=== PATIENT | female | born 2000 | race Hispanic/Latino ===

== ENCOUNTER 2018-02-12 09:27 | Emergency (ER) | payer OTHER ==
[2018-02-12 10:22] LABS: Urine Blood TRACE (NEG); Urine Glucose NEGATIVE (NEG); Urine Protein NEGATIVE (NEG); Urine Specific Gravity 1.025 (1.005-1.030)
--- NOTE | 2018-02-12 10:48 | ER ---
Nurse's Notes [facility] Name: Carlita Atkinson Age: 17 yrs Sex: Female : 2000 Arrival Date: 02/12/2018 Time: 09:31 Bed 18 Private MD: None, None Diagnosis: Urinary tract infection, site not specified Presentation: 02/12 09:43 Presenting complaint: Patient states: has had pain with urination X 2 days, denies n/v iw or fever. Transition of care: patient was not received from another setting of care. Onset of symptoms was February 10, 2018. Risk Assessment: Do you want to hurt yourself or someone else? Patient reports no desire to harm self or others. Initial Sepsis Screen: Does the patient meet any 2 criteria? No. Patient's initial sepsis screen is negative. Does the patient have a suspected source of infection? No. Patient's initial sepsis screen is negative. Care prior to arrival: None. 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 - Social history:: Smoking status: Patient/guardian denies using tobacco. - Ebola Screening: : Patient negative for fever greater than or equal to 101.5 degrees Fahrenheit, and additional compatible Ebola Virus Disease symptoms Patient denies exposure to infectious person Patient denies travel to an Ebola-affected area in the 21 days before illness onset No symptoms or risks identified at this time. - Family history:: not pertinent. - Hospitalizations: : No recent hospitalization is reported. Screenin:45 Abuse screen: Denies threats or abuse. Denies injuries from another. Nutritional hb screening: No deficits noted. Tuberculosis screening: No symptoms or risk factors identified. Fall Risk None identified. Assessment: 09:40 General: Appears in no apparent distress. Behavior is calm, cooperative. Pain: Pain hb currently is 3 out of 10 on a pain scale. Neuro: Level of Consciousness is awake, alert, obeys commands, Oriented to person, place, time, situation. Cardiovascular: Capillary refill < 3 seconds Patient's skin is warm and dry. Respiratory: Airway is patent Trachea midline Respiratory effort is even, unlabored, Respiratory pattern is regular, symmetrical. : Reports pain in suprapubic area with urination. 10:30 Reassessment: Patient appears in no apparent distress at this time. No changes from hb previously documented assessment. Patient and/or family updated on plan of care and expected duration. Pain level reassessed. Patient is alert, oriented x 3, equal unlabored respirations, skin warm/dry/pink. Vital Signs: 10:46 BP 113 / 61; Pulse 59; Resp 16; Temp 98.2(O); Pulse Ox 98% on R/A; hb ED Course: 09:31 Patient arrived in ED. mr 09:31 None, None is Private Physician. mr 09:43 Chata Barrientos, RN is Primary Nurse. hb 09:45 Triage completed. iw 09:45 Patient has correct armband on for positive identification. Bed in low position. Call hb light in reach. Side rails up X 1. 09:45 Arm band placed on right wrist. hb 09:50 [facility] kav 09:50 Blayne Cottrell MD is Attending Physician. kav 11:08 No provider procedures requiring assistance completed. Patient did not have IV access hb during this emergency room visit. Administered Medications: No medications were administered Outcome: 10:48 Discharge ordered by . kav 11:08 Discharged to home ambulatory. hb 11:08 Condition: stable 11:08 Discharge instructions given to patient, Instructed on discharge instructions, follow up and referral plans. medication usage, Demonstrated understanding of instructions, follow-up care, medications, Prescriptions given X 1. 11:09 Patient left the ED. hb Signatures: Sabrina Chang FNP FNP kav Rivera, Maria mr Williams, Irene, RN RN Chata Barrientos RN RN hb
--- NOTE | 2018-02-12 10:48 | EDPHYS ---
Physician Documentation [facility] Name: Carlita Atkinson Age: 17 yrs Sex: Female : 2000 Arrival Date: 02/12/2018 Time: 09:31 Bed 18 Private MD: None, None ED Physician Blayne Cottrell HPI: 02/12 10:44 This 17 yrs old Female presents to ER via Ambulatory with complaints of kav Urinary Problem. 10:44 Onset: The symptoms/episode began/occurred acutely, 1 day(s) ago. Associated signs and kav symptoms: Pertinent positives: dysuria, Pertinent negatives: abdominal pain, fever. Modifying factors: The patient symptoms are alleviated by "...Cranberry Juice". The patient has experienced a previous episode, approximately 1 years ago. 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 - Social history:: Smoking status: Patient/guardian denies using tobacco. - Ebola Screening: : Patient negative for fever greater than or equal to 101.5 degrees Fahrenheit, and additional compatible Ebola Virus Disease symptoms Patient denies exposure to infectious person Patient denies travel to an Ebola-affected area in the 21 days before illness onset No symptoms or risks identified at this time. - Family history:: not pertinent. - Hospitalizations: : No recent hospitalization is reported. ROS: 10:44 Constitutional: Negative for fever, chills, and weight loss, Eyes: Negative for injury, kav pain, redness, and discharge, ENT: Negative for injury, pain, and discharge, Neck: Negative for injury, pain, and swelling, Cardiovascular: Negative for chest pain, palpitations, and edema, Respiratory: Negative for shortness of breath, cough, wheezing, and pleuritic chest pain, Abdomen/GI: Negative for abdominal pain, nausea, vomiting, diarrhea, and constipation, Back: Negative for injury and pain, MS/Extremity: Negative for injury and deformity, Skin: Negative for injury, rash, and discoloration, Neuro: Negative for headache, weakness, numbness, tingling, and seizure, Psych: Negative for depression, anxiety, suicide ideation, homicidal ideation, and hallucinations, Allergy/Immunology: Negative for hives, rash, and allergies, Endocrine: Negative for neck swelling, polydipsia, polyuria, polyphagia, and marked weight changes, Hematologic/Lymphatic: Negative for swollen nodes, abnormal bleeding, and unusual bruising. 10:44 : Positive for urinary symptoms, urinary frequency, burning with urination, Negative for pelvic pain, bladder incontinence. Exam: 10:44 Constitutional: This is a well developed, well nourished patient who is awake, alert, kav and in no acute distress. Head/Face: Normocephalic, atraumatic. Eyes: Pupils equal round and reactive to light, extra-ocular motions intact. Lids and lashes normal. Conjunctiva and sclera are non-icteric and not injected. Cornea within normal limits. Periorbital areas with no swelling, redness, or edema. ENT: Nares patent. No nasal discharge, no septal abnormalities noted. Tympanic membranes are normal and external auditory canals are clear. Oropharynx with no redness, swelling, or masses, exudates, or evidence of obstruction, uvula midline. Mucous membranes moist. Neck: Trachea midline, no thyromegaly or masses palpated, and no cervical lymphadenopathy. Supple, full range of motion without nuchal rigidity, or vertebral point tenderness. No Meningismus. Chest/axilla: Normal chest wall appearance and motion. Nontender with no deformity. No lesions are appreciated. Cardiovascular: Regular rate and rhythm with a normal S1 and S2. No gallops, murmurs, or rubs. Normal PMI, no JVD. No pulse deficits. Respiratory: Lungs have equal breath sounds bilaterally, clear to auscultation and percussion. No rales, rhonchi or wheezes noted. No increased work of breathing, no retractions or nasal flaring. Abdomen/GI: Soft, non-tender, with normal bowel sounds. No distension or tympany. No guarding or rebound. No evidence of tenderness throughout. Back: No spinal tenderness. No costovertebral tenderness. Full range of motion. Skin: Warm, dry with normal turgor. Normal color with no rashes, no lesions, and no evidence of cellulitis. MS/ Extremity: Pulses equal, no cyanosis. Neurovascular intact. Full, normal range of motion. Neuro: Awake and alert, GCS 15, oriented to person, place, time, and situation. Cranial nerves II-XII grossly intact. Motor strength 5/5 in all extremities. Sensory grossly intact. Cerebellar exam normal. Normal gait. Psych: Awake, alert, with orientation to person, place and time. Behavior, mood, and affect are within normal limits. 10:44 : CVA tenderness, is absent, Bladder: is normal, Sexual behavior: the patient is sexually active, and reports a single partner. Vital Signs: 10:46 BP 113 / 61; Pulse 59; Resp 16; Temp 98.2(O); Pulse Ox 98% on R/A; hb MDM: 09:50 Medical screening is not applicable. ka 10:44 Data reviewed: vital signs, nurses notes, lab test result(s), urinalysis. kav 10:47 Data reviewed: lab test result(s), urinalysis, bacteruria, hematuria. [facility] 02/12 09:59 Order name: Urine Dipstick--Ancillary (enter results); Complete Time: 10:47 ag 02/12 10:47 Interpretation: Normal except: UBLD TRACE; UESTR TRACE. [facility] 02/12 09:59 Order name: Urine --Ancillary (enter results); Complete Time: 10:47 ag 02/12 10:47 Interpretation: Within normal limits. [facility] 02/12 09:51 Order name: Urine Dipstick-Ancillary (obtain specimen); Complete Time: 09:54 kav 02/12 09:51 Order name: Urine Test (obtain specimen); Complete Time: 09:55 kav Administered Medications: No medications were administered Disposition: 11:46 Co-signature as Attending Physician, Blayne Cottrell MD I agree with the assessment and kdr plan of care. Disposition: 02/12/18 10:48 Discharged to Home. Impression: Urinary tract infection, site not specified. - Condition is Stable. - Discharge Instructions: Urinary Tract Infection, [id number], Antibiotic Use, [id number]-[id number]. - Prescriptions for Bactrim DS 800- 160 mg Oral Tablet - take 1 tablet by ORAL route every 12 hours for 10 days; 20 tablet. - Medication Reconciliation Form, Thank You Letter, Antibiotic Education, Prescription Opioid Use, Work release form form. - Follow up: Private Physician; When: 5 - 6 days; Reason: If symptoms return, Recheck today's complaints, Continuance of care, Re-evaluation by your physician. - Problem is new. - Symptoms are unchanged. - Notes: ensure adequate hydration and good hand hygeine post-coital urination recomended Signatures: Dispatcher [employer] EDMS Blayne Cottrell MD MD kdr Vern, Katherine, SOCIAL WORKER AIDE SOCIAL WORKER AIDE Arti Hernandez RN RN Chata Barrientos RN RN hb Corrections: (The following items were deleted from the chart) 11:09 10:48 02/12/2018 10:48 Discharged to Home. Impression: Urinary tract infection, site hb not specified. Condition is Stable. Forms are Medication Reconciliation Form, Thank You Letter, Antibiotic Education, Prescription Opioid Use. Follow up: Private Physician; When: 5 - 6 days; Reason: If symptoms return, Recheck today's complaints, Continuance of care, Re-evaluation by your physician. Problem is new. Symptoms are unchanged. kahua
== END 2018-02-12 11:09 | disposition home or self-care (01) ==
LOC: ER 09:27
DX: N39.0 Urinary tract infection, site not specified (principal)
CPT/HCPCS: 81003; 81025; 99282

== ENCOUNTER 2018-02-14 21:43 | Emergency (ER) | payer OTHER ==
--- NOTE | 2018-02-14 23:38 | EDPHYS ---
Physician Documentation [facility] Name: Carlita Atkinson Age: 17 yrs Sex: Female : 2000 Arrival Date: 02/14/2018 Time: 21:44 Bed 4 Private MD: ED Physician Chau Al HPI: 02/14 22:40 This 17 yrs old Female presents to ER via Ambulatory with complaints of Rash. rh1 22:40 The patient's rash thought to be caused by an unknown cause. The rash is located on the rh1 left rodriguez. The rash can be described as erythematous, patchy. Onset: The symptoms/episode began/occurred today. Associated signs and symptoms: Pertinent positives: itching, Pertinent negatives: difficulty breathing, fever, nausea, Pain swelling of lips, swelling of throat, swelling of tongue, vomiting, wheezing. Severity of symptoms: At their worst the symptoms were mild in the emergency department the symptoms are unchanged. The patient has not experienced similar symptoms in the past. The patient has not recently seen a physician. She reports abraised area at left lower leg present for the past 3 days, and is unsure of what caused it. She has been putting abx ointment on area for the past several days. Today she noticed a rash surrounding abrasion, with itching and tenderness. She denies any fever/chills, no other areas of rash noted.. 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 - Social history:: Smoking status: Patient/guardian denies using tobacco. - Ebola Screening: : Patient denies travel to an Ebola-affected area in the 21 days before illness onset. ROS: 22:40 Constitutional: Negative for fever rh1 22:40 Skin: Positive for abrasion(s), cellulitis, erythema, Negative for abscesses. 22:40 Neuro: Negative for numbness, tingling. 22:40 All other systems are negative. Exam: 22:40 Constitutional: This is a well developed, well nourished patient who is awake, alert, rh1 and in no acute distress. Head/Face: Normocephalic, atraumatic. Cardiovascular: Regular rate and rhythm with a normal S1 and S2. No gallops, murmurs, or rubs. No JVD. No pulse deficits. Respiratory: Lungs have equal breath sounds bilaterally, clear to auscultation. No rales, rhonchi or wheezes noted. No increased work of breathing. Abdomen/GI: Soft, non-tender, with normal bowel sounds. No distension. No guarding or rebound. No evidence of tenderness throughout. Back: No spinal tenderness. No costovertebral tenderness. Full range of motion. MS/ Extremity: Pulses equal, no cyanosis. Neurovascular intact. Full, normal range of motion. 22:40 Skin: cellulitis, that is minimal, that is mild, folliculitis surrounding abaised area, induration, that is mild is noted, Other at abraised area, injury, abrasion(s), small abrasion noted, 1.5 cm(s). 22:40 Neuro: Orientation: is normal, to person, place \T\ time. Mentation: is normal, lucid, able to follow commands, Motor: is normal, moves all fours, strength is 5/5 in all extremities, Sensation: is normal, no obvious gross deficits, numbness, is not appreciated, tingling, is not appreciated, Gait: is steady, at a normal pace, without difficulty. Vital Signs: 22:04 BP 127 / 94; Pulse 91; Resp 18; Temp 98.1; Pulse Ox 98% on R/A; Weight 81.65 kg; Height aj1 5 ft. 4 in. (162.56 cm) (R); Pain 0/10; 23:55 BP 122 / 84; Pulse 89; Resp 16 S; Pulse Ox 98% on R/A; bb 22:04 Body Mass Index 30.90 (81.65 kg, 162.56 cm) aj1 MDM: 22:40 Patient medically screened. henrique 23:36 ED course: she is currently taking bactrim for a UTI - we discussed that is the rh1 appropriate abx for skin infection, so to continue that, as well as using antibiotic ointment at home; she will establish care with a PCP for follow up. 02/15 02:44 Data reviewed: vital signs, nurses notes, and as a result, I will discharge patient. rh1 Data interpreted: Pulse oximetry: on room air is 98 %. Interpretation: normal. Counseling: I had a detailed discussion with the patient and/or guardian regarding: the historical points, exam findings, and any diagnostic results supporting the discharge/admit diagnosis, the need for outpatient follow up, a family practitioner, to return to the emergency department if symptoms worsen or persist or if there are any questions or concerns that arise at home. Administered Medications: No medications were administered Disposition: 02/14/18 23:38 Discharged to Home. Impression: Cellulitis of left lower limb. - Condition is Stable. - Discharge Instructions: Cellulitis. - Work release form, Medication Reconciliation Form, Thank You Letter, Antibiotic Education, Prescription Opioid Use form. - Follow up: Private Physician; When: 1 - 2 days; Reason: Recheck today's complaints, Continuance of care, Re-evaluation by your physician. Follow up: Emergency Department; When: As needed; Reason: Fever > 102 F, If symptoms return, Trouble breathing, Worsening of condition. - Problem is new. - Symptoms are unchanged. Addendum: 02/16/2018 08:45 Co-signature as Attending Physician, Chau Al MD I agree with the assessment and c grier plan of care. Signatures: Iraida Mayen RN RN aj1 Chau Al MD MD cha Ballard, Brenda, RN RN bb Cecile Islas, SHAKIR PROFESSIONAL BENEFITS SALES CONSULTANT rh1 Corrections: (The following items were deleted from the chart) 02/14 23:56 23:38 02/14/2018 23:38 Discharged to Home. Impression: Cellulitis of left lower limb. bb Condition is Stable. Forms are Medication Reconciliation Form, Thank You Letter, Antibiotic Education, Prescription Opioid Use. Follow up: Private Physician; When: 1 - 2 days; Reason: Recheck today's complaints, Continuance of care, Re-evaluation by your physician. Follow up: Emergency Department; When: As needed; Reason: Fever > 102 F, If symptoms return, Trouble breathing, Worsening of condition. Problem is new. Symptoms are unchanged. rh1
--- NOTE | 2018-02-14 23:38 | ER ---
Nurse's Notes [facility] Name: Carlita Atkinson Age: 17 yrs Sex: Female : 2000 Arrival Date: 02/14/2018 Time: 21:44 Bed 4 Private MD: Diagnosis: Cellulitis of left lower limb Presentation: 02/14 22:01 Presenting complaint: Patient states: "I have this red spot on my leg I don't know what aj1 it is, but it keeps spreading." Redness noted to left rodriguez. Denies fever. Transition of care: patient was not received from another setting of care. Onset of symptoms was February 10, 2018. Risk Assessment: Do you want to hurt yourself or someone else? Patient reports no desire to harm self or others. Initial Sepsis Screen: Does the patient meet any 2 criteria? No. Patient's initial sepsis screen is negative. Does the patient have a suspected source of infection? No. Patient's initial sepsis screen is negative. Care prior to arrival: None. 22:01 Method Of Arrival: Ambulatory aj1 22:01 Acuity: YOU 4 aj1 Triage Assessment: 22:04 General: Appears in no apparent distress. comfortable, Behavior is calm, cooperative, aj1 appropriate for age. Pain: Denies pain. 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 - Social history:: Smoking status: Patient/guardian denies using tobacco. - Ebola Screening: : Patient denies travel to an Ebola-affected area in the 21 days before illness onset. Screenin:32 Abuse screen: Denies threats or abuse. Nutritional screening: No deficits noted. bb Tuberculosis screening: No symptoms or risk factors identified. Fall Risk None identified. Assessment: 22:32 General: Appears in no apparent distress. Behavior is calm, cooperative. Pain: bb Complains of pain in left leg. Neuro: Level of Consciousness is awake, alert, obeys commands, Oriented to person, place, time, situation. Cardiovascular: No deficits noted. Respiratory: Respiratory effort is even, unlabored. GI: No signs and/or symptoms were reported involving the gastrointestinal system. Derm: Wound noted left rodriguez Wound is abrasion with surrounding erythema. Musculoskeletal: Circulation, motion, and sensation intact. 23:55 Reassessment: Patient and/or family updated on plan of care and expected duration. Pain bb level reassessed. Patient is alert, oriented x 3, equal unlabored respirations, skin warm/dry/pink. pt verbalized understanding of and agrees to plan of care discharge instructions given pt ambulated with steady gait to exit. Vital Signs: 22:04 BP 127 / 94; Pulse 91; Resp 18; Temp 98.1; Pulse Ox 98% on R/A; Weight 81.65 kg; Height aj1 5 ft. 4 in. (162.56 cm) (R); Pain 0/10; 23:55 BP 122 / 84; Pulse 89; Resp 16 S; Pulse Ox 98% on R/A; bb 22:04 Body Mass Index 30.90 (81.65 kg, 162.56 cm) aj ED Course: 21:44 Patient arrived in ED. es 22:03 Triage completed. aj1 22:04 Arm band placed on Patient placed in waiting room, Patient notified of wait time. aj1 22:19 Cecile Islas NP is PHCP. rh1 22:19 Chau Al MD is Attending Physician. rh1 22:32 Patient has correct armband on for positive identification. Call light in reach. Adult bb w/ patient. 23:56 No provider procedures requiring assistance completed. Patient did not have IV access bb during this emergency room visit. Administered Medications: No medications were administered Outcome: 23:38 Discharge ordered by . rh1 23:56 Discharged to home ambulatory. bb 23:56 Condition: stable 23:56 Discharge instructions given to patient, Instructed on discharge instructions, follow up and referral plans. Demonstrated understanding of instructions, follow-up care. 23:56 Patient left the ED. bb Signatures: Iraida Mayen RN RN aj1 Leola Vega Brenda, RN RN bb Cecile Islas, SHAKIR LASERIST [facility]
== END 2018-02-14 23:56 | disposition home or self-care (01) ==
LOC: ER 21:43
DX: L03.116 Cellulitis of left lower limb (principal)
CPT/HCPCS: 99281

== ENCOUNTER 2018-03-01 20:40 | Emergency (ER) | payer OTHER ==
[2018-03-01] MEDS ORDERED: NA CHLORIDE 0.9% 1,000 ML ONE (21:13)
[2018-03-01 21:38] LABS: Urine Blood NEGATIVE (NEG); Urine Glucose NEGATIVE (NEG); Urine Protein NEGATIVE (NEG); Urine Specific Gravity 1.025 (1.005-1.030); Urine pH 7.5 (5.0-7.0)
[2018-03-01 21:50] LABS: Urine Amorphous Sediment 4+ /HPF (NONE SEEN); Urine Bacteria <20 /HPF (<20); Urine Culture Reflex Order NOT NEEDED; Urine RBC NONE SEEN /HPF (NONE SEEN)
[2018-03-01] MEDS ORDERED: KETOROLAC 30 MG/ML INJ ONE (22:11)
[2018-03-01 22:17] LABS: Absolute Monocytes 0.5 K/uL (0.1-1.3); Absolute Neutrophil 8.3 K/uL (1.8-8.0); Basophils % 0.5 % (0-1.3); Eosinophils % 0.4 % (0-4.4); Hematocrit 37.2 % (36.0-45.0); Lymphocytes % 10.1 % (15.3-44.8); MCV 87.9 fL (80-100); MPV 8.1 fL (7.6-11.3); Monocytes % 4.6 % (3.3-12.3); RBC Red Blood Cell Count 4.24 M/uL (3.86-4.86)
[2018-03-01 22:35] LABS: ALT/SGPT 20 U/L (12-78); AST/SGOT 13 U/L (15-37); Albumin 3.8 g/dL (3.4-5.0); Alkaline Phosphatase 78 U/L (45-117); BUN Blood Urea Nitrogen 16 mg/dL (7-18); Bicarbonate 25 mmol/L (21-32); Bilirubin Direct < 0.1 mg/dL (0-0.2); Bilirubin Total 0.3 mg/dL (0.2-1.0); Glucose Level 114 mg/dL (74-106); Lipase 95 U/L (73-393); Potassium 3.6 mmol/L (3.5-5.1); Protein, Total 7.5 g/dL (6.4-8.2); Sodium Level 142 mmol/L (136-145)
--- NOTE | 2018-03-02 00:54 | EDPHYS ---
Physician Documentation [facility] Name: Carlita Atkinson Age: 17 yrs Sex: Female : 2000 Arrival Date: 03/01/2018 Time: 20:41 Bed 18 Private MD: ED Physician Blayne Cottrell HPI: 03/01 21:27 This 17 yrs old Female presents to ER via Ambulatory with complaints of pm1 Abdominal Pain. 21:27 The patient presents with abdominal pain in the lower abdomen. Onset: The pm1 symptoms/episode began/occurred 1 hour prior to arrival. The symptoms do not radiate. Associated signs and symptoms: Pertinent negatives: nausea, vomiting, and diarrhea, chest pain, dysuria, fever, shortness of breath. The symptoms are described as sharp. Modifying factors: The symptoms are alleviated by nothing, the symptoms are aggravated by nothing. Severity of pain: in the emergency department the pain has improved currently 5/10, at peak 8-9/10. The patient has not experienced similar symptoms in the past, history of ruptured ovarian cyst but symptoms were more severe. The patient has not recently seen a physician. 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 - Social history:: Smoking status: Patient/guardian denies using tobacco. - Ebola Screening: : Patient negative for fever greater than or equal to 101.5 degrees Fahrenheit, and additional compatible Ebola Virus Disease symptoms Patient denies exposure to infectious person. ROS: 22:30 Constitutional: Negative for fever, chills, and weight loss, Eyes: Negative for injury, pm1 pain, redness, and discharge, ENT: Negative for injury, pain, and discharge, Neck: Negative for injury, pain, and swelling, Cardiovascular: Negative for chest pain, palpitations, and edema, Respiratory: Negative for shortness of breath, cough, wheezing, and pleuritic chest pain. 22:30 Back: Negative for injury and pain, : Negative for injury, bleeding, discharge, and swelling, MS/Extremity: Negative for injury and deformity, Skin: Negative for injury, rash, and discoloration, Neuro: Negative for headache, weakness, numbness, tingling, and seizure. 22:30 Abdomen/GI: Positive for abdominal pain, of the right lower quadrant and left lower quadrant, Negative for nausea, vomiting, and diarrhea. Exam: 22:30 Constitutional: This is a well developed, well nourished patient who is awake, alert, pm1 and in no acute distress. Head/Face: Normocephalic, atraumatic. Neck: Trachea midline, no thyromegaly or masses palpated, and no cervical lymphadenopathy. Supple, full range of motion without nuchal rigidity, or vertebral point tenderness. No Meningismus. Chest/axilla: Normal chest wall appearance and motion. Nontender with no deformity. No lesions are appreciated. Cardiovascular: Regular rate and rhythm with a normal S1 and S2. No gallops, murmurs, or rubs. Normal PMI, no JVD. No pulse deficits. Respiratory: Lungs have equal breath sounds bilaterally, clear to auscultation and percussion. No rales, rhonchi or wheezes noted. No increased work of breathing, no retractions or nasal flaring. 22:30 Back: No spinal tenderness. No costovertebral tenderness. Full range of motion. Skin: Warm, dry with normal turgor. Normal color with no rashes, no lesions, and no evidence of cellulitis. MS/ Extremity: Pulses equal, no cyanosis. Neurovascular intact. Full, normal range of motion. 22:30 Abdomen/GI: Inspection: abdomen appears normal, Bowel sounds: normal, Palpation: soft, mild abdominal tenderness, in the left lower quadrant, mass, is not appreciated, rebound tenderness, is not appreciated. 22:30 Neuro: Orientation: is normal, Motor: is normal, moves all fours. Vital Signs: 20:58 BP 126 / 79; Pulse 86; Resp 16; Temp 98.0(O); Pulse Ox 99% on R/A; Weight 81.65 kg (M); bs1 Height 5 ft. 4 in. (162.56 cm); Pain 8/10; 21:58 BP 131 / 87; Pulse 81; Resp 16; Pulse Ox 99% on R/A; Pain 7/10; bs1 22:58 BP 128 / 88; Pulse 80; Resp 16; Pulse Ox 100% on R/A; bs1 23:58 BP 124 / 76; Pulse 79; Resp 17; Pulse Ox 99% on R/A; bs1 03/02 00:58 BP 126 / 78; Pulse 80; Resp 16; Temp 98.3(O); Pulse Ox 100% on R/A; Pain 5/10; bs1 03/01 20:58 Body Mass Index 30.90 (81.65 kg, 162.56 cm) bs1 Procedures: 03/01 21:45 Peripheral line: by aseptic technique a peripheral line was placed in the right pm1 antecubital vein, 22 gauge IV saline lock. Labs drawn and NS flush without resistance or pain. Placed with ultrasound guidance. MDM: 21:06 Patient medically screened. pm1 22:00 Differential diagnosis: appendicitis, Ectopic , Endometriosis, Ovarian cp Torsion, Peritonitis, Pelvic Inflammatory Disease, Pyelonephritis, Tubal Ovarian Abcess, urinary tract infection. 22:31 Data reviewed: vital signs. Data interpreted: Pulse oximetry: on room air is 99 %. pm1 Interpretation: normal. 03/02 00:17 ED course: Reevaluation: patient sitting in exam room legs crossed in no acute cp distress. Lower abdomen with mild tenderness to palpation on exam, no rebound tenderness noted.. 00:49 ED course: The patient does not appear to be uncomfortable at this time though she kdr rates her pain at a 7. Have attempted to call Dr. Mao at 1245 and left a message. Will have her follow-up in the next 48 hours or return if her s/s worsen. 03/01 21:03 Order name: Urine --Ancillary (enter results); Complete Time: 22:04 ms 03/02 00:02 Interpretation: Reviewed. 03/01 21:03 Order name: Urine Dipstick--Ancillary (enter results); Complete Time: 22:04 ms 03/02 00:01 Interpretation: Normal except: UPH 7.5. 03/01 21:07 Order name: Basic Metabolic Panel; Complete Time: 00:00 pm1 03/02 00:01 Interpretation: Normal except: GLUC 114. 03/01 21:07 Order name: CBC with Diff; Complete Time: 00:00 pm1 03/02 00:01 Interpretation: Normal except: MCV 87.9; MCH 30.0; BERT% 84.4; LYM% 10.1; NEUT A 8.3. 03/01 21:07 Order name: Hepatic Function; Complete Time: 00:00 pm1 03/02 00:01 Interpretation: Normal except: AST 13; GLOB 3.7; A/G 1.0. 03/01 21:07 Order name: Lipase; Complete Time: 00:00 pm1 03/01 21:07 Order name: Urine Microscopic Only; Complete Time: 22:04 pm1 03/02 00:01 Interpretation: Normal except: AMORPH 4+. cp 03/01 21:07 Order name: IV Saline Lock; Complete Time: 22:39 pm1 03/01 21:07 Order name: Labs collected and sent; Complete Time: 22:39 pm1 03/01 21:07 Order name: CT Abd/Pelvis - W/Contrast: IV contrast only; Complete Time: 15:19 pm1 Administered Medications: 03/01 22:10 Drug: NS 0.9% 1000 ml Route: IV; Rate: 1000 ml; Site: right antecubital; 1 03/02 01:06 Follow up: IV Status: Completed infusion bs1 03/01 22:10 Drug: TORadol 30 mg Route: IVP; Site: right antecubital; 1 03/02 01:06 Follow up: Response: No adverse reaction bs1 00:54 Drug: [place] 5 mg-325 mg 1 tabs Route: PO; bs1 01:06 Follow up: Response: No adverse reaction bs1 Disposition: 00:49 Co-signature as Attending Physician, Blayne Cottrell MD I agree with the assessment and kdr plan of care. Disposition: 03/02/18 00:54 Discharged to Home. Impression: Rupture ovarian cyst, abdominal/pelvic pain. - Condition is Stable. - Discharge Instructions: Abdominal Pain, Women, Abdominal Pain, Adult, [id number], Ovarian Cyst, [id number]. - Prescriptions for Tylenol- Codeine #3 300-30 mg Oral Tablet - take 2 tablets by ORAL route every 6 hours As needed Take one - two tablets every four to six hours as needed for pain.; 15 tablet. Zofran 4 mg Oral Tablet - take 1 tablet by ORAL route every 4-6 hours As needed; 10 tablet. - Medication Reconciliation Form, Thank You Letter, Prescription Opioid Use form. - Follow up: Private Physician; When: 48 Hours; Reason: If symptoms return, Further diagnostic work-up, Recheck today's complaints, Continuance of care, Re-evaluation by your physician. Follow up: Dahlia Morocho MD; When: 48 Hours; Reason: If symptoms return, Further diagnostic work-up, Recheck today's complaints, Continuance of care, Re-evaluation by your physician. - Problem is new. - Symptoms have improved. Signatures: Dispatcher [employer] [facility] Blayne Cottrell MD MD kdr Chau Carrillo PA PA cp Russell Edouard, CANVAS CUTTER MACHINE CANVAS CUTTER MACHINE pm1 Saundra Castillo RN RN bs1 Corrections: (The following items were deleted from the chart) 03/01 22:15 21:08 Creatinine for Radiology+C.LAB.BRZ ordered. [facility] 03/02 01:08 00:54 03/02/2018 00:54 Discharged to Home. Impression: Rupture ovarian cyst, bs1 abdominal/pelvic pain. Condition is Stable. Forms are Medication Reconciliation Form, Thank You Letter, Antibiotic Education, Prescription Opioid Use. Follow up: Private Physician; When: 48 Hours; Reason: If symptoms return, Further diagnostic work-up, Recheck today's complaints, Continuance of care, Re-evaluation by your physician. Follow up: Dahlia Morocho; When: 48 Hours; Reason: If symptoms return, Further diagnostic work-up, Recheck today's complaints, Continuance of care, Re-evaluation by your physician. Problem is new. Symptoms have improved. kdr
--- NOTE | 2018-03-02 00:54 | ER ---
Nurse's Notes [facility] Name: Carlita Atkinson Age: 17 yrs Sex: Female : 2000 Arrival Date: 03/01/2018 Time: 20:41 Bed 18 Private MD: Diagnosis: Rupture ovarian cyst, abdominal/pelvic pain Presentation: 03/01 20:56 Presenting complaint: Patient states: "I started having really bad pains in my lower bs1 stomach about an hour ago."Patient denies and diarrhea/nausea/vomiting. Transition of care: patient was not received from another setting of care. Onset of symptoms was March 01, 2018 at 19:30. Risk Assessment: Do you want to hurt yourself or someone else? Patient reports no desire to harm self or others. Initial Sepsis Screen: Does the patient meet any 2 criteria? No. Patient's initial sepsis screen is negative. Does the patient have a suspected source of infection? No. Patient's initial sepsis screen is negative. Care prior to arrival: None. 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 - Social history:: Smoking status: Patient/guardian denies using tobacco. - Ebola Screening: : Patient negative for fever greater than or equal to 101.5 degrees Fahrenheit, and additional compatible Ebola Virus Disease symptoms Patient denies exposure to infectious person. Screenin/16 01:04 Abuse screen: Denies threats or abuse. Denies injuries from another. Nutritional bs1 screening: No deficits noted. Tuberculosis screening: No symptoms or risk factors identified. Fall Risk None identified. Assessment: 03/01 21:00 General: Appears in no apparent distress. uncomfortable, Behavior is calm, cooperative, bs1 appropriate for age. Pain: Complains of pain in bilateral lower abdominal pain. Neuro: Level of Consciousness is awake, alert, obeys commands, Oriented to person, place, time, situation, Appropriate for age Mine Technician are equal bilaterally. Cardiovascular: Denies chest pain, shortness of breath, Heart tones S1 S2 present Capillary refill < 3 seconds Patient's skin is warm and dry. Respiratory: Airway is patent Trachea midline Respiratory effort is even, unlabored, Respiratory pattern is regular, symmetrical, Breath sounds are clear bilaterally. GI: Abdomen is round non-distended, Bowel sounds present X 4 quads. Abdomen is tender to palpation in right lower quadrant and left lower quadrant. EENT: No signs and/or symptoms were reported regarding the EENT system. Derm: Skin is intact. Musculoskeletal: Circulation, motion, and sensation intact. Capillary refill < 3 seconds, Range of motion: intact in all extremities. 21:00 : Reports burning with urination. bs1 22:00 Reassessment: Patient appears in no apparent distress at this time. No changes from bs1 previously documented assessment. Patient and/or family updated on plan of care and expected duration. Pain level reassessed. Patient is alert, oriented x 3, equal unlabored respirations, skin warm/dry/pink. Pending CT. 23:30 Reassessment: Patient appears in no apparent distress at this time. Patient and/or bs1 family updated on plan of care and expected duration. Pain level reassessed. Patient is alert, oriented x 3, equal unlabored respirations, skin warm/dry/pink. Pending CT results. 03/02 00:45 Reassessment: Patient appears in no apparent distress at this time. Patient and/or bs1 family updated on plan of care and expected duration. Pain level reassessed. Patient is alert, oriented x 3, equal unlabored respirations, skin warm/dry/pink. Patient states symptoms have improved. Vital Signs: 03/01 20:58 BP 126 / 79; Pulse 86; Resp 16; Temp 98.0(O); Pulse Ox 99% on R/A; Weight 81.65 kg (M); bs1 Height 5 ft. 4 in. (162.56 cm); Pain 8/10; 21:58 BP 131 / 87; Pulse 81; Resp 16; Pulse Ox 99% on R/A; Pain 7/10; bs1 22:58 BP 128 / 88; Pulse 80; Resp 16; Pulse Ox 100% on R/A; bs1 23:58 BP 124 / 76; Pulse 79; Resp 17; Pulse Ox 99% on R/A; bs1 03/02 00:58 BP 126 / 78; Pulse 80; Resp 16; Temp 98.3(O); Pulse Ox 100% on R/A; Pain 5/10; bs1 03/01 20:58 Body Mass Index 30.90 (81.65 kg, 162.56 cm) bs1 ED Course: 03/01 20:41 Patient arrived in ED. am2 20:44 Russell Edouard NP is PHCP. pm1 20:44 Blayne Cotrtell MD is Attending Physician. pm1 20:46 Saundra Castillo, RHINA is Primary Nurse. bs1 20:57 Triage completed. bs1 21:30 Missed attempt(s): 22 gauge in right wrist. By RHINA Arguello. bs1 21:31 Missed attempt(s): 22 gauge in left antecubital area. By RHINA Arguello. bs1 21:34 Missed attempt(s): 22 gauge in left antecubital area. mw2 21:45 Missed attempt(s): 22 gauge in left antecubital area. By NELLIE Waters. bs1 22:00 Inserted saline lock: 22 gauge in right antecubital area, using aseptic technique. bs1 Blood collected. Inserted by SHAKIR Wells via ultrasound. 22:04 PHCP role handed off by Russell Edouard NP cp 22:04 Chau Carrillo PA is PHCP. cp 22:14 Radiology exam delayed due to lab results not completed at this time. (BUN/Creatinine) cw1 Chris asked for labs before ct scan. 22:54 CT Abd/Pelvis - W/Contrast: IV contrast only In Process Unspecified. EDMS 23:00 Patient has correct armband on for positive identification. Bed in low position. Call bs1 light in reach. Side rails up X 1. 23:00 Warm blanket given. bs1 23:00 Arm band placed on left wrist. bs1 03/02 00:52 Dahlia Morocho MD is Referral Physician. kdr 01:04 No provider procedures requiring assistance completed. IV discontinued, bleeding bs1 controlled, No redness/swelling at site. Pressure dressing applied. Administered Medications: 03/01 22:10 Drug: NS 0.9% 1000 ml Route: IV; Rate: 1000 ml; Site: right antecubital; bs1 03/02 01:06 Follow up: IV Status: Completed infusion bs1 03/01 22:10 Drug: TORadol 30 mg Route: IVP; Site: right antecubital; bs1 03/02 01:06 Follow up: Response: No adverse reaction bs1 00:54 Drug: [place] 5 mg-325 mg 1 tabs Route: PO; bs1 01:06 Follow up: Response: No adverse reaction bs1 Outcome: 00:54 Discharge ordered by . kdr 01:05 Discharged to home ambulatory, with family. bs1 01:05 Condition: stable 01:05 Discharge instructions given to patient, Instructed on discharge instructions, follow up and referral plans. medication usage, Demonstrated understanding of instructions, follow-up care, medications, Prescriptions given X 2. 01:08 Patient left the ED. bs1 Signatures: Dispatcher [employer] EDMS Blayne Cottrell MD MD kdr Cathleen Dillon cw1 Chau Carrillo PA PA Russell Glover, MASTER BREWER MASTER BREWER pm1 Marixa Rodriguez am2 Saundra Castillo RN RN bs1 Richard Purdy mw2 Corrections: (The following items were deleted from the chart) 00:11 03/01 21:00 : No signs and/or symptoms were reported regarding the genitourinary bs1 system. bs1
[2018-03-02] MEDS ORDERED: HYDROCODONE/APAP 5/325 MG TAB ONE (00:55)
--- NOTE | 2018-03-02 09:08 | RAD REPORT ---
EXAM DESCRIPTION: CT - Abdomen Pelvis W Contrast - 03/01/2018 10:55 pm CLINICAL HISTORY: Abdominal pain/ lower abdominal pain COMPARISON: 2014 TECHNIQUE: Computed axial tomography of the abdomen pelvis was obtained. 100 cc Isovue-300 was admin istered intravenously. Oral contrast was not requested which limits evaluation of bowel.A preliminary report was generated by [employer] and reviewed prior to this dictation All CT scans are performed using dose optimization technique as appropriate and may include automated exposure control or mA/KV adjustment according to patient size. FINDINGS: The liver, spleen, pancreas, adrenal and kidneys appear unremarkable. There is no evidence of diverticulitis. The appendix is normal. A small to moderate amount of ascites is present with increased density compatible with blood. A 2 ce ntimeter irregularly-shaped left ovarian cyst is present. IMPRESSION: 2 centimeter irregularly-shaped left ovarian cyst probably has recently ruptured. A smal l to moderate amount of hemoperitoneum is present
== END 2018-03-02 01:08 | disposition home or self-care (01) ==
LOC: ER 20:40
PROC: 05HD33Z Insertion of Infusion Device into Right Cephalic Vein, Percutaneous Approach (ICD-10-PCS; principal; 2018-03-02)
DX: N83.299 Other ovarian cyst, unspecified side (principal)
CPT/HCPCS: 36415; 74177; 80048; 80076; 81003; 81015; 81025; 83690; 85025; 96361; 96374; 99284; J7030; Q9967

== ENCOUNTER 2018-05-28 06:00 | Emergency (ER) | payer OTHER, SELFPAY ==
--- NOTE | 2018-05-28 06:35 | ER ---
Nurse's Notes [facility] Name: Carlita Atkinson Age: 17 yrs Sex: Female : 2000 Arrival Date: 05/28/2018 Time: 06:07 Bed 20 Private MD: Diagnosis: Low back pain;Strain of muscle, fascia and tendon of lower back Presentation: 05/28 06:13 Presenting complaint: Patient states: "I hurt my back yesterday at work lifting a heavy jd3 box. I have scoliosis so I didn't know if I had hurt myself worse or not.". Transition of care: patient was not received from another setting of care. Onset of symptoms was May 28, 2018. Risk Assessment: Do you want to hurt yourself or someone else? Patient reports no desire to harm self or others. Initial Sepsis Screen: Does the patient meet any 2 criteria? No. Patient's initial sepsis screen is negative. Does the patient have a suspected source of infection? No. Patient's initial sepsis screen is negative. Care prior to arrival: None. 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 - Social history:: Smoking status: Patient/guardian denies using tobacco. - Ebola Screening: : Patient negative for fever greater than or equal to 101.5 degrees Fahrenheit, and additional compatible Ebola Virus Disease symptoms. Screenin:22 Abuse screen: Denies threats or abuse. Nutritional screening: No deficits noted. jd3 Tuberculosis screening: No symptoms or risk factors identified. Fall Risk Ambulatory Aid- None/Bed Rest/Nurse Assist (0 pts). Gait- Normal/Bed Rest/Wheelchair (0 pts) Mental Status- Oriented to own ability (0 pts). Total Leigh Fall Scale indicates No Risk (0-24 pts). Assessment: 06:20 General: Appears in no apparent distress. uncomfortable, Behavior is calm, cooperative, jd3 appropriate for age. Pain: Complains of pain in back Quality of pain is described as pinching. Neuro: Level of Consciousness is awake, alert, obeys commands, Oriented to person, place, time, situation, Appropriate for age. Cardiovascular: Denies chest pain, Capillary refill < 3 seconds Patient's skin is warm and dry. Respiratory: Airway is patent Respiratory effort is even, unlabored, Respiratory pattern is regular, symmetrical, Denies shortness of breath. GI: No signs and/or symptoms were reported involving the gastrointestinal system. : No signs and/or symptoms were reported regarding the genitourinary system. EENT: No signs and/or symptoms were reported regarding the EENT system. Derm: Skin is intact, Skin is dry, Skin is normal, Skin temperature is warm. Musculoskeletal: Circulation, motion, and sensation intact. Range of motion: intact in all extremities. 06:43 Reassessment: Patient appears in no apparent distress at this time. Patient and/or jd3 family updated on plan of care and expected duration. Pain level reassessed. Patient is alert, oriented x 3, equal unlabored respirations, skin warm/dry/pink. pt reported understanding of discharge instructions, even and steady gait upon discharge. Vital Signs: 06:19 BP 122 / 76; Pulse 72; Resp 16 S; Temp 97.7(O); Pulse Ox 98% on R/A; Weight 81.65 kg jd3 (R); Height 5 ft. 4 in. (162.56 cm) (R); Pain 8/10; 06:19 Body Mass Index 30.90 (81.65 kg, 162.56 cm) [facility] ED Course: 06:07 Patient arrived in ED. es 06:10 Russell Edouard NP is PHCP. pm1 06:10 Chau Al MD is Attending Physician. pm1 06:13 Ellis Tidwell RN is Primary Nurse. jd3 06:18 Triage completed. jd3 06:20 Arm band placed on. jd3 06:22 Patient has correct armband on for positive identification. Bed in low position. Call j light in reach. Side rails up X 1. 06:43 No provider procedures requiring assistance completed. Patient did not have IV access jd3 during this emergency room visit. Administered Medications: No medications were administered Outcome: 06:34 Discharge ordered by . pm1 06:43 Discharged to home ambulatory. jd3 06:43 Condition: stable 06:43 Discharge instructions given to patient, Instructed on discharge instructions, follow up and referral plans. medication usage, Demonstrated understanding of instructions, follow-up care, medications, Prescriptions given X 2. 06:44 Patient left the ED. jd3 Signatures: Leola Vega Patrick, NP DIRECTOR WRITING pm1 Ellis Tidwell RN RN jd3
--- NOTE | 2018-05-28 06:35 | EDPHYS ---
Physician Documentation [facility] Name: Carlita Atkinson Age: 17 yrs Sex: Female : 2000 Arrival Date: 05/28/2018 Time: 06:07 Bed 20 Private MD: ED Physician Chau Al HPI: 05/28 06:16 This 17 yrs old Female presents to ER via Unassigned with complaints of Back pm1 Pain. 06:16 The patient presents with pain that is acute. The symptoms are located in the low back. pm1 Onset: The symptoms/episode began/occurred yesterday. The pain does not radiate. Associated signs and symptoms: Pertinent negatives: dysuria, fever, incontinence, numbness, tingling, urinary retention, weakness. The problem was sustained when lifting boxes, heavy object. Modifying factors: The patient symptoms are alleviated by rest, the patient symptoms are aggravated by movement. Severity of symptoms: in the emergency department the symptoms are unchanged. The patient has experienced similar episodes in the past, multiple times. The patient has not recently seen a physician. Patient was at work yesterday and attempted to lift up a box that she thought was filled with bags but was filled with something heavy. Patient with low back pain after attempting to rock picker the box. Patient with pain like this in the past. Hx of scoliosis. 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 - Social history:: Smoking status: Patient/guardian denies using tobacco. - Ebola Screening: : Patient negative for fever greater than or equal to 101.5 degrees Fahrenheit, and additional compatible Ebola Virus Disease symptoms. ROS: 06:20 Constitutional: Negative for fever, chills, and weight loss, Eyes: Negative for injury, pm1 pain, redness, and discharge, ENT: Negative for injury, pain, and discharge, Neck: Negative for injury, pain, and swelling, Cardiovascular: Negative for chest pain, palpitations, and edema, Respiratory: Negative for shortness of breath, cough, wheezing, and pleuritic chest pain, Abdomen/GI: Negative for abdominal pain, nausea, vomiting, diarrhea, and constipation. 06:20 : Negative for injury, bleeding, discharge, and swelling, MS/Extremity: Negative for injury and deformity, Skin: Negative for injury, rash, and discoloration, Neuro: Negative for headache, weakness, numbness, tingling, and seizure. 06:20 Back: Positive for pain at rest, pain with movement, of the lumbar area. Exam: 06:20 Constitutional: This is a well developed, well nourished patient who is awake, alert, pm1 and in no acute distress. Head/Face: Normocephalic, atraumatic. Neck: Trachea midline, no thyromegaly or masses palpated, and no cervical lymphadenopathy. Supple, full range of motion without nuchal rigidity, or vertebral point tenderness. No Meningismus. Chest/axilla: Normal chest wall appearance and motion. Nontender with no deformity. No lesions are appreciated. Cardiovascular: Regular rate and rhythm with a normal S1 and S2. No gallops, murmurs, or rubs. No pulse deficits. Respiratory: Lungs have equal breath sounds bilaterally, clear to auscultation and percussion. No rales, rhonchi or wheezes noted. No increased work of breathing, no retractions or nasal flaring. Abdomen/GI: Soft, non-tender, with normal bowel sounds. No distension or tympany. No guarding or rebound. No evidence of tenderness throughout. 06:20 Skin: Warm, dry with normal turgor. Normal color with no rashes, no lesions, and no evidence of cellulitis. MS/ Extremity: Pulses equal, no cyanosis. Neurovascular intact. Full, normal range of motion. 06:20 Back: pain, that is mild, of the lumbar area, scoliosis that is moderate. 06:20 Neuro: Orientation: is normal, Mentation: is normal, Motor: moves all fours, strength is normal, strength is 5/5 in all extremities, Sensation: is normal, no obvious gross deficits, Deep tendon reflexes are 2+ (normal) in the right Achilles and left Achilles. Vital Signs: 06:19 BP 122 / 76; Pulse 72; Resp 16 S; Temp 97.7(O); Pulse Ox 98% on R/A; Weight 81.65 kg jd3 (R); Height 5 ft. 4 in. (162.56 cm) (R); Pain 03/27; 06:19 Body Mass Index 30.90 (81.65 kg, 162.56 cm) jd3 MDM: 06:13 Patient medically screened. pm1 06:20 Data reviewed: vital signs. Data interpreted: Pulse oximetry: on room air is 98 %. pm1 Interpretation: normal. 06:29 Counseling: I had a detailed discussion with the patient and/or guardian regarding: the pm1 historical points, exam findings, and any diagnostic results supporting the discharge/admit diagnosis, the need for outpatient follow up, a family practitioner, , to return to the emergency department if symptoms worsen or persist or if there are any questions or concerns that arise at home. 06:29 ED course: Patient without any trauma. Prior Hx of back pain with history of scoliosis. pm1 No radiculopathy and neurologic examination within normal limits to lower extremities. No imaging needed at this time, since x-ray would be of limited value without trauma. Patient advised to follow up with PCP for imaging such MRI if no improvement. 05/28 06:30 Order name: Urine Dipstick--Ancillary (enter results) eb 05/28 06:30 Order name: Urine --Ancillary (enter results) eb 05/28 06:16 Order name: Urine Dipstick-Ancillary (obtain specimen); Complete Time: 06:40 pm1 05/28 06:16 Order name: Urine Test (obtain specimen); Complete Time: 06:40 pm1 Administered Medications: No medications were administered Disposition: 05/28/18 06:34 Discharged to Home. Impression: Low back pain, Strain of muscle, fascia and tendon of lower back. - Condition is Stable. - Discharge Instructions: Back Pain, Adult, Muscle Strain, Back Injury Prevention, [id number]. - Prescriptions for Naprosyn 500 mg Oral Tablet - take 1 tablet by ORAL route 2 times per day take with food; 30 tablet. Cyclobenzaprine 10 mg Oral Tablet - take 1 tablet by ORAL route every 8 hours As needed; 30 tablet. - Work release form, Medication Reconciliation Form, Thank You Letter form. - Follow up: Emergency Department; When: As needed; Reason: Worsening of condition. Follow up: Private Physician; When: 2 - 3 days; Reason: Recheck today's complaints, Continuance of care, Re-evaluation by your physician. - Problem is new. - Symptoms have improved. Addendum: 05/29/2018 09:38 Co-signature as Attending Physician, Chau Al MD I agree with the assessment and c grier plan of care. Signatures: Dispatcher [employer] EDCT Chau Al MD MD cha Marinas, Patrick, FIBERGLASS INSULATION INSTALLER FIBERGLASS INSULATION INSTALLER pm1 Ellis Tidwell RN RN jd3 Corrections: (The following items were deleted from the chart) 05/28 06:44 06:34 05/28/2018 06:34 Discharged to Home. Impression: Low back pain; Strain of muscle, jd3 fascia and tendon of lower back. Condition is Stable. Forms are Medication Reconciliation Form, Thank You Letter, Antibiotic Education, Prescription Opioid Use. Follow up: Emergency Department; When: As needed; Reason: Worsening of condition. Follow up: Private Physician; When: 2 - 3 days; Reason: Recheck today's complaints, Continuance of care, Re-evaluation by your physician. Problem is new. Symptoms have improved. pm1
[2018-05-28 07:31] LABS: Urine Blood NEGATIVE (NEG); Urine Glucose NEGATIVE (NEG); Urine Protein NEGATIVE (NEG); Urine Specific Gravity 1.025 (1.005-1.030)
== END 2018-05-28 06:44 | disposition home or self-care (01) ==
LOC: ER 06:00
DX: S39.012A Strain of muscle, fascia and tendon of lower back, initial encounter (principal); M41.9 Scoliosis, unspecified; K21.9 Gastro-esophageal reflux disease without esophagitis; X50.0XXA Overexertion from strenuous movement or load, initial encounter; Y93.89 Activity, other specified; Y92.89 Other specified places as the place of occurrence of the external cause; Y99.8 Other external cause status
CPT/HCPCS: 81003; 81025; 99282

== ENCOUNTER 2018-06-05 14:18 | Emergency (ER) | payer OTHER ==
--- NOTE | 2018-06-05 15:04 | EDPHYS ---
Physician Documentation [facility] Name: Carlita Atkinson Age: 17 yrs Sex: Female : 2000 Arrival Date: 06/05/2018 Time: 14:19 Bed 12 Private MD: ED Physician Blayne Cottrell HPI: 06/05 15:00 This 17 yrs old Female presents to ER via Ambulatory with complaints of pm1 Urinary Problem. 15:00 The patient presents with urinary symptoms, dysuria. Onset: The symptoms/episode pm1 began/occurred 2 day(s) ago. Modifying factors: The symptoms are alleviated by prescription medications, macrobid, the symptoms are aggravated by urinating. Associated signs and symptoms: Pertinent negatives: fever, abdominal pain, flank pain. Severity of symptoms: in the emergency department the symptoms have improved, hematuria has improved, but has continued burning. The patient is sexually active. The patient has experienced similar episodes in the past, a few times. The patient has been recently seen by a physician: Dr. Morocho. Dr. Morocho called in a prescription for Macrobid and had the patient provide a urine specimen in the lab yesterday. Historical: - Allergies: 14:37 NKA; iw - Home Meds: 14:37 Macrobid 100 mg Oral cap 1 cap every 12 hours [Active]; iw - PMHx: 14:37 GERD; scoliosis; iw - PSHx: 14:37 None; iw - Immunization history:: Adult Immunizations not up to date. - Social history:: Smoking status: Patient/guardian denies using tobacco. - Ebola Screening: : Patient negative for fever greater than or equal to 101.5 degrees Fahrenheit, and additional compatible Ebola Virus Disease symptoms Patient denies exposure to infectious person Patient denies travel to an Ebola-affected area in the 21 days before illness onset No symptoms or risks identified at this time. ROS: 15:00 Positive for burning with urination, Negative for hematuria. pm1 15:00 Constitutional: Negative for fever, chills, and weight loss, Eyes: Negative for injury, pain, redness, and discharge, ENT: Negative for injury, pain, and discharge, Neck: Negative for injury, pain, and swelling, Cardiovascular: Negative for chest pain, palpitations, and edema, Respiratory: Negative for shortness of breath, cough, wheezing, and pleuritic chest pain, Abdomen/GI: Negative for abdominal pain, nausea, vomiting, diarrhea, and constipation, Back: Negative for injury and pain, MS/Extremity: Negative for injury and deformity, Skin: Negative for injury, rash, and discoloration. 15:00 Neuro: Negative for headache, weakness, numbness, tingling, and seizure. Exam: 15:00 Constitutional: This is a well developed, well nourished patient who is awake, alert, pm1 and in no acute distress. Head/Face: Normocephalic, atraumatic. Eyes: Pupils equal round and reactive to light, extra-ocular motions intact. Lids and lashes normal. Conjunctiva and sclera are non-icteric and not injected. Cornea within normal limits. Periorbital areas with no swelling, redness, or edema. ENT: Nares patent. No nasal discharge, no septal abnormalities noted. Tympanic membranes are normal and external auditory canals are clear. Oropharynx with no redness, swelling, or masses, exudates, or evidence of obstruction, uvula midline. Mucous membranes moist. Neck: Trachea midline, no thyromegaly or masses palpated, and no cervical lymphadenopathy. Supple, full range of motion without nuchal rigidity, or vertebral point tenderness. No Meningismus. Chest/axilla: Normal chest wall appearance and motion. Nontender with no deformity. No lesions are appreciated. Cardiovascular: Regular rate and rhythm with a normal S1 and S2. No gallops, murmurs, or rubs. Normal PMI, no JVD. No pulse deficits. Respiratory: Lungs have equal breath sounds bilaterally, clear to auscultation and percussion. No rales, rhonchi or wheezes noted. No increased work of breathing, no retractions or nasal flaring. Abdomen/GI: Soft, non-tender, with normal bowel sounds. No distension or tympany. No guarding or rebound. No evidence of tenderness throughout. Back: No spinal tenderness. No costovertebral tenderness. Full range of motion. Skin: Warm, dry with normal turgor. Normal color with no rashes, no lesions, and no evidence of cellulitis. MS/ Extremity: Pulses equal, no cyanosis. Neurovascular intact. Full, normal range of motion. 15:00 Neuro: Orientation: is normal, Motor: moves all fours. Vital Signs: 14:37 BP 123 / 79; Pulse 91; Resp 16; Temp 97.4; Pulse Ox 99% on R/A; Weight 81.65 kg; Height iw 5 ft. 4 in. (162.56 cm); Pain 8/10; 14:37 Body Mass Index 30.90 (81.65 kg, 162.56 cm) iw MDM: 14:56 Patient medically screened. pm1 14:56 Data reviewed: vital signs. Data interpreted: Pulse oximetry: on room air is 99 %. pm1 Interpretation: normal. 15:02 Counseling: I had a detailed discussion with the patient and/or guardian regarding: the pm1 historical points, exam findings, and any diagnostic results supporting the discharge/admit diagnosis, lab results, the need for outpatient follow up, to return to the emergency department if symptoms worsen or persist or if there are any questions or concerns that arise at home. 06/05 15:14 Order name: Urine Dipstick--Ancillary (enter results) 06/05 15:14 Order name: Urine --Ancillary (enter results) 06/05 14:56 Order name: Urine Dipstick-Ancillary (obtain specimen); Complete Time: 15:08 pm1 06/05 14:56 Order name: Urine Test (obtain specimen); Complete Time: 15:08 pm1 Administered Medications: 15:15 Drug: Rocephin (cefTRIAXone) 1 grams Route: IM; Site: right gluteus; ss 15:33 Follow up: Response: No adverse reaction; Pain is decreased ss Disposition: 16:24 Co-signature as Attending Physician, Blayne Cottrell MD I agree with the assessment and kdr plan of care. Disposition: 06/05/18 15:03 Discharged to Home. Impression: Urinary tract infection, site not specified. - Condition is Stable. - Discharge Instructions: Urinary Tract Infection, Adult. - Prescriptions for Pyridium 200 mg Oral Tablet - take 1 tablet by ORAL route every 8 hours for 3 days; 9 tablet. - Work release form, Medication Reconciliation Form, Thank You Letter, Antibiotic Education form. - Follow up: Emergency Department; When: As needed; Reason: Worsening of condition. Follow up: Private Physician; When: 2 - 3 days; Reason: Recheck today's complaints, Continuance of care, Re-evaluation by your physician. - Problem is new. - Symptoms have improved. - Notes: Continue taking the antibiotic medication that Dr. Morocho prescribed Signatures: Dispatcher [employer] EDMS Blayne Cottrell MD MD [facility] Arti Garcia RN RN Rae Quintero RN RN ss Russell Edouard, SHAKIR SOLDER MAKING LABORER pm1 Corrections: (The following items were deleted from the chart) 15:34 15:03 06/05/2018 15:03 Discharged to Home. Impression: Urinary tract infection, site ss not specified. Condition is Stable. Forms are Medication Reconciliation Form, Thank You Letter, Antibiotic Education, Prescription Opioid Use. Follow up: Emergency Department; When: As needed; Reason: Worsening of condition. Follow up: Private Physician; When: 2 - 3 days; Reason: Recheck today's complaints, Continuance of care, Re-evaluation by your physician. Problem is new. Symptoms have improved. pm1
--- NOTE | 2018-06-05 15:04 | ER ---
Nurse's Notes [facility] Name: Carlita Atkinson Age: 17 yrs Sex: Female : 2000 Arrival Date: 06/05/2018 Time: 14:19 Bed 12 Private MD: Diagnosis: Urinary tract infection, site not specified Presentation: 06/05 14:34 Presenting complaint: Patient states: c/o pain with urination since yesterday, blood in iw urine, called Dr. Ma, sent in a urine sample, was called in abx , started last abx night, now is wanting something to help with pain. Transition of care: patient was not received from another setting of care. Onset of symptoms was June 04, 2018. Risk Assessment: Do you want to hurt yourself or someone else? Patient reports no desire to harm self or others. Initial Sepsis Screen: Does the patient meet any 2 criteria? No. Patient's initial sepsis screen is negative. Does the patient have a suspected source of infection? No. Patient's initial sepsis screen is negative. Care prior to arrival: None. 14:34 Method Of Arrival: Ambulatory 14:34 Acuity: YOU 4 iw Historical: - Allergies: 14:37 NKA; iw - Home Meds: 14:37 Macrobid 100 mg Oral cap 1 cap every 12 hours [Active]; iw - PMHx: 14:37 GERD; scoliosis; iw - PSHx: 14:37 None; iw - Immunization history:: Adult Immunizations not up to date. - Social history:: Smoking status: Patient/guardian denies using tobacco. - Ebola Screening: : Patient negative for fever greater than or equal to 101.5 degrees Fahrenheit, and additional compatible Ebola Virus Disease symptoms Patient denies exposure to infectious person Patient denies travel to an Ebola-affected area in the 21 days before illness onset No symptoms or risks identified at this time. Screenin:43 Abuse screen: Denies threats or abuse. Denies injuries from another. Nutritional ss screening: No deficits noted. Tuberculosis screening: Never had TB. Fall Risk None identified. Assessment: 14:43 Reassessment: Pt ambulated to restroom with steady gait to obtain urine specimen. ss Neuro: Level of Consciousness is awake, alert, obeys commands, Oriented to person, place, time, situation, Speech is normal. Respiratory: Airway is patent Respiratory effort is even, unlabored, Respiratory pattern is regular, symmetrical. Derm: Skin is intact, is healthy with good turgor, Skin is dry, Skin is pink, warm \T\ dry. normal. 15:00 General: Appears in no apparent distress. comfortable, Behavior is calm, cooperative, ss Denies fever, feeling ill, fatigue, chills. Pain: Complains of pain in suprapubic area Pain currently is 8 out of 10 on a pain scale. : Reports burning with urination, since yesterday. EENT: Oral mucosa is moist. Musculoskeletal: Circulation, motion, and sensation intact. Range of motion: intact in all extremities. Vital Signs: 14:37 BP 123 / 79; Pulse 91; Resp 16; Temp 97.4; Pulse Ox 99% on R/A; Weight 81.65 kg; Height iw 5 ft. 4 in. (162.56 cm); Pain 8/10; 14:37 Body Mass Index 30.90 (81.65 kg, 162.56 cm) ED Course: 14:19 Patient arrived in ED. tw3 14:36 Triage completed. iw 14:37 Arm band placed on. iw 14:43 Rae Quintero, RHINA is Primary Nurse. ss 14:43 Patient has correct armband on for positive identification. Bed in low position. Call ss light in reach. 14:43 Patient maintains SpO2 saturation greater than 95% on room air. ss 14:55 Russell Edouard NP is PHCP. pm1 14:55 Blayne Cottrell MD is Attending Physician. pm1 15:33 No provider procedures requiring assistance completed. Patient did not have IV access ss during this emergency room visit. Administered Medications: 15:15 Drug: Rocephin (cefTRIAXone) 1 grams Route: IM; Site: right gluteus; ss 15:33 Follow up: Response: No adverse reaction; Pain is decreased ss Outcome: 15:03 Discharge ordered by . pm1 15:33 Discharged to home ambulatory. ss 15:33 Condition: good 15:33 Discharge instructions given to patient, Instructed on discharge instructions, follow up and referral plans. medication usage, Demonstrated understanding of instructions, follow-up care, medications, Prescriptions given X 1. 15:34 Patient left the ED. ss Signatures: Arti Garcia RN RN iw Rae Quintero, RN RN ss Russell Edouard, UTILITY SALES AND SERVICE MANAGER UTILITY SALES AND SERVICE MANAGER pm1 [place], Genna tw3
[2018-06-05] MEDS ORDERED: CEFTRIAXONE 1000 MG/VIAL ONE (15:16)
[2018-06-05] MEDS ORDERED: LIDOCAINE 1% MPF 5 ML VIAL ONE (15:16)
[2018-06-05 16:00] LABS: Urine Blood TRACE (NEG); Urine Glucose NEGATIVE (NEG); Urine Protein NEGATIVE (NEG); Urine Specific Gravity 1.025 (1.005-1.030); Urine pH 5.5 (5.0-7.0)
== END 2018-06-05 15:34 | disposition home or self-care (01) ==
LOC: ER 14:18
DX: N39.0 Urinary tract infection, site not specified (principal)
CPT/HCPCS: 81003; 81025; 96372; 99284

== ENCOUNTER 2018-06-11 11:03 | Emergency (ER) | payer OTHER ==
[2018-06-11 12:03] LABS: Absolute Monocytes 0.5 K/uL (0.1-1.3); Absolute Neutrophil 4.8 K/uL (1.8-8.0); Basophils % 0.8 % (0-1.3); Eosinophils % 2.6 % (0-4.4); Hematocrit 39.4 % (36.0-45.0); Lymphocytes % 15.7 % (15.3-44.8); MPV 8.3 fL (7.6-11.3); Monocytes % 7.3 % (3.3-12.3); RBC Red Blood Cell Count 4.48 M/uL (3.86-4.86)
[2018-06-11 13:35] LABS: BUN Blood Urea Nitrogen 12 mg/dL (7-18); Bicarbonate 25 mmol/L (21-32); Glucose Level 94 mg/dL (74-106); Potassium 3.9 mmol/L (3.5-5.1); Sodium Level 141 mmol/L (136-145)
--- NOTE | 2018-06-11 13:51 | ER ---
Nurse's Notes [facility] Name: Carlita Atkinson Age: 17 yrs Sex: Female : 2000 Arrival Date: 06/11/2018 Time: 11:03 Bed 18 Private MD: Diagnosis: Gastro-esophageal reflux disease Presentation: 06/11 11:23 Presenting complaint: Patient states: "I've been throwing up for the past 3 days on and aj1 off and I've been having really bad heartburn like acid reflux" Reports that she has been taking Tums and that "helps for the most part" Reports abdominal pain when she throws up. Denies fever. Transition of care: patient was not received from another setting of care. Onset of symptoms was June 08, 2018. Risk Assessment: Do you want to hurt yourself or someone else? Patient reports no desire to harm self or others. Initial Sepsis Screen: Does the patient meet any 2 criteria? No. Patient's initial sepsis screen is negative. Does the patient have a suspected source of infection? No. Patient's initial sepsis screen is negative. Care prior to arrival: None. 11:23 Method Of Arrival: Ambulatory aj 11:23 Acuity: YOU 3 aj1 Triage Assessment: 11:25 General: Appears in no apparent distress. comfortable, Behavior is calm, cooperative, aj1 appropriate for age. Pain: Pain currently is 5 out of 10 on a pain scale. Neuro: Level of Consciousness is awake, alert, obeys commands. Cardiovascular: Patient's skin is warm and dry. Respiratory: Airway is patent Respiratory effort is even, unlabored, Respiratory pattern is regular, symmetrical. GI: Reports indigestion, vomiting. 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 - Social history:: Smoking status: Patient/guardian denies using tobacco. - Ebola Screening: : Patient denies travel to an Ebola-affected area in the 21 days before illness onset. Screenin:56 Abuse screen: Denies threats or abuse. Nutritional screening: No deficits noted. tw2 Tuberculosis screening: No symptoms or risk factors identified. Fall Risk None identified. Assessment: 11:50 General: Appears in no apparent distress. Behavior is calm, cooperative, appropriate tw2 for age. Pain: Denies pain. Neuro: Level of Consciousness is awake, alert, obeys commands, Oriented to person, place, time, situation. Cardiovascular: Denies chest pain, shortness of breath, Heart tones S1 S2 Capillary refill < 3 seconds Patient's skin is warm and dry. Respiratory: Airway is patent Respiratory effort is even, unlabored, Respiratory pattern is regular, symmetrical, Breath sounds are clear bilaterally. GI: Reports nausea, vomiting. GI: Abdomen is flat, Bowel sounds present X 4 quads. : No signs and/or symptoms were reported regarding the genitourinary system. EENT: No signs and/or symptoms were reported regarding the EENT system. Derm: No signs and/or symptoms reported regarding the dermatologic system. Musculoskeletal: Range of motion: intact in all extremities. 12:27 Reassessment: Patient appears in no apparent distress at this time. No changes from tw2 previously documented assessment. Patient and/or family updated on plan of care and expected duration. Pain level reassessed. Patient is alert, oriented x 3, equal unlabored respirations, skin warm/dry/pink. 13:26 Reassessment: Patient appears in no apparent distress at this time. No changes from tw2 previously documented assessment. Patient and/or family updated on plan of care and expected duration. Pain level reassessed. Patient is alert, oriented x 3, equal unlabored respirations, skin warm/dry/pink. 13:56 Reassessment: Patient appears in no apparent distress at this time. No changes from tw2 previously documented assessment. Patient and/or family updated on plan of care and expected duration. Pain level reassessed. Patient is alert, oriented x 3, equal unlabored respirations, skin warm/dry/pink. Vital Signs: 11:25 BP 130 / 79; Pulse 70; Resp 18; Temp 98.9; Pulse Ox 99% on R/A; Weight 81.65 kg (R); aj1 Height 5 ft. 4 in. (162.56 cm) (R); Pain 5/10; 12:27 BP 118 / 78; Pulse 66; Resp 17; Pulse Ox 99% on R/A; tw2 13:26 BP 112 / 75; Pulse 77; Resp 17; Pulse Ox 99% on R/A; tw2 11:25 Body Mass Index 30.90 (81.65 kg, 162.56 cm) aj1 ED Course: 11:03 Patient arrived in ED. as 11:10 Tara Serrano FNP-C is [facility]. kb 11:10 Tarik Roth MD is Attending Physician. kb 11:25 Triage completed. aj1 11:25 Arm band placed on Patient placed in waiting room, Patient notified of wait time. aj1 11:46 Sis Mcphesron, RN is Primary Nurse. tw2 11:50 Pulse ox on. NIBP on. tw2 12:03 Inserted saline lock: 20 gauge in left antecubital area, using aseptic technique. Blood tw2 collected. 13:57 No provider procedures requiring assistance completed. IV discontinued, intact, tw2 bleeding controlled, No redness/swelling at site. Pressure dressing applied. 14:42 Bed in low position. Call light in reach. tw2 Administered Medications: No medications were administered Outcome: 13:51 Discharge ordered by MD. kb 13:57 Patient left the ED. tw2 13:57 Discharged to home ambulatory. tw2 13:57 Condition: stable 13:57 Discharge instructions given to patient, Instructed on discharge instructions, follow up and referral plans. Demonstrated understanding of instructions, follow-up care. Signatures: Tara Serrano FNP-C [employer]-Ckb Iraida Mayen, RN RN aj1 Radha Vale as Sis Mcpherson, RN RN tw2 Corrections: (The following items were deleted from the chart) 12:28 12:27 BP 118 / 78; Pulse 66bpm; Resp 17bpm; Pulse Ox 99% RA; tw2 tw2
--- NOTE | 2018-06-11 13:51 | EDPHYS ---
Physician Documentation [facility] Name: Carlita Atkinson Age: 17 yrs Sex: Female : 2000 Arrival Date: 06/11/2018 Time: 11:03 Bed 18 Private MD: ED Physician Tarik Roth HPI: 06/11 13:47 This 17 yrs old Female presents to ER via Ambulatory with complaints of kb Vomiting. 13:47 The patient presents to the emergency department with nausea, vomiting, abdominal pain, kb of the epigastric area. Onset: The symptoms/episode began/occurred 3 day(s) ago. Possible causes: unknown. The symptoms are aggravated by nothing. The symptoms are alleviated by antacids. Associated signs and symptoms: Pertinent positives: abdominal pain, vomiting. Severity of symptoms: At their worst the symptoms were mild moderate in the emergency department the symptoms are unchanged. The patient has not experienced similar symptoms in the past. The patient has not recently seen a physician. Pt reports intermittent vomiting for 3 days. Reports she gets epigastric pain depending on what she eats. Pain gets better with tums or vomiting. 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 - Social history:: Smoking status: Patient/guardian denies using tobacco. - Ebola Screening: : Patient denies travel to an Ebola-affected area in the 21 days before illness onset. ROS: 13:46 Constitutional: Negative for fever, chills, and weight loss, ENT: Negative for injury, kb pain, and discharge, Neck: Negative for injury, pain, and swelling, Cardiovascular: Negative for chest pain, palpitations, and edema, Respiratory: Negative for shortness of breath, cough, wheezing, and pleuritic chest pain, Back: Negative for injury and pain, : Negative for injury, bleeding, discharge, and swelling, MS/Extremity: Negative for injury and deformity, Skin: Negative for injury, rash, and discoloration, Neuro: Negative for headache, weakness, numbness, tingling, and seizure. 13:46 Abdomen/GI: Positive for abdominal pain, nausea and vomiting, Negative for diarrhea, constipation, abdominal cramps, abdominal distension, anorexia. Exam: 13:46 Constitutional: This is a well developed, well nourished patient who is awake, alert, kb and in no acute distress. Head/Face: Normocephalic, atraumatic. Chest/axilla: Normal chest wall appearance and motion. Nontender with no deformity. No lesions are appreciated. Cardiovascular: Regular rate and rhythm with a normal S1 and S2. No gallops, murmurs, or rubs. Normal PMI, no JVD. No pulse deficits. Respiratory: Lungs have equal breath sounds bilaterally, clear to auscultation and percussion. No rales, rhonchi or wheezes noted. No increased work of breathing, no retractions or nasal flaring. Back: No spinal tenderness. No costovertebral tenderness. Full range of motion. Skin: Warm, dry with normal turgor. Normal color with no rashes, no lesions, and no evidence of cellulitis. MS/ Extremity: Pulses equal, no cyanosis. Neurovascular intact. Full, normal range of motion. Neuro: Awake and alert, GCS 15, oriented to person, place, time, and situation. Cranial nerves II-XII grossly intact. Motor strength 5/5 in all extremities. Sensory grossly intact. Cerebellar exam normal. Normal gait. 13:46 Abdomen/GI: Inspection: abdomen appears normal, Bowel sounds: normal, in all quadrants, kb Palpation: soft, in all quadrants, mild abdominal tenderness, in the epigastric area. Vital Signs: 11:25 BP 130 / 79; Pulse 70; Resp 18; Temp 98.9; Pulse Ox 99% on R/A; Weight 81.65 kg (R); aj1 Height 5 ft. 4 in. (162.56 cm) (R); Pain 5/10; 12:27 BP 118 / 78; Pulse 66; Resp 17; Pulse Ox 99% on R/A; tw2 13:26 BP 112 / 75; Pulse 77; Resp 17; Pulse Ox 99% on R/A; tw2 11:25 Body Mass Index 30.90 (81.65 kg, 162.56 cm) aj1 MDM: 11:27 Patient medically screened. kb 13:45 Data reviewed: vital signs, nurses notes. Data interpreted: Pulse oximetry: on room air kb is 99 %. Interpretation: normal. Counseling: I had a detailed discussion with the patient and/or guardian regarding: the historical points, exam findings, and any diagnostic results supporting the discharge/admit diagnosis, lab results, the need for outpatient follow up, a family practitioner, to return to the emergency department if symptoms worsen or persist or if there are any questions or concerns that arise at home. 06/11 11:27 Order name: CBC with Diff; Complete Time: 12:12 kb 06/11 11:27 Order name: Basic Metabolic Panel; Complete Time: 13:37 kb 06/11 11:27 Order name: Urine Dipstick-Ancillary (obtain specimen); Complete Time: 12:35 kb 06/11 12:33 Order name: Urine Dipstick--Ancillary (enter results) [facility] 06/11 12:35 Order name: Urine --Ancillary (enter results) [facility] 06/11 12:03 Order name: IV Start; Complete Time: 12:03 tw2 Administered Medications: No medications were administered Disposition: 14:18 Co-signature as Attending Physician, Tarik Roth MD. rn Disposition: 06/11/18 13:51 Discharged to Home. Impression: Gastro-esophageal reflux disease. - Condition is Stable. - Discharge Instructions: Gastroesophageal Reflux Disease, Adult, [id number], Food Choices for Gastroesophageal Reflux Disease, Adult, [id number]. - Medication Reconciliation Form, Thank You Letter, Antibiotic Education, Prescription Opioid Use, Work release form form. - Follow up: Emergency Department; When: As needed; Reason: Worsening of condition. Follow up: Private Physician; When: 2 - 3 days; Reason: Recheck today's complaints, Continuance of care, Re-evaluation by your physician. Signatures: Dispatcher [employer] EDFL Tara Serrano, SECURITY OFFICERS AND GUARDS-C SAMIRA-Iraida Fleming RN RN aj1 Tarik Roth MD MD rn Wise, Tara, RN RN tw2 Corrections: (The following items were deleted from the chart) 12:55 12:27 EKG - Nurse/Tech ordered. tw2 tw2 13:47 13:46 Constitutional: This is a well developed, well nourished patient who is awake, kb alert, and in no acute distress. Head/Face: Normocephalic, atraumatic. Chest/axilla: Normal chest wall appearance and motion. Nontender with no deformity. No lesions are appreciated. Cardiovascular: Regular rate and rhythm with a normal S1 and S2. No gallops, murmurs, or rubs. Normal PMI, no JVD. No pulse deficits. Respiratory: Lungs have equal breath sounds bilaterally, clear to auscultation and percussion. No rales, rhonchi or wheezes noted. No increased work of breathing, no retractions or nasal flaring. Abdomen/GI: Soft, non-tender, with normal bowel sounds. No distension or tympany. No guarding or rebound. No evidence of tenderness throughout. Back: No spinal tenderness. No costovertebral tenderness. Full range of motion. Skin: Warm, dry with normal turgor. Normal color with no rashes, no lesions, and no evidence of cellulitis. MS/ Extremity: Pulses equal, no cyanosis. Neurovascular intact. Full, normal range of motion. Neuro: Awake and alert, GCS 15, oriented to person, place, time, and situation. Cranial nerves II-XII grossly intact. Motor strength 5/5 in all extremities. Sensory grossly intact. Cerebellar exam normal. Normal gait. kb 13:57 13:51 06/11/2018 13:51 Discharged to Home. Impression: Gastro-esophageal reflux tw2 disease. Condition is Stable. Forms are Medication Reconciliation Form, Thank You Letter, Antibiotic Education, Prescription Opioid Use. Follow up: Emergency Department; When: As needed; Reason: Worsening of condition. Follow up: Private Physician; When: 2 - 3 days; Reason: Recheck today's complaints, Continuance of care, Re-evaluation by your physician. kb
[2018-06-11 14:08] LABS: Urine Blood 2+ (NEG); Urine Glucose NEGATIVE (NEG); Urine Protein TRACE (NEG); Urine pH 8.5 (5.0-7.0)
== END 2018-06-11 13:57 | disposition home or self-care (01) ==
LOC: ER 11:03
DX: K21.9 Gastro-esophageal reflux disease without esophagitis (principal)
CPT/HCPCS: 36415; 80048; 81003; 81025; 85025; 99283

== ENCOUNTER 2018-06-28 08:48 | Emergency (ER) | payer OTHER ==
--- NOTE | 2018-06-28 09:10 | EDPHYS ---
Physician Documentation [facility] Name: Carlita Atkinson Age: 17 yrs Sex: Female : 2000 Arrival Date: 06/28/2018 Time: 08:54 Bed 16 Private MD: None, None ED Physician Kyle Salomon HPI: 06/28 09:07 This 17 yrs old Female presents to ER via Ambulatory with complaints of jr8 Urinary Problem. 09:08 The patient presents with urinary symptoms, dysuria, hematuria, hesitancy. Onset: The jr8 symptoms/episode began/occurred acutely, today. Modifying factors: The symptoms are alleviated by nothing, the symptoms are aggravated by urinating. Associated signs and symptoms: The patient has no apparent associated signs or symptoms. Severity of symptoms: At their worst the symptoms were mild, in the emergency department the symptoms are unchanged. The patient has experienced similar episodes in the past, a few times. The patient has not recently seen a physician. 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 - Social history:: Smoking status: Patient/guardian denies using tobacco. - Ebola Screening: : Patient negative for fever greater than or equal to 101.5 degrees Fahrenheit, and additional compatible Ebola Virus Disease symptoms Patient denies exposure to infectious person Patient denies travel to an Ebola-affected area in the 21 days before illness onset No symptoms or risks identified at this time. ROS: 09:08 Constitutional: Negative for fever, chills, and weight loss, Eyes: Negative for injury, jr8 pain, redness, and discharge, ENT: Negative for injury, pain, and discharge, Neck: Negative for injury, pain, and swelling, Cardiovascular: Negative for chest pain, palpitations, and edema, Respiratory: Negative for shortness of breath, cough, wheezing, and pleuritic chest pain, Abdomen/GI: Negative for abdominal pain, nausea, vomiting, diarrhea, and constipation, Back: Negative for injury and pain, MS/Extremity: Negative for injury and deformity, Skin: Negative for injury, rash, and discoloration, Neuro: Negative for headache, weakness, numbness, tingling, and seizure. 09:08 : Positive for urinary symptoms, hematuria, burning with urination, difficulty urinating. Exam: : Eyes: Pupils equal round and reactive to light, extra-ocular motions intact. Lids and jr8 lashes normal. Conjunctiva and sclera are non-icteric and not injected. Cornea within normal limits. Periorbital areas with no swelling, redness, or edema. ENT: Nares patent. No nasal discharge, no septal abnormalities noted. Tympanic membranes are normal and external auditory canals are clear. Oropharynx with no redness, swelling, or masses, exudates, or evidence of obstruction, uvula midline. Mucous membranes moist. Neck: Trachea midline, no thyromegaly or masses palpated, and no cervical lymphadenopathy. Supple, full range of motion without nuchal rigidity, or vertebral point tenderness. No Meningismus. Cardiovascular: Regular rate and rhythm with a normal S1 and S2. No gallops, murmurs, or rubs. Normal PMI, no JVD. No pulse deficits. Respiratory: Lungs have equal breath sounds bilaterally, clear to auscultation and percussion. No rales, rhonchi or wheezes noted. No increased work of breathing, no retractions or nasal flaring. Abdomen/GI: Soft, non-tender, with normal bowel sounds. No distension or tympany. No guarding or rebound. No evidence of tenderness throughout. Back: No spinal tenderness. No costovertebral tenderness. Full range of motion. Skin: Warm, dry with normal turgor. Normal color with no rashes, no lesions, and no evidence of cellulitis. MS/ Extremity: Pulses equal, no cyanosis. Neurovascular intact. Full, normal range of motion. Neuro: Awake and alert, GCS 15, oriented to person, place, time, and situation. Cranial nerves II-XII grossly intact. Motor strength 5/5 in all extremities. Sensory grossly intact. Cerebellar exam normal. Normal gait. Vital Signs: : BP 133 / 86; Pulse 88; Resp 16; Temp 98.2; Pulse Ox 98% on R/A; Weight 81.65 kg; Height iw 5 ft. 4 in. (162.56 cm); Pain 5/10; 09:07 Body Mass Index 30.90 (81.65 kg, 162.56 cm) MDM: 09:07 Patient medically screened. jr8 09:08 Data reviewed: vital signs, nurses notes, lab test result(s). Data interpreted: Pulse jr8 oximetry: on room air is 98 %. Interpretation: normal. Counseling: I had a detailed discussion with the patient and/or guardian regarding: the historical points, exam findings, and any diagnostic results supporting the discharge/admit diagnosis, lab results, the need for outpatient follow up, a urologist, to return to the emergency department if symptoms worsen or persist or if there are any questions or concerns that arise at home. 06/28 09:07 Order name: Urine Microscopic Only 8 06/28 09:10 Order name: Urine Dipstick--Ancillary (enter results) bd 06/28 09:07 Order name: Urine Test (obtain specimen); Complete Time: 09:09 jr8 06/28 09:07 Order name: Urine Dipstick-Ancillary (obtain specimen); Complete Time: 09: jr8 06/28 09:10 Order name: Urine --Ancillary (enter results) bd Administered Medications: No medications were administered Disposition: 14:02 Co-signature as Attending Physician, Kyle Salomon MD. Disposition: 06/28/18 09:09 Discharged to Home. Impression: Urinary tract infection, site not specified. - Condition is Stable. - Discharge Instructions: Bacteremia, Urinary Tract Infection, Adult. - Prescriptions for Pyridium 200 mg Oral Tablet - take 1 tablet by ORAL route every 8 hours for 3 days; 9 tablet. Macrobid 100 mg Oral Capsule - take 1 capsule by ORAL route every 12 hours for 7 days; 14 capsule. - Medication Reconciliation Form, Thank You Letter, Antibiotic Education, Prescription Opioid Use form. - Follow up: Abisai Augustine MD; When: 2 - 3 days; Reason: Recheck today's complaints, Continuance of care, Re-evaluation by your physician. - Problem is new. - Symptoms have improved. Signatures: Dispatcher [employer] Arti Faria RN RN Ashish Bran PA PA jr8 Starr, Gregory, MD MD Corrections: (The following items were deleted from the chart) 09:23 09:09 06/28/2018 09:09 Discharged to Home. Impression: Urinary tract infection, site iw not specified. Condition is Stable. Forms are Medication Reconciliation Form, Thank You Letter, Antibiotic Education, Prescription Opioid Use. Follow up: Abisai Augustine; When: 2 - 3 days; Reason: Recheck today's complaints, Continuance of care, Re-evaluation by your physician. Problem is new. Symptoms have improved. jr8
--- NOTE | 2018-06-28 09:10 | ER ---
Nurse's Notes [facility] Name: Carlita Atkinson Age: 17 yrs Sex: Female : 2000 Arrival Date: 06/28/2018 Time: 08:54 Bed 16 Private MD: None, None Diagnosis: Urinary tract infection, site not specified Presentation: 06/28 09:05 Presenting complaint: Patient states: this morning had pain with urination, blood in iw urine, has had multiple UTIs in past month. Transition of care: patient was not received from another setting of care. Onset of symptoms was June 28, 2018. Risk Assessment: Do you want to hurt yourself or someone else? Patient reports no desire to harm self or others. Initial Sepsis Screen: Does the patient meet any 2 criteria? No. Patient's initial sepsis screen is negative. Does the patient have a suspected source of infection? No. Patient's initial sepsis screen is negative. Care prior to arrival: None. 09:05 Method Of Arrival: Ambulatory iw 09:05 Acuity: YOU 4 iw Triage Assessment: 09:20 General: Appears in no apparent distress. Behavior is calm. 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 - Social history:: Smoking status: Patient/guardian denies using tobacco. - Ebola Screening: : Patient negative for fever greater than or equal to 101.5 degrees Fahrenheit, and additional compatible Ebola Virus Disease symptoms Patient denies exposure to infectious person Patient denies travel to an Ebola-affected area in the 21 days before illness onset No symptoms or risks identified at this time. Screenin:20 Abuse screen: Denies threats or abuse. Denies injuries from another. Nutritional iw screening: No deficits noted. Tuberculosis screening: No symptoms or risk factors identified. Fall Risk None identified. Assessment: 09:15 General: Appears in no apparent distress. Behavior is calm, cooperative. Pain: iw Complains of pain in suprapubic area. Neuro: Level of Consciousness is awake, alert, obeys commands, Oriented to person, place, time, situation, Moves all extremities. Full function. Cardiovascular: Patient's skin is warm and dry. : Reports burning with urination, pain in suprapubic area with urination. Musculoskeletal: Range of motion: intact in all extremities. Vital Signs: 09:07 BP 133 / 86; Pulse 88; Resp 16; Temp 98.2; Pulse Ox 98% on R/A; Weight 81.65 kg; Height iw 5 ft. 4 in. (162.56 cm); Pain 5/10; 09:07 Body Mass Index 30.90 (81.65 kg, 162.56 cm) ED Course: 08:54 Patient arrived in ED. mr 08:54 None, None is Private Physician. mr 08:58 Ashish Bran PA is [facility]. em 09:05 Arti Garcia, RN is Primary Nurse. iw 09:06 Triage completed. iw 09:07 Kyle Salomon MD is Attending Physician. jr8 09:07 Arm band placed on. iw 09:09 Abisai Augustine MD is Referral Physician. jr8 09:09 Urine Microscopic Only Sent. 5 09:09 Urine collected: clean catch specimen, cloudy. 5 09:20 Patient has correct armband on for positive identification. iw 09:20 No provider procedures requiring assistance completed. Patient did not have IV access iw during this emergency room visit. Administered Medications: No medications were administered Outcome: 09:09 Discharge ordered by . jr8 09:22 Discharged to home ambulatory, with friend. iw 09:22 Condition: good 09:22 Discharge instructions given to patient, friend, Instructed on discharge instructions, follow up and referral plans. medication usage, Demonstrated understanding of instructions, follow-up care, medications, Prescriptions given X 2. 09:23 Patient left the ED. iw Signatures: Lizett Mcknight mr Zarate, Andres, VP INFORMATICS VP INFORMATICS em Arti Garcia, RN RN Ashish Bran PA PA [facility] Uma Vale [facility]
[2018-06-28 09:23] LABS: Urine Blood 3+ (NEG); Urine Glucose NEGATIVE (NEG); Urine Protein 3+ (NEG); Urine Specific Gravity 1.025 (1.005-1.030); Urine pH 7.5 (5.0-7.0)
[2018-06-28 10:29] LABS: Urine Bacteria 20-50 /HPF (<20); Urine Culture Reflex Order REFLEXED; Urine RBC >50 /HPF (NONE SEEN)
== END 2018-06-28 09:23 | disposition home or self-care (01) ==
LOC: ER 08:48
DX: N39.0 Urinary tract infection, site not specified (principal)
CPT/HCPCS: 81003; 81015; 81025; 87077; 87086; 87088; 87186; 99283

== ENCOUNTER 2018-07-16 16:45 | Emergency (ER) | payer OTHER ==
--- NOTE | 2018-07-16 18:21 | EDPHYS ---
Physician Documentation [facility] Name: Carlita Atkinson Age: 17 yrs Sex: Female : 2000 Arrival Date: 07/16/2018 Time: 16:48 Bed 10 Private MD: ED Physician Blayne Cottrell HPI: 07/16 18:18 This 17 yrs old Female presents to ER via Ambulatory with complaints of Fever, jr8 Cold Symptoms. 18:18 The patient reports fever, not measured (subjective). Onset: The symptoms/episode jr8 began/occurred acutely, today. Modifying factors: there are no obvious modifying factors. Associated signs and symptoms: Pertinent positives: cough, sore throat. Severity of symptoms: At their worst the symptoms were mild in the emergency department the symptoms are unchanged. The patient has not experienced similar symptoms in the past. The patient has not recently seen a physician. 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 - Social history:: Smoking status: Patient/guardian denies using tobacco. - Ebola Screening: : Patient negative for fever greater than or equal to 101.5 degrees Fahrenheit, and additional compatible Ebola Virus Disease symptoms Patient denies exposure to infectious person Patient denies travel to an Ebola-affected area in the 21 days before illness onset No symptoms or risks identified at this time. ROS: 18:18 Eyes: Negative for injury, pain, redness, and discharge, Neck: Negative for injury, jr8 pain, and swelling, Cardiovascular: Negative for chest pain, palpitations, and edema, Abdomen/GI: Negative for abdominal pain, nausea, vomiting, diarrhea, and constipation, Back: Negative for injury and pain, MS/Extremity: Negative for injury and deformity, Skin: Negative for injury, rash, and discoloration, Neuro: Negative for headache, weakness, numbness, tingling, and seizure. 18:18 Constitutional: Positive for fever. 18:18 ENT: Positive for rhinorrhea, sore throat, Negative for drainage from ear(s), ear pain. 18:18 Respiratory: Positive for cough, with clear sputum, wheezing, Negative for dyspnea on exertion, shortness of breath. Exam: 18:18 Eyes: Pupils equal round and reactive to light, extra-ocular motions intact. Lids and jr8 lashes normal. Conjunctiva and sclera are non-icteric and not injected. Cornea within normal limits. Periorbital areas with no swelling, redness, or edema. ENT: Nares patent. No nasal discharge, no septal abnormalities noted. Tympanic membranes are normal and external auditory canals are clear. Oropharynx with no redness, swelling, or masses, exudates, or evidence of obstruction, uvula midline. Mucous membranes moist. Neck: Trachea midline, no thyromegaly or masses palpated, and no cervical lymphadenopathy. Supple, full range of motion without nuchal rigidity, or vertebral point tenderness. No Meningismus. Cardiovascular: Regular rate and rhythm with a normal S1 and S2. No gallops, murmurs, or rubs. Normal PMI, no JVD. No pulse deficits. Respiratory: Lungs have equal breath sounds bilaterally, clear to auscultation and percussion. No rales, rhonchi or wheezes noted. No increased work of breathing, no retractions or nasal flaring. Abdomen/GI: Soft, non-tender, with normal bowel sounds. No distension or tympany. No guarding or rebound. No evidence of tenderness throughout. Back: No spinal tenderness. No costovertebral tenderness. Full range of motion. Skin: Warm, dry with normal turgor. Normal color with no rashes, no lesions, and no evidence of cellulitis. MS/ Extremity: Pulses equal, no cyanosis. Neurovascular intact. Full, normal range of motion. Neuro: Awake and alert, GCS 15, oriented to person, place, time, and situation. Cranial nerves II-XII grossly intact. Motor strength 5/5 in all extremities. Sensory grossly intact. Cerebellar exam normal. Normal gait. Vital Signs: 17:08 BP 132 / 75; Pulse 100; Resp 20; Temp 99.2; Pulse Ox 98% on R/A; Weight 81.65 kg; aj Height 5 ft. 4 in. (162.56 cm); 17:08 Body Mass Index 30.90 (81.65 kg, 162.56 cm) aj MDM: 17:37 Patient medically screened. jr8 18:18 Data reviewed: vital signs, nurses notes, lab test result(s), Flu: negative and as a jr8 result, I will discharge patient. Data interpreted: Pulse oximetry: on room air is 98 %. Interpretation: normal. Counseling: I had a detailed discussion with the patient and/or guardian regarding: the historical points, exam findings, and any diagnostic results supporting the discharge/admit diagnosis, lab results, the need for outpatient follow up, a family practitioner, to return to the emergency department if symptoms worsen or persist or if there are any questions or concerns that arise at home. 07/16 17:10 Order name: Flu; Complete Time: 17:50 aj 07/16 17:10 Order name: Strep; Complete Time: 17:37 aj 07/16 17:34 Order name: Throat Culture EDMS Administered Medications: No medications were administered Disposition: 07/17 07:43 Co-signature as Attending Physician, Blayne Cottrell MD I agree with the assessment and kdr plan of care. Disposition: 07/16/18 18:20 Discharged to Home. Impression: Acute upper respiratory infection, unspecified. - Condition is Stable. - Discharge Instructions: Upper Respiratory Infection, Adult. - Prescriptions for Prednisone 20 mg Oral Tablet - take 1 tablet by ORAL route once daily for 5 days; 5 tablet. Tessalon Perles 100 mg Oral Capsule - take 1 capsule by ORAL route every 8 hours As needed; 15 capsule. Albuterol Sulfate 90 mcg/actuation - inhale 1-2 puff by INHALATION route every 4-6 hours; 1 Inhaler. - Work release form, Medication Reconciliation Form, Thank You Letter, Antibiotic Education, Prescription Opioid Use form. - Follow up: Private Physician; When: 2 - 3 days; Reason: Recheck today's complaints, Continuance of care, Re-evaluation by your physician. - Problem is new. - Symptoms have improved. Signatures: Dispatcher [employer] EDMS Marixa Sanchez RN RN aj Rittger, Kevin, MD MD kdr Arti Garcia RN RN iw Roszak, Josh, PA PA jr8 Corrections: (The following items were deleted from the chart) 07/16 18:50 18:20 07/16/2018 18:20 Discharged to Home. Impression: Acute upper respiratory iw infection, unspecified. Condition is Stable. Forms are Medication Reconciliation Form, Thank You Letter, Antibiotic Education, Prescription Opioid Use. Follow up: Private Physician; When: 2 - 3 days; Reason: Recheck today's complaints, Continuance of care, Re-evaluation by your physician. Problem is new. Symptoms have improved. jr8
--- NOTE | 2018-07-16 18:21 | ER ---
Nurse's Notes [facility] Name: Carlita Atkinson Age: 17 yrs Sex: Female : 2000 Arrival Date: 07/16/2018 Time: 16:48 Bed 10 Private MD: Diagnosis: Acute upper respiratory infection, unspecified Presentation: 07/16 17:07 Presenting complaint: Patient states: Cough, congestion, fever since last night. aj Transition of care: patient was not received from another setting of care. Onset of symptoms was July 15, 2018. Risk Assessment: Do you want to hurt yourself or someone else? Patient reports no desire to harm self or others. Initial Sepsis Screen: Does the patient meet any 2 criteria? No. Patient's initial sepsis screen is negative. Does the patient have a suspected source of infection? No. Patient's initial sepsis screen is negative. Care prior to arrival: None. 17:07 Method Of Arrival: Ambulatory aj 17:07 Acuity: YOU 4 aj Triage Assessment: 17:08 General: Appears in no apparent distress. comfortable, Behavior is calm, cooperative, aj appropriate for age. Pain: Denies pain. Neuro: Level of Consciousness is awake, alert, obeys commands, Oriented to person, place, time, situation, Appropriate for age. Respiratory: Reports cough that is non-productive, Airway is patent Respiratory effort is even, unlabored, Respiratory pattern is regular, symmetrical, Onset: The symptoms/episode began/occurred yesterday, the patient has mild shortness of breath. Derm: Skin is intact, is healthy with good turgor, Skin is pink, warm \T\ dry. normal. 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 - Social history:: Smoking status: Patient/guardian denies using tobacco. - Ebola Screening: : Patient negative for fever greater than or equal to 101.5 degrees Fahrenheit, and additional compatible Ebola Virus Disease symptoms Patient denies exposure to infectious person Patient denies travel to an Ebola-affected area in the 21 days before illness onset No symptoms or risks identified at this time. Vital Signs: 17:08 BP 132 / 75; Pulse 100; Resp 20; Temp 99.2; Pulse Ox 98% on R/A; Weight 81.65 kg; aj Height 5 ft. 4 in. (162.56 cm); 17:08 Body Mass Index 30.90 (81.65 kg, 162.56 cm) ED Course: 16:48 Patient arrived in ED. rg4 17:08 Triage completed. 17:08 Arm band placed on right wrist. Patient placed in waiting room, Patient notified of wait time. Labs ordered per protocol. 17:34 Ashish Bran PA is PHCP. jr8 17:34 Blayne Cottrell MD is Attending Physician. jr8 18:06 Arti Garcia, RN is Primary Nurse. iw Administered Medications: No medications were administered Outcome: 18:20 Discharge ordered by . jr8 18:50 Patient left the ED. iw Signatures: Marixa Sanchez RN RN aj Williams, Irene, RN RN Ashish Bran PA PA Deandra Dewey rg4
== END 2018-07-16 18:50 | disposition home or self-care (01) ==
LOC: ER 16:45
DX: J06.9 Acute upper respiratory infection, unspecified (principal)
CPT/HCPCS: 87070; 87081; 87804; 99282

== ENCOUNTER 2019-02-28 23:02 | Emergency (ER) | payer OTHER ==
[2019-02-28 23:45] LABS: Urine Blood NEGATIVE (NEG); Urine Glucose NEGATIVE (NEG); Urine Protein NEGATIVE (NEG); Urine pH 6.5 (5.0-7.0)
[2019-03-01 00:48] LABS: Absolute Lymphocytes (CBC) 2.1 K/uL (0.7-4.9); Basophils % 1.1 % (0-1.3); Eosinophils % 5.6 % (0-4.4); Lymphocytes % 28.3 % (15.3-44.8); MPV 8.3 fL (7.6-11.3); Monocytes % 6.7 % (3.3-12.3); RBC Red Blood Cell Count 4.56 M/uL (3.86-4.86)
[2019-03-01] MEDS ORDERED: KETOROLAC 30 MG/ML INJ ONE (00:57)
[2019-03-01] MEDS ORDERED: NA CHLORIDE 0.9% 1,000 ML ONE (00:57)
[2019-03-01 01:04] LABS: ALT/SGPT 18 U/L (12-78); AST/SGOT 10 U/L (15-37); Albumin 3.8 g/dL (3.4-5.0); Alkaline Phosphatase 72 U/L (45-117); BUN Blood Urea Nitrogen 13 mg/dL (7-18); Bicarbonate 26 mmol/L (21-32); Bilirubin Direct < 0.1 mg/dL (0-0.2); Bilirubin Total 0.2 mg/dL (0.2-1.0); Glucose Level 79 mg/dL (74-106); Lipase 167 U/L (73-393); Potassium 3.8 mmol/L (3.5-5.1); Protein, Total 7.7 g/dL (6.4-8.2); Sodium Level 141 mmol/L (136-145)
--- NOTE | 2019-03-01 03:09 | ER ---
Nurse's Notes [facility] Name: Carlita Atkinson Age: 18 yrs Sex: Female : 2000 Arrival Date: 02/28/2019 Time: 23:06 Bed 8 Private MD: Diagnosis: Other ovarian cysts;Pain localized to other parts of lower abdomen Presentation: 02/28 23:14 Presenting complaint: Patient states: I am having really bad lower abd pain, denies la1 N/V/D or urinary symptoms. Pain started today. Transition of care: patient was not received from another setting of care. Onset of symptoms was February 28, 2019. Risk Assessment: Do you want to hurt yourself or someone else? Patient reports no desire to harm self or others. Initial Sepsis Screen: Does the patient meet any 2 criteria? No. Patient's initial sepsis screen is negative. Does the patient have a suspected source of infection? No. Patient's initial sepsis screen is negative. Care prior to arrival: None. 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 - Social history:: Smoking status: Patient/guardian denies using tobacco. - Ebola Screening: : No symptoms or risks identified at this time. Screenin:26 Abuse screen: Denies threats or abuse. Nutritional screening: No deficits noted. jd3 Tuberculosis screening: No symptoms or risk factors identified. Fall Risk Ambulatory Aid- None/Bed Rest/Nurse Assist (0 pts). Gait- Normal/Bed Rest/Wheelchair (0 pts) Mental Status- Oriented to own ability (0 pts). Total Leigh Fall Scale indicates No Risk (0-24 pts). Assessment: 23:22 General: Appears in no apparent distress. uncomfortable, Behavior is calm, cooperative, jd3 appropriate for age. Pain: Complains of pain in suprapubic area Pain radiates to low back area Quality of pain is described as aching, crampy, pressure, tender. Neuro: Level of Consciousness is awake, alert, obeys commands, Oriented to person, place, time, situation. Cardiovascular: Capillary refill < 3 seconds Patient's skin is warm and dry. Respiratory: Airway is patent Respiratory effort is even, unlabored, Respiratory pattern is regular, symmetrical, Denies cough, shortness of breath. GI: Abdomen is round non-distended, Bowel sounds present X 4 quads. Abd is soft and non tender X 4 quads. Reports lower abdominal pain, Patient currently denies constipation, diarrhea, nausea, vomiting. : Denies burning with urination. EENT: No signs and/or symptoms were reported regarding the EENT system. Derm: Skin is intact, Skin is dry, Skin is normal, Skin temperature is warm. Musculoskeletal: Circulation, motion, and sensation intact. Range of motion: intact in all extremities. 03/01 01:43 Reassessment: Patient appears in no apparent distress at this time. Patient and/or jd3 family updated on plan of care and expected duration. Pain level reassessed. Patient is alert, oriented x 3, equal unlabored respirations, skin warm/dry/pink. reports decreased pain sensation. Patient states feeling better. 03:05 Reassessment: Patient appears in no apparent distress at this time. Patient and/or jd3 family updated on plan of care and expected duration. Pain level reassessed. Patient is alert, oriented x 3, equal unlabored respirations, skin warm/dry/pink. awaiting results. Patient states feeling better. 03:17 Reassessment: Patient appears in no apparent distress at this time. Patient and/or jd3 family updated on plan of care and expected duration. Pain level reassessed. Patient is alert, oriented x 3, equal unlabored respirations, skin warm/dry/pink. reported understanding of discharge instruction. Patient states feeling better. Vital Signs: 02/28 23:13 BP 139 / 75; Pulse 70; Resp 16; Temp 97.6; Pulse Ox 98% on R/A; Weight 77.11 kg; Height la1 5 ft. 4 in. (162.56 cm); Pain 02/24; 03/01 01:43 BP 110 / 68; Pulse 73; Resp 16 S; Pulse Ox 100% on R/A; Pain 10; jd3 03:03 BP 101 / 59; Pulse 55; Resp 16 S; Pulse Ox 99% on R/A; Pain 4/10; jd3 02/28 23:13 Body Mass Index 29.18 (77.11 kg, 162.56 cm) la1 ED Course: 02/28 23:06 Patient arrived in ED. mr 23:14 Triage completed. la1 23:14 Arm band placed on left wrist. la1 23:15 Ellis Tidwell, RN is Primary Nurse. jd3 23:27 Patient has correct armband on for positive identification. Placed in gown. Bed in low jd3 position. Call light in reach. Side rails up X 1. Adult w/ patient. 23:59 Chau Carrillo PA is PHCP. cp 23:59 Pedro Reeves MD is Attending Physician. cp 07 00:37 Inserted saline lock: 22 gauge in left antecubital area, using aseptic technique. Blood jd3 collected. 02:33 CT Abd/Pelvis - IV Contrast Only In Process Unspecified. EDSC 03:07 Dahlia Morocho MD is Referral Physician. cp 03:18 No provider procedures requiring assistance completed. IV discontinued, intact, jd3 bleeding controlled, No redness/swelling at site. Pressure dressing applied. Administered Medications: 00:45 Drug: NS 0.9% 1000 ml Route: IV; Rate: 1 bolus; Site: left antecubital; jd3 03:20 Follow up: Response: No adverse reaction; IV Status: Completed infusion; IV Intake: jd3 1000ml 00:45 Drug: TORadol 30 mg Route: IVP; Site: left antecubital; jd3 01:45 Follow up: Response: No adverse reaction jd3 Intake: 03:20 IV: 1000ml; Total: 1000ml. jd3 Outcome: 03:08 Discharge ordered by . cp 03:18 Discharged to home ambulatory, with family. jd3 03:18 Condition: stable 03:18 Discharge instructions given to patient, family, Instructed on discharge instructions, follow up and referral plans. medication usage, Demonstrated understanding of instructions, follow-up care, medications, Prescriptions given X 1. 03:20 Patient left the ED. jd3 Signatures: [facility] Lizett Mcknight Mendoza Umanzor RN RN la1 Chau Carrillo PA PA cp Luis Tidwellhon, RN RN jd3
--- NOTE | 2019-03-01 03:10 | EDPHYS ---
Physician Documentation [facility] Name: Carlita Atkinson Age: 18 yrs Sex: Female : 2000 Arrival Date: 02/28/2019 Time: 23:06 Bed 8 Private MD: ED Physician Pedro Reeves HPI: 03/01 00:20 This 18 yrs old Female presents to ER via Ambulatory with complaints of cp Abdominal Pain. 00:20 The patient presents with abdominal pain in the lower abdomen. Onset: The cp symptoms/episode began/occurred today. The symptoms radiate to Associated signs and symptoms: Pertinent negatives: anorexia, blood in stools, constipation, diarrhea, dysuria, fever, vaginal discharge, vomiting. 00:20 The symptoms are described as achy, crampy, pressure. cp 00:20 Modifying factors: the symptoms are aggravated by movement, pressure, walking. Severity cp of pain: in the emergency department the pain is unchanged despite home interventions. [employer] UPHOLSTERY: 02/28 23:13 LMP 02/09/2019 la1 Historical: - Allergies: 23:13 NKA; la1 - Home Meds: 23:13 None [Active]; la1 - PMHx: 23:13 GERD; scoliosis; Asthma; la1 - PSHx: 23:13 None; la1 - Immunization history:: Adult Immunizations up to date. - Social history:: Smoking status: Patient/guardian denies using tobacco. - Ebola Screening: : No symptoms or risks identified at this time. ROS: 03/01 00:25 Constitutional: Negative for body aches, chills, fever, poor PO intake. cp 00:25 Eyes: Negative for injury, pain, redness, and discharge. cp 00:25 ENT: Negative for drainage from ear(s), ear pain, sore throat, difficulty swallowing, difficulty handling secretions. 00:25 Cardiovascular: Negative for chest pain, palpitations. 00:25 Respiratory: Negative for cough, shortness of breath, wheezing. 00:25 Abdomen/GI: Positive for abdominal pain, Negative for vomiting, diarrhea, constipation, abdominal distension, anorexia, black/tarry stool, rectal bleeding. 00:25 Back: Positive for radiated pain, of the low back area. 00:25 : Negative for urinary symptoms, hematuria, vaginal bleeding, vaginal discharge. 00:25 Skin: Negative for rash. 00:25 Neuro: Negative for altered mental status, headache, weakness. 00:25 All other systems are negative. Exam: 00:30 Constitutional: The patient appears in no acute distress, alert, awake, non-toxic, well cp developed, well nourished, uncomfortable. 00:30 Head/Face: Normocephalic, atraumatic. cp 00:30 Eyes: Periorbital structures: appear normal, Conjunctiva: normal, no exudate, no cp injection, Sclera: no appreciated abnormality, Lids and lashes: appear normal, bilaterally. 00:30 ENT: External ear(s): are unremarkable, Nose: is normal, Mouth: Lips: moist, Oral mucosa: pink and intact, moist, Posterior pharynx: is normal, airway is patent. 00:30 Neck: ROM/movement: is normal, is supple, without pain, no range of motions limitations. 00:30 Chest/axilla: Inspection: normal, Palpation: is normal, no crepitus, no tenderness. 00:30 Cardiovascular: Rate: normal, Rhythm: regular. 00:30 Respiratory: the patient does not display signs of respiratory distress, Respirations: normal, no use of accessory muscles, no retractions, no splinting, no tachypnea, labored breathing, is not present. 00:30 Abdomen/GI: Inspection: abdomen appears normal, Bowel sounds: active, all quadrants, Palpation: soft, in all quadrants, moderate abdominal tenderness, in the suprapubic area, right lower quadrant and left lower quadrant, rebound tenderness, is not appreciated, voluntary guarding, is elicited in the suprapubic area, right lower quadrant and left lower quadrant. 00:30 Back: CVA tenderness, is absent. 00:30 Neuro: Orientation: to person, place \T\ time. Mentation: is normal, Motor: moves all fours. Vital Signs: 02/28 23:13 BP 139 / 75; Pulse 70; Resp 16; Temp 97.6; Pulse Ox 98% on R/A; Weight 77.11 kg; Height la1 5 ft. 4 in. (162.56 cm); Pain 7/10; 03/01 01:43 BP 110 / 68; Pulse 73; Resp 16 S; Pulse Ox 100% on R/A; Pain 4/10; jd3 03:03 BP 101 / 59; Pulse 55; Resp 16 S; Pulse Ox 99% on R/A; Pain 4/10; jd3 /14 23:13 Body Mass Index 29.18 (77.11 kg, 162.56 cm) la1 MDM: 00:05 Patient medically screened. 03:07 Data reviewed: vital signs, nurses notes, lab test result(s), radiologic studies, CT cp scan. 03:07 Differential diagnosis: appendicitis, Ectopic , Endometriosis, gastritis, cp non-specific abd pain, Ovarian Torsion, Pelvic Inflammatory Disease, Pyelonephritis, Tubal Ovarian Abcess, Ureterolithiasis, urinary tract infection. Counseling: I had a detailed discussion with the patient and/or guardian regarding: the historical points, exam findings, and any diagnostic results supporting the discharge/admit diagnosis, lab results, radiology results, to return to the emergency department if symptoms worsen or persist or if there are any questions or concerns that arise at home. Response to treatment: the patient's symptoms have markedly improved after treatment. Special discussion: Based on the patient's Hx, exam, and Dx evaluation, there is no indication for emergent surgery or inpatient Tx. It is understood by the patient/guardian that if the Sx's persist or worsen they need to return immediately for re-evaluation. 02/28 23:25 Order name: Urine Dipstick--Ancillary (enter results); Complete Time: 00:50 mt 02/28 23:25 Order name: Urine --Ancillary (enter results); Complete Time: 00:50 mt 03/01 00:18 Order name: Basic Metabolic Panel; Complete Time: : 03/01 01:17 Interpretation: Abnormal: CL 109. cp 03/01 00:18 Order name: CBC with Diff; Complete Time: : cp 03/01 00:18 Order name: Creatinine for Radiology; Complete Time: : cp 03/01 00:18 Order name: Hepatic Function; Complete Time: : cp 03/01 00:18 Order name: Lipase; Complete Time: : 03/01 00:18 Order name: IV Saline Lock; Complete Time: 00:38 03/01 00:18 Order name: Labs collected and sent; Complete Time: 00:38 03/01 00:50 Order name: CT Abd/Pelvis - IV Contrast Only cp Administered Medications: 00:45 Drug: NS 0.9% 1000 ml Route: IV; Rate: 1 bolus; Site: left antecubital; jd3 03:20 Follow up: Response: No adverse reaction; IV Status: Completed infusion; IV Intake: jd3 1000ml 00:45 Drug: TORadol 30 mg Route: IVP; Site: left antecubital; jd3 01:45 Follow up: Response: No adverse reaction jd3 Disposition: 06:18 Co-signature as Attending Physician, Pedro Reeves MD Available for consultation at ps1 all times. . Disposition: 03/01/19 03:08 Discharged to Home. Impression: Other ovarian cysts, Pain localized to other parts of lower abdomen. - Condition is Stable. - Discharge Instructions: Abdominal Pain, Adult, Ovarian Cyst. - Prescriptions for Ibuprofen 800 mg Oral Tablet - take 1 tablet by ORAL route every 8 hours As needed take with food; 30 tablet. - Medication Reconciliation Form, Thank You Letter, Antibiotic Education, Prescription Opioid Use, Family Work Release form. - Follow up: Dahlia Morocho MD; When: 2 - 3 days; Reason: Worsening of condition. - Problem is new. - Symptoms have improved. Signatures: Dispatcher [employer] EDMS Mendoza Umanzor RN RN la1 Chau Carrillo PA PA cp Davies, Jonathon, RN RN jd3 Singer, Phillip, MD MD ps1 Corrections: (The following items were deleted from the chart) 03:04 00:15 Constitutional: The patient appears in no acute distress, alert, awake, cp non-toxic, well developed, well nourished, uncomfortable, cp 03:04 00:15 Head/Face: Normocephalic, atraumatic. cp cp 03:04 00:15 Eyes: Periorbital structures: appear normal, Conjunctiva: normal, no exudate, no cp injection, Sclera: no appreciated abnormality, Lids and lashes: appear normal, bilaterally, cp 03:04 00:15 ENT: External ear(s): are unremarkable, Nose: is normal, Mouth: Lips: moist, Oral cp mucosa: pink and intact, moist, Posterior pharynx: is normal, airway is patent, no erythema, no exudate, cp 03:04 00:15 Chest/axilla: Inspection: normal, Palpation: is normal, no crepitus, no cp tenderness, cp 03: 00:15 Cardiovascular: Rate: normal, Rhythm: regular, cp cp 03: 00:15 Respiratory: the patient does not display signs of respiratory distress, cp Respirations: normal, no use of accessory muscles, no retractions, no splinting, no tachypnea, labored breathing, is not present, Breath sounds: are clear throughout, no decreased breath sounds, no stridor, no wheezing, cp 03: 00:15 Abdomen/GI: Inspection: abdomen appears normal, Bowel sounds: active, all cp quadrants, Palpation: soft, in all quadrants, moderate abdominal tenderness, in the right lower quadrant and left lower quadrant, rebound tenderness, is not appreciated, voluntary guarding, is elicited in the right lower quadrant and left lower quadrant, cp 03: 00:15 Back: pain, of the low back area, CVA tenderness, is absent, Straight leg raises: cp of both lower extremities does not illicit pain, cp 03:20 03:08 03/01/2019 03:08 Discharged to Home. Impression: Other ovarian cysts; Pain jd3 localized to other parts of lower abdomen. Condition is Stable. Forms are Medication Reconciliation Form, Thank You Letter, Antibiotic Education, Prescription Opioid Use. Follow up: Dahlia Morocho; When: 2 - 3 days; Reason: Worsening of condition. Problem is new. Symptoms have improved. cp
--- NOTE | 2019-03-01 10:32 | RAD REPORT ---
EXAM DESCRIPTION: Abdomen Pelvis W Contrast EXAM DESCRIPTION: CT ABDOMEN AND PELVIS WITH CONTRAST CLINICAL HISTORY: Lower abdomen pain COMPARISON: 03/01/2018 TECHNIQUE: CT of the abdomen and pelvis performed following IV administration of iodinated contrast. DLP: 1313.1 mGycm FINDINGS: Lung Bases: The visualized lung bases are clear. Bones: Mild levoconvex scoliosis of the lumbar spine. Abdomen: Liver: The liver has normal size and density. No intrahepatic mass or biliary dilatation. Gallbladder: No calcified gallstones. Spleen, Pancreas, and Adrenal Glands: The spleen, pancreas, and adrenal glands are unremarkable. Kidneys: The kidneys have normal size and contour without evidence of solid mass or hydronephrosis. Vasculature: The aorta and IVC have normal caliber and position. The portal vein is patent. The pro ximal visceral and renal arteries are patent. Stomach: The stomach and duodenum have normal course. Other: No free intraperitoneal air. No lymphadenopathy. Pelvis: Bladder: Urinary bladder is unremarkable. Bowel: No dilated loops of large or small bowel. Appendix: Normal appendix. Pelvis: Free pelvic fluid with areas of hypodensity which could be related to hemorrhage. Left corpus luteal cyst. Uterus is not enlarged. IMPRESSION: 1. Mild free pelvic fluid containing areas of hemorrhage. Left corpus luteal cyst. This exam was performed according to our departmental dose-optimization program, which includes autom ated exposure control, adjustment of the mA and/or kV according to patient size and/or use of iterati ve reconstruction technique. Electronically signed by: Niranjan Simental 03/01/2019 2:54 AM CDT Due to temporary technical issues with the PACS/Fluency reporting system, reports are being signed by the in house radiologist as a courtesy to ensure prompt reporting. The interpreting radiologist is f ully responsible for the content of the report.
== END 2019-03-01 03:20 | disposition home or self-care (01) ==
LOC: ER 23:02
DX: N83.299 Other ovarian cyst, unspecified side (principal)
CPT/HCPCS: 36415; 74177; 80048; 80076; 81003; 81025; 83690; 85025; 96361; 96374; 99284; J7030; Q9967

== ENCOUNTER 2019-12-25 12:50 | Emergency (ER) | payer OTHER ==
[2019-12-25] MEDS ORDERED: CODEINE 30MG/APAP 300MG TAB ONE (13:27)
--- NOTE | 2019-12-25 14:03 | RAD REPORT ---
EXAM DESCRIPTION: RAD - Foot Left 3 View - 12/25/2019 1:47 pm CLINICAL HISTORY: PAIN COMPARISON: No comparisons FINDINGS: No fracture, dislocation or periosteal reaction. No acute or destructive bony process. No air or foreign body in the soft tissues. IMPRESSION: Negative left foot examination.
--- NOTE | 2019-12-25 14:40 | EDPHYS ---
Physician Documentation [facility] Name: Carlita Atkinson Age: 19 yrs Sex: Female : 2000 Arrival Date: 12/25/2019 Time: 12:52 Bed 19 Private MD: ED Physician Chau Al HPI: 12/24 13:08 This 19 yrs old Female presents to ER via Ambulatory with complaints of Left pm1 Foot Injury. 13:08 The patient presents with pain, that is acute. The complaints affect the dorsum of left pm1 foot. Context: The problem was sustained outdoors, resulted from the patient kicking, a ball, the patient is not able to bear weight. Onset: The symptoms/episode began/occurred 4 day(s) ago. Modifying factors: The symptoms are alleviated by elevation of extremity, the symptoms are aggravated by weight bearing. Associated signs and symptoms: Pertinent negatives: calf tenderness, numbness, swelling, tingling. Severity of symptoms: in the emergency department the symptoms are unchanged. The patient has not experienced similar symptoms in the past. The patient has not recently seen a physician. Playing kick ball and kicked the ball. Instantly felt pain to the dorsum of left foot. No pain present to ankle. Pain with bearing weight. Historical: - Allergies: 13:00 NKA; ss - Home Meds: 13:00 None [Active]; ss - PMHx: 13:00 Asthma; scoliosis; ss - PSHx: 13:00 None; ss - Immunization history:: Adult Immunizations up to date. - Social history:: Smoking status: Patient denies any tobacco usage or history of. ROS: 13:08 MS/extremity: Positive for pain, of the dorsum of left foot. pm1 13:08 Constitutional: Negative for fever, chills, and weight loss, Cardiovascular: Negative for chest pain, palpitations, and edema, Respiratory: Negative for shortness of breath, cough, wheezing, and pleuritic chest pain, Skin: Negative for injury, rash, and discoloration, Neuro: Negative for headache, weakness, numbness, tingling, and seizure. 13:08 All other systems are negative. Exam: 13:08 Constitutional: This is a well developed, well nourished patient who is awake, alert, pm1 and in no acute distress. Head/Face: Normocephalic, atraumatic. Chest/axilla: Normal chest wall appearance and motion. Nontender with no deformity. No lesions are appreciated. 13:08 Skin: Warm, dry with normal turgor. Normal color with no rashes, no lesions, and no evidence of cellulitis. 13:08 Cardiovascular: Exam negative for acute changes, Rate: normal, Rhythm: regular, Pulses: no pulse deficits are appreciated. 13:08 Respiratory: Exam negative for acute changes, respiratory distress, shortness of breath. 13:08 Musculoskeletal/extremity: Extremities: grossly normal except: noted in the dorsum of left foot: tenderness, There is no evidence of deformity, ROM: intact in all extremities, Circulation is intact in all extremities. Vital Signs: 12:57 BP 114 / 83; Pulse 77; Resp 14; Temp 98.8(TE); Pulse Ox 99% on R/A; Weight 81.65 kg; ss Height 5 ft. 4 in. (162.56 cm); Pain 7/10; 12:57 Body Mass Index 30.90 (81.65 kg, 162.56 cm) ss MDM: 13:02 Patient medically screened. pm1 14:39 Data reviewed: vital signs. Data interpreted: Pulse oximetry: on room air is 99 %. pm1 Interpretation: normal. Counseling: I had a detailed discussion with the patient and/or guardian regarding: the historical points, exam findings, and any diagnostic results supporting the discharge/admit diagnosis, radiology results, the need for outpatient follow up, to return to the emergency department if symptoms worsen or persist or if there are any questions or concerns that arise at home. 12/24 13:07 Order name: Foot Left 3 View XRAY; Complete Time: 14:08 pm1 12/24 13:07 Order name: Crutches; Complete Time: 22:24 pm1 12/24 14:38 Order name: Post-op shoe; Complete Time: 22:24 pm1 12/24 14:39 Order name: Emiliano Wrap; Complete Time: 22:24 pm1 Administered Medications: 13:27 Not Given (pt is driving and does not have ride home): Tylenol #3 (300 mg-30 mg) 1 ah tablet PO once; RASS on ADMIN: Combtv4, Very Agttd3, Agttd2, Rstlss1, AlertClm0, Drwsy-1, Lt Sdtn-2, Mod Sdtn-3, Dp Sdtn-4, UnArsble-5 Disposition: 12/25/19 14:40 Discharged to Home. Impression: Pain in left foot, Contusion of left foot. - Condition is Stable. - Discharge Instructions: Foot Contusion, Crutch Use, Foot Pain. - Prescriptions for Tramadol 50 mg Oral Tablet - take 1 tablet by ORAL route every 8 hours as needed; 12 tablet. - Medication Reconciliation Form, Thank You Letter, Antibiotic Education, Prescription Opioid Use, Work release form form. - Follow up: Emergency Department; When: As needed; Reason: Worsening of condition. Follow up: Private Physician; When: 2 - 3 days; Reason: Recheck today's complaints, Continuance of care, Re-evaluation by your physician. - Problem is new. - Symptoms have improved. Addendum: 12/27/2019 20:16 Co-signature as Attending Physician, Chau Al MD I agree with the assessment and c grier plan of care. Signatures: Dispatcher [employer] EDChau Guido MD MD cha Smirch, Shelby, RN RN ss Russell Edouard, SHAKIR INVESTMENT CONSULTANT pm1 Pia Sy RN RN vc Harris, Amy RN Corrections: (The following items were deleted from the chart) 12/24 14:51 14:40 12/25/2019 14:40 Discharged to Home. Impression: Pain in left footContusion of vc left foot. Condition is Stable. Forms are Medication Reconciliation Form, Thank You Letter, Antibiotic Education, Prescription Opioid Use. Follow up: Emergency Department; When: As needed; Reason: Worsening of condition. Follow up: Private Physician; When: 2 - 3 days; Reason: Recheck today's complaints, Continuance of care, Re-evaluation by your physician. Problem is new. Symptoms have improved. pm1
--- NOTE | 2019-12-25 14:40 | ER ---
Nurse's Notes [facility] Name: Carlita Atkinson Age: 19 yrs Sex: Female : 2000 Arrival Date: 12/25/2019 Time: 12:52 Bed 19 Private MD: Diagnosis: Contusion of left foot;Pain in left foot Presentation: 12/24 12:57 Chief complaint: Patient states: "A few days ago I kicked a kick ball without shoes on. ss I had to go back to work, and now every time I have to put shoes on it's just really uncomfortable." C/o pain to L ankle/foot. Coronavirus screen: Proceed with normal triage. Ebola Screen: Patient denies exposure to infectious person. Patient denies travel to an Ebola-affected area in the 21 days before illness onset. Initial Sepsis Screen: Does the patient meet any 2 criteria? No. Patient's initial sepsis screen is negative. Does the patient have a suspected source of infection? No. Patient's initial sepsis screen is negative. Risk Assessment: Do you want to hurt yourself or someone else? Patient reports no desire to harm self or others. Onset of symptoms was December 24, 2019. 12:57 Method Of Arrival: Ambulatory 12:57 Acuity: YOU 4 ss Historical: - Allergies: 13:00 NKA; ss - Home Meds: 13:00 None [Active]; ss - PMHx: 13:00 Asthma; scoliosis; ss - PSHx: 13:00 None; ss - Immunization history:: Adult Immunizations up to date. - Social history:: Smoking status: Patient denies any tobacco usage or history of. Screenin:49 Abuse screen: Denies threats or abuse. Nutritional screening: No deficits noted. vc Tuberculosis screening: No symptoms or risk factors identified. Fall Risk Ambulatory Aid- Crutches/Cane/Walker (15 pts). Total Leigh Fall Scale indicates No Risk (0-24 pts). Assessment: 13:15 General: Appears in no apparent distress. Behavior is calm. Pain: Complains of pain in ah dorsum of left foot Pain does not radiate. Pain currently is 6 out of 10 on a pain scale. Quality of pain is described as aching, Pain began 4 days ago Is intermittent. Neuro: Level of Consciousness is awake, alert, Oriented to person, place, time, situation. Cardiovascular: Heart tones S1 S2 present Capillary refill < 3 seconds. Respiratory: Airway is patent Respiratory effort is even, unlabored, Respiratory pattern is regular, symmetrical. GI: No signs and/or symptoms were reported involving the gastrointestinal system. : No signs and/or symptoms were reported regarding the genitourinary system. EENT: No signs and/or symptoms were reported regarding the EENT system. Derm: No signs and/or symptoms reported regarding the dermatologic system. Musculoskeletal: Circulation, motion, and sensation intact. Capillary refill < 3 seconds, Range of motion: limited in left ankle Reports pain in dorsum of left foot. Vital Signs: 12:57 BP 114 / 83; Pulse 77; Resp 14; Temp 98.8(TE); Pulse Ox 99% on R/A; Weight 81.65 kg; ss Height 5 ft. 4 in. (162.56 cm); Pain 7/10; 12:57 Body Mass Index 30.90 (81.65 kg, 162.56 cm) ED Course: 12:52 Patient arrived in ED. mr 12:59 Triage completed. ss 13:00 Arm band placed on right wrist. ss 13:02 Russell Edouard, SHAKIR is PHCP. pm1 13:02 Chau Al MD is Attending Physician. pm1 13:19 Latasha Ruby, RN is Primary Nurse. ah 13:48 Foot Left 3 View XRAY In Process Unspecified. EDMS 14:00 Patient has correct armband on for positive identification. Placed in gown. Call light ah in reach. 14:50 No provider procedures requiring assistance completed. Patient did not have IV access vc during this emergency room visit. Administered Medications: 13:27 Not Given (pt is driving and does not have ride home): Tylenol #3 (300 mg-30 mg) 1 ah tablet PO once; RASS on ADMIN: Combtv4, Very Agttd3, Agttd2, Rstlss1, AlertClm0, Drwsy-1, Lt Sdtn-2, Mod Sdtn-3, Dp Sdtn-4, UnArsble-5 Outcome: 14:40 Discharge ordered by . pm1 14:50 Discharged to home ambulatory, with crutches. vc 14:50 Condition: good 14:50 Discharge instructions given to patient, Instructed on discharge instructions, follow up and referral plans. no drinking with medication, no driving heavy equipment, medication usage, crutch walking, Demonstrated understanding of instructions, follow-up care, medications, crutch walking, Prescriptions given X 1. 14:51 Patient left the ED. Signatures: Dispatcher [employer] ED McknightLizett Shelby, RN RN ss Russell Edouard, CHAUFFEUR MOTORBUS CHAUFFEUR MOTORBUS pm1 Pai Sy RN RN vc Harris, Amy, RN RN
[2019-12-25 14:57] VITALS: BP 114/83; TEMP 98.8; O2SAT 99
== END 2019-12-25 14:51 | disposition home or self-care (01) ==
LOC: ER 12:50
DX: S90.32XA Contusion of left foot, initial encounter (principal); Y93.6A Activity, physical games generally associated with school recess, summer camp and children
CPT/HCPCS: 99283

== ENCOUNTER 2020-07-04 10:29 | Emergency (ER) | payer OTHER ==
--- OUTSIDE RECORDS SUMMARY | 2020-07-04 10:37 | XMS REPORT | Continuity of Care Document ---
:2000 Author Organization [facility] t Address [address] [place] [address] [address] [place] [address] Care Team Providers Name Role Phone Kelechi Sauer Attending Clinician Problems This patient has no known problems. Allergies, Adverse Reactions, Alerts This patient has no known allergies or adverse reactions. Medications This patient has no known medications. Procedures This patient has no known procedures. Encounters Start End Encounter Admission Attending Care Care Encounter Source Date/Time Date/Time Type Type Clinicians Facility Department ID 2020-07-03 2020-07-03 Office KIRSTEN Garcia [id number] 14:23:30 14:50:28 Visit Donna oLrenz [employer] SALES REPRESENTATIVE [id number] [facility] [id number] MATERNAL [id number] & CHILD [address] [place] [address] Results This patient has no known results.
--- OUTSIDE RECORDS SUMMARY | 2020-07-04 10:37 | XMS REPORT | Summary of Care ---
:2000 Author Organization [facility] Address [address] [place] [address] Care Team Providers Name Role Phone Carito Lopez MD Primary Care Provider Unavailable Reason for Visit Reason Comments Results Encounter Details Date Type Department Care Team Description 06/28/2020 Telephone [facility] Women's Anum Sanabria, [facility] 146 [facility], [address] [facility] [address] [place] [address] [place] [address] [phone] Allergies No Known Allergiesdocumented as of this encounter (statuses as of 06/28/2020) Medications Medication Sig Dispensed Refills Start Date End Date Status Nitrofurantoin&Nit. Take 1 capsule by 20 capsule 0 06/20/2020 Active Macrocryst (MACROBID) mouth 2 (two) 100 mg times daily. capsuleIndications: UTI symptoms Hospital, Clinic, or Other Ordered Dose Route Frequency Start Date End Date Status Facility Administered Medication medroxyPROGESTERone 150 mg IM [id number] 02/24/2020 1 Active (DEPO-PROVERA) injection 150 mgIndications: control counseling documented as of this encounter (statuses as of 06/28/2020) Active Problems Problem Noted Date Other general counseling and advice for contraceptive management 02/24/2020 Well woman exam 02/24/2020 Obesity (BMI 30.0-34.9) 02/24/2020 documented as of this encounter (statuses as of 06/28/2020) Immunizations Name Administration Dates Next Due HPV9 08/21/2015, 04/03/2015 Influenza Virus Vaccine Quad IM 3+ YRS 05/20/2016 Meningococcal Polysaccharide (groups A, C, Y and 04/03/2015 W-135) conjugate vaccine (MCV4P) documented as of this encounter Social History Tobacco Use Types Packs/Day Years Used Date Never Smoker Smokeless Tobacco: Never Used Alcohol Use Drinks/Week oz/Week Comments Yes Socially Sex Assigned at Date Recorded Not on file COVID-19 Exposure Response Date Recorded In the last month, have you been in contact with No / Unsure 06/20/2020 8:15 AM INTRAMURAL DIRECTOR someone who was confirmed or suspected to have Coronavirus / COVID-19? documented as of this encounter Last Filed Vital Signs Not on filedocumented in this encounter Miscellaneous Notes Telephone Encounter - Oscar Pond - 06/28/2020 2:50 PM CSTAppointment has been scheduled for patient. elephone Encounter - Cleo Vale MA - 06/28/2020 12:11 PM CSTS/w patient and identified her name and , patient states she has two more pills of macrobid left and is still having symptoms. Patient would like to schedule an appointment to come in and get re-evaluated. AMURAL DIRECTOR Telephone Encounter - Vira Gillespie - 06/28/2020 10:22 AM CSTPatient is calling, would like to speak to a nurse regarding labs. documented in this encounter Plan of Treatment Date Type Specialty Care Team Description 07/03/2020 Office Visit [facility] Donna Garcia FNP [address] [place], [place] [address] [phone] 07/04/2020 Office Visit [facility] Tex Sanabria ALOP [address] [place], [place] [address] [phone] 09/12/2020 Nurse Visit [facility]ell[facility] Visit, [facility] Nurse Health Maintenance Due Date Last Done Comments HPV VACCINES (3 - 3-dose 08/20/2020 08/21/2015, Postpon ed from 12/20/2015 series) 04/03/2015 (Alternative Reji delines) INFLUENZA VACCINE (#1) 2021 05/20/2016 Postponed from 04/18/2020 (Refused) CHLAMYDIA SCREENING 02/23/2021 02/24/2020, 02/24/2020 DTaP,Tdap,and Td Vaccines (1 02/23/2021 Pos tponed from 2017 - Tdap) (Alternative Reji delines) Depression Screening 02/23/2021 02/24/2020 MENINGOCOCCAL B VACCINES (1 02/23/2021 Post poned from 2008 of 2 - Risk Bexsero 2-dose (Alte rnative Guidelines) series) VARICELLA VACCINES (1 of 2 - 02/23/2021 Pos tponed from 1999 2-dose childhood series) (Altern ative Guidelines) WELL CARE VISIT: 12-21 YEARS 06/20/2021 06/20/2020 (yearly) PAP SMEAR 02/23/2023 02/24/2020, 02/24/2020 MENINGOCOCCAL VACCINE Completed 04/03/2015 PNEUMOCOCCAL 0-64 YEARS Aged Out No longe r eligible based COMBINED SERIES on patient's age to complete this to pic documented as of this encounter Results Not on filedocumented in this encounter Insurance Payer Benefit Plan / Group Subscriber ID Effective Dates Phone Address Type MULT[employer]AN [employer] [id number] 2017-Present PPO documented as of this encounter Advance Directives Name Relationship Healthcare Agent Communication Relationship Norma China Mother Health Care Agent
--- OUTSIDE RECORDS SUMMARY | 2020-07-04 10:37 | XMS REPORT | Summary of Care ---
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 Take 1 capsule by 20 capsule 0 06/20/2020 Active Macrocryst (MACROBID) mouth 2 (two) 100 mg times daily. capsuleIndications: UTI symptoms Hospital, Clinic, or Other Ordered Dose Route Frequency Start Date End Date Status Facility Administered Medication medroxyPROGESTERone 150 mg IM [id number] 02/24/2020 1 Active (DEPO-PROVERA) injection 150 mgIndications: control counseling documented as of this encounter (statuses as of 06/20/2020) Active Problems Problem Noted Date Other general counseling and advice for contraceptive management 02/24/2020 Well woman exam 02/24/2020 Obesity (BMI 30.0-34.9) 02/24/2020 documented as of this encounter (statuses as of 06/20/2020) Immunizations Name Administration Dates Next Due HPV9 [...] with No / Unsure 06/20/2020 8:15 AM BICYCLE DESIGNER someone who was confirmed or suspected to have Coronavirus / COVID-19? documented as of this encounter Last Filed Vital Signs Vital Sign Reading Time Taken Comments Blood Pressure 128/90 06/20/2020 8:17 AM BICYCLE DESIGNER Pulse 80 06/20/2020 8:17 AM BICYCLE DESIGNER Temperature 36.4 C (97.6 F) 06/20/2020 8:17 AM BICYCLE DESIGNER Respiratory Rate 16 06/20/2020 8:17 AM BICYCLE DESIGNER Oxygen Saturation - - Inhaled Oxygen Concentration - - Weight 87.2 kg (192 lb 4 oz) 06/20/2020 8:17 AM BICYCLE DESIGNER Height - - Body Mass Index - - documented in this encounter Progress Notes Emerson Ayala RN - 06/20/2020 8:00 AM CST19 year old female has been identified by and name. Verbal consent has been obtained by patientto have an injection of Depo Provera, as ordered by the provider. Date of last Depo Provera injection: 02/24/2020 UPT negative today Last WWE: 02/24/2020 Encounter Diagnosis: v25.49 The site was cleaned with an alcohol swab and given intramuscularly (IM) in the right gluteus. A band aid dressing was then applied to the injection site. The patient tolerated the procedure well. Advised patient on Calcium intake 500-1200 mg daily. ED warnings given. Patient to return to clinic in 12 weeks for next Depo. Patient verbalized understanding. 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 She reports symptoms started on this past Friday, which include burning on urination, and irritation. She declines all other associated symptoms today and reports that she has used AZO tablets otc, but reports minimal relief. She denies any new sexual partners and reports condom use with intercourse. Histories OB History Para Term AB Living 0 0 0 0 0 0 SAB TAB Ectopic Multiple Live Births 0 0 0 0 0 Past Medical History: Diagnosis Date Anemia Asthma Endometriosis STD (sexually transmitted disease) Family History Problem Relation Age of Onset Diabetes Mother Family Status Relation Name Status Mo Alive No past surgical history on file. Social History Socioeconomic History Marital status: Single Spouse name: Not on file Number of children: Not on file Years of education: Not on file Highest education level: Not on file Occupational History Not on file Social Needs Financial resource strain: Not on file Food insecurity Worry: Not on file Inability: Not on file Transportation needs Medical: Not on file Non-medical: Not on file Tobacco Use Smoking status: Never Smoker Smokeless tobacco: Never Used Substance and Sexual Activity Alcohol use: Yes Comment: Socially Drug use: Never Sexual activity: Yes Partners: Male control/protection: None Comment: Last intercourse: 11/23/2019 Lifestyle Physical activity Days per week: Not on file Minutes per session: Not on file Stress: Not on file Relationships Social connections Talks on phone: Not on file Gets together: Not on file Attends orthodox service: Not on file Active member of club or organization: Not on file Attends meetings of clubs or organizations: Not on file Relationship status: Not on file Intimate partner violence Fear of current or ex partner: Not on file Emotionally abused: Not on file Physically abused: Not on file Forced sexual activity: Not on file Other Topics Concern Not on file Social History Narrative Patient feels safe at home. Social History Substance and Sexual Activity Sexual Activity Yes Partners: Male control/protection: None Comment: Last intercourse: 11/23/2019 Labs Labs are pending. and No visits with results within 3 Month(s) from this visit. Latest known visit with results is: Office Visit on 02/24/2020 Component Date Value POCT PREG 02/24/2020 Negative On board controls accept* 02/24/2020 Yes C. trachomatis Nucleic A* 02/24/2020 Negative N. gonorrhoeae Nucleic A* 02/24/2020 Negative Trichomonas Nucleic Acid 02/24/2020 Negative Case Report 02/24/2020 Value:Gynecologic Cytology Case: [id number] Authorizing Provider: Anum Sanabria, Collected: 02/24/2020 [address] [facility] Ordering Location: [facility]- Received: 02/24/2020 [address] [place] First Screen: Stevie Canales Specimen: Liquid Based Pap Preparation, CERVIX Clinical Information 02/24/2020 Value:routine Specimen Adequacy 02/24/2020 Satisfactory for Evaluation(Endocervical/Transformation Zone Component Absent) Interpretation 02/24/2020 Negative for intraepithelial lesion or malignancy LMP 02/24/2020 LMP (specify date in Comments) Educational Note 02/24/2020 Value:This result contains rich text formatting which cannot be displayed here. Radiology No new radiology. Allergies Carlita has No Known Allergies. Medications Carlita has a current medication list which includes the following prescription(s): nitrofurantoin&nit. macrocryst, and the following Facility- Administered Medications: medroxyprogesterone. Review of Systems Constitutional: Negative. HENT: Negative. Eyes: Negative. Respiratory: Negative. Breasts: Negative. Cardiovascular: Negative. Gastrointestinal: Negative. Genitourinary: Negative. Musculoskeletal: Negative. Skin: Negative. Neurological: Negative. Psychiatric/Behavioral: Negative. Endocrine: Endocrine negative BP 128/90 (BP Location: Right arm, Patient Position: Sitting, BP CUFF SIZE: Adult Medium) | Pulse 80 | Temp 36.4 C (97.6 F) (Oral) | Resp 16 | Wt 192 lb 4 oz (87.2 kg) | LMP 05/27/2020 (Approximate) Pregravid BMI: Could not be calculated Physical Exam Vitals reviewed. Constitutional: She is oriented to person, place, and time. She appears well- developed and well-nourished. Cardiovascular: Regular rate and rhythm. No peripheral edema present. Pulmonary/Chest: Normal inspiratory effort. Abdominal: Abdomen is soft. No mass palpated. No tenderness present. There is no hepatosplenomegaly,splenomegaly or hepatomegaly. There is no rigidity and no guarding. No hernia palpated or inspected. Neuro/Psychiatric: She has a normal mood and affect. She is oriented to person, place, and time. Bladder: Tenderness palpated. Bladder has no fullness and no mass palpated. CVAT- negative Assessment/Plan Return to clinic in 12 weeks. 09/2020 for depo Return to clinic in 8 months for WWE or sooner as needed Other general counseling and advice for contraceptive management (primary encounter diagnosis) control counseling Comment: as ordered Plan: POCT TEST, POCT URINALYSIS W/O SPECIFIC GRAVITY UTI symptoms Comment: as ordered Plan: Nitrofurantoin&Nit. Macrocryst (MACROBID) 100 mg capsule, URINE CULTURE This visit did not involve counseling and coordination that comprised more than 50% of the visit time. JOSEFA Zuleta 06/20/2020 8:39 AM CLE DESIGNER documented in this encounter Plan of Treatment Date Type Specialty Care Team Description 09/12/2020 Nurse Visit [facility] Visit, [facility] Nurse Name Type Priority Associated Diagnoses Date/Ti me URINE CULTURE LAB Routine UTI symptoms 06/20/2020 8: 43 AM BICYCLE DESIGNER Health Maintenance Due Date Last Done Comments [...] on patient's age to complete this to [facility] documented as of this encounter Procedures Procedure Name Priority Date/Time Associated Comments Diagnosis POCT TEST Routine 06/20/2020 8:21 AM control Results for this BICYCLE DESIGNER counseling procedure are i n the results section. POCT URINALYSIS W/O Routine 06/20/2020 8:20 AM control Results for this SPECIFIC GRAVITY BICYCLE DESIGNER counseling procedure a re in the results section. documented in this encounter Results POCT TEST (06/20/2020 8:21 AM BICYCLE DESIGNER) Pathologist Sig nature POCT PREG Negative On board controls acceptable Yes with C Line POCT PREG LOT # POCT PREG TEST DATE Specimen Urine - URINE, CLEAN CATCH POCT URINALYSIS W/O SPECIFIC GRAVITY (06/20/2020 8:20 AM BICYCLE DESIGNER) Pathologist Sig nature POCT PH U 6 5 - 8 mg/dl POCT U LEUK EST 2+ Negative - Negative POCT U NIT Neg Negative - Negative POCT U PROT Trace Negative - Negative POCT U GLU Neg Negative - Negative POCT U KETONE None Negative - Negative POCT U BLD Trace Negative - Negative Specimen Urine - URINE, CLEAN CATCH documented in this encounter Visit Diagnoses Diagnosis Other general counseling and advice for contraceptive management - Primary control counseling General counseling for initiation of oth er contraceptive measures UTI symptoms documented in this encounter Administered Medications Medication Order MAR Action Action Date Dose Rate Site medroxyPROGESTERone Given 06/20/2020 9:05 150 mg Right (DEPO-PROVERA) injection 150 AM BICYCLE DESIGNER Dorsogluteal-IM mg 150 mg, Intramuscular, [id number], 4 doses, First dose on Milagro 02/24/20 at 1115, Last dose on Milagro 11/02/20 at 1115, Routine Given 02/24/2020 11:22 AM CDT 150 mg Left Dorsogluteal-IM documented in this encounter documented as of this encounter Advance Directives Name Relationship Healthcare Agent Communication Relationship Norma Grant Mother Health Care Agent "
--- OUTSIDE RECORDS SUMMARY | 2020-07-04 10:37 | XMS REPORT | Summary of Care ---
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 Depo Encounter Details Date Type Department Care Team Description 06/20/2020 Office Visit [facility]- Anum Sanabria Ot er general counseling and advice for contraceptive management (Primary Dx); [facility]; [address] [facility] [address] [facility] RY UTI [place] [phone] Allergies No Known Allergiesdocumented as of this [...] Facility Administered Medication medroxyPROGESTERone 150 mg IM [id number] 02/24/2020 1 Active (DEPO-PROVERA) injection 150 mgIndications: [...] with No / Unsure 06/20/2020 8:15 AM HAND ASSEMBLER FOR PULLER OVER someone who was confirmed or suspected to have Coronavirus / COVID-19? documented as of this encounter Last Filed Vital Signs Vital Sign Reading Time Taken Comments Blood Pressure 128/90 06/20/2020 8:17 AM HAND ASSEMBLER FOR PULLER OVER Pulse 80 06/20/2020 8:17 AM HAND ASSEMBLER FOR PULLER OVER Temperature 36.4 C (97.6 F) 06/20/2020 8:17 AM HAND ASSEMBLER FOR PULLER OVER Respiratory Rate 16 06/20/2020 8:17 AM HAND ASSEMBLER FOR PULLER OVER Oxygen Saturation - - Inhaled Oxygen Concentration - - Weight 87.2 kg (192 lb 4 oz) 06/20/2020 8:17 AM HAND ASSEMBLER FOR PULLER OVER Height - - Body Mass Index - [...] understanding. 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 JOSEFA Zuleta 06/20/2020 8:39 AM ASSEMBLER FOR PULLER OVER documented in this encounter Plan of Treatment Date Type Specialty Care Team Description 09/12/2020 Nurse Visit [facility]ell[facility] Visit, [facility] Nurse Name Type Priority Associated Diagnoses Date/Ti me URINE CULTURE LAB Routine UTI symptoms 06/20/2020 8: 43 AM HAND ASSEMBLER FOR PULLER OVER Health Maintenance Due Date Last Done Comments [...] on patient's age to complete this to [facility] documented as of this encounter Procedures Procedure Name Priority Date/Time Associated Comments Diagnosis POCT TEST Routine 06/20/2020 8:21 AM control Results for this HAND ASSEMBLER FOR PULLER OVER counseling procedure are i n the results section. POCT URINALYSIS W/O Routine 06/20/2020 8:20 AM control Results for this SPECIFIC GRAVITY HAND ASSEMBLER FOR PULLER OVER counseling procedure a re in the results section. documented in this encounter Results POCT TEST (06/20/2020 8:21 AM HAND ASSEMBLER FOR PULLER OVER) Pathologist Sig nature POCT PREG Negative On board controls acceptable Yes with C Line POCT PREG LOT # POCT PREG TEST DATE Specimen Urine - URINE, CLEAN CATCH POCT URINALYSIS W/O SPECIFIC GRAVITY (06/20/2020 8:20 AM HAND ASSEMBLER FOR PULLER OVER) Pathologist Sig nature POCT PH U 6 [...] 150 mg Right (DEPO-PROVERA) injection 150 AM HAND ASSEMBLER FOR PULLER OVER Dorsogluteal-IM mg 150 mg, Intramuscular, [id number], 4 doses, First dose on Milagro 02/24/20 at 1115, Last dose on Milagro 11/02/20 at 1115, Routine Given 02/24/2020 11:22 AM CDT 150 mg Left Dorsogluteal-IM documented in this encounter documented as of this encounter Advance Directives Name Relationship Healthcare Agent Communication Relationship Norma Grant Mother Health Care Agent "
--- OUTSIDE RECORDS SUMMARY | 2020-07-04 10:38 | XMS REPORT | Summary of Care ---
:2000 Author Organization [facility] Address [address] [place] [address] Care Team Providers Name Role Phone Carito Lopez MD Primary Care Provider Unavailable Reason for Visit Reason Comments UTI Vaginal Discharge Encounter Details Date Type Department Care Team Description 07/[facility], CRADLE SLIDE MAKER [address] [place] [address] [phone] Dysuria (Primary Dx); [place] Anum Sanabria, [facility] [address] [place] [address] [phone] Screen for STD (sexually transmitted dis ease) [facility] [place] [address] Allergies No Known Allergiesdocumented as of this encounter (statuses as of 07/03/2020) Medications Medication Sig Dispensed Refills Start Date End Date Status Nitrofurantoin&Ni Take 1 capsule 20 capsule 0 06/20/202007/03 Discontinued t. Macrocryst by mouth 2 (MACROBID) 100 mg (two) times capsuleIndication daily. s: UTI symptoms Hospital, Clinic, or Other Ordered Dose Route Frequency Start Date End Date Status Facility Administered Medication medroxyPROGESTERone 150 mg IM [id number] 02/24/2020 1 Active (DEPO-PROVERA) injection 150 mgIndications: control counseling documented as of this encounter (statuses as of 07/03/2020) Active Problems Problem Noted Date Other general counseling and advice for contraceptive management 02/24/2020 Well woman exam 02/24/2020 Obesity (BMI 30.0-34.9) 02/24/2020 documented as of this encounter (statuses as of 07/03/2020) Immunizations Name Administration Dates Next Due HPV9 08/21/2015, 04/03/2015 Influenza Virus Vaccine Quad .5 mL IM 6+ MO 04/29/2020 Influenza Virus Vaccine Quad IM 3+ YRS [...] been in contact with No / Unsure 07/03/2020 2:34 PM ORDER MANAGEMENT SPECIALIST someone who was confirmed or suspected to have Coronavirus / COVID-19? documented as of this encounter Last Filed Vital Signs Vital Sign Reading Time Taken Comments Blood Pressure 126/85 07/03/2020 2:34 PM ORDER MANAGEMENT SPECIALIST Pulse 74 07/03/2020 2:34 PM ORDER MANAGEMENT SPECIALIST Temperature 36.9 C (98.4 F) 07/03/2020 2:34 PM ORDER MANAGEMENT SPECIALIST Respiratory Rate 16 07/03/2020 2:34 PM ORDER MANAGEMENT SPECIALIST Oxygen Saturation - - Inhaled Oxygen Concentration - - Weight 86.7 kg (191 lb 3.2 oz) 07/03/2020 2:34 PM ORDER MANAGEMENT SPECIALIST Height 162.6 cm (5' 4") 07/03/2020 2:34 PM ORDER MANAGEMENT SPECIALIST Body Mass Index 32.82 07/03/2020 2:34 PM ORDER MANAGEMENT SPECIALIST documented in this encounter Progress Notes Donna Garcia, SAMIRA - 07/03/2020 2:30 PM CST Chief complaint: Chief Complaint Patient presents with UTI Vaginal Discharge HPI Carlita Grant is a 19 year old here with complaint of dysuria. She was seen for this complaint initially on 06/20/20. At that time she was started on empiric therapy for UTI with macrobid, which she completed. Urine culture subsequently returned negative for bacterial infection. Pt reports prior to taking antibiotics, she was having discomfort at urethra constantly, and now is only having aburning sensation while urinating. She denies urgency, frequency, hematuria, or incontinence. She would like screening for STDs today. Denies fever, N/V, flank pain, or suprapubic pain. She denies genital sores or blisters. She reports a clear vaginal discharge, which is normal for her. Denies malodorous, colored, or thick white discharge. Denies genital itching. Histories OB History Para Term AB Living 0 0 0 0 0 0 SAB TAB Ectopic Multiple Live Births 0 0 0 0 0 Past Medical History: Diagnosis Date Anemia Asthma Endometriosis STD (sexually transmitted disease) Family History Problem Relation Age of Onset Diabetes Mother Family Status Relation Name Status Mo Alive History reviewed. No pertinent surgical history. Social History Socioeconomic History Marital status: Single [...] file Gets together: Not on file Attends gnosticist service: Not on file Active member of [...] control/protection: None Comment: Last intercourse: 11/23/2019 Labs I have reviewed the patient's labs., Labs are pending. and Office Visit on 06/20/2020 Component Date Value POCT PREG 06/20/2020 Negative On board controls accept* 06/20/2020 Yes POCT PH U 06/20/2020 6 POCT U LEUK EST 06/20/2020 2+ POCT U NIT 06/20/2020 Neg POCT U PROT 06/20/2020 Trace POCT U GLU 06/20/2020 Neg POCT U KETONE 06/20/2020 None POCT U BLD 06/20/2020 Trace URINE CULTURE 06/20/2020 10,000 - 100,000 CFU/mL mixed aerobic organisms - suggests endogenous microbial contamination Radiology No new radiology. Allergies Carlita has No Known Allergies. Medications Carlita has a current medication list which includes the following Facility- Administered Medications: medroxyprogesterone. Review of Systems Constitutional: Negative. Respiratory: Negative. Breasts: Negative. Cardiovascular: Negative. Gastrointestinal: Negative. Genitourinary: Positive for dysuria. Skin: Negative. Neurological: Negative. Psychiatric/Behavioral: Negative. BP 126/85 (BP Location: Right arm, Patient Position: Sitting, BP CUFF SIZE: Adult Medium) | Pulse 74 | Temp 36.9 C (98.4 F) (Oral) | Resp 16 | Ht 5' 4" (1.626 m) | Wt 191 lb 3.2 oz (86.7 kg) | LMP 05/27/2020 (Within Days) | BMI 32.82 kg/m Pregravid BMI: Could not be calculated Physical Exam Vitals reviewed. Constitutional: She is oriented to person, place, and time. She appears well- developed and well-nourished. Her body habitus is normal. Cardiovascular: Regular rate and rhythm. No murmur auscultated. Pulmonary/Chest: Breath sounds clear to auscultation. Normal inspiratory effort. Abdominal: No tenderness present. There is no CVA tenderness. Neuro/Psychiatric: She has a normal mood and affect. She is oriented to person, place, and time. Assessment/Plan 1. Dysuria Gc/ct pending Encouraged increased water intake - POCT URINALYSIS W/O SPECIFIC GRAVITY - GC & CHLAMYDIA AMPLIFIED ASSAY 2. Screen for STD (sexually transmitted disease) Reviewed safe sex practices - GC & CHLAMYDIA AMPLIFIED ASSAY Return to clinic in 11 weeks. Discussed treatment options. Reviewed patient instructions and provided printed copy. This visit did not involve counseling and coordination that comprised more than 50% of the visit time. R MANAGEMENT SPECIALIST documented in this encounter Plan of Treatment Date Type Specialty Care Team Description 09/12/2020 [facility] Name Type Priority Associated Diagnoses Order S chedule GC & CHLAMYDIA AMPLIFIED LAB Routine Dysuria Ordered: 07/03/2020 ASSAY Screen for STD (sexually transmitted disease) Health Maintenance Due Date Last Done Comments [...] to pic documented as of this encounter Procedures Procedure Name Priority Date/Time Associated Diagnosis Comme nts POCT URINALYSIS W/O Routine 07/03/2020 Dysuria Results for this SPECIFIC GRAVITY procedure a re in the results section . documented in this encounter Results POCT URINALYSIS W/O SPECIFIC GRAVITY (07/03/2020) Pathologist Sig nature POCT PH U 6 5 - 8 mg/dl POCT U LEUK EST 1+ Negative - Negative POCT U NIT neg Negative - Negative POCT U PROT neg Negative - Negative POCT U GLU neg Negative - Negative POCT U KETONE neg Negative - Negative POCT U BLD neg Negative - Negative Specimen Urine - URINE, CLEAN CATCH documented in this encounter Visit Diagnoses Diagnosis Dysuria - Primary Screen for STD (sexually transmitted dis ease) Screening examination for venereal disea se documented in this encounter documented as of this encounter Advance Directives Name Relationship Healthcare Agent Communication Relationship Norma Grant Mother Health Care Agent
--- OUTSIDE RECORDS SUMMARY | 2020-07-04 10:38 | XMS REPORT | Summary of Care ---
:2000 Author Organization [facility] Address [address] [place] [address] Care Team Providers Name Role Phone Carito Lopez MD Primary Care Provider Unavailable Reason for Visit Reason Comments UTI Vaginal Discharge Encounter Details Date Type Department Care Team Description 07/03/2020 [facility], SCUBA DIVE TRAINING INSTRUCTOR [address] [place] [address] [phone] Dysuria (Primary Dx); [place] Anum Sanabria, [facility] [address] [place] [address] [phone] Screen for STD (sexually transmitted dis ease) [facility] [place] [address] Allergies No Known Allergiesdocumented as [...] Facility Administered Medication medroxyPROGESTERone 150 mg IM [id number] 02/24/2020 1 Active (DEPO-PROVERA) injection 150 mgIndications: [...] with No / Unsure 07/03/2020 2:34 PM CIVIL RIGHTS REPRESENTATIVE someone who was confirmed or suspected to have Coronavirus / COVID-19? documented as of this encounter Last Filed Vital Signs Vital Sign Reading Time Taken Comments Blood Pressure 126/85 07/03/2020 2:34 PM CIVIL RIGHTS REPRESENTATIVE Pulse 74 07/03/2020 2:34 PM CIVIL RIGHTS REPRESENTATIVE Temperature 36.9 C (98.4 F) 07/03/2020 2:34 PM CIVIL RIGHTS REPRESENTATIVE Respiratory Rate 16 07/03/2020 2:34 PM CIVIL RIGHTS REPRESENTATIVE Oxygen Saturation - - Inhaled Oxygen Concentration - - Weight 86.7 kg (191 lb 3.2 oz) 07/03/2020 2:34 PM CIVIL RIGHTS REPRESENTATIVE Height 162.6 cm (5' 4") 07/03/2020 2:34 PM CIVIL RIGHTS REPRESENTATIVE Body Mass Index 32.82 07/03/2020 2:34 PM CIVIL RIGHTS REPRESENTATIVE documented in this encounter Progress Notes Donna [...] file Gets together: Not on file Attends scientologist service: Not on file Active member of [...] more than 50% of the visit time. L RIGHTS REPRESENTATIVE documented in this encounter Plan of Treatment Date Type Specialty Care Team Description 09/12/2020 [facility] Name Type Priority Associated Diagnoses [...]
--- NOTE | 2020-07-04 11:08 | ER ---
Nurse's Notes [facility] Name: Carlita Atkinson Age: 19 yrs Sex: Female : 2000 Arrival Date: 07/04/2020 Time: 10:31 Bed Waiting Private MD: Diagnosis: Other otitis externa, left ear Presentation: 07/04 10:38 Chief complaint: Patient states: L ear pain that began yesterday. Coronavirus screen: ss Client denies travel out of the [place] in the last 14 days. Ebola Screen: Patient denies exposure to infectious person. Patient denies travel to an Ebola-affected area in the 21 days before illness onset. Initial Sepsis Screen: Does the patient meet any 2 criteria? No. Patient's initial sepsis screen is negative. Does the patient have a suspected source of infection? No. Patient's initial sepsis screen is negative. Risk Assessment: Do you want to hurt yourself or someone else? Patient reports no desire to harm self or others. Onset of symptoms was July 01, 2020. 10:38 Method Of Arrival: Ambulatory ss 10:38 Acuity: YOU 5 ss GORE INSERTER: 10:40 LMP N/A - Depo-provera ss Historical: - Allergies: 10:40 NKA; ss - Home Meds: 10:40 None [Active]; ss - PMHx: 10:40 Asthma; GERD; scoliosis; ss - PSHx: 10:40 None; ss - Immunization history:: Adult Immunizations up to date. - Social history:: Smoking status: Patient denies any tobacco usage or history of. Screenin:48 Abuse screen: Denies threats or abuse. Denies injuries from another. Nutritional ss screening: No deficits noted. Tuberculosis screening: Never had TB. Fall Risk None identified. Assessment: 10:48 General: Appears in no apparent distress. comfortable, Behavior is calm, cooperative. ss Pain: Complains of pain in left ear Pain currently is 6 out of 10 on a pain scale. Quality of pain is described as aching, Pain began 2-3 days ago. Is continuous. Neuro: Level of Consciousness is awake, alert, obeys commands, Oriented to person, place, time, situation. Respiratory: Airway is patent Respiratory effort is even, unlabored, Respiratory pattern is regular, symmetrical. GI: Patient currently denies abdominal pain, diarrhea, nausea, vomiting. EENT: Oral mucosa is moist. Throat is clear. Derm: Skin is intact, is healthy with good turgor, Skin is pink, warm \T\ dry. normal. Musculoskeletal: Circulation, motion, and sensation intact. Range of motion: intact in all extremities. 11:06 Reassessment: SHAKIR Pacheco assessing patient at this time. ss Vital Signs: 10:38 BP 121 / 80; Pulse 78; Resp 15; Temp 98.3(TE); Pulse Ox 99% on R/A; Weight 86.64 kg; ss Height 5 ft. 4 in. (162.56 cm); Pain 6/10; 10:38 Body Mass Index 32.78 (86.64 kg, 162.56 cm) ss ED Course: 10:31 Patient arrived in ED. mr 10:40 Triage completed. ss 10:40 Arm band placed on right wrist. ss 10:42 Tara Serrano FNP-C is [facility]. kb 10:42 Blayne Cottrell MD is Attending Physician. kb 10:48 Patient has correct armband on for positive identification. Bed in low position. Call ss light in reach. 11:06 Rae Quintero, RHINA is Primary Nurse. ss 11:06 No provider procedures requiring assistance completed. Patient did not have IV access ss during this emergency room visit. Administered Medications: No medications were administered Outcome: 11:08 Discharge ordered by . kb 11:10 Discharged to home ambulatory. ss 11:10 Condition: good 11:10 Discharge instructions given to patient, Instructed on discharge instructions, follow up and referral plans. medication usage, Demonstrated understanding of instructions, follow-up care, medications, Prescriptions given X 1. 11:10 Patient left the ED. ss Signatures: Tara Serrano FNP-C FNP-August Lizett Mcknight mr Rae Quintero, RN RN ss
--- NOTE | 2020-07-04 11:08 | EDPHYS ---
Physician Documentation [facility] Name: Carlita Atkinson Age: 19 yrs Sex: Female : 2000 Arrival Date: 07/04/2020 Time: 10:31 Bed Waiting Private MD: ED Physician Blayne Cottrell HPI: 07/04 11:12 This 19 yrs old Female presents to ER via Ambulatory with complaints of Ear kb Pain. 11:12 The patient presents with pain, tenderness. The complaints affect the left ear. Onset: kb The symptoms/episode began/occurred 3 day(s) ago. Modifying factors: The symptoms are alleviated by nothing, the symptoms are aggravated by nothing. Associated signs and symptoms: The patient has no apparent associated signs or symptoms. Severity of symptoms: At their worst the symptoms were moderate in the emergency department the symptoms are unchanged. The patient has not experienced similar symptoms in the past. The patient has not recently seen a physician. Pt reports left ear pain for 3 days. States mother used hydrogen peroxide to clean it and they got out a lot of wax, but pain continues and is getting worse. States her mother put drops in it for 2 nights, but it didn't help.. PSYCHIATRIC REGISTERED NURSE: 10:40 LMP N/A - Depo-provera ss Historical: - Allergies: 10:40 NKA; ss - Home Meds: 10:40 None [Active]; ss - PMHx: 10:40 Asthma; GERD; scoliosis; ss - PSHx: 10:40 None; ss - Immunization history:: Adult Immunizations up to date. - Social history:: Smoking status: Patient denies any tobacco usage or history of. ROS: 11:11 Constitutional: Negative for fever, chills, and weight loss, Cardiovascular: Negative kb for chest pain, palpitations, and edema, Respiratory: Negative for shortness of breath, cough, wheezing, and pleuritic chest pain, Abdomen/GI: Negative for abdominal pain, nausea, vomiting, diarrhea, and constipation, MS/Extremity: Negative for injury and deformity, Skin: Negative for injury, rash, and discoloration, Neuro: Negative for headache, weakness, numbness, tingling, and seizure. 11:11 ENT: Positive for ear pain. Exam: 11:11 Constitutional: This is a well developed, well nourished patient who is awake, alert, kb and in no acute distress. Head/Face: Normocephalic, atraumatic. MS/ Extremity: Pulses equal, no cyanosis. Neurovascular intact. Full, normal range of motion. Neuro: Awake and alert, GCS 15, oriented to person, place, time, and situation. Cranial nerves II-XII grossly intact. Motor strength 5/5 in all extremities. Sensory grossly intact. Cerebellar exam normal. Normal gait. 11:11 ENT: External ear(s): are unremarkable, Ear canal(s): swelling, that is moderate, of the left canal, TM's: are normal. 11:11 Respiratory: the patient does not display signs of respiratory distress, Respirations: normal. Vital Signs: 10:38 BP 121 / 80; Pulse 78; Resp 15; Temp 98.3(TE); Pulse Ox 99% on R/A; Weight 86.64 kg; ss Height 5 ft. 4 in. (162.56 cm); Pain 6/10; 10:38 Body Mass Index 32.78 (86.64 kg, 162.56 cm) ss MDM: 11:07 Patient medically screened. kb 11:11 Data reviewed: vital signs, nurses notes. Data interpreted: Pulse oximetry: on room air kb is 99 %. Interpretation: normal. Counseling: I had a detailed discussion with the patient and/or guardian regarding: the historical points, exam findings, and any diagnostic results supporting the discharge/admit diagnosis, the need for outpatient follow up, a family practitioner, to return to the emergency department if symptoms worsen or persist or if there are any questions or concerns that arise at home. Administered Medications: No medications were administered Disposition: 13:22 Co-signature as Attending Physician, Blayne Cottrell MD I agree with the assessment and kdr plan of care. Disposition: 07/04/20 11:08 Discharged to Home. Impression: Other otitis externa, left ear. - Condition is Stable. - Discharge Instructions: Otitis Externa, [id number], Ear Drops, Adult, [id number]. - Prescriptions for Ciprodex 0.3- 0.1 % Otic Drops, Suspension - instill 4 drop by OTIC route every 12 hours for 7 days , for ears ONLY; 1 Container. - Medication Reconciliation Form, Thank You Letter, Antibiotic Education, Prescription Opioid Use form. - Follow up: Emergency Department; When: As needed; Reason: Worsening of condition. Follow up: Private Physician; When: 2 - 3 days; Reason: Recheck today's complaints, Continuance of care, Re-evaluation by your physician. Signatures: Tara Serrano, SETTER MOLDING AND COREMAKING MACHINES-C SETTER MOLDING AND COREMAKING MACHINES-Ckb Blayne Cottrell MD MD [facility] Rae Quintero RN RN ss Corrections: (The following items were deleted from the chart) 11:10 11:08 07/04/2020 11:08 Discharged to Home. Impression: Other otitis externa, left ear. ss Condition is Stable. Forms are Medication Reconciliation Form, Thank You Letter, Antibiotic Education, Prescription Opioid Use. Follow up: Emergency Department; When: As needed; Reason: Worsening of condition. Follow up: Private Physician; When: 2 - 3 days; Reason: Recheck today's complaints, Continuance of care, Re-evaluation by your physician. kb
[2020-07-04 14:57] VITALS: BP 121/80; TEMP 98.3; O2SAT 99
== END 2020-07-04 11:10 | disposition home or self-care (01) ==
LOC: ER 10:29
DX: H60.8X2 Other otitis externa, left ear (principal)
CPT/HCPCS: 99282

== ENCOUNTER 2020-12-21 20:17 | Emergency (ER) | payer OTHER ==
--- OUTSIDE RECORDS SUMMARY | 2020-12-21 20:19 | XMS REPORT | Continuity of Care Document ---
:2000 Author Organization [facility] t Address [address] [place] [place] [address] Care Team Providers Name Role Phone Robert Brown DO Attending Clinician Visit, Nurse Attending Clinician Unavailable Won Sawant Attending Clinician Kelechi Sauer Attending Clinician Problems This patient has no known problems. Allergies, Adverse Reactions, Alerts This patient has no known allergies or adverse reactions. Medications This patient has no known medications. Procedures This patient has no known procedures. Encounters Start End Encounter Admission Attending Care Care Encounter Source Date/Time Date/Time Type Type Clinicians Facility Department ID 2020-11-07 2020-11-07 Patient KIRSTEN Brown [id number] 00:00:00 00:00:00 Outreach [facility] [id number] Robert [facility] [id number] [place] [id number] 2020-07-07 2020-07-07 Nurse Visit, [facility] [id number] 09:55:55 10:22:59 [facility] LOCOMOTIVE OPERATOR HELPER [id number] Nurse [facility] [id number] [facility] [id number] & [address] 2020-07-07 2020-07-07 Telephone KIRSTEN Sanabria [id number] 00:00:00 00:00:00 Anum Upton LOCOMOTIVE OPERATOR HELPER [id number] REGIONAL [id number] MATERNAL [id number] & CHILD [address] [facility] 2020-07-04 2020-07-04 Telephone [facility] [id number] 00:00:00 00:00:00 Donna Lorenz LOCOMOTIVE OPERATOR HELPER [id number] REGIONAL [id number] MATERNAL [id number] & CHILD 107 [facility] 2020-07-03 2020-07-03 Office [facility] [id number] 14:23:30 14:50:28 Visit Donna Lorenz LOCOMOTIVE OPERATOR HELPER [id number] REGIONAL [id number] MATERNAL [id number] & CHILD 107 [facility] Results This patient has no known results.
[2020-12-21] MEDS ORDERED: MORPHINE 2 MG/ML SYR ONE (21:32)
[2020-12-21] MEDS ORDERED: TETRACAINE HCL 0.5% 4ML OPTH ONE (21:47)
[2020-12-21] MEDS ORDERED: FLUORESCEIN SODIUM 1 MG/WRAP ONE (21:47)
[2020-12-21] MEDS ORDERED: ACETAMINOPHEN 500 MG TAB ONE (21:58)
--- NOTE | 2020-12-21 22:06 | ER ---
Nurse's Notes [facility] Name: Carlita Atkinson Age: 20 yrs Sex: Female : 2000 Arrival Date: 12/21/2020 Time: 20:21 Bed 13 Private MD: Diagnosis: Corneal Abrasion, Juan;Conjunctivitis-Left Presentation: 12/21 20:38 Chief complaint: Patient states: Swelling, redness, pain, drainage on L eye since ca1 yesterday. Coronavirus screen: Client denies travel out of the [place] in the last 14 days. At this time, the client does not indicate any symptoms associated with coronavirus-19. Ebola Screen: Patient negative for fever greater than or equal to 101.5 degrees Fahrenheit, and additional compatible Ebola Virus Disease symptoms Patient denies exposure to infectious person. Patient denies travel to an Ebola-affected area in the 21 days before illness onset. No symptoms or risks identified at this time. Initial Sepsis Screen: Does the patient meet any 2 criteria? No. Patient's initial sepsis screen is negative. Does the patient have a suspected source of infection? No. Patient's initial sepsis screen is negative. Risk Assessment: Do you want to hurt yourself or someone else? Patient reports no desire to harm self or others. Onset of symptoms was December 21, 2020. 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 Flu vaccine is not up to date. - Social history:: Smoking status: Patient denies any tobacco usage or history of. Screenin:10 Abuse screen: Denies threats or abuse. Denies injuries from another. Nutritional rr5 screening: No deficits noted. Tuberculosis screening: No symptoms or risk factors identified. Fall Risk None identified. Total Leigh Fall Scale indicates No Risk (0-24 pts). Assessment: 21:10 General: Appears in no apparent distress. comfortable, Behavior is calm, cooperative, rr5 appropriate for age. 21:10 Pain: Complains of pain in left eye Pain currently is 8 out of 10 on a pain scale. rr5 Quality of pain is described as aching, Pain began gradually, Is intermittent. Neuro: Level of Consciousness is awake, alert, obeys commands, Oriented to person, place, time. Cardiovascular: Capillary refill < 3 seconds Patient's skin is warm and dry. Respiratory: Airway is patent Respiratory effort is even, unlabored, Respiratory pattern is regular, symmetrical. EENT: Sclera/Cornea are reddened in outer aspect of conjuctiva of left eye and inner aspect of conjunctiva of left eye Reports pain photophobia eye discharge. Derm: Skin is pink, warm \T\ dry. Musculoskeletal: Capillary refill < 3 seconds. 22:20 Reassessment: Patient appears in no apparent distress at this time. Patient is alert, rr5 oriented x 3, equal unlabored respirations, skin warm/dry/pink. discharge instruction given and explained without complaints made. Vital Signs: 20:38 BP 124 / 84; Pulse 74; Resp 16 S; Temp 98.3(O); Pulse Ox 99% on R/A; Height 5 ft. 4 in. ca1 (162.56 cm) (R); 22:05 BP 115 / 70; Pulse 70; Resp 19; Pulse Ox 99% ; rr5 Visual Acuity: 21:45 Left Eye Visual acuity 20/20, ; Right Eye Visual acuity 20/20, ; Without Lenses; rr5 ED Course: 20:21 Patient arrived in ED. am4 20:39 Triage completed. ca1 20:40 Arm band placed on right wrist. ca1 21:02 Rick Whaley RN is Primary Nurse. rr5 21:06 Vinny Pond MD is Attending Physician. mh7 21:30 Assist provider with eye exam of left eye. using fluorescein stain, Performed by rr5 Vinny Pond MD Patient tolerated well. 21:30 Patient did not have IV access during this emergency room visit. rr5 21:32 Patient has correct armband on for positive identification. Bed in low position. Call rr5 light in reach. Adult w/ patient. 22:04 Cuca Rice MD is Referral Physician. 7 Administered Medications: 21:30 Drug: Tetracaine Solution (0.5 %) 2 drops Route: Topical; Site: left eye; rr5 22:20 Follow up: Response: No adverse reaction rr5 21:52 Drug: Tylenol 1000 mg Route: PO; rr5 22:20 Follow up: Response: No adverse reaction rr5 Outcome: 22:05 Discharge ordered by . florencio 22:20 Discharged to home ambulatory. rr5 22:20 Condition: stable 22:20 Discharge instructions given to patient, Instructed on discharge instructions, follow up and referral plans. medication usage, Demonstrated understanding of instructions, follow-up care, medications, Prescriptions given X 1. 22:21 Patient left the ED. rr5 Signatures: Rick Whaley RN RN rr5 Bindu Gordon RN RN ca1 Vinny Pond MD MD [address]
--- NOTE | 2020-12-21 22:06 | EDPHYS ---
Physician Documentation [facility] Name: Carlita Atkinson Age: 20 yrs Sex: Female : 2000 Arrival Date: 12/21/2020 Time: 20:21 Bed 13 Private MD: ED Physician Vinny Pond HPI: 12/21 21:32 This 20 yrs old Female presents to ER via Ambulatory with complaints of Eye mh7 Problem. 21:32 The patient is experiencing matting or discharge, redness, tearing, The patient mh7 sustained None. to the left eye, caused by an unknown mechanism. Onset: The symptoms/episode began/occurred yesterday. Duration: the symptoms are continuous. Aggravated by light, rubbing, Alleviated by nothing. Associated signs and symptoms: Pertinent negatives: chills, dizziness, ear ache, fever, headache, runny nose. Patient wears glasses. Severity of symptoms: At their worst the symptoms were moderate last night, in the emergency department the symptoms are unchanged. 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 Flu vaccine is not up to date. - Social history:: Smoking status: Patient denies any tobacco usage or history of. ROS: 21:32 Constitutional: Negative for fever, chills, and weight loss, ENT: Negative for injury, mh7 pain, and discharge, Neck: Negative for injury, pain, and swelling, Cardiovascular: Negative for chest pain, palpitations, and edema, Respiratory: Negative for shortness of breath, cough, wheezing, and pleuritic chest pain, Abdomen/GI: Negative for abdominal pain, nausea, vomiting, diarrhea, and constipation, Back: Negative for injury and pain, : Negative for injury, bleeding, discharge, and swelling, MS/Extremity: Negative for injury and deformity, Skin: Negative for injury, rash, and discoloration, Neuro: Negative for headache, weakness, numbness, tingling, and seizure, Psych: Negative for depression, anxiety, suicide ideation, homicidal ideation, and hallucinations, Allergy/Immunology: Negative for hives, rash, and allergies, Endocrine: Negative for neck swelling, polydipsia, polyuria, polyphagia, and marked weight changes, Hematologic/Lymphatic: Negative for swollen nodes, abnormal bleeding, and unusual bruising. Exam: 21:32 Constitutional: This is a well developed, well nourished patient who is awake, alert, mh7 and in no acute distress. Head/Face: Normocephalic, atraumatic. Neck: Trachea midline, no thyromegaly or masses palpated, and no cervical lymphadenopathy. Supple, full range of motion without nuchal rigidity, or vertebral point tenderness. No Meningismus. Chest/axilla: Normal chest wall appearance and motion. Nontender with no deformity. No lesions are appreciated. Cardiovascular: Regular rate and rhythm with a normal S1 and S2. No gallops, murmurs, or rubs. Normal PMI, no JVD. No pulse deficits. Respiratory: Lungs have equal breath sounds bilaterally, clear to auscultation and percussion. No rales, rhonchi or wheezes noted. No increased work of breathing, no retractions or nasal flaring. Abdomen/GI: Soft, non-tender, with normal bowel sounds. No distension or tympany. No guarding or rebound. No evidence of tenderness throughout. Back: No spinal tenderness. No costovertebral tenderness. Full range of motion. Skin: Warm, dry with normal turgor. Normal color with no rashes, no lesions, and no evidence of cellulitis. MS/ Extremity: Pulses equal, no cyanosis. Neurovascular intact. Full, normal range of motion. Neuro: Awake and alert, GCS 15, oriented to person, place, time, and situation. Cranial nerves II-XII grossly intact. Motor strength 5/5 in all extremities. Sensory grossly intact. Cerebellar exam normal. Normal gait. Psych: Awake, alert, with orientation to person, place and time. Behavior, mood, and affect are within normal limits. 21:44 Eyes: Periorbital structures: appear normal, Pupils: equal, round, and reactive to mh7 light and accomodation, Extraocular movements: intact throughout, Conjunctiva: injected, in the left eye, Corneas: abrasion, that is small, on the left, at 12 o'clock, a fluorescein strip employed to appreciate the findings, Sclera: no appreciated abnormality, Lids and lashes: appear normal, bilaterally, funduscopic exam reveals no obvious abnormalities, Visual marcano: are intact, Nystagmus: is not appreciated, Examination of the other eye reveals no obvious gross abnormality, Intraocular pressure: no instrument available. 22:03 Visual Acuity: I have reviewed the nursing documentation. [facility] Vital Signs: 20:38 BP 124 / 84; Pulse 74; Resp 16 S; Temp 98.3(O); Pulse Ox 99% on R/A; Height 5 ft. 4 in. ca1 (162.56 cm) (R); 22:05 BP 115 / 70; Pulse 70; Resp 19; Pulse Ox 99% ; rr5 Visual Acuity: 21:45 Left Eye Visual acuity 20/20, ; Right Eye Visual acuity 20/20, ; Without Lenses; rr5 MDM: 22:03 Differential diagnosis: Corneal abrasion of left eye. Corneal ulcer of left eye. 7 Foreign body in left eye. Acute iritis of left eye. Acute glaucoma in left eye. Chemical conjunctivitis in left eye. Allergic conjunctivitis in left eye. Infectious conjunctivitis in left eye. Data reviewed: vital signs, nurses notes. Data interpreted: Pulse oximetry: on room air is 99 %. Interpretation: normal. Counseling: I had a detailed discussion with the patient and/or guardian regarding: the historical points, exam findings, and any diagnostic results supporting the discharge/admit diagnosis, the need for outpatient follow up, an opthalmologist, to return to the emergency department if symptoms worsen or persist or if there are any questions or concerns that arise at home. Response to treatment: the patient's symptoms have markedly improved after treatment. 22:05 Patient medically screened. [facility] 12/21 21:24 Order name: Fluoresene Opth strip; Complete Time: 21:51 [facility] 12/21 21:51 Order name: Visual Acuity; Complete Time: 21:51 5 12/21 21:51 Order name: Eye Tray; Complete Time: 21:51 rr5 Administered Medications: 21:30 Drug: Tetracaine Solution (0.5 %) 2 drops Route: Topical; Site: left eye; rr5 22:20 Follow up: Response: No adverse reaction rr5 21:52 Drug: Tylenol 1000 mg Route: PO; rr5 22:20 Follow up: Response: No adverse reaction rr5 Disposition: 12/21/20 22:05 Discharged to Home. Impression: Corneal Abrasion, Juan, Conjunctivitis - Left. - Condition is Stable. - Discharge Instructions: Corneal Abrasion, [id number]. - Prescriptions for Ciloxan 0.3 % Ophthalmic Drops - instill 2 drop by OPHTHALMIC route every 6 hours for 7 days; 5 milliliter. - Work release form, Medication Reconciliation Form, Thank You Letter, Antibiotic Education, Prescription Opioid Use form. - Follow up: Cuca Rice MD; When: 1 - 2 days; Reason: Worsening of condition, Recheck today's complaints. - Problem is new. - Symptoms have improved. Signatures: Rick Whaley RN RN rr5 Bindu franco RN RN ca1 Vinny Pond MD MD 7 Corrections: (The following items were deleted from the chart) 22:06 22:05 12/21/2020 22:05 Discharged to Home. Impression: Corneal Abrasion, Juan. [facility] Condition is Stable. Forms are Medication Reconciliation Form, Thank You Letter, Antibiotic Education, Prescription Opioid Use. Follow up: Cuca Rice; When: 1 - 2 days; Reason: Worsening of condition, Recheck today's complaints. Problem is new. Symptoms have improved. [facility] 22:21 22:06 12/21/2020 22:05 Discharged to Home. Impression: Corneal Abrasion, Juan; rr5 Conjunctivitis - Left. Condition is Stable. Forms are Medication Reconciliation Form, Thank You Letter, Antibiotic Education, Prescription Opioid Use. Follow up: Cuca Rice; When: 1 - 2 days; Reason: Worsening of condition, Recheck today's complaints. Problem is new. Symptoms have improved. [facility]
[2020-12-21 22:43] VITALS: BP 124/84; TEMP 98.3; O2SAT 99
== END 2020-12-21 22:21 | disposition home or self-care (01) ==
LOC: ER 20:17
DX: S05.02XA Injury of conjunctiva and corneal abrasion without foreign body, left eye, initial encounter (principal); H10.9 Unspecified conjunctivitis
CPT/HCPCS: 99283; J2270

== ENCOUNTER 2021-12-19 17:15 | Emergency (ER) | payer OTHER, SELFPAY ==
--- OUTSIDE RECORDS SUMMARY | 2021-12-19 17:19 | XMS REPORT | Continuity of Care Document ---
:2000 Author Organization [facility] t Address [address] [place] [address] [address]. [address] [place] [address] Care Team Providers Name Role Phone PCP, DOES NOT HAVE A Primary Care Physician Unavailable FARHAD, S Attending Clinician Unavailable Llamas PAC, S Attending Clinician Doctor Unassigned, Name Attending Clinician Unavailable Robert Brown DO Attending Clinician Deejay WAGNER Attending Clinician Unavailable Kelechi POND Attending Clinician Unavailable Visit, Nurse Attending Clinician Unavailable Bernard HOGAN, R Attending Clinician Daniele RIVERO C Attending Clinician Won SANABRIA Attending Clinician Unavailable Dejah WOODP, N Attending Clinician FARHAD, S Admitting Clinician Unavailable Payers Payer Name Policy Type Policy Number Effective Date Expiration Date S luis eduardo [employer] [id number] 2017 00:00:00 Advance Directives Directive Decision Effective Termination Comments Source Date Date Healthcare Agents on N/A [facility] FileNameRelationshipHealthcare [facility] healthcare[facility] [phone] (Mobile) Problems Condition Condition Condition Status Onset Resolution Last Treating Co mments Source Name Details Category Date Date Treatment Clinician Date Gonorrhea Gonorrhea Disease Active 2019-08 Uni vers 17 ity of 00:00: [address] Well woman Well woman Disease Active 2020-0 U nivers exam exam 7-09 ity of 00:00: [address] Obesity Obesity Disease Active Univers (BMI (BMI 02-23 ity of 30.0-34.9) 30.0-34.9) 00:00: [address] Allergies, Adverse Reactions, Alerts Allergy Allergy Status Severity Reaction(s) Onset Inactive Treating Comm ents Source Name Type Date Date Clinician NO KNOWN Drug Active Univers ALLERGIE Class ity of S [facility] Social History Social Habit Start Date Stop Date Quantity Comments Source Exposure to Yes University of SARS-CoV-2 [place] [facility] (event) Branch History SDOH University o f Alcohol Frequency [place] [facility] History SDOH University o f Alcohol Std [place] [facility] Drinks [facility] History SDAL University o f Alcohol Binge [place] [facility] Alcohol intake 2020-07-07 2020-07-07 Current drinker Unive rsity of 00:00:00 00:00:00 of alcohol [place] [facility] (finding) Branch Alcohol Comment 2020-02-24 2020-02-24 Socially Universit y of 00:00:00 00:00:00 [facility] Tobacco use and 2020-02-24 2020-02-24 Never used Universit y of exposure 00:00:00 00:00:00 [facility] Sex Assigned At [birth year] Universit y of 00:00:00 00:00:00 [facility] Smoking Status Start Date Stop Date Source Never smoker [facility] Unknown if ever smoked Universit y of [facility] Medications Ordered Filled Start Stop Current Ordering Indication Dosage Frequency Signature Comments Components Source Medication Medication Date Date Medication? Clinician (SIG) Name Name NaCl 0.9% 2021- No 1000mL at 999 Uni vers (NS) bolus 10-28-13 mL/hr, ity of infusion 02:45: 03:40 1,000 mL, [place] 1,000 mL 00 :00 IV Medical Infusion, Branch ONCE, 1 dose, On 10/27/21 at 2044, STAT acetaminoph 2021- No 1000mg 1,000 mg, Univers en 10-2813 Oral, ity of (TYLENOL) 02:45: 02:22 ONCE, 1 [place] tablet 00 :00 dose, On Medical 1,000 mg Sat Branch 10/27/21 at 2044, Routine albuterol Yes [id number] 2{puff} Inhale 2 Univers 90 3-12 Puffs ity of mcg/actuati 00:00: every 4 [place] as on inhaler 00 (four) Medical hours as Branch needed for Wheezing or Shortness of Breath. cefTRIAXone 2019-08- No 250mg Univ ers (ROCEPHIN) 09-06 ity of injection 17:30: 17:15 [place] 250 mg 00 :00 Medical Branch cefTRIAXone 2019-08- No 250mg 250 mg, U nivers (ROCEPHIN) 09-06 Intramuscu it y of injection 17:30: 17:15 [place], ONCE, [place] 250 mg 00 :00 1 dose, Medical Fri Branch 07/07/20 at 1130, JOHAN
Re ason for Anti-Infec tive: Documented Infection< br>Documen nuris Infection Site: Pelvic
Duration of Therapy: Other (see Comments) No known 2019-08 No Univers medications 09-06 ity of 10:14: [place] 04 [facility] Branch azithromyci 2019-08 2020- No [id number] 1000mg Take 2 Univers n 1-17 11-18 tablets by ity of (ZITHROMAX) 00:00: 05:59 mouth once [place] 500 mg 00 :00 now for 1 Medical tablet dose. Branch Nitrofurant 2019-08 Yes [id number] 100mg Take 1 Univers oin&Nit. 1-03 capsule by ity o f Macrocryst 00:00: mouth 2 [place] (MACROBID) 00 (two) Medical 100 mg times Branch capsule daily. Nitrofurant 2019-08 Yes [id number] 100mg Take 1 Univers oin&Nit. 1-03 capsule by ity o f [place] 00:00: mouth 2 [place] (MACROBID) 00 (two) Medical 100 mg times Branch capsule daily. Nitrofurant 2019-08 Yes [id number] 100mg Take 1 Univers oin&Nit. 1-03 capsule by ity o f [place] 00:[place]: mouth 2 [place] (MACROBID) 00 (two) Medical 100 mg times Branch capsule daily. Nitrofurant 2019-08 2020- No [id number] 100mg Take 1 Univers oin&Nit. 1-03 11-16 capsule by ity of Macrocryst 00:00: 00:00 mouth 2 [place] (MACROBID) 00 :00 (two) Medical 100 mg times Branch capsule daily. Nitrofurant 2019-08- No [id number] 100mg Take 1 Univers oin&Nit. 08-20 capsule by ity of Macrocryst 00:00: 00:00 mouth 2 [place] (MACROBID) 00 :00 (two) Medical 100 mg times Branch capsule daily. medroxyPROG 2019-2020- No [id number] 150mg Univers ESTERone 02-23 ity of (DEPO-PROVE 16:15: 16:14 [place] RA) 00 :00 Medical injection Branch 150 mg medroxyPROG 2019-2020- No [id number] 150mg Univers ESTERone 02-23 ity of (DEPO-PROVE 16:15: 16:14 [place] RA) 00 :00 Medical injection Branch 150 mg medroxyPROG 2019-2020- No [id number] 150mg Univers ESTERone 02-23 ity of (DEPO-PROVE 16:15: 16:14 [place] RA) 00 :00 Medical injection Branch 150 mg medroxyPROG 2019-2020- No [id number] 150mg Univers ESTERone 02-23-10 ity of (DEPO-PROVE 16:15: 16:14 [place] RA) 00 :00 Medical injection Branch 150 mg medroxyPROG 2019-2020- No [id number] 150mg Univers ESTERone 02-23-10 ity of (DEPO-PROVE 16:15: 16:14 [place] RA) 00 :00 Medical injection Branch 150 mg medroxyPROG 2019-2020- No [id number] 150mg Univers ESTERone 02-23-10 ity of (DEPO-PROVE 16:15: 16:14 [place] RA) 00 :00 Medical injection Branch 150 mg medroxyPROG 2019-2020- No [id number] 150mg 150 mg, Univers ESTERone 02-23 Intramuscu ity of (DEPO-PROVE 16:15: 16:14 lar, [place] RA) 00 :00 [id number], Medical injection 4 doses, Branch 150 mg First dose on Milagro 02/24/20 at 1115, Last dose on Milagro 3/18/21 at 1115, Routine medroxyPROG 2020-0 2020- No [id number] 150mg Univers ESTERone 02-23 ity of (DEPO-PROVE 16:15: 16:14 [place] RA) 00 :00 Medical injection Branch 150 mg medroxyPROG 2020-0 2020- No [id number] 150mg 150 mg, Univers ESTERone 02-23 Intramuscu ity of (DEPO-PROVE 16:15: 16:14 lar, [place] RA) 00 :00 [id number], Medical injection 4 doses, Branch 150 mg First dose on Milagro 02/24/20 at 1115, Last dose on [place] 11/02/20 at 1115, Routine medroxyPROG 2020-0 2020- No [id number] 150mg Univers ESTERone 02-23 ity of (DEPO-PROVE 16:15: 16:14 [place] RA) 00 :00 Medical injection Branch 150 mg medroxyPROG 2020-0 2020- No [id number] 150mg 150 mg, Univers ESTERone 02-23 Intramuscu ity of (DEPO-PROVE 16:15: 16:14 lar, [place] RA) 00 :00 [id number], Medical injection 4 doses, Branch 150 mg First dose on Milag[place] 02/24/20 at 1115, Last dose on [place] 11/02/20 at 1115, Routine medroxyPROG 2020-0 2020- No [id number] 150mg Univers ESTERone 02-23 ity of (DEPO-PROVE 16:15: 16:14 [place] RA) 00 :00 Medical injection Branch 150 mg medroxyPROG 2020-0 2020- No [id number] 150mg 150 mg, Univers ESTERone 02-23 Intramuscu ity of (DEPO-PROVE 16:15: 16:14 lar, [place] RA) 00 :00 [id number], Medical injection 4 doses, Branch 150 mg First dose on Milag[place] 02/24/20 at 1115, Last dose on [place] 11/02/20 at 1115, Routine medroxyPROG 2020-0 2020- No [id number] 150mg Univers ESTERone 02-23 ity of (DEPO-PROVE 16:15: 16:14 [place] RA) 00 :00 Medical injection Branch 150 mg medroxyPROG 2020- No [id number] 150mg Univers ESTERone 02-23 ity of (DEPO-PROVE 16:15: 16:14 [place] RA) 00 :00 Medical injection Branch 150 mg No known No Univers medications ity of [facility] Immunizations Ordered Immunization Filled Immunization Date Status Commen ts Source Name Name Influenza Virus 2020-04-29 Completed Universit y of Vaccine Quad .5 mL IM 00:00:00 [place] Medical 6+ MO Branch Influenza Virus 2020-04-29 Completed Universit y of Vaccine Quad .5 mL IM 00:00:00 [place] Medical 6+ MO Branch Influenza Virus 2020-04-29 Completed Universit y of Vaccine Quad .5 mL IM 00:00:00 [place] Medical 6+ MO Branch Influenza Virus 2020-04-29 Completed Universit y of Vaccine Quad .5 mL IM 00:00:00 [place] [facility] Medical 6+ MO Branch Influenza Virus 2020-04-29 Completed Universit y of Vaccine Quad .5 mL IM 00:00:00 [place] [facility] Medical 6+ MO Branch Influenza Virus 2020-04-29 Completed Universit y of Vaccine Quad .5 mL IM 00:00:00 [place] [facility] Medical 6+ MO Branch Influenza Virus 2020-04-29 Completed Universit y of Vaccine Quad .5 mL IM 00:00:00 [place] [facility] Medical 6+ MO Branch Influenza Virus 2020-04-29 Completed Universit y of Vaccine Quad .5 mL IM 00:00:00 [place] Medical 6+ MO Branch Influenza Virus 2016-05-20 Completed Universit y of Vaccine Quad IM 3+ 00:00:00 [facility] Branch Influenza Virus 2016-05-20 Completed Universit y of Vaccine Quad IM 3+ 00:00:00 [facility] Influenza Virus 2016-05-20 Completed Universit y of Vaccine Quad IM 3+ 00:00:00 [facility] Influenza Virus 2016-05-20 Completed Universit y of Vaccine Quad IM 3+ 00:00:00 [facility] Influenza Virus 2016-05-20 Completed Universit y of Vaccine Quad IM 3+ 00:00:00 [facility] Influenza Virus 2016-05-20 Completed Universit y of Vaccine Quad IM 3+ 00:00:00 [facility] Influenza Virus 2016-05-20 Completed Universit y of Vaccine Quad IM 3+ 00:00:00 [facility] Influenza Virus 2016-05-20 Completed Universit y of Vaccine Quad IM 3+ 00:00:00 [facility] Influenza Virus 2016-05-20 Completed Universit y of Vaccine Quad IM 3+ 00:00:00 [facility] Influenza Virus 2016-05-20 Completed Universit y of Vaccine Quad IM 3+ 00:00:00 [facility] Influenza Virus 2016-05-20 Completed Universit y of Vaccine Quad IM 3+ 00:00:00 [facility] Influenza Virus 2016-05-20 Completed Universit y of Vaccine Quad IM 3+ 00:00:00 [facility] Influenza Virus 2016-05-20 Completed Universit y of Vaccine Quad IM 3+ 00:00:00 [facility] Influenza Virus 2016-05-20 Completed Universit y of Vaccine Quad IM 3+ 00:00:00 [facility] HPV9 2015-08-21 Completed University of 00:00:00 [facility] HPV9 2015-08-21 Completed University of 00:00:00 [facility] HPV9 2015-08-21 Completed University of 00:00:00 [facility] HPV9 2015-08-21 Completed University of 00:00:00 [facility] HPV9 2015-08-21 Completed University of 00:00:00 [facility] HPV9 2015-08-21 Completed University of 00:00:00 [facility] HPV9 2015-08-21 Completed University of 00:00:00 [facility] HPV9 2015-08-21 Completed University of 00:00:00 [facility] HPV9 2015-08-21 Completed University of 00:00:00 [facility] HPV9 2015-08-21 Completed University of 00:00:00 [facility] HPV9 2015-08-21 Completed University of 00:00:00 [facility] HPV9 2015-08-21 Completed University of 00:00:00 [facility] HPV9 2015-08-21 Completed University of 00:00:00 [facility] HPV9 2015-08-21 Completed University of 00:00:00 [facility] Meningococcal 2015-04-03 Completed University of Polysaccharide 00:00:00 [facility] [place] [facility] alyssa (groups A, C, Y and Branc h W-135) conjugate vaccine (MCV4P) HPV9 2015-04-03 Completed University of 00:00:00 [facility] Meningococcal 2015-04-03 Completed University of Polysaccharide 00:00:00 [place] [facility] alyssa (groups A, C, Y and Branc h W-135) conjugate vaccine (MCV4P) HPV9 2015-04-03 Completed University of 00:00:00 [facility] Meningococcal 2015-04-03 Completed University of Polysaccharide 00:00:00 [place] [facility]i alyssa (groups A, C, Y and Branc h W-135) conjugate vaccine (MCV4P) HPV9 2015-04-03 Completed University of 00:00:00 [facility] Meningococcal 2015-04-03 Completed University of Polysaccharide 00:00:00 [place] Medi alyssa (groups A, C, Y and Branc h W-135) conjugate vaccine (MCV4P) HPV9 2015-04-03 Completed University of 00:00:00 [facility] Meningococcal 2015-04-03 Completed University of Polysaccharide 00:00:00 [place] Medi alyssa (groups A, C, Y and Branc h W-135) conjugate vaccine (MCV4P) HPV9 2015-04-03 Completed University of 00:00:00 [facility] Meningococcal 2015-04-03 Completed University of Polysaccharide 00:00:00 [place] Medi alyssa (groups A, C, Y and Branc h W-135) conjugate vaccine (MCV4P) HPV9 2015-04-03 Completed University of 00:00:00 [facility] Meningococcal 2015-04-03 Completed University of Polysaccharide 00:00:00 [place] Medi alyssa (groups A, C, Y and Branc h W-135) conjugate vaccine (MCV4P) HPV9 2015-04-03 Completed University of 00:00:00 [facility] Meningococcal 2015-04-03 Completed University of Polysaccharide 00:00:00 [place] Medi alyssa (groups A, C, Y and Branc h W-135) conjugate vaccine (MCV4P) HPV9 2015-04-03 Completed University of 00:00:00 [facility] Meningococcal 2015-04-03 Completed University of Polysaccharide 00:00:00 [place] Medi alyssa (groups A, C, Y and Branc h W-135) conjugate vaccine (MCV4P) HPV9 2015-04-03 Completed University of 00:00:00 [facility] Meningococcal 2015-04-03 Completed University of Polysaccharide 00:00:00 [place] Medi alyssa (groups A, C, Y and Branc h W-135) conjugate vaccine (MCV4P) HPV9 2015-04-03 Completed University of 00:00:00 [facility] Meningococcal 2015-04-03 Completed University of Polysaccharide 00:00:00 [place] Medi alyssa (groups A, C, Y and Branc h W-135) conjugate vaccine (MCV4P) Meningococcal 2015-04-03 Completed University of Polysaccharide 00:00:00 [place] [facility] alyssa (groups A, C, Y and Branc h W-135) conjugate vaccine (MCV4P) HPV9 2015-04-03 Completed University of 00:00:00 [facility] HPV9 2015-04-03 Completed University of 00:00:00 [facility] Meningococcal 2015-04-03 Completed University of Polysaccharide 00:00:00 [place] Medi alyssa (groups A, C, Y and Branc h W-135) conjugate vaccine (MCV4P) HPV9 2015-04-03 Completed University of 00:00:00 [facility] Meningococcal 2015-04-03 Completed University of Polysaccharide 00:00:00 [place] [facility]i alyssa (groups A, C, Y and Branc h W-135) conjugate vaccine (MCV4P) HPV9 2015-04-03 Completed University of 00:00:00 [facility] Vital Signs Vital Name Observation Time Observation Value Comments Source Systolic blood 2021-10-28 03:00:00 116 mm[Hg] Univer sity of pressure [facility] Diastolic blood 2021-10-28 03:00:00 71 mm[Hg] Unive rsity of pressure [facility] Heart rate 2021-10-28 03:00:00 97 /min [facility] Body temperature 2021-10-28 03:00:00 36.89 Sharyn [facility] Respiratory rate 2021-10-28 03:00:00 20 /min [facility] Oxygen saturation in 2021-10-28 03:00:00 98 /min [facility] Arterial blood by [facility] Pulse oximetry [place] Body height 2021-10-28 01:23:00 162.6 cm [facility] Body weight 2021-10-28 01:23:00 77.111 kg [facility] BMI 2021-10-28 01:23:00 29.18 kg/m2 [facility] Systolic blood 2020-07-07 16:13:00 123 mm[Hg] Univer sity of pressure [place] [facility] Diastolic blood 2020-07-07 16:13:00 85 mm[Hg] Unive rsity of pressure [place] [facility] Heart rate 2020-07-07 16:13:00 101 /min Universi ty of [place] [facility] Body temperature 2020-07-07 16:13:00 36.61 Sharyn Univ ersity of [place] [facility] Respiratory rate 2020-07-07 16:13:00 16 /min Univ ersity of [place] [facility] Body height 2020-07-07 16:13:00 162.6 cm Universi ty of [place] [facility] Body weight 2020-07-07 16:13:00 86.728 kg Universi ty of [place] [facility] BMI 2020-07-07 16:13:00 32.82 kg/m2 Universi ty of [place] [facility] Systolic blood 2020-07-07 16:13:00 123 mm[Hg] Univer sity of pressure [place] [facility] Diastolic blood 2020-07-07 16:13:00 85 mm[Hg] Unive rsity of pressure [facility] Heart rate 2020-07-07 16:13:00 101 /min Universi ty of [place] [facility] Body temperature 2020-07-07 16:13:00 36.61 Sharyn Univ ersity of [place] [facility] Respiratory rate 2020-07-07 16:13:00 16 /min Univ ersity of [place] [facility] Body height 2020-07-07 16:13:00 162.6 cm Universi ty of [place] [facility] Body weight 2020-07-07 16:13:00 86.728 kg Universi ty of [place] [facility] BMI 2020-07-07 16:13:00 32.82 kg/m2 Universi ty of [place] [facility] Systolic blood 2020-07-03 20:34:00 126 mm[Hg] Univer sity of pressure [place] [facility] Diastolic blood 2020-07-03 20:34:00 85 mm[Hg] Unive rsity of pressure [place] [facility] Heart rate 2020-07-03 20:34:00 74 /min Universi ty of [place] [facility] Body temperature 2020-07-03 20:34:00 36.89 Sharyn Univ ersity of [place] [facility] Respiratory rate 2020-07-03 20:34:00 16 /min Univ ersity of [place] [facility] Body height 2020-07-03 20:34:00 162.6 cm Universi ty of [place] [facility] Body weight 2020-07-03 20:34:00 86.728 kg Universi ty of [place] [facility] BMI 2020-07-03 20:34:00 32.82 kg/m2 Universi ty of [place] [facility] Systolic blood 2020-07-03 20:34:00 126 mm[Hg] Univer sity of pressure [place] [facility] Diastolic blood 2020-07-03 20:34:00 85 mm[Hg] Unive rsity of pressure [place] [facility] Heart rate 2020-07-03 20:34:00 74 /min Universi ty of [place] [facility] Body temperature 2020-07-03 20:34:00 36.89 Sharyn Univ ersity of [place] [facility] Respiratory rate 2020-07-03 20:34:00 16 /min Univ ersity of [place] [facility] Body height 2020-07-03 20:34:00 162.6 cm Universi ty of [place] [facility] Body weight 2020-07-03 20:34:00 86.728 kg Universi ty of [place] [facility] BMI 2020-07-03 20:34:00 32.82 kg/m2 Universi ty of [place] [facility] Systolic blood 2020-06-20 14:17:00 128 mm[Hg] Univer sity of pressure [place] [facility] Diastolic blood 2020-06-20 14:17:00 90 mm[Hg] Unive rsity of pressure [place] [facility] Heart rate 2020-06-20 14:17:00 80 /min Universi ty of [place] [facility] Body temperature 2020-06-20 14:17:00 36.44 Shrayn Univ ersity of [place] [facility] Respiratory rate 2020-06-20 14:17:00 16 /min Univ ersity of [place] [facility] Body weight 2020-06-20 14:17:00 87.204 kg Universi ty of [place] [facility] Systolic blood 2020-02-24 15:28:00 118 mm[Hg] Univer sity of pressure [place] [facility] Diastolic blood 2020-02-24 15:28:00 83 mm[Hg] Unive rsity of pressure [place] [facility] Heart rate 2020-02-24 15:28:00 68 /min Universi ty of [place] [facility] Body temperature 2020-02-24 15:28:00 36.06 Sharyn Univ ersity of [place] [facility] Respiratory rate 2020-02-24 15:28:00 16 /min [facility] Body weight 2020-02-24 15:28:00 86.24 kg [facility] Procedures Procedure Date / Time Performed Performing Clinician Sourc e XR CHEST 1 VW 2021-10-28 01:54:52 Juana Llamas Vilonia o f [facility] RAPID INFLUENZA A/B 2021-10-28 01:45:00 Juana Llamas [facility] [place] [facility] COVID-19 (ID NOW RAPID 2021-10-28 01:45:00 Juana Llamas [facility] TESTING) [facility] NOTICE OF PRIVACY 2021-10-28 01:17:11 Doctor Unassigned, No [facility] CONSENT/REFUSAL FOR 2021-10-28 01:16:54 Doctor Unassigned, No [facility] DIAGNOSIS AND [facility] TREATMENT POCT URINALYSIS W/O 2020-07-03 00:00:00 Donna Pond [facility] POCT TEST 2020-06-20 14:21:00 Anum Sanabria [facility] POCT URINALYSIS W/O 2020-06-20 14:20:00 Anum Sanabria Uni [facility] PAP SMEAR-LIQUID 2020-02-24 16:20:00 Anum Sanabria [facility] POCT TEST 2020-02-24 15:36:00 Anum Sanabria Uni [facility] ASSIGNMENT OF BENEFITS 2020-02-24 14:54:21 Doctor Unassigned, No [facility] Encounters Start End Encounter Admission Attending Care Care Encounter Source Date/Time Date/Time Type Type Clinicians Facility Department ID 2021-10-27 2021-10-27 Emergency X KIRSTEN LLAMAS ERT [id number] Univers 19:27:00 21:47:00 JUANA disla [facility] 2021-10-27 2021-10-27 Emergency KIRSTEN Llamas [id number] Univers 19:27:00 21:47:00 Juana GELLER [id number] i ty [facility] [id number] [id number] [facility] 084 Branch 2021-10-27 2021-10-27 Orders Doctor ANABELA [id number] Univers 00:00:00 00:00:00 Only Unassigned, CALVIN [id number] ity of [place] [facility] [id number] [place] [id number] [facility] 009 Branch 2020-11-07 2020-11-07 Patient Kevin [facility] [id number] 00:00:00 00:00:00 [facility] [id number] [facility] [id number] PAVILLION [id number] 2020-11-07 2020-11-07 Patient Kevin [facility] [id number] Univers 00:00:00 00:00:00 [facility] [id number] i ty of [facility] [id number] [id number] Mi dical 388 Branch 2020-11-06 2020-11-06 Outpatient R [facility] [id number] Univers 10:00:00 10:00:00 RICARDO [id number] iramy o [facility] 2020-11-06 2020-11-06 Outpatient R B[facility]ARDAULTMAN [facility] [id number] Univers 10:00:00 10:00:00 RICARDO waldeny o [facility] 2020 2020 Outpatient R [facility] [id number] Univers 08:30:00 08:30:00 [id number] [facility] 2020 2020 Outpatient R DEJAHAULTMAN [facility] [id number] Univers 08:00:00 08:00:00 DONNA [facility] 2020-09-12 2020-09-12 Outpatient R [facility] [id number] Univers 10:00:00 10:00:00 [id number] [facility] 2020-09-12 2020-09-12 Outpatient R [facility] [id number] Univers [facility]:00[facility]00 [facility] 2020-07-07 Nurse Visit, [facility] [id number] 09:55:55 [facility]22[facility] TESTER [id number] Nurse REGIONAL [id number] MATERNAL [phone] & CHILD [address] [place] [address] 2020-07-07 2020-07-07 Nurse Visit, [facility] [id number] Univers 09:55:55 10:22:59 Visit Ricardo Wagner R METAL TESTER [id number] ity [facility] [id number] Christiano as MATERNAL [phone] [facility] & CHILD [address] [place] [address] 2020-07-07 2020-07-07 Outpatient R [facility] [id number] Univers [facility]:00[facility] 2020-07-07 Outpatient R [facility] [id number] Univers 10:00[facility]00 [facility] 2020-07-07 2020-07-07 Telephone [facility] [id number] 00:00:00 00:00:00 Anum Upton METAL TESTER [id number] REGIONAL [id number] MATERNAL [phone] & CHILD [address] [place] [address] 2020-07-07 2020-07-07 Telephone [facility] [id number] Univers 00:00:00 00:00:00 Anum Upton METAL TESTER [id number] ity of [facility] [id number] Christiano [address] MATERNAL [phone] [facility] & CHILD [address] [place] [address] 2020-07-04 2020-07-04 [facility] [id number] Univers 13:00:00 13:00:00 ANUM [id number] ity o f [facility] 2020-07-04 2020-07-04 Outpatient R DANIELE [facility] [id number] Univers 13:00:00 13:00:00 ANUM boyd [facility] 2020-07-04 2020-07-04 Telephone [facility] [id number] 00:00:00 00:00:00 Donna Lorenz METAL TESTER [id number] REGIONAL [id number] MATERNAL [phone] & CHILD [address] [place] [address] 2020-07-04 2020-07-04 Telephone [facility] [id number] Univers 00:00:00 00:00:00 Donna Lorenz METAL TESTER [id number] it y of REGIONAL [id number] Christiano as MATERNAL [phone] Med ical & CHILD [address] [place] [address] 2020-07-03 2020-07-03 Office [facility] [id number] 14:23:30 14:50:28 Visit Donna Lorenz METAL TESTER [id number] REGIONAL [id number] MATERNAL [id number] & CHILD [address] [place] [address] 2020-07-03 2020-07-03 Office Donna Pond [facility] 1.2.840. [id number] [facility] 14:23:30 14:50:28 Visit Anum Sanabria METAL TESTER [id number]. 10 ity of [facility] [id number] Christiano as MATERNAL [phone] [facility] & CHILD [address] [place] [address] 2020-07-03 2020-07-03 Outpatient R DEJAH [facility] [id number] Univers 14:30:00 14:30:00 DONNA [id number] naif [facility] 2020-07-03 2020-07-03 Outpatient R DEJAH [facility] [id number] Univers 14:30:00 14:30:00 DONNA disla [facility] 2020-06-28 2020-06-28 Telephone [facility] 1.2.840.114 [id number] Univers 00:00:00 00:00:00 Anum Geller [id number] ity [facility] [id number] [place] [phone] [place] [address] 2020-06-20 2020-06-20 Office Akinsipe, [facility] [id number] Univers 08:04:56 08:46:32 Visit [facility] 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 [id number] ity [facility] [id number] Christiano as MATERNAL [phone] [facility] & CHILD [address] [place] [address] 2020-06-20 2020-06-20 Outpatient R AKINSIPE, [facility] [id number] Univers 08:00:00 08:00:00 ANUM ity o [facility] 2020-06-20 2020-06-20 Outpatient R AKINSIPE, [facility] [id number] Univers 08:00:00 08:00:00 ANUM disla o [facility] 2020-05-26 2020-05-26 Outpatient R [facility] [id number] Univers 10:30:00 10:30:00 ity [facility] 2020-05-26 2020-05-26 Outpatient R [facility] [id number] Univers 10:30:00 10:30:00 ity [facility] 2020-02-24 2020-02-24 [facility] [id number] Univers 10:16:42 11:11:42 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 & [address] 2020-02-24 2020-02-24 Outpatient AKINSIPE, [facility] [id number] Univers 10:00:00 10:00:00 ANUM [id number] ity o [facility] 2020-02-24 2020-02-24 Outpatient R AKINSIPE, [facility] [id number] Univers 10:00:00 10:00:00 ANUM ity o [facility] 2020-02-24 2020-02-24 Outpatient R [facility] [id number] Univers 09:30:00 09:30:00 [facility] 2020-02-24 2020-02-24 Orders Doctor ANABELA [id number] Univers 00:00:00 00:00:00 Only Unassigned, CALVIN [id number] ity of [place] [facility] [id number] Christiano as [phone] [address] 2020-02-17 2020-02-17 Outpatient R [facility] [id number] Univers 14:30:00 14:30:00 [facility] 2020-02-17 2020-02-17 Outpatient R DEJAHAULTMAN [facility] [id number] Univers 14:30:00 14:30:00 DONNA [facility] 2020-01-28 2020-01-28 Outpatient R [facility] [id number] Univers 14:30:00 14:30:00 [id number] [facility] Results Test Description Test Time Test Comments Results Result Comments Source POCT URINALYSIS W/O SPECIFIC GRAVITY 2020-07-03 20:39:00 Test Item Value Reference Range Interpretation Comme nts POCT PH U (test code = 3254) 6 mg/dl 5-8 POCT U LEUK EST (test code = 3263) 1+ Negative - Negative POCT U NIT (test code = 3262) neg Negative - Negative POCT U PROT (test code = 3259) neg Negative - Negative POCT U GLU (test code = 3256) neg Negative - Negative POCT U KETONE (test code = 3258) neg Negative - Negative POCT U BLD (test code = 3257) neg Negative - Negative [facility]/O SPECIFIC [id number] 20:39:00 Test Item Value Reference Range Interpretation Comments POCT PH U (test code = 3254) 6 mg/dl 5-8 POCT U LEUK EST (test code = 1+ Negative - Negative 3263) POCT U NIT (test code = 3262) neg Negative - Negative POCT U PROT (test code = 3259) neg Negative - Negative POCT U GLU (test code = 3256) neg Negative - Negative POCT U KETONE (test code = 3258) neg Negative - Negative POCT U BLD (test code = 3257) neg Negative - Negative [facility] [id number] 14:21:00 Test Item Value Reference Range Interpretation Comments POCT PREG (test code = 1605) Negative On board controls acceptable with C Yes Line (test code = 3574) POCT PREG LOT # (test code = 3575) POCT PREG TEST DATE (test code = 3576) [facility] [id number] 14:21:00 Test Item Value Reference Range Interpretation Comments POCT PREG (test code = 1605) Negative On board controls acceptable with C Yes Line (test code = 3574) POCT PREG LOT # (test code = 3575) POCT PREG TEST DATE (test code = 357) [facility] URINALYSIS W/O SPECIFIC [id number] 14:20:00 Test Item Value Reference Range Interpretation Comments POCT PH U (test code = 3254) 6 mg/dl 5-8 POCT U LEUK EST (test code = 2+ Negative - Negative 3263) POCT U NIT (test code = 3262) Neg Negative - Negative POCT U PROT (test code = 3259) Trace Negative - Negative POCT U GLU (test code = 3256) Neg Negative - Negative POCT U KETONE (test code = 3258) None Negative - Negative POCT U BLD (test code = 3257) Trace Negative - [facility] [id number] 14:20:00 Test Item Value Reference Range Interpretation Comments POCT PH U (test code = 3254) 6 mg/dl 5-8 POCT U LEUK EST (test code = 2+ Negative - Negative 3263) POCT U NIT (test code = 3262) Neg Negative - Negative POCT U PROT (test code = 3259) Trace Negative - Negative POCT U GLU (test code = 3256) Neg Negative - Negative POCT U KETONE (test code = 3258) None Negative - Negative POCT U BLD (test code = 3257) Trace Negative - Negative [facility] [id number] 15:36:00 Test Item Value Reference Range Interpretation Comments POCT PREG (test code = 1605) Negative On board controls acceptable with C Yes Line (test code = 3574) POCT PREG LOT # (test code = 3575) POCT PREG TEST DATE (test code = 3576) [facility] [id number] 15:36:00 Test Item Value Reference Range Interpretation Comments POCT PREG (test code = 1605) Negative On board controls acceptable with C Yes Line (test code = 3574) POCT PREG LOT # (test code = 3575) POCT PREG TEST DATE (test code = 3576) [facility]
[2021-12-19] MEDS ORDERED: ONDANSETRON 4 MG/2 ML VIAL ONE (17:46)
[2021-12-19] MEDS ORDERED: NA CHLORIDE 0.9% 1,000 ML ONE (17:47)
[2021-12-19 17:59] LABS: Urine Blood Negative (Negative); Urine Glucose Negative (Negative); Urine Protein 1+ (Negative); Urine Specific Gravity >=1.030 (1.005-1.030); Urine pH 6.5 (5.0-7.0)
[2021-12-19 18:15] LABS: Urine Bacteria <20 /HPF (<20); Urine RBC <5 /HPF (NONE SEEN)
[2021-12-19 18:16] LABS: Urine Mucus 2+ /HPF (NONE SEEN)
[2021-12-19 18:19] LABS: Absolute Lymphocytes (CBC) 1.2 K/uL (0.7-4.9); Hematocrit 39.9 % (36.0-45.0); MPV 7.7 fL (7.6-11.3); RBC Red Blood Cell Count 4.55 M/uL (3.86-4.86)
[2021-12-19 18:36] LABS: ALT/SGPT 22 U/L (12-78); AST/SGOT 13 U/L (15-37); Alkaline Phosphatase 73 U/L (45-117); BUN Blood Urea Nitrogen 12 mg/dL (7-18); Bicarbonate 28 mmol/L (21-32); Bilirubin Total 0.4 mg/dL (0.2-1.0); Glucose Level 98 mg/dL (74-106); Lipase 91 U/L (73-393); Potassium 3.6 mmol/L (3.5-5.1); Protein, Total 8.1 g/dL (6.4-8.2); Sodium Level 137 mmol/L (136-145)
[2021-12-19] MEDS ORDERED: KETOROLAC 30 MG/ML INJ ONE (18:42)
[2021-12-19 19:11] LABS: SARS-COV-2 RT PCR NEGATIVE (NEGATIVE)
[2021-12-19] MEDS ORDERED: PROMETHAZINE INJ 25 MG/ML AMP ONE (19:25)
[2021-12-19] MEDS ORDERED: NA CHLORIDE 0.9% 50 ML ONE (19:26)
--- NOTE | 2021-12-19 19:36 | ER ---
Nurse's Notes [facility] Name: Carlita Atkinson Age: 21 yrs Sex: Female : 2000 Arrival Date: 12/19/2021 Time: 17:16 Bed 4 Private MD: Diagnosis: Migraine without aura, not intractable Presentation: 12/19 17:30 Chief complaint: Patient states: REDMAN started yesterday then N/V, photophobia. jl7 Coronavirus screen: At this time, the client does not indicate any symptoms associated with coronavirus-19. Ebola Screen: No symptoms or risks identified at this time. Initial Sepsis Screen: Does the patient meet any 2 criteria? No. Patient's initial sepsis screen is negative. Does the patient have a suspected source of infection? No. Patient's initial sepsis screen is negative. Risk Assessment: Do you want to hurt yourself or someone else? Patient reports no desire to harm self or others. Onset of symptoms was December 18, 2021. 17:30 Method Of Arrival: Ambulatory [facility] 17:30 Acuity: YOU 3 jl7 Triage Assessment: 17:31 General: Appears in no apparent distress. uncomfortable, Behavior is calm, cooperative, jl7 appropriate for age. Pain: Complains of pain in REDMAN Pain currently is 8 out of 10 on a pain scale. GI: Reports nausea, vomiting. 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 - Social history:: Smoking status: Patient denies any tobacco usage or history of. Screenin:21 Abuse screen: Denies threats or abuse. Denies injuries from another. Nutritional ph screening: No deficits noted. Tuberculosis screening: No symptoms or risk factors identified. Fall Risk None identified. Assessment: 18:08 General: Appears in no apparent distress. comfortable, well groomed, Behavior is calm, ph cooperative, appropriate for age, Denies fever. Pain: Complains of pain in left side of forehead and right side of forehead. Neuro: [place] Agitation-Sedation Scale (RASS): 0 - Alert and Calm Level of Consciousness is awake, alert, obeys commands, Oriented to person, place, time, situation, Reports headache photophobia. Cardiovascular: Capillary refill < 3 seconds in bilateral fingers Patient's skin is warm and dry. Respiratory: Airway is patent Respiratory effort is even, unlabored. GI: Abdomen is non-distended, Reports nausea, vomiting. Derm: Skin is intact, is healthy with good turgor, Skin is pink, warm \\T\\ dry. Musculoskeletal: Circulation, motion, and sensation intact. Range of motion: intact in all extremities. 19:25 General: Reports "Stil feeling a little nauseated.". Neuro: No deficits noted. [place] tw5 Agitation-Sedation Scale (RASS): 0 - Alert and Calm. Respiratory: Airway is patent Trachea midline Respiratory effort is even, unlabored, Respiratory pattern is regular. Vital Signs: 17:30 BP 123 / 73; Pulse 75; Resp 17; Temp 97.0; Pulse Ox 100% on R/A; Weight 81.65 kg; jl7 Height 5 ft. 4 in. (162.56 cm); Pain 8/10; 18:30 BP 118 / 68; Pulse 72; Resp 18; Pulse Ox 99% on R/A; ph 19:25 BP 106 / 83; Pulse 71; Resp 14; Pulse Ox 99% on R/A; tw5 17:30 Body Mass Index 30.90 (81.65 kg, 162.56 cm) 7 ED Course: 17:16 Patient arrived in ED. am2 17:20 Carlita Marin FNP [facility]. jh7 17:20 Tarik Roth MD is Attending Physician. jh7 17:23 Maria Esther Strauss RN is Primary Nurse. ph 17:31 Triage completed. jl7 17:31 Arm band placed on right wrist. jl7 18:08 Initial lab(s) drawn, by id, sent to lab. Urine collected: clean catch specimen. ph Inserted saline lock: 20 gauge in left antecubital area, using aseptic technique. Blood collected. 19:05 Primary Nurse role handed off by Maria Esther Strauss, RN 5 19:05 Qi Car is Primary Nurse. tw5 19:21 Patient has correct armband on for positive identification. Bed in low position. Call ph light in reach. Side rails up X 1. monitoring coordinator on. Pulse ox on. Door closed. Noise minimized. Warm blanket given. 19:50 No provider procedures requiring assistance completed. IV discontinued, intact, lg3 bleeding controlled, No redness/swelling at site. Pressure dressing applied. Administered Medications: 18:07 Drug: NS 0.9% 1000 ml Route: IV; Rate: 1 bolus; Site: left antecubital; ph 18:07 Drug: Zofran (Ondansetron) 4 mg Route: IVP; Site: left antecubital; ph 19:05 Follow up: Response: No adverse reaction; Nausea unchanged tw5 18:55 Drug: Ketorolac 30 mg Route: IVP; Site: left antecubital; ph 19:22 Follow up: Response: No adverse reaction ph 19:27 Drug: Phenergan (promethazine) 12.5 mg Route: IVP; Site: left antecubital; tw5 Outcome: 19:36 Discharge ordered by . Patty 19:50 Discharged to home ambulatory, with family. lg3 19:50 Condition: stable 19:50 Discharge instructions given to patient, Instructed on discharge instructions, medication usage, Demonstrated understanding of instructions, medications, Prescriptions given X 1. 19:51 Patient left the ED. lg3 Signatures: Maria Esther Strauss, RN RN Juan Daley, RN RN jl7 Marixa Rodriguez amJanet Cisneros RN RN lg3 Qi Car tw5 Carlita Marin FNP MARKETING DEVELOPMENT SPECIALIST [facility]
--- NOTE | 2021-12-19 19:36 | EDPHYS ---
Physician Documentation [facility] Name: Carlita Atkinson Age: 21 yrs Sex: Female : 2000 Arrival Date: 12/19/2021 Time: 17:16 Bed 4 Private MD: ED Physician Tarik Roth HPI: 12/19 18:24 This 21 yrs old Female presents to ER via Ambulatory with complaints of jh7 Nausea/Vomiting, Headache. 18:24 Onset: The symptoms/episode began/occurred yesterday. Patient reports right-sided jh7 headache since yesterday. She states that the headache worsened today, and is now experiencing sensitivity to light and nausea and vomiting. Reports that she has not been able to hold anything down all day. Denies any medical problems. LMP last month.. 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 - Social history:: Smoking status: Patient denies any tobacco usage or history of. ROS: 18:24 Constitutional: Negative for fever, chills, and weight loss, ENT: Negative for injury, jh7 pain, and discharge, Cardiovascular: Negative for chest pain, palpitations, and edema, Respiratory: Negative for shortness of breath, cough, wheezing, and pleuritic chest pain, Skin: Negative for injury, rash, and discoloration, Neuro: Negative for headache, weakness, numbness, tingling, and seizure. 18:24 Eyes: Positive for photophobia, Negative for blurry vision, pain, vision loss, visual disturbance. 18:24 Abdomen/GI: Positive for nausea and vomiting, Negative for abdominal pain, diarrhea, constipation. Exam: 18:24 Constitutional: This is a well developed, well nourished patient who is awake, alert, jh7 and in no acute distress. Head/Face: Normocephalic, atraumatic. Eyes: Pupils equal round and reactive to light, extra-ocular motions intact. Lids and lashes normal. Conjunctiva and sclera are non-icteric and not injected. Cornea within normal limits. Periorbital areas with no swelling, redness, or edema. ENT: Oropharynx with no redness, swelling, or masses, exudates, or evidence of obstruction, uvula midline. Mucous membranes moist. Neck: Trachea midline, no thyromegaly or masses palpated, and no cervical lymphadenopathy. Supple, full range of motion without nuchal rigidity, or vertebral point tenderness. No Meningismus. Cardiovascular: Regular rate and rhythm with a normal S1 and S2. No gallops, murmurs, or rubs. Normal PMI, no JVD. No pulse deficits. Respiratory: Lungs have equal breath sounds bilaterally, clear to auscultation and percussion. No rales, rhonchi or wheezes noted. No increased work of breathing, no retractions or nasal flaring. Abdomen/GI: Soft, non-tender, with normal bowel sounds. No distension or tympany. No guarding or rebound. No evidence of tenderness throughout. Skin: Warm, dry with normal turgor. Normal color with no rashes, no lesions, and no evidence of cellulitis. Neuro: Awake and alert, GCS 15, oriented to person, place, time, and situation. Cranial nerves II-XII grossly intact. Motor strength 5/5 in all extremities. Sensory grossly intact. Cerebellar exam normal. Normal gait. Vital Signs: 17:30 BP 123 / 73; Pulse 75; Resp 17; Temp 97.0; Pulse Ox 100% on R/A; Weight 81.65 kg; 7 Height 5 ft. 4 in. (162.56 cm); Pain 8/10; 18:30 BP 118 / 68; Pulse 72; Resp 18; Pulse Ox 99% on R/A; ph 19:25 BP 106 / 83; Pulse 71; Resp 14; Pulse Ox 99% on R/A; tw5 17:30 Body Mass Index 30.90 (81.65 kg, 162.56 cm) [facility] MDM: 17:21 Patient medically screened. [facility] 19:50 Differential diagnosis: Migraine Headache. Data reviewed: vital signs, nurses notes, [facility] lab test result(s). Data interpreted: Pulse oximetry: is 99 %. Interpretation: normal. Counseling: I had a detailed discussion with the patient and/or guardian regarding: the historical points, exam findings, and any diagnostic results supporting the discharge/admit diagnosis. Response to treatment: the patient's symptoms have markedly improved after treatment. Special discussion: I discussed with the patient/guardian in detail that at this point there is no indication for admission to the hospital. It is understood, however, that if the symptoms persist or worsen the patient needs to return immediately for re-evaluation. ED course: The patient remained hemodynamically stable throughout the course of her visit. Her labs were unremarkable. No neurological deficits noted on exam. The patient reported an improvement of her symptoms. She was advised to follow-up with her PCP for further care. She was advised to return to the ER if she experiences any visual changes, severe headache, dizziness, difficulty speaking, or any other new concerning symptoms. The patient understood and agreed with the plan of care.. 12/19 17:36 Order name: CBC with Diff; Complete Time: 18:44 [facility] 12/19 17:36 Order name: CMP; Complete Time: 18:44 [facility] 12/19 17:36 Order name: Lipase; Complete Time: 18:44 [facility] 12/19 17:36 Order name: Urine Microscopic Only; Complete Time: 18:22 [facility] 12/19 17:36 Order name: IV Saline Lock; Complete Time: 17:38 [facility] 12/19 17:36 Order name: Labs collected and sent; Complete Time: 18:06 [facility] 12/19 18:00 Order name: Urine Dipstick-Ancillary; Complete Time: 18:22 EDAL 12/19 18:07 Order name: COVID-19/FLU A+B (Document "Date of Onset" if Symptomatic); Complete Time: ph 19:35 12/19 17:36 Order name: Urine Dipstick-Ancillary (obtain specimen); Complete Time: 18:06 [facility] 12/19 17:36 Order name: Urine Test (obtain specimen); Complete Time: 18:06 [facility] Administered Medications: 18:07 Drug: NS 0.9% 1000 ml Route: IV; Rate: 1 bolus; Site: left antecubital; ph 18:07 Drug: Zofran (Ondansetron) 4 mg Route: IVP; Site: left antecubital; ph 19:05 Follow up: Response: No adverse reaction; Nausea unchanged tw5 18:55 Drug: Ketorolac 30 mg Route: IVP; Site: left antecubital; ph 19:22 Follow up: Response: No adverse reaction ph 19:27 Drug: Phenergan (promethazine) 12.5 mg Route: IVP; Site: left antecubital; tw5 Disposition Summary: 12/19/21 19:36 Discharge Ordered Location: Home [facility] Problem: new jh7 Symptoms: have improved jh7 Condition: Stable 7 Diagnosis - Migraine without aura, not intractable 7 Followup: [facility] - With: Private Physician - When: 1 - 2 days - Reason: Recheck today's complaints Discharge Instructions: - Discharge Summary Sheet [facility] - Migraine Headache [facility] Forms: - Medication Reconciliation Form 7 - Thank You Letter [facility] - Work release form mw2 Prescriptions: - Imitrex 25 mg Oral Tablet - take 1 tablet by ORAL route one time - x 1 dose with fluids as early as jh7 possible after the onset of a migraine attack; if headache returns, the dose may be repeated after 2 hours, not to exceed a total daily dose of 8 tablets; 12 tablet; Refills: 0, Product Selection Permitted Addendum: 12/24/2021 19:02 Co-signature as Attending Physician, Tarik Roth MD. r n Signatures: Dispatcher [employer] Tarik Waldrop MD MD rn Hall, Patricia, RN RN ph Leal, Jahala, RN RN jl7 Wood, Tiffany 5 Carlita Marin FNP INFECTION CONTROL NURSE [facility]
[2021-12-19 20:17] VITALS: TEMP 97
[2021-12-19 20:18] VITALS: O2SAT 99
[2021-12-19 20:19] VITALS: BP 106/83
== END 2021-12-19 19:51 | disposition home or self-care (01) ==
LOC: ER 17:15
DX: G43.009 Migraine without aura, not intractable, without status migrainosus (principal); R11.2 Nausea with vomiting, unspecified; Z20.822 Contact with and (suspected) exposure to COVID-19
CPT/HCPCS: 0240U; 36415; 80053; 81003; 81015; 83690; 85025; 96374; 96375; 99284; J2405; J2550; J7030

== ENCOUNTER 2022-02-14 14:49 | Emergency (ER) | payer BC, SELFPAY ==
[2022-02-14] MEDS ORDERED: NA CHLORIDE 0.9% 1,000 ML ONE (15:33)
--- NOTE | 2022-02-14 16:42 | ER ---
Nurse's Notes [facility] Name: Carlita Atkinson Age: 21 yrs Sex: Female : 2000 Arrival Date: 02/14/2022 Time: 14:52 Bed 12 Private MD: Diagnosis: Presentation: 02/14 15:07 Chief complaint: Patient states: she was sent by her PCP for nausea/vomiting and ap3 migraine for 3 days. Coronavirus screen: At this time, the client does not indicate any symptoms associated with coronavirus-19. Ebola Screen: No symptoms or risks identified at this time. Initial Sepsis Screen: Does the patient meet any 2 criteria? No. Patient's initial sepsis screen is negative. Does the patient have a suspected source of infection? No. Patient's initial sepsis screen is negative. Risk Assessment: Do you want to hurt yourself or someone else? Patient reports no desire to harm self or others. Onset of symptoms was February 11, 2022. 15:07 Method Of Arrival: Ambulatory ap3 15:07 Acuity: YOU 3 ap3 Triage Assessment: 15:08 General: Appears in no apparent distress. Behavior is calm, cooperative, appropriate ap3 for age. Pain: Complains of pain in right lower quadrant, head. Neuro: Level of Consciousness is awake, alert, obeys commands, Oriented to person, place, time, situation. Cardiovascular: Patient's skin is warm and dry. Respiratory: Airway is patent Respiratory effort is even, unlabored. GI: Reports nausea, vomiting. 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 - Social history:: Smoking status: Patient denies any tobacco usage or history of. Screenin:09 Abuse screen: Denies threats or abuse. Nutritional screening: No deficits noted. ap3 Tuberculosis screening: No symptoms or risk factors identified. Assessment: 16:38 Reassessment: Pt not in room. Pt eloped at this time. ld1 Vital Signs: 15:07 BP 125 / 90; Pulse 73; Resp 19; Temp 97.0; Pulse Ox 100% ; Weight 92.08 kg; Height 5 ap3 ft. 4 in. (162.56 cm); 15:07 Body Mass Index 34.84 (92.08 kg, 162.56 cm) ap3 ED Course: 14:52 Patient arrived in ED. as 14:52 Tara Serrano FNP-C is [facility]. kb 14:52 Chau Al MD is Attending Physician. kb 15:08 Triage completed. ap3 15:09 Arm band placed on right wrist. ap3 15:16 Karen Gupta, RN is Primary Nurse. ld1 16:39 No provider procedures requiring assistance completed. ld1 Administered Medications: No medications were administered Outcome: 16:39 Eloped ld1 16:39 Condition: stable 16:41 Patient left the ED. ld1 Signatures: Tara Serrano FNP-C FNP-Ckb Martinez, Amelia as Prokisch, Amanda RN RN ap3 Karen Gupta, RHINA RN ld1
[2022-02-14 17:12] VITALS: BP 125/90; TEMP 97; O2SAT 100
--- NOTE | 2022-02-15 18:10 | EDPHYS ---
Physician Documentation [facility] Name: Carlita Atkinson Age: 21 yrs Sex: Female : 2000 Arrival Date: 02/14/2022 Time: 14:52 Bed 12 Private MD: ED Physician Chau Al HPI: 02/14 19:47 This 21 yrs old Female presents to ER via Ambulatory with complaints of kb Vomiting. 19:47 The patient presents to the emergency department with vomiting. Onset: The kb symptoms/episode began/occurred 3 day(s) ago. Possible causes: unknown. The symptoms are aggravated by nothing. The symptoms are alleviated by nothing. Associated signs and symptoms: Pertinent positives: nausea, vomiting. Severity of symptoms: At their worst the symptoms were moderate in the emergency department the symptoms are unchanged. The patient has not experienced similar symptoms in the past. The patient has not recently seen a physician. Pt reports nausea, vomiting and migraine for 3 days. States she has had this issue several times in the past, has been to Dr Drake for this as well. . 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 - Social history:: Smoking status: Patient denies any tobacco usage or history of. ROS: 19:50 Constitutional: Negative for fever, chills, and weight loss. kb 19:50 Abdomen/GI: Positive for nausea and vomiting, Negative for abdominal pain. 19:50 Neuro: Positive for headache. 19:50 All other systems are negative. Exam: 19:50 Constitutional: This is a well developed, well nourished patient who is awake, alert, kb and in no acute distress. Head/Face: Normocephalic, atraumatic. ENT: Moist Mucous membranes Cardiovascular: Regular rate and rhythm with a normal S1 and S2. No gallops, murmurs, or rubs. No pulse deficits. Respiratory: Respirations even and unlabored. No increased work of breathing. Talking in full sentences Abdomen/GI: Soft, non-tender. No distention Skin: Warm, dry with normal turgor. Normal color. MS/ Extremity: Pulses equal, no cyanosis. Neurovascular intact. Full, normal range of motion. Neuro: Awake and alert, GCS 15, oriented to person, place, time, and situation. Moves all extremities. Normal gait. Psych: Awake, alert, with orientation to person, place and time. Behavior, mood, and affect are within normal limits. Vital Signs: 15:07 BP 125 / 90; Pulse 73; Resp 19; Temp 97.0; Pulse Ox 100% ; Weight 92.08 kg; Height 5 ap3 ft. 4 in. (162.56 cm); 15:07 Body Mass Index 34.84 (92.08 kg, 162.56 cm) ap3 MDM: 15:06 Patient medically screened. kb 19:46 Data reviewed: vital signs, nurses notes. Data interpreted: Pulse oximetry: on room air kb is 100 %. Interpretation: normal. 19:51 ED course: Pt left room 12 without telling anyone prior to nurse starting IV and kb getting labs. Administered Medications: No medications were administered Disposition Summary: 02/14/22 16:41 Eloped Disposition: post triage evaluation and consult ld1 Reason: unknown ld1 Signatures: Dispatcher [employer] EDMS Tara Serrano FNP-C FNP-Ckb Prokisch, Amanda RN RN ap3 Karen Gupta RN RN ld1
== END 2022-02-14 16:41 | disposition left against medical advice (07) ==
LOC: ER 14:49
DX: R11.2 Nausea with vomiting, unspecified (principal); R51.9 Headache, unspecified
CPT/HCPCS: 99281; J7030

== ENCOUNTER 2022-04-23 13:43 | Emergency (ER) | payer BC ==
--- OUTSIDE RECORDS SUMMARY | 2022-04-23 13:46 | XMS REPORT | Continuity of Care Document ---
:2000 Author Organization [facility] t Address [address] [place] [address] Care Team Providers Name Role Phone ANUM BENNETT Primary Care Physician Unavailable SAHIL WING Attending Clinician Unavailable Trimester, [facility] Res-1st Attending Clinician Unavailable Melinda Briggs MD Attending Clinician MELINDA BRIGGS Attending Clinician Unavailable ANUM BENNETT Attending Clinician Unavailable Kevin Brown DO Attending Clinician Visit, [facility] Nurse Attending Clinician Unavailable Daniele Anum XIE Attending Clinician [phone] Donna Sauer Attending Clinician Payers Payer Name Policy Type Policy Number Effective Date Expiration Date Odessa hoff [facility] [id number] 2022 00:00:00 [facility] [id number] 2022 CHOICE MEDICAID 00:00:00 Problems Condition Condition Condition Status Onset Resolution Last Treating Co mments Source Name Details Category Date Date Treatment Clinician Date Supervisio Supervisio Disease Active U holly n of n of 7-28 ity of high-[place] [facility] Gonorrhea Gonorrhea Disease Active 2019-08 Uni vers 1-17 ity of 00:00: [address] Obesity in Obesity in Disease Active U nivers - ity of 00:00: [address] Allergies, Adverse Reactions, Alerts Allergy Allergy Status Severity Reaction(s) Onset Inactive Treating Comm ents Source Name Type Date Date Clinician NO KNOWN Drug Active Univers ALLERGIE Class ity of S [facility] Social History Social Habit Start Date Stop Date Quantity Comments Source ASSERTION 2022-02-13 University of 00:00:00 [facility] [place] History SDOH University o f Alcohol Frequency [place] [facility] History SDMD University o f Alcohol Std [facility] Dr[facility] Branch History [facility] o f Alcohol Binge [facility] [place] [facility] Exposure to 2022-04-01 2022-04-11 Not sure University SARS-CoV-2 00:00:00 10:46:00 [facility] (event) [place] Alcohol intake 2022-04-11 2022-04-11 Current drinker Unive rsity of 00:00:00 00:00:00 of alcohol [facility] (finding) [place] Tobacco use and 2022-03-14 2022-03-14 Smokeless tobacco Un iversity of exposure 00:00:00 00:00:00 non-user [facility] Alcohol Comment 2020-02-24 2020-02-24 Socially Universit y of 00:00:00 00:00:00 [facility] Sex Assigned [birth year] Universit y of 00:00:00 00:00:00 [facility] Smoking Status Start Date Stop Date Source Never smoked tobacco [facility] Medications Ordered Filled Start Stop Current Ordering Indication Dosage Frequency Signature Comments Components Source Medication Medication Date Date Medication? Clinician (SIG) Name Name Yes [id number] 1{tbl} Take 1 U nivers vitamin 7-28 tablet by ity of w/FA tablet [place] the Medical morning. Branch albuterol Yes [id number] 2{puff} Inhale 2 Univers 90 3-12 Puffs ity of mcg/actuati 00:00: every 4 [place] as on inhaler 00 (four) Medical hours as Branch needed for Wheezing or Shortness of Breath. Immunizations Ordered Immunization Filled Immunization Date Status Commen ts Source Name Name HPV9 2022-02-14 Completed University 00:00:00 [facility] Influenza Virus 2020-04-29 Completed Universit y of Vaccine Quad .5 mL IM 00:00:00 [facility] Medical 6+ MO Branch Influenza Virus 2016-05-20 Completed Universit y of Vaccine Quad IM 3+ 00:00:00 [facility] Branch HPV9 2015-08-21 Completed University 00:00:00 [facility] Meningococcal 2015-04-03 Completed [facility] Polysaccharide 00:00:00 [facility] alyssa (groups A, C, Y and Branc h W-135) conjugate vaccine (MCV4P) HPV9 2015-04-03 Completed University 00:00:00 [facility] Vital Signs Vital Name Observation Time Observation Value Comments Source Systolic blood 2022-04-11 15:51:00 128 mm[Hg] Univer sity [facility] Diastolic blood 2022-04-11 15:51:00 82 mm[Hg] Unive [facility] Heart rate 2022-04-11 15:45:00 81 /min [facility] Body temperature 2022-04-11 15:45:00 36.33 Sharyn [facility] Respiratory rate 2022-04-11 15:45:00 18 /min [facility] Body height 2022-04-11 15:45:00 162.6 cm [facility] Body weight 2022-04-11 15:45:00 92.035 kg [facility] BMI 2022-04-11 15:45:00 34.83 kg/m2 [facility] Procedures This patient has no known procedures. Encounters Start End Encounter Admission Attending Care Care Encounter Source Date/Time Date/Time Type Type Clinicians Facility Department ID 2022-05-03 2022-05-03 Outpatient R ADUM, [facility] [id number] Univers 10:00:00 10:00:00 SAHIL [id number] [facility] 2022-04-29 2022-04-29 Outpatient P [facility] [id number] Univers 15:00:00 15:00:00 [facility] 2022-04-11 2022-04-11 Routine Trimester, [facility] Res-1st UNIVERSIT [id number] Univers 09:45:00 11:12:27 Melinda Briggs [facility] [id number] ity of Visit CLINICS [id number] Luis holley [id number] [address] 2022-04-11 2022-04-11 Outpatient R HUBERT [facility] [id number] Univers 09:45:00 11:12:27 MELINDA ity [facility] 2022-04-08 2022-04-08 Outpatient R DANIELE, [facility] [id number] Univers 07:45:00 08:15:01 ANUM disla o f [facility] 2022-04-04 2022-04-04 Outpatient R DANIELE, [facility] [id number] Univers 16:00:00 13:56:07 ANUMSHADIA disla o f [facility] 2020-11-07 2020-11-07 [facility] [id number] 00:00:00 00:00:00 Outreach [facility] [id number] [facility] [id number] [place] [id number] 2020-07-07 2020-07-07 [facility] [id number] 09:55:55 10:22:59 Visit [facility] BEN DAY ARTIST [id number] Nurse REGIONAL [id number] MATERNAL [id number] & CHILD 107 [facility] 2020-07-07 2020-07-07 Telephone [facility] [id number] 00:00:00 00:00:00 Anum Upton [employer]IST [id number] REGIONAL [id number] MATERNAL [id number] & CHILD 107 [facility] 2020-07-04 2020-07-04 [facility]phone [facility] [id number] 00:00:00 00:00:00 Donna Lorenz [employer]IST [id number] REGIONAL [id number] MATERNAL [id number] & CHILD 107 [facility] 2020-07-03 2020-07-03 Office [facility] [id number] 14:23:30 14:50:28 Visit Donna Lorenz BEN DAY ARTIST [id number] [facility] [id number] MATERNAL [id number] & CHILD 107 [facility] Results This patient has no known results.
[2022-04-23 17:03] LABS: Absolute Lymphocytes (CBC) 0.5 K/uL (0.7-4.9); Hematocrit 39.1 % (36.0-45.0); Lymphocytes % 5.6 % (15.3-44.8); MCV 86.3 fL (80-100); MPV 7.8 fL (7.6-11.3); RBC Red Blood Cell Count 4.53 M/uL (3.86-4.86)
[2022-04-23 17:04] LABS: Blood Morphology Comment NOT SEEN (NOT SEEN); Platelet Estimate ADEQ; White Blood Cell Scan OK (OK)
[2022-04-23] MEDS ORDERED: FAMOTIDINE 20 MG/2 ML VIAL IV ONE (17:04)
[2022-04-23] MEDS ORDERED: Ringers Lactate 1,000 ML IV ONE (17:04)
[2022-04-23] MEDS ORDERED: ONDANSETRON 4 MG/2 ML VIAL ONE (17:04)
[2022-04-23] MEDS ORDERED: PROMETHAZINE INJ 25 MG/ML AMP ONE (17:34)
[2022-04-23 17:49] LABS: Potassium 3.4 mmol/L (3.5-5.1)
[2022-04-23 18:26] LABS: Urine Blood Negative (Negative); Urine Glucose Negative (Negative); Urine Protein 1+ (Negative); Urine Specific Gravity >=1.030 (1.005-1.030)
[2022-04-23 19:21] LABS: Urine Mucus 2+ /HPF (None Seen); Urine RBC <5 /HPF (None Seen)
--- NOTE | 2022-04-23 20:35 | RAD REPORT ---
EXAM DESCRIPTION: US - Matter Eval Tm 1 - 04/23/2022 8:03 pm CLINICAL HISTORY: abdominal pain COMPARISON: No comparisons FINDINGS: Single IUP identified with positive heart tones. The crown-rump length measures 4.6 cm which is consistent with 11 week 2 day. The right ovary was identified and measures 2.3 x 1.3 x 2. 6 cm with volume of 4.2 cc. The left ovary was not visualized. Vascular flow is present within the ri ght ovary. IMPRESSION: Single viable IUP with positive heart tones measuring 11 week 2 day with TINO of . The left ovary was not visualized. The right ovary demonstrated vascular flow.
--- NOTE | 2022-04-23 20:53 | ER ---
[facility] Name: Carlita Atkinson Age: 21 yrs Sex: Female : 2000 Arrival Date: 04/23/2022 Time: 13:44 Bed 14 Private MD: Diagnosis: Mild hyperemesis gravidarum; related conditions, unspecified, first trimester Presentation: 04/23 14:35 Chief complaint: Patient states: I am 11 weeks and I am so sick. I can not eat bm7 or drink because I can not keep anything down. I think I am dehydrated. Coronavirus screen: At this time, the client does not indicate any symptoms associated with coronavirus-19. Ebola Screen: No symptoms or risks identified at this time. Initial Sepsis Screen: Does the patient meet any 2 criteria? No. Patient's initial sepsis screen is negative. Does the patient have a suspected source of infection? No. Patient's initial sepsis screen is negative. Risk Assessment: Do you want to hurt yourself or someone else? Patient reports no desire to harm self or others. Onset of symptoms was April 23, 2022. 14:35 Method Of Arrival: Ambulatory bm7 14:35 Acuity: YOU 3 bm7 Triage Assessment: 14:36 General: Appears in no apparent distress. uncomfortable, Behavior is calm, cooperative, bm7 appropriate for age. Pain: Complains of pain in right lower quadrant and left lower quadrant Pain does not radiate. EENT: No deficits noted. No signs and/or symptoms were reported regarding the EENT system. Neuro: No deficits noted. Cardiovascular: No deficits noted. Respiratory: No deficits noted. GI: Abdomen is round non-distended, Pt is actively vomiting Abdomen is tender to palpation in suprapubic area and left lower quadrant Reports anorexia, nausea, vomiting. : No deficits noted. No signs and/or symptoms were reported regarding the genitourinary system. Derm: No deficits noted. No signs and/or symptoms reported regarding the dermatologic system. Musculoskeletal: No deficits noted. No signs and/or symptoms reported regarding the musculoskeletal system. 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 - Social history:: Smoking status: Patient denies any tobacco usage or history of. Screenin:39 Abuse screen: Denies threats or abuse. Nutritional screening: No deficits noted. ll1 Tuberculosis screening: No symptoms or risk factors identified. Fall Risk IV access (20 points). Total Leigh Fall Scale indicates No Risk (0-24 pts). Assessment: 16:51 Reassessment: No changes from previously documented assessment. Patient and/or family ll1 updated on plan of care and expected duration. Pain level reassessed. Patient is alert, oriented x 3, equal unlabored respirations, skin warm/dry/pink. 17:45 Reassessment: No changes from previously documented assessment. Patient and/or family ll1 updated on plan of care and expected duration. Pain level reassessed. 18:38 Reassessment: No changes from previously documented assessment. Patient and/or family ll1 updated on plan of care and expected duration. Pain level reassessed. Patient is alert, oriented x 3, equal unlabored respirations, skin warm/dry/pink. 19:45 Reassessment: Patient appears in no apparent distress at this time. Patient and/or jb4 family updated on plan of care and expected duration. Pain level reassessed. Patient is alert, oriented x 3, equal unlabored respirations, skin warm/dry/pink. 20:44 Reassessment: Patient appears in no apparent distress at this time. Patient and/or jb4 family updated on plan of care and expected duration. Pain level reassessed. Patient is alert, oriented x 3, equal unlabored respirations, skin warm/dry/pink. Vital Signs: 14:33 BP 126 / 76; Pulse 94; Resp 16; Temp 97.1(TE); Pulse Ox 100% on R/A; Weight 90.72 kg bm7 (R); Height 5 ft. 4 in. (162.56 cm); Pain 6/10; 14:33 Body Mass Index 34.33 (90.72 kg, 162.56 cm) bm7 ED Course: 13:44 Patient arrived in ED. mr 14:33 Arm band placed on left wrist. bm7 14:36 Triage completed. bm7 14:58 Chau Carrillo PA is PHCP. cp 14:58 Tarik Roth MD is Attending Physician. cp 16:48 Missed attempt(s): 22 gauge in left forearm. Bleeding controlled, band aid applied, ll1 catheter tip intact. 16:50 Inserted saline lock: 24 gauge in right forearm, using aseptic technique. Blood ll1 collected. 18:39 Patient has correct armband on for positive identification. Bed in low position. Call ll1 light in reach. Side rails up X 1. Cardiac monitoring not applicable on this patient. 18:42 Cleo Ferguson, RN is Primary Nurse. kb3 21:00 No provider procedures requiring assistance completed. IV discontinued, intact, jb4 bleeding controlled, No redness/swelling at site. Pressure dressing applied. Administered Medications: 17:02 Drug: Lactated Ringers Solution 1000 ml Route: IV; Rate: 250 ml/hr; Site: right forearm;ll1 17:03 Drug: Zofran (Ondansetron) 4 mg Route: IVP; Site: right forearm; ll1 18:27 Follow up: Response: No adverse reaction ll1 17:03 Drug: Pepcid (famotidine) 20 mg Route: IVP; Site: right forearm; ll1 18:27 Follow up: Response: No adverse reaction ll1 17:35 Drug: Phenergan (promethazine) 12.5 mg Route: IVP; Site: right forearm; ll1 18:27 Follow up: Response: No adverse reaction; Nausea is decreased ll1 21:08 Drug: Potassium Effervescent Tablet 25 mEq Route: PO; jb4 Medication: 18:39 VIS not applicable for this client. ll1 Outcome: 20:51 Discharge ordered by . cp 21:00 Discharged to home ambulatory, with family. jb4 21:00 Condition: stable 21:00 Discharge instructions given to patient, Instructed on discharge instructions, follow up and referral plans. medication usage, Demonstrated understanding of instructions, follow-up care, medications, Prescriptions given X 2. 21:08 Patient left the ED. jb4 Signatures: Lizett Mcknight mr Chau Carrillo PA PA cp Bryson, James, RN RN jb4 Wiliam Terrell, RN RN ll1 Saundra Sams, RN RN bm7 Cleo Ferguson, RN RN kb3
--- NOTE | 2022-04-23 20:53 | EDPHYS ---
Physician Documentation [facility] Name: Carlita Atkinson Age: 21 yrs Sex: Female : 2000 Arrival Date: 04/23/2022 Time: 13:44 Bed 14 Private MD: ED Physician Tarik Roth HPI: 04/23 16:30 This 21 yrs old Female presents to ER via Ambulatory with complaints of 11wks cp , Vomiting. 16:30 The patient presents to the emergency department with abdominal pain, nausea and cp vomiting, that started this morning, and is intermittent, described as bilious. 16:30 The estimated gestational age is 11 weeks. course: care: at a cp clinic, Leakage of Fluid: none appreciated. Associated signs and symptoms: Pertinent negatives: chest pain, diarrhea, fever, vaginal bleeding, vaginal discharge. 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 - Social history:: Smoking status: Patient denies any tobacco usage or history of. ROS: 16:35 Constitutional: Positive for poor PO intake, Negative for body aches, chills, fever. cp 16:35 Eyes: Negative for injury, pain, redness, and discharge. cp 16:35 ENT: Negative for drainage from ear(s), ear pain, sore throat, difficulty swallowing, difficulty handling secretions. 16:35 Cardiovascular: Negative for chest pain, palpitations. 16:35 Respiratory: Negative for cough, shortness of breath, wheezing. 16:35 Abdomen/GI: Positive for abdominal pain, nausea and vomiting, Negative for diarrhea, constipation, hematemesis. 16:35 : Negative for urinary symptoms, pelvic pain, flank pain, vaginal bleeding, vaginal discharge. 16:35 Neuro: Negative for altered mental status, headache, weakness. 16:35 All other systems are negative. Exam: 16:40 Constitutional: The patient appears in no acute distress, alert, awake, non-toxic, well cp developed, well nourished, overweight 16:40 Head/Face: Normocephalic, atraumatic. cp 16:40 Eyes: Periorbital structures: appear normal, Conjunctiva: normal, no exudate, no injection, Sclera: no appreciated abnormality, Lids and lashes: appear normal, bilaterally. 16:40 ENT: External ear(s): are unremarkable, Nose: is normal, Mouth: Lips: moist, Oral mucosa: pink and intact, moist, Posterior pharynx: Airway: no evidence of obstruction, patent. 16:40 Chest/axilla: Inspection: normal. 16:40 Cardiovascular: Rate: normal, Rhythm: regular. 16:40 Respiratory: the patient does not display signs of respiratory distress, Respirations: normal, no use of accessory muscles, no retractions, labored breathing, is not present, Breath sounds: are clear throughout, no decreased breath sounds, no stridor, no wheezing. 16:40 Abdomen/GI: Inspection: abdomen appears normal, Bowel sounds: active, all quadrants, Palpation: soft, in all quadrants, mild abdominal tenderness, in the abdomen diffusely, rebound tenderness, is not appreciated, involuntary guarding, is not appreciated. 16:40 Back: pain, is absent, ROM is normal. 16:40 Neuro: Orientation: to person, place \T\ time. Mentation: is normal, Motor: moves all fours, strength is normal, Sensation: is normal, Gait: is steady, at a normal pace, without difficulty. Vital Signs: 14:33 BP 126 / 76; Pulse 94; Resp 16; Temp 97.1(TE); Pulse Ox 100% on R/A; Weight 90.72 kg bm7 (R); Height 5 ft. 4 in. (162.56 cm); Pain 6/10; 14:33 Body Mass Index 34.33 (90.72 kg, 162.56 cm) bm7 MDM: 16:24 Patient medically screened. cp 20:50 Data reviewed: vital signs, nurses notes, lab test result(s), radiologic studies, cp ultrasound. 20:50 Differential diagnosis: STD, ectopic , dehydration, electrolyte abnormality. cp Counseling: I had a detailed discussion with the patient and/or guardian regarding: the historical points, exam findings, and any diagnostic results supporting the discharge/admit diagnosis, lab results, radiology results, the need for outpatient follow up, an OB/Gyne specialist, to return to the emergency department if symptoms worsen or persist or if there are any questions or concerns that arise at home. Response to treatment: the patient's symptoms have markedly improved after treatment, VSS. Nausea markedly improved. No vomiting observed while monitoring patient. Patient tolerating po fluids. Will discharge to home for continued monitoring. 04/23 17:04 Order name: CBC with Automated Diff; Complete Time: 17:58 EDMS 04/23 17:58 Interpretation: Normal except: BERT% 90.6; LYM% 5.6; MN% 3.1; NEUT A 8.6; LYMA 0.5. 04/23 17:04 Order name: CBC Smear Scan; Complete Time: 17:58 EDOR 04/23 17:49 Order name: Basic Metabolic Panel; Complete Time: 17:58 EDOR 04/23 17:58 Interpretation: Normal except: NA 135; K 3.4; GLUC 110; CRE 0.51. 04/23 17:49 Order name: Magnesium; Complete Time: 17:58 EDOR 04/23 17:49 Order name: HCG, Quantitative; Complete Time: 17:58 EDOR 04/23 18:27 Order name: Urine Dipstick-Ancillary; Complete Time: 19:09 EDOR 04/23 18:32 Order name: ABO/RH typing; Complete Time: 19:09 EDOR 04/23 19:22 Order name: Urine Microscopic Only; Complete Time: 20:48 EDOR 04/23 20:48 Interpretation: Reviewed. 04/23 16:22 Order name: IV Saline Lock; Complete Time: 16:22 04/23 16:22 Order name: Labs collected and sent; Complete Time: 16:22 04/23 16:22 Order name: NPO; Complete Time: 16:22 04/23 16:22 Order name: Urine Dipstick-Ancillary (obtain specimen); Complete Time: 18:25 04/23 16:22 Order name: Urine Test (obtain specimen); Complete Time: 18:25 04/23 18:00 Order name: US Transvaginal Ob cp 04/23 18:13 Order name: PO challenge; Complete Time: 18:38 cp 04/23 20:37 Order name: US; Complete Time: 20:48 EDMS Administered Medications: 17:02 Drug: Lactated Ringers Solution 1000 ml Route: IV; Rate: 250 ml/hr; Site: right forearm;ll1 17:03 Drug: Zofran (Ondansetron) 4 mg Route: IVP; Site: right forearm; ll1 18:27 Follow up: Response: No adverse reaction ll1 17:03 Drug: Pepcid (famotidine) 20 mg Route: IVP; Site: right forearm; ll1 18:27 Follow up: Response: No adverse reaction ll1 17:35 Drug: Phenergan (promethazine) 12.5 mg Route: IVP; Site: right forearm; ll1 18:27 Follow up: Response: No adverse reaction; Nausea is decreased ll1 21:08 Drug: Potassium Effervescent Tablet 25 mEq Route: PO; jb4 Disposition Summary: 04/23/22 20:51 Discharge Ordered Location: Home cp Problem: new cp Symptoms: have improved cp Condition: Stable cp Diagnosis - Mild hyperemesis gravidarum cp - related conditions, unspecified, first trimester cp Followup: cp - With: Private Physician - When: 2 - 3 days - Reason: Recheck today's complaints Discharge Instructions: - Discharge Summary Sheet cp - Hyperemesis Gravidarum cp - Care cp - First Trimester of cp Forms: - Medication Reconciliation Form cp - Thank You Letter cp - Antibiotic Education cp - Prescription Opioid Use cp Prescriptions: - Diclegis 10-10 mg Oral tablet,delayed release (DR/EC) - take 1 tablet by ORAL route 3-4 times daily; 30 tablet; Refills: 0, Product cp Selection Permitted - promethazine 25 mg Oral Tablet - take 1 tablet by ORAL route every 6 hours As needed; 20 tablet; Refills: 0, cp Product Selection Permitted Addendum: 04/24/2022 22:33 Co-signature as Attending Physician, Tarik Roth MD. r n Signatures: Dispatcher [employer] EDMS Tarik Roth MD MD rn Page, Corey, PA PA cp Bryson, James, RN RN jb4 Wiliam Terrell RN RN ll1 Saundra Sams, RN RN bm7
[2022-04-23] MEDS ORDERED: POTASSIUM 25 MEQ EFFERV TAB ONE (21:01)
[2022-04-23 22:18] LABS: Urine Specific Gravity/Preg >1.030 (1.005-1.030)
[2022-04-23 23:35] VITALS: BP 126/76; TEMP 97.1; O2SAT 100
== END 2022-04-23 21:08 | disposition home or self-care (01) ==
LOC: ER 13:43
DX: O21.0 Mild hyperemesis gravidarum (principal); Z3A.10 10 weeks gestation of pregnancy
CPT/HCPCS: 85025; 80048; 36415; 86900; 83735; 81025; 86901; 84702; 76801; J2550; J7120; J2405; 81003; 81015; 96374; 96375; 99284

== ENCOUNTER 2022-09-21 21:25 | Emergency (ER) | payer OTHER ==
--- OUTSIDE RECORDS SUMMARY | 2022-09-21 21:31 | XMS REPORT | Continuity of Care Document ---
:2000 Author Organization [facility] t Address [address] [place] [address] Care Team Providers Name Role Phone Aline Sawant Primary Care Physician [phone] YARI BUCHANAN Attending Clinician Unavailable Yari Buchanan MD Attending Clinician Tamara Jaimes NP Attending Clinician Pob, [facility] Main Attending Clinician Unavailable David Mauro MD Attending Clinician DAVID MAURO Attending Clinician Unavailable TAMARA JAIMES Attending Clinician Unavailable Doctor Unassigned, Reynolds Attending Clinician Unavailable Ultrasound, Ang-Mfandrea Attending Clinician Unavailable Chau King DO Attending Clinician Ultrasound, Adc Mfm Attending Clinician Unavailable Jerri Mayer MD, Michael Attending Clinician [phone] MICHAEL VASQUEZ Attending Clinician Unavailable 2, Adc Lab Attending Clinician Unavailable ALINE SANABRIA Attending Clinician Unavailable MELINDA BRIGGS Attending Clinician Unavailable Trimester, [facility] Res-1st Attending Clinician Unavailable Melinda Briggs MD Attending Clinician Aline Sawant Attending Clinician [phone] Lab, Javed Attending Clinician Unavailable UNKNOWN, ATTENDING Attending Clinician Unavailable JACKELINE PUGH Attending Clinician Unavailable Eblauren WOODP, Jackeline Attending Clinician JUANA LLAAMS Attending Clinician Unavailable Juana Balbuena Attending Clinician Kevin DOYLEKevin Attending Clinician RICARDO WAGNER Attending Clinician Unavailable ROCIO POND Attending Clinician Unavailable Visit, Javed Nurse Attending Clinician Unavailable Ricardo Corea Attending Clinician Rocio Sauer Attending Clinician JUANA LLAMAS Admitting Clinician Unavailable Payers Payer Name Policy Type Policy Number Effective Date Expiration Date [facility] [id number] 2022 [facility] 00:00:00 BCBS [facility] [id number] 2022 00:00:00 MEDICAID [facility] [id number] 2022 2022 00:00:00 00:00:00 MULTIPLAN GENERIC [id number] 2017 00:00:00 Problems Condition Condition Condition Status Onset Resolution Last Treating Co mments Source Name Details Category Date Date Treatment Clinician Date Abnormal Abnormal Disease Active Unive rs maternal maternal 1-04 ity of glucose glucose 00:00: [place] tolerance, tolerance, 00 Me dical antepartum antepartum Br anch Need for Need for Disease Active 2021-08 Unive rs diphtheria diphtheria 2-23 it y of -tetanus-p [place] ertuss[place] ertussis 00 Medica l (Tdap) (Tdap) Branch vaccine vaccine Obesity Obesity Disease Active Univers (BMI (BMI 9-23 ity of 30-39.9) 30-39.9) 00:00: [place] 00 Medical Branch Supervisio Supervisio Disease Active U nivers n of high n of high 7-28 ity of risk risk 00:00: [place] 00 Medi alyssa in second in second Bran ch trimester trimester Gonorrhea Gonorrhea Disease Active 2020-1 Uni vers 1-17 ity of 00:00: [address] Obesity in Obesity in Disease Active 2019- U nivers 7- ity of 00:00: [address] Allergies, Adverse Reactions, Alerts Allergy Allergy Status Severity Reaction(s) Onset Inactive Treating Comm ents Source Name Type Date Date Clinician NO KNOWN Drug Active Univers ALLERGIE Class ity of S [facility] Social History Social Habit Start Date Stop Date Quantity Comments Source ASSERTION 2022-02-13 University 00:00:00 [place] [facility] [place] History SDOH University o f Alcohol Frequency [place] M edical Branch History SDOH University o f Alcohol Std [place] [facility] Drinks Branch History [facility] o f Alcohol Binge [place] [facility] al Branch Exposure to 2022-09-08 2022 Not sure [facility] SARS-CoV-2 00:00:00 10:50:00 [facility] (event) [place] Alcohol intake 2022-09-04 2022-09-04 Ex-drinker [facility] 00:00:00 00:00:00 (finding) [facility] Tobacco use and 2022-03-14 2022-03-14 Smokeless tobacco Un iversity of exposure 00:00:00 00:00:00 non-user [facility] Alcohol Comment 2020-02-24 2020-02-24 Socially Universit y of 00:00:00 00:00:00 [facility] Sex Assigned At [birth year] Universit y of 00:00:00 00:00:00 [facility] Smoking Status Start Date Stop Date Source Never smoked tobacco [facility] Medications Ordered Filled Start Stop Current Ordering Indication Dosage Frequency Signature Comments Components Source Medication Medication Date Date Medication? Clinician (SIG) Name Name proMETHazin Yes TAKE 1 Univ ers e 25 mg 9-09 TABLET BY ity of tablet 00:00: MOUTH [place] 00 EVERY 6 Medical HOURS Branch NEEDED FOR NAUSEA AND VOMITING proMETHazin Yes TAKE 1 Univ ers e 25 mg 9-09 TABLET BY ity of tablet 00:00: MOUTH [place] 00 EVERY 6 Medical HOURS Branch NEEDED FOR NAUSEA AND VOMITING proMETHazin Yes TAKE 1 Univ ers e 25 mg 9-09 TABLET BY ity of tablet 00:00: MOUTH [place] 00 EVERY 6 Medical HOURS Branch NEEDED FOR NAUSEA AND VOMITING proMETHazin 2022-0 Yes TAKE 1 Univ ers e 25 mg 9-09 TABLET BY ity of tablet 00:00: MOUTH [place] 00 EVERY 6 Medical HOURS Branch NEEDED FOR NAUSEA AND VOMITING proMETHazin 0 Yes TAKE 1 Univ ers e 25 mg 9-09 TABLET BY ity of tablet 00:00: MOUTH [place] 00 EVERY 6 Medical HOURS Branch NEEDED FOR NAUSEA AND VOMITING proMETHazin 0 Yes TAKE 1 Univ ers e 25 mg 9-09 TABLET BY ity of tablet 00:00: MOUTH [place] 00 EVERY 6 Medical HOURS Branch NEEDED FOR NAUSEA AND VOMITING proMETHazin 0 Yes TAKE 1 Univ ers e 25 mg 9-09 TABLET BY ity of tablet 00:00: MOUTH [place] 00 EVERY 6 Medical HOURS Branch NEEDED FOR NAUSEA AND VOMITING proMETHazin Yes TAKE 1 Univ ers e 25 mg 9-09 TABLET BY ity of tablet 00:00: MOUTH [place] 00 EVERY 6 Medical HOURS Branch NEEDED FOR NAUSEA AND VOMITING proMETHazin 0 Yes TAKE 1 Univ ers e 25 mg 9-09 TABLET BY ity of tablet 00:00: MOUTH [place] 00 EVERY 6 Medical HOURS Branch NEEDED FOR NAUSEA AND VOMITING proMETHazin 0 Yes TAKE 1 Univ ers e 25 mg 9-09 TABLET BY ity of tablet 00:00: MOUTH [place] 00 EVERY 6 Medical HOURS Branch NEEDED FOR NAUSEA AND VOMITING proMETHazin 0 Yes TAKE 1 Univ ers e 25 mg 9-09 TABLET BY ity of tablet 00:00: MOUTH [place] 00 EVERY 6 Medical HOURS Branch NEEDED FOR NAUSEA AND VOMITING proMETHazin Yes TAKE 1 Univ ers e 25 mg 9-09 TABLET BY ity of tablet 00:00: MOUTH [place] 00 EVERY 6 Medical HOURS Branch NEEDED FOR NAUSEA AND VOMITING 2021-0 Yes [id number] 1{tbl} Take 1 U nivers vitamin 7-28 tablet by ity of w/FA tablet 00:00: mouth [place] 00 the Medical morning. Branch 2021-0 Yes [id number] 1{tbl} Take 1 U nivers vitamin 7-28 tablet by ity of w/FA tablet 00:00: [place] 00 the Medical morning. Branch 2021-0 Yes [id number] 1{tbl} Take 1 U nivers vitamin 7-28 tablet by ity of w/FA tablet 00:00: [place] 00 the Medical morning. [facility] Yes [id number] 1{tbl} Take 1 U nivers vitamin 7-28 tablet by ity of w/FA tablet 00:00: [place] 00 the Medical morning. [facility] Yes [id number] 1{tbl} Take 1 U nivers vitamin 7-28 tablet by ity of w/FA tablet 00:00: [place] 00 the Medical morning. [facility] Yes [id number] 1{tbl} Take 1 U nivers vitamin 7-28 tablet by ity of w/FA tablet 00:00: [place] 00 the Medical morning. [facility] Yes [id number] 1{tbl} Take 1 U nivers vitamin 7-28 tablet by ity of w/FA tablet 00:00: [place] 00 the Medical morning. [facility] Yes [id number] 1{tbl} Take 1 U nivers vitamin 7-28 tablet by ity of w/FA tablet 00:00: [place] 00 the Medical morning. [facility] Yes [id number] 1{tbl} Take 1 U nivers vitamin 7-28 tablet by ity of w/FA tablet 00:00: [place] 00 the Medical morning. [facility] Yes [id number] 1{tbl} Take 1 U nivers vitamin 7-28 tablet by ity of w/FA tablet 00:00: [place] 00 the Medical morning. [facility] Yes [id number] 1{tbl} Take 1 U nivers vitamin 7-28 tablet by ity of w/FA tablet 00:00: [place] 00 the Medical morning. [facility] Yes [id number] 1{tbl} Take 1 U nivers vitamin 7-28 tablet by ity of w/FA tablet 00:00: [place] 00 the Medical morning. [facility] Yes [id number] 1{tbl} Take 1 U nivers vitamin 7-28 tablet by ity of w/FA tablet 00:00: [place] 00 the Medical morning. [facility] Yes [id number] 1{tbl} Take 1 U nivers vitamin 7-28 tablet by ity of w/FA tablet 00:00: [place] 00 the Medical morning. Branch Yes [id number] 1{tbl} Take 1 U nivers vitamin 7-28 tablet by ity of w/FA tablet 00:00: [place] 00 the Medical morning. Branch [facility] Yes [id number] 1{tbl} Take 1 U nivers vitamin 7-28 tablet by ity of w/FA tablet 00:00: [place] 00 the Medical morning. Branch [facility] Yes [id number] 1{tbl} Take 1 U nivers vitamin 7-28 tablet by ity of w/FA tablet 00:00: [place] 00 the Medical morning. [facility] Yes [id number] 1{tbl} Take 1 U nivers vitamin 7-28 tablet by ity of w/FA tablet 00:00: [place] 00 the Medical morning. [facility] Yes [id number] 1{tbl} Take 1 U nivers vitamin 7-28 tablet by ity of w/FA tablet 00:00: mouth [place] 00 the Medical morning. [facility] Yes [id number] 1{tbl} Take 1 U nivers vitamin 7-28 tablet by ity of w/FA tablet 00:00: [place] 00 the Medical morning. [facility] Yes [id number] 1{tbl} Take 1 U nivers vitamin 7-28 tablet by ity of w/FA tablet 00:00: [place] 00 the Medical morning. [place] albuterol Yes [id number] 2{puff} Inhale 2 Univers 90 3-12 Puffs ity of mcg/actuati 00:00: every 4 [place] as on inhaler 00 (four) Medical hours as Branch needed for Wheezing or Shortness of Breath. albuterol Yes [id number] 2{puff} Inhale 2 Univers 90 3-12 Puffs ity of mcg/actuati 00:00: every 4 [place] as on inhaler 00 (four) Medical hours as Branch needed for Wheezing or Shortness of Breath. albuterol Yes [id number] 2{puff} Inhale 2 Univers 90 3-12 Puffs ity of mcg/actuati 00:00: every 4 [place] as on inhaler 00 (four) Medical hours as Branch needed for Wheezing or Shortness of Breath. albuterol Yes [id number] 2{puff} Inhale 2 Univers 90 3-12 Puffs ity of mcg/actuati 00:00: every 4 [place] as on inhaler 00 (four) Medical hours as Branch needed for Wheezing or Shortness of Breath. albuterol Yes [id number] 2{puff} Inhale 2 Univers 90 3-12 Puffs ity of mcg/actuati 00:00: every 4 [place] as on inhaler 00 (four) Medical hours as Branch needed for Wheezing or Shortness of Breath. albuterol Yes [id number] 2{puff} Inhale 2 Univers 90 3-12 Puffs ity of mcg/actuati 00:00: every 4 [place] as on inhaler 00 (four) Medical hours as Branch needed for Wheezing or Shortness of Breath. albuterol Yes [id number] 2{puff} Inhale 2 Univers 90 3-12 Puffs ity of mcg/actuati 00:00: every 4 [place] as on inhaler 00 (four) Medical hours as Branch needed for Wheezing or Shortness of Breath. albuterol Yes [id number] 2{puff} Inhale 2 Univers 90 3-12 Puffs ity of mcg/actuati 00:00: every 4 [place] as on inhaler 00 (four) Medical hours as Branch needed for Wheezing or Shortness of Breath. albuterol Yes [id number] 2{puff} Inhale 2 Univers 90 3-12 Puffs ity of mcg/actuati 00:00: every 4 [place] as on inhaler 00 (four) Medical hours as Branch needed for Wheezing or Shortness of Breath. albuterol Yes [id number] 2{puff} Inhale 2 Univers 90 3-12 Puffs ity of mcg/actuati 00:00: every 4 [place] as on inhaler 00 (four) Medical hours as Branch needed for Wheezing or Shortness of Breath. albuterol Yes [id number] 2{puff} Inhale 2 Univers 90 3-12 Puffs ity of mcg/actuati 00:00: every 4 [place] as on inhaler 00 (four) Medical hours as Branch needed for Wheezing or Shortness of Breath. albuterol Yes [id number] 2{puff} Inhale 2 Univers 90 3-12 Puffs ity of mcg/actuati 00:00: every 4 [place] as on inhaler 00 (four) Medical hours as Branch needed for Wheezing or Shortness of Breath. albuterol Yes [id number] 2{puff} Inhale 2 Univers 90 3-12 Puffs ity of mcg/actuati 00:00: every 4 [place] as on inhaler 00 (four) Medical hours as Branch needed for Wheezing or Shortness of Breath. albuterol Yes [id number] 2{puff} Inhale 2 Univers 90 3-12 Puffs ity of mcg/actuati 00:00: every 4 [place] as on inhaler 00 (four) Medical hours as Branch needed for Wheezing or Shortness of Breath. albuterol Yes [id number] 2{puff} Inhale 2 Univers 90 3-12 Puffs ity of mcg/actuati 00:00: every 4 [place] as on inhaler 00 (four) Medical hours as Branch needed for Wheezing or Shortness of Breath. albuterol Yes [id number] 2{puff} Inhale 2 Univers 90 3-12 Puffs ity of mcg/actuati 00:00: every 4 [place] as on inhaler 00 (four) Medical hours as Branch needed for Wheezing or Shortness of Breath. albuterol Yes [id number] 2{puff} Inhale 2 Univers 90 3-12 Puffs ity of mcg/actuati 00:00: every 4 [place] as on inhaler 00 (four) Medical hours as Branch needed for Wheezing or Shortness of Breath. albuterol Yes [id number] 2{puff} Inhale 2 Univers 90 3-12 Puffs ity of mcg/actuati 00:00: every 4 [place] as on inhaler 00 (four) Medical hours as Branch needed for Wheezing or Shortness of Breath. albuterol Yes [id number] 2{puff} Inhale 2 Univers 90 3-12 Puffs ity of mcg/actuati 00:00: every 4 [place] as on inhaler 00 (four) Medical hours as Branch needed for Wheezing or Shortness of Breath. albuterol Yes [id number] 2{puff} Inhale 2 Univers 90 3-12 Puffs ity of mcg/actuati 00:00: every 4 [place] as on inhaler 00 (four) Medical hours as Branch needed for Wheezing or Shortness of Breath. albuterol Yes [id number] 2{puff} Inhale 2 Univers 90 3-12 Puffs ity of mcg/actuati 00:00: every 4 [place] as on inhaler 00 (four) Medical hours as Branch needed for Wheezing or Shortness of Breath. Immunizations Ordered Immunization Filled Immunization Date Status Commen ts Source Name Name TDAP 2022-08-08 Completed University of 00:00:00 [facility] TDAP 2022-08-08 Completed University of 00:00:00 [facility] TDAP 2022-08-08 Completed University of 00:00:00 [facility] TDAP 2022-08-08 Completed University of 00:00:00 [facility] TDAP 2022-08-08 Completed University of 00:00:00 [facility] TDAP 2022-08-08 Completed University of 00:00:00 [facility] TDAP 2022-08-08 Completed University of 00:00:00 [facility] TDAP 2022-08-08 Completed University of 00:00:00 [facility] TDAP 2022-08-08 Completed University of 00:00:00 [facility] TDAP 2022-08-08 Completed University of 00:00:00 [facility] Influenza Virus 2022-06-11 Completed Universit y of Vaccine Quad IM, 00:00:00 [facility] dical Preserv and ABX Free Bran ch 6 MO-64 YRS Influenza Virus 2022-06-11 Completed Universit y of Vaccine Quad IM, 00:00:00 [place] Me dical Preserv and ABX Free Bran ch 6 MO-64 YRS Influenza Virus 2022-06-11 Completed Universit y of Vaccine Quad IM, 00:00:00 [facility] dical Preserv and ABX Free Bran ch 6 MO-64 YRS Influenza Virus 2022-06-11 Completed Universit y of Vaccine Quad IM, 00:00:00 [place] Me dical Preserv and ABX Free Bran ch 6 MO-64 YRS Influenza Virus 2022-06-11 Completed Universit y of Vaccine Quad IM, 00:00:00 [place] Me dical Preserv and ABX Free Bran ch 6 MO-64 YRS Influenza Virus 2022-06-11 Completed Universit y of Vaccine Quad IM, 00:00:00 [place] Me dical Preserv and ABX Free Bran ch 6 MO-64 YRS Influenza Virus 2022-06-11 Completed Universit y of Vaccine Quad IM, 00:00:00 [place] Me dical Preserv and ABX Free Bran ch 6 MO-64 YRS Influenza Virus 2022-06-11 Completed Universit y of Vaccine Quad IM, 00:00:00 [place] Me dical Preserv and ABX Free Bran ch 6 MO-64 YRS Influenza Virus 2022-06-11 Completed Universit y of Vaccine Quad IM, 00:00:00 [place] Me dical Preserv and ABX Free Bran ch 6 MO-64 YRS Influenza Virus 2022-06-11 Completed Universit y of Vaccine Quad IM, 00:00:00 [place] Me dical Preserv and ABX Free Bran ch 6 MO-64 YRS Influenza Virus 2022-06-11 Completed Universit y of Vaccine Quad IM, 00:00:00 [place] Me dical Preserv and ABX Free Bran ch 6 MO-64 YRS Influenza Virus 2022-06-11 Completed Universit y of Vaccine Quad IM, 00:00:00 [place] Me dical Preserv and ABX Free Bran ch 6 MO-64 YRS Influenza Virus 2022-06-11 Completed Universit y of Vaccine Quad IM, 00:00:00 [place] Me dical Preserv and ABX Free Bran ch 6 MO-64 YRS Influenza Virus 2022-06-11 Completed Universit y of Vaccine Quad IM, 00:00:00 [place] Me dical Preserv and ABX Free Bran ch 6 MO-64 YRS Influenza Virus 2022-06-11 Completed Universit y of Vaccine Quad IM, 00:00:00 [place] Me dical Preserv and ABX Free Bran ch 6 MO-64 YRS Influenza Virus 2022-06-11 Completed Universit y of Vaccine Quad IM, 00:00:00 [place] Me dical Preserv and ABX Free Bran ch 6 MO-64 YRS Influenza Virus 2022-06-11 Completed Universit y of Vaccine Quad IM, 00:00:00 [facility] dical Preserv and ABX Free Bran ch 6 MO-64 YRS [facility] 2022-02-14 Completed University of 00:00:[address] [facility] 2022-02-14 Completed University of 00:00:[address] [facility] 2022-02-14 Completed University of 00:00:[address] [facility] 2022-02-14 Completed University of 00:00:[address] [facility] 2022-02-14 Completed University of 00:00:[address] [facility] 2022-02-14 Completed University of 00:00:[address] [facility] 2022-02-14 Completed University of 00:00:[address] [facility] 2022-02-14 Completed University of 00:00:[address] [facility] 2022-02-14 Completed University of 00:00:[address] [facility] 2022-02-14 Completed University of 00:00:[address] [facility] 2022-02-14 Completed University of 00:00:[address] [facility] 2022-02-14 Completed University of 00:00:[address] [facility] 2022-02-14 Completed University of 00:00:[address] [facility] 2022-02-14 Completed University of 00:00:[address] [facility] 2022-02-14 Completed University of 00:00:[address] [facility] 2022-02-14 Completed University of 00:00:[address] [facility] 2022-02-14 Completed University of 00:00:[address] [facility] 2022-02-14 Completed University of 00:00:[address] [facility] 2022-02-14 Completed University of 00:00:[address] [facility] 2022-02-14 Completed University of 00:00:[address] [facility] 2022-02-14 Completed University of 00:00:00 [facility] Influenza Virus 2020-04-29 Completed Universit y of [...] y of Vaccine Quad IM 3+ 00:00:00 [facility] Influenza Virus 2016-05-20 Completed Universit y of Vaccine Quad IM 3+ 00:00:00 [facility] Influenza Virus 2016-05-20 Completed Universit y of Vaccine Quad IM 3+ 00:00:00 [facility] Influenza Virus 2016-05-20 Completed Universit y of Vaccine Quad IM 3+ 00:00:00 [facility] Influenza Virus 2016-05-20 Completed Universit y of Vaccine Quad IM 3+ 00:00:00 [facility] Influenza Virus 2016-05-20 Completed Universit y of Vaccine Quad IM 3+ 00:00:00 [facility] Influenza Virus 2016-05-20 Completed Universit y of Vaccine Quad IM 3+ 00:00:00 [facility] Influenza Virus 2016-05-20 Completed Universit y of Vaccine Quad IM 3+ 00:00:00 [facility] Influenza Virus 2016-05-20 Completed Universit y of Vaccine Quad IM 3+ 00:00:00 [facility] Influenza Virus 2016-05-20 Completed Universit y of Vaccine Quad IM 3+ 00:00:00 [facility] Influenza Virus 2016-05-20 Completed Universit y of Vaccine Quad IM 3+ 00:00:00 [facility] Influenza Virus 2016-05-20 Completed Universit y of Vaccine Quad IM 3+ 00:00:00 [facility] Influenza Virus 2016-05-20 Completed Universit y of Vaccine Quad IM 3+ 00:00:00 [facility] Influenza Virus 2016-05-20 Completed Universit y of Vaccine Quad IM 3+ 00:00:00 [facility] Influenza Virus 2016-05-20 Completed Universit y of Vaccine Quad IM 3+ 00:00:00 [facility] Influenza Virus 2016-05-20 Completed Universit y of Vaccine Quad IM 3+ 00:00:00 [facility] Influenza Virus 2016-05-20 Completed Universit y of Vaccine Quad IM 3+ 00:00:00 [facility] Influenza Virus 2016-05-20 Completed Universit y of Vaccine Quad IM 3+ 00:00:00 [facility] Influenza Virus 2016-05-20 Completed Universit y of Vaccine Quad IM 3+ 00:00:00 [facility] Influenza Virus 2016-05-20 Completed Universit y of Vaccine Quad IM 3+ 00:00:00 [facility] Influenza Virus 2016-05-20 Completed Universit y of Vaccine Quad IM 3+ 00:00:00 [facility] HPV9 2015-08-21 Completed University of 00:00:00 [facility] HPV9 2015-08-21 Completed University of 00:00:00 [facility] HPV9 2015-08-21 Completed University of 00:00:00 [facility] HPV9 2015-08-21 Completed University of 00:00:00 [facility] HPV9 2015-08-21 Completed University of 00:00:00 [facility] HPV9 2015-08-21 Completed University of 00:00:00 [facility] HPV9 2015-08-21 Completed University of 00:00:00 [facility] HPV9 2015-08-21 Completed University of 00:00:00 [facility] HPV9 2015-08-21 Completed University of 00:00:00 [facility] HPV9 2015-08-21 Completed University of 00:00:00 [facility] HPV9 2015-08-21 Completed University of 00:00:00 [facility] HPV9 2015-08-21 Completed University of 00:00:00 [facility] HPV9 2015-08-21 Completed University of 00:00:00 [facility] HPV9 2015-08-21 Completed University of 00:00:00 [facility] HPV9 2015-08-21 Completed University of 00:00:00 [facility] HPV9 2015-08-21 Completed University of 00:00:00 [facility] HPV9 2015-08-21 Completed University of 00:00:00 [facility] HPV9 2015-08-21 Completed University of 00:00:00 [facility] HPV9 2015-08-21 Completed University of 00:00:00 [facility] HPV9 2015-08-21 Completed University of 00:00:00 [facility] HPV9 2015-08-21 Completed University of 00:00:00 [facility] Meningococcal 2015-04-03 Completed University of Polysaccharide 00:00:00 [place] [facility]lyssa (groups A, C, Y and Branc h W-135) conjugate vaccine (MCV4P) HPV9 2015-04-03 Completed University of 00:00:00 [facility] Meningococcal 2015-04-03 Completed University of Polysaccharide 00:00:00 [place] [facility] alyssa (groups A, C, Y and Branc h W-135) conjugate vaccine (MCV4P) HPV9 2015-04-03 Completed University of 00:00:00 [facility] Meningococcal 2015-04-03 Completed University of Polysaccharide 00:00:00 [place] Medi alyssa (groups A, C, Y and Branc h W-135) conjugate vaccine (MCV4P) HPV9 2015-04-03 Completed University of 00:00:00 [facility] Meningococcal 2015-04-03 Completed University of Polysaccharide 00:00:00 [place] [facility] (groups A, C, Y and Branc h W-135) conjugate vaccine (MCV4P) HPV9 2015-04-03 Completed University of 00:00:00 [facility] Meningococcal 2015-04-03 Completed [facility] of Polysaccharide 00:00:00 [place] [facility] (groups A, C, Y and Branc h W-135) conjugate vaccine (MCV4P) HPV9 2015-04-03 Completed University of 00:00:00 [facility] Meningococcal 2015-04-03 Completed University of Polysaccharide 00:00:00 [place] [facility] (groups A, C, Y and Branc h W-135) conjugate vaccine (MCV4P) HPV9 2015-04-03 Completed University of 00:00:00 [facility] Meningococcal 2015-04-03 Completed University of Polysaccharide 00:00:00 [place] [facility] (groups A, C, Y and Branc h W-135) conjugate vaccine (MCV4P) HPV9 2015-04-03 Completed University of 00:00:00 [facility] Meningococcal 2015-04-03 Completed [facility] of Polysaccharide 00:00:00 [place] [facility] (groups A, C, Y and Branc h W-135) conjugate vaccine (MCV4P) HPV9 2015-04-03 Completed University of 00:00:00 [facility] Meningococcal 2015-04-03 Completed [facility] of Polysaccharide 00:00:00 [place] [facility] (groups A, C, Y and Branc h W-135) conjugate vaccine (MCV4P) HPV9 2015-04-03 Completed University of 00:00:00 [facility] Meningococcal 2015-04-03 Completed [facility] of Polysaccharide 00:00:00 [place] [facility] (groups A, C, Y and Branc h W-135) conjugate vaccine (MCV4P) HPV9 2015-04-03 Completed University of 00:00:00 [facility] Meningococcal 2015-04-03 Completed [facility] of Polysaccharide 00:00:00 [place] [facility] (groups A, C, Y and Branc h W-135) conjugate vaccine (MCV4P) HPV9 2015-04-03 Completed University of 00:00:00 [facility] Meningococcal 2015-04-03 Completed [facility] of Polysaccharide 00:00:00 [place] [facility] (groups A, C, Y and Branc h W-135) conjugate vaccine (MCV4P) HPV9 2015-04-03 Completed [facility] of 00:00:00 [facility] Meningococcal 2015-04-03 Completed [facility] of Polysaccharide 00:00:00 [place] [facility] (groups A, C, Y and Branc h W-135) conjugate vaccine (MCV4P) HPV9 2015-04-03 Completed [facility] of 00:00:00 [facility] Meningococcal 2015-04-03 Completed [facility] Polysaccharide 00:00:00 [place] [facility] (groups A, C, Y and Branc h W-135) conjugate vaccine (MCV4P) HPV9 2015-04-03 Completed [facility] of 00:00:00 [facility] Meningococcal 2015-04-03 Completed [facility] Polysaccharide 00:00:00 [place] [facility] (groups A, C, Y and Branc h W-135) conjugate vaccine (MCV4P) HPV9 2015-04-03 Completed [facility] of 00:00:00 [facility] Meningococcal 2015-04-03 Completed [facility] Polysaccharide 00:00:00 [place] [facility] (groups A, C, Y and Branc h W-135) conjugate vaccine (MCV4P) HPV9 2015-04-03 Completed [facility] of 00:00:00 [facility] Meningococcal 2015-04-03 Completed [facility] of Polysaccharide 00:00:00 [place] [facility] (groups A, C, Y and Branc h W-135) conjugate vaccine (MCV4P) HPV9 2015-04-03 Completed [facility] of 00:00:00 [facility] Meningococcal 2015-04-03 Completed [facility] Polysaccharide 00:00:00 [place] [facility] (groups A, C, Y and Branc h W-135) conjugate vaccine (MCV4P) HPV9 2015-04-03 Completed [facility] of 00:00:00 [facility] Meningococcal 2015-04-03 Completed [facility] Polysaccharide 00:00:00 [place] [facility] (groups A, C, Y and Branc h W-135) conjugate vaccine (MCV4P) HPV9 2015-04-03 Completed [facility] of 00:00:00 [facility] Meningococcal 2015-04-03 Completed [facility] Polysaccharide 00:00:00 [place] [facility] (groups A, C, Y and Branc h W-135) conjugate vaccine (MCV4P) HPV9 2015-04-03 Completed [facility] of 00:00:00 [facility] Meningococcal 2015-04-03 Completed [facility] Polysaccharide 00:00:00 [place] [facility] (groups A, C, Y and Branc h W-135) conjugate vaccine (MCV4P) HPV9 2015-04-03 Completed University of 00:00:00 [facility] Vital Signs Vital Name Observation Time Observation Value Comments Source Systolic blood 2022 16:59:00 110 mm[Hg] Univer sity of [facility] Diastolic blood 2022 16:59:00 77 [facility]Hg] [facility] 16:59:00 83 /min [facility] Body temperature 2022 16:59:00 36.72 Sharyn [facility] Respiratory rate 2022 16:59:00 18 /min [facility] Body height 2022 16:59:00 162.6 cm [facility] Body weight 2022 16:59:00 100.562 kg [facility] BMI 2022 16:59:00 38.05 kg/m2 [facility] Systolic blood 2022-09-04 22:11:00 109 mm[Hg] [facility]iver [facility] Diastolic blood 2022-09-04 22:11:00 69 mm[Hg] [facility] Heart rate 2022-09-04 22:11:00 91 /min [facility] Body temperature 2022-09-04 22:11:00 36.56 Sharyn [facility] Respiratory rate 2022-09-04 22:11:00 18 /min Univ [facility] Body height 2022-09-04 22:11:00 162.6 cm [facility] Body weight 2022-09-04 22:11:00 97.977 kg [facility] BMI 2022-09-04 22:11:00 37.08 kg/m2 [facility] Systolic blood 2022-08-21 17:02:00 110 mm[Hg] Univer sity of [facility] Diastolic blood 2022-08-21 17:02:00 72 mm[Hg] Unive rsity of [facility] Heart rate 2022-08-21 17:02:00 84 /min [facility] Body temperature 2022-08-21 17:02:00 36.5 Sharyn [facility] Respiratory rate 2022-08-21 17:02:00 18 /min Univ [facility] Body height 2022-08-21 17:02:00 162.6 cm [facility] Body weight 2022-08-21 17:02:00 96.616 kg [facility] BMI 2022-08-21 17:02:00 36.56 kg/m2 [facility] Systolic blood 2022-08-08 15:11:00 105 mm[Hg] Univer [facility]ity of [facility] Diastolic blood 2022-08-08 15:11:00 70 mm[Hg] Unive rsity of [facility] Heart rate 2022-08-08 15:11:00 82 /min [facility] Body temperature 2022-08-08 15:11:00 36.5 Sharyn [facility] Respiratory rate 2022-08-08 15:11:00 18 /min Univ [facility] Body height 2022-08-08 15:11:00 162.6 cm [facility] Body weight 2022-08-08 15:11:00 97.523 kg [facility] BMI 2022-08-08 15:11:00 36.90 kg/m2 [facility] Systolic blood 2022-07-09 16:02:00 106 mm[Hg] Univer [facility]ity of [facility] Diastolic blood 2022-07-09 16:02:00 73 mm[Hg] Unive rsity of [facility] Heart rate 2022-07-09 16:02:00 77 /min [facility] Body temperature 2022-07-09 16:02:00 36.67 Sharyn [facility] Respiratory rate 2022-07-09 16:02:00 18 /min Univ [facility] Body height 2022-07-09 16:02:00 162.6 cm [facility] Body weight 2022-07-09 16:02:00 93.895 kg [facility] BMI 2022-07-09 16:02:00 35.53 kg/m2 [facility] Systolic blood 2022-06-11 16:19:00 108 mm[Hg] Univer [facility]ity of [facility] Diastolic blood 2022-06-11 16:19:00 72 mm[Hg] Unive rsity of [facility] Heart rate 2022-06-11 16:19:00 73 /min [facility] Body temperature 2022-06-11 16:19:00 36.56 Sharyn [facility] [place] [facility] Respiratory rate 2022-06-11 16:19:00 17 /min Univ [facility] Body height 2022-06-11 16:19:00 162.6 cm [facility] Body weight 2022-06-11 16:19:00 91.491 kg [facility] BMI 2022-06-11 16:19:00 34.62 kg/m2 [facility] Systolic blood 2022-05-10 15:34:00 114 mm[Hg] Univer [facility]ity of [facility] Diastolic blood 2022-05-10 15:34:00 75 mm[Hg] Unive rsity of [facility] Heart rate 2022-05-10 15:34:00 80 /min [facility] Body temperature 2022-05-10 15:34:00 36.78 Sharyn [facility] [place] [facility] Respiratory rate 2022-05-10 15:34:00 18 /min [facility] Body height 2022-05-10 15:34:00 162.6 cm [facility] Body weight 2022-05-10 15:34:00 89.54 kg [facility] BMI 2022-05-10 15:34:00 33.88 kg/m2 Universi ty [facility] Systolic blood 2022-04-11 15:51:00 128 mm[Hg] Univer [facility]ity of [facility] Diastolic blood 2022-04-11 15:51:00 82 mm[Hg] Unive rsity of [facility] Heart rate 2022-04-11 15:45:00 81 /min Universi ty of [facility] Body temperature 2022-04-11 15:45:00 36.33 Sharyn [facility] Respiratory rate 2022-04-11 15:45:00 18 /min [facility] Body height 2022-04-11 15:45:00 162.6 cm [facility] [place] [facility] Body weight 2022-04-11 15:45:00 92.035 kg Universi ty [facility] [place] BMI 2022-04-11 15:45:00 34.83 kg/m2 [facility] Procedures Procedure Date / Time Performed Performing Clinician Sour e POCT URINALYSIS W/O 2022 00:00:00 AdumYari Universi ty [facility] SPECIFIC GRAVITY [facility] POCT URINALYSIS W/O 2022-09-04 00:00:00 AdumYari Universi ty [facility] SPECIFIC GRAVITY [facility] [place] POCT URINALYSIS W/O 2022-08-21 00:00:00 [facility]umYari [facility] 1 HR GLUCOSE TOLERANCE 2022-08-16 16:51:00 Tamara Jaimes [facility] GLUCOSE FASTING 2022-08-16 15:51:00 Tamara Jaimes [facility] ASSIGNMENT OF BENEFITS 2022-08-13 15:34:13 Doctor Unassigned, No [facility] TDAP VACCINE, >11 YRS, 2022-08-08 15:08:44 Tamara Jaimes [facility] POCT URINALYSIS W/O 2022-08-08 00:00:00 Tamara Jaimes [facility] POCT URINALYSIS W/O 2022-07-09 00:00:00 Fiona [facility] FLU VACC (), 2022-06-11 16:53:43 Adum, Yari Ramirez [facility] 6 MO-64 YRS, .5ML, IM, Medical [place] QUAD (FLUCELVAX) POCT URINALYSIS W/O 2022-06-11 00:00:00 Adum, Yari Ramirez [facility] POCT URINALYSIS W/O 2022-05-10 15:50:00 Adum, Yari Ramirez [facility] SCANNED LAB RESULTS 2022-05-10 05:01:00 Doctor Unassigned, No [facility] Encounters Start End Encounter Admission Attending Care Care Encounter Source Date/Time Date/Time Type Type Clinicians Facility Department ID 2022-10-02 2022-10-02 [id number] Univers 15:30:00 15:30:00 [facility] 2022 Outpatient R ADUM, [facility] [id number] Univers 11:00:00 11:15:00 YARI [facility] 2022 2022 Routine Adum, [facility] 1.2.753.384 [id number] Univers 11:00:00 11:15:00 Yari HAMEED 350.1.13.10 ity of Visit WOMEN'S 4.2.7.[address] [facility] [id number] [place] [address] Branch 2022-09-04 2022-09-04 Outpatient R ADUM, [facility] [id number] Univers 16:00:00 16:32:51 YARI [facility] 2022-09-04 2022-09-04 Routine Adum, [facility] 1.2.373.088 [id number] Univers 16:00:00 16:32:51 Yari HAMEED 350.1.13.10 ity of [place] [id number] [address] 2022-08-21 2022-08-21 Routine Tamara Jaimes [facility] [place] 1.2. 840.114 [id number] Univers 11:15:00 11:15:00 AdumYari 350.1.13.10 ity of [place] 4[place]2.[place] [id number] [address] 2022-08-21 2022-08-21 Outpatient R ADUM, [facility] [id number] Univers 11:15:00 11:13:58 YARI disla [facility] 2022-08-20 2022-08-20 [facility] 1.2.755.288 [id number] Univers 00:00:00 00:00:00 Yari Ramirez DUYEN 350.1.13.10 it[place] [id number] Tn dical NAL [address] [facility] 2022-08-16 2022-08-16 Shearer Screen Measurer And Trimmer Natacha, Adc Lab Main [facility] 1.2.8 40.114 [id number] Univers 09:45:00 10:00:00 Visit Phyllis David GELLER 350.1.13.10 ity of [place].7.2.[place] [id number] Tn dical NAL [address] [facility] 2022-08-16 2022-08-16 Out[facility] [id number] Univers 09:45:00 09:45:00 DAVID disla [facility] 2022-08-13 2022-08-13 Shearer Screen [employer] Trimmer Natacha, Adc Lab Main [facility] 1.2.8 40.114 [id number] Univers 09:45:00 10:00:00 Visit Tamara JaimesMICHELLE 350.1.13. 10 it[place] of [place].2.[place] [id number] Tn dical [address] 2022-08-13 2022-08-13 Outpatient R IMANINELLIE TAMARA [facility] B [id number] Univers 09:45:00 09:45:00 FIONA COLEQUINN iramgrant [facility] 2022-08-13 2022-08-13 Orders Doctor ANABELA 1.2.840.114 [id number] Univers 00:00:00 00:00:00 Only Unassigned, CALVIN 350.1.13.10 ity of [place] [facility] 4.2.7.2.686 Christiano as [id number] [address] 2022-08-13 2022-08-13 Telephone KIRSTEN Jaimes [place] 1.2.840.11 [id number] Univers 00:00:00 00:00:00 Tamara HAMEED 350.1.13.10 it y of [place] 4[place].2.[place] [id number] [address] 2022-08-08 2022-08-08 Outpatient R FIONACOLEQUINN [facility] B [id number] Univers 09:00:00 09:19:12 FIONATAMARA [facility] 2022-08-08 2022-08-08 Routine [facility] 1.2.840.114 [id number] Univers 09:00:00 09:19:12 Tamara HAMEED 350.1.13.10 i ty of [place] 4[place] [id number] [address] 2022-08-06 2022-08-06 Outpatient R FIONA TAMARA [facility] B [id number] Univers 10:00:00 10:00:00 TAMARA JAIMES [facility] 2022-08-01 2022-08-01 Shearer Screen Measurer And Trimmer Ultrasound, [facility] 1.2 .840.114 [id number] Univers 14:30:00 15:23:14 Visit Chau King [employer] 350.1.13.10 ity of [facility] 4.2.7.2.686 Christiano as MATERNAL [id number] Med ical & CHILD [address] [place] [address] 2022-08-01 2022-08-01 Outpatient P ARLEEN [facility] [id number] Univers 14:30:00 14:30:00 [facility] 2022-07-09 2022-07-09 Outpatient R IMANINELLIE TAMARA [facility] B [id number] Univers 10:00:00 10:15:41 FIONA TAMARA [facility] 2022-07-09 2022-07-[address] [facility] [place] 1.2.840.114 [id number] Univers 10:00:00 10:15:41 Tamara HAMEED 350.1.13.10 i ty of [place] 4[place].2.[place] [id number] [address] 2022-06-29 2022-06-29 Case Dewayne, [facility] 1.2.840.114 [id number] Univers 00:00:00 00:00:00 Management Yari GELLER 350.1.13.10 it[place] of [place] 4.[place].2.[place] [id number] Tn dic[address] 2022-06-25 2022-06-25 Shearer Screen [employer] Trimmer Ultrasound, Adc [facility] 1.2 .840.114 [id number] Univers 15:00:00 16:00:00 Visit Michael Vasquez 350.1 .13.10 it[place] of [place] 4.2.7.2.686 [place] [id number] Tn dical NAL [address] [place] [address] 2022-06-25 2022-06-25 Outpatient P JERRI [facility] [id number] Univers 15:00:00 15:00:00 COURT it y of MICHAEL Saxena [facility] 2022-06-11 2022-06-11 Shearer Screen Measurer And Trimmer 2, Adc Lab [facility] 1.2.840.114 [id number] Univers 13:00:00 13:31:03 Visit Yari Buchanan 350.1.13.10 ity of [facility] 4.2.7.2.686 [place] [id number] Tn dical [facility] [address] 2022-06-11 2022-06-11 Outpatient R ADUM, [facility] [id number] Univers 11:00:00 11:51:51 YARI ity [facility] 2022-06-11 2022-06-11 Routine Adum, [facility] 1.2.609.211 [id number] Univers 11:00:00 11:51:51 Yari HAMEED 350.1.13.10 ity of [place] 4.[place].2.[place] [id number] [address] 2022-05-24 2022-05-24 Telephone Adum, [facility] 1.2.629.452 [id number] Univers 00:00:00 00:00:00 Yari GELLER 350.1.13.10 [place].2.[place] [id number] Tn dical NAL [address] [facility] 2022-05-10 2022-05-10 Outpatient R ADUM, [facility] [id number] Univers 10:00:00 11:19:12 YARI ity of [facility] 2022-05-10 2022-05-10 Initial Adum, [facility] 1.2.840.114 [id number] Univers 10:00:00 11:19:12 Yari GELLER 350.1.13.10 ity of [place] [id number] [facility] [address] [facility] 2022-05-10 2022-05-10 Orders Doctor ANABELA 1.2.840.114 [id number] Univers 00:00:00 00:00:00 Only Unassigned, [place] 350.1.13.10 ity of [place] [facility] 4.2.7.2.686 [place]o as [id number] [address] 2022-05-03 2022-05-03 Outpatient R ADUM, [facility] [id number] Univers 10:00:00 10:00:00 YARI ity [facility] 2022-04-30 2022-04-30 Outpatient P [facility] [id number] Univers 10:30:00 10:30:00 [facility] 2022-04-29 2022-04-29 Outpatient P [facility] [id number] Univers 15:00:00 15:00:00 [facility] 2022-04-29 2022-04-29 Outpatient P [facility] [id number] Univers 14:00:00 14:00:00 [facility] 2022-04-18 2022-04-18 Outpatient R AKINROBERTO, [facility] [id number] Univers 11:00:00 11:00:00 ALINE armstrong [facility] 2022-04-16 2022-04-16 Outpatient R DEWAYNE, [facility] [id number] Univers 10:00:00 10:00:00 [facility] 2022-04-11 2022-04-11 Outpatient R AKINROBERTO, [facility] [id number] Univers 16:00:00 16:00:00 ALINE boyd [facility] 2022-04-11 2022-04-11 Outpatient Deejay BRIGGS [facility] [id number] Univers 09:45:00 11:12:27 MELINDA [facility] 2022-04-11 2022-04-11 Routine Trimester, [facility] Res-1st UNIVERSIT 1.2.840.114 [id number] Univers 09:45:00 11:12:27 Melinda Briggs [facility] 350.1.13.10 ity of Visit CLINICS 4.2.7.2.[place] [id number] [address] 2022-04-11 2022-04-11 Outpatient Deejay BRIGGS [facility] [id number] Univers 09:45:00 11:12:27 MELINDA [facility] 2022-04-09 2022-04-09 Telephone [facility] 1.2.840.114 [id number] Univers 00:00:00 00:00:00 Aline C [employer] MOVER 350.1.13.10 ity of [place] 4.2.7.2.686 [place]o as MATERNAL [id number] [facility] & [address] 2022-04-08 2022-04-08 Outpatient R AKINSIPE, [facility] [id number] Univers 07:45:00 08:15:01 ALINE ity o [facility] 2022-04-08 2022-04-08 Outpatient R AKINSIPE, [facility] [id number] Univers 07:45:00 08:15:01 ALINE ity o [facility] 2022-04-08 2022-04-08 Shearer Screen Measurer And Trimmer Lab, [facility] 1.2.840. 114 [id number] Univers 07:45:00 08:00:00 Visit Gwendolyn Sanabrianirali Upton [employer] 350.1.13. 10 ity of [place] 4.2.7.2.686 [place] as MATERNAL [id number] [facility] & [address] 2022-04-08 2022-04-08 Outpatient R AKINSIPE, [facility] [id number] Univers 07:45:00 07:45:00 ALINE waldeny o [facility] 2022-04-04 2022-04-04 Routine [facility] 1.2.747.239 [id number] Univers 16:00:00 16:00:00 Aline C [employer] 350.1.13.10 ity of Visit REGIONAL 4.2.7.2.686 Christiano as MATERNAL [id number] [facility] & [address] 2022-04-04 2022-04-04 Outpatient R AKINSIPE, [facility] [id number] Univers 16:00:00 13:56:07 ALINE ity o [facility] 2022-04-04 2022-04-04 Outpatient R AKINSIPE, [facility] [id number] Univers 16:00:00 13:56:07 ALINE ity o [facility] 2022-04-04 2022-04-04 Telephone [facility] 1.2.840.114 [id number] Univers 00:00:00 00:00:00 Aline C [employer] 350.1.13.10 ity of [facility] 4.2.7.2.686 Christiano as MATERNAL [id number] [facility] & CHILD [address] [place] [address] 2022-03-27 2022-03-27 Telephone [facility] 1.2.840.114 [id number] Univers 00:00:00 00:00:00 Aline C [employer] 350.1.13.10 ity of [facility] 4.2.7.2.686 Christiano as MATERNAL [id number] [facility] & CHILD [address] [place] [address] 2022-03-14 2022-03-14 Initial [facility] 1.2.845.422 [id number] Univers 08:30:00 09:36:51 Aline C [employer] 350.1.13.10 ity of Visit [facility] 4.2.7.2.686 Christiano as MATERNAL [id number] [facility] & [address] 2022-03-14 2022-03-14 Outpatient R DANIELE [facility] [id number] Univers 08:00:00 09:36:43 ALINE disla o f [facility] 2022-03-14 2022-03-14 Orders Doctor ANABELA 1.2.840.114 [id number] Univers 00:00:00 00:00:00 Only Unassigned, [place] 350.1.13.10 ity of [place] [address]2.686 Christiano as [id number] [address] 2022-03-09 2022-03-09 Outpatient R UMM, [facility] [id number] Univers 13:40:00 13:40:00 ATTENDING ity [facility] 2022-03-08 2022-03-08 Outpatient R GINGER [facility] [id number] Univers 17:00:00 17:22:05 JACKELINE [facility] 2022-03-08 2022-03-08 Urgent Ginger [facility] 1.2.840.114 [id number] Univers 17:00:00 17:22:05 Care [facility] 350.1.13.10 it y [facility] 4.2.7.2.686 Christiano as PATSY?BLEA [id number] Tn teresa GALLAGHER [address] [place] [address] MEDICAL OFFICE BUILDING 2022-03-08 2022-03-08 Outpatient R GINGER [facility] [id number] Univers 17:00:00 17:22:05 JACKELINE ity [facility] 2022-02-21 2022-02-21 Outpatient R [facility] [id number] Univers 08:00:00 08:00:00 ity [facility] 2022-02-14 2022-02-14 [facility] [id number] Univers 13:15:00 14:27:02 ALINE disla o [facility] 2022-02-14 2022-02-14 [facility] 1.2.584.923 [id number] Univers 13:15:00 14:27:02 Visit Aline Upton [employer] 350.1.13.10 ity [facility] 4.2.7.2.686 Christiano as MATERNAL [id number] [facility] ical & CHILD [address] [place] [address] 2022-02-14 2022-02-14 Outpatient [facility] [id number] Univers 13:15:00 14:27:02 ALINE armstrong [facility] 2022-02-14 2022-02-14 Orders Doctor PEÑALOZA 1.2.840.114 [id number] Univers 00:00:00 00:00:00 Only Unassigned, [place] 350.1.13.10 ity of [place] [facility] 4.2.7.2.686 Christiano as [phone] [address] 2022-01-29 2022-01-29 Outpatient R DANIELE [facility] [id number] Univers 13:45:00 13:45:00 ALINE disla o [facility] 2022-01-29 2022-01-29 Outpatient R [facility] [id number] Univers 13:15:00 13:15:00 ity [facility] 2021-10-27 2021-10-27 Emergency X TJ [facility] ERT [id number] Univers 19:27:00 21:47:00 JUANA ity of [facility] 2021-10-27 2021-10-27 Emergency Tj [facility] [id number] Univers 19:27:00 21:47:00 Juana S DUYEN [id number] i ty [id number] [id number] [facility] [address] 2021-10-27 2021-10-27 Orders Doctor ANABELA 1.2.840.114 [id number] Univers 00:00:00 00:00:00 Only Unassigned, CALVIN [id number] ity of [place] [facility] [id number] [place] as [phone] [facility] [address] 2020-11-07 2020-11-07 Patient Kevin [facility] [id number] Univers 00:00:00 00:00:00 Outreach Kevin PRIMARY [id number] i ty of [facility] [id number] [id number] Tn dical [address] 2020-11-07 2020-11-07 Patient Kevin [facility] [id number] 00:00:00 00:00:00 Outreach Kevin PRIMARY [id number] Robert CARE [id number] PAVILLION [id number] 388 2020-11-06 2020-11-06 Outpatient R BERNARD [facility] [id number] Univers 10:00:00 10:00:00 RICARDO disla o f [facility] 2020 2020 Outpatient R DEJAH [facility] [id number] Univers 08:00:00 08:00:00 ROCIO disla [facility] 2020-09-12 2020-09-12 Outpatient R [facility] [id number] Univers 10:00:00 10:00:00 ity [facility] 2020-07-07 2020-07-07 Nurse Visit, Ang-Rmchp Nurse [facility] 1.2 .840.114 [id number] Univers 09:55:55 10:22:59 Visit Ricardo Wagner R [employer] [id number] ity of REGIONAL [id number] [place] as MATERNAL [phone] Med ical & CHILD [address] [place] [address] 2020-07-07 2020-07-07 Nurse Visit, [facility] 1.2.840.114 [id number] 09:55:55 10:22:59 [facility] [id number] Nurse REGIONAL [id number] MATERNAL [phone] & CHILD [address] [place] [address] 2020-07-07 2020-07-07 Outpatient R [facility] [id number] Univers 10:00:00 10:00:00 ity [facility] 2020-07-07 2020-07-07 Telephone Daniele [facility] 1.2.840.114 [id number] Univers 00:00:00 00:00:00 Aline Upton [employer] [id number] ity of [facility] [id number] [place] as MATERNAL [phone] [facility] [address] [place] [address] 2020-07-07 2020-07-07 [facility] 1.2.840.114 [id number] 00:00:00 00:00:00 Aline Upton [employer] [id number] REGIONAL [id number] MATERNAL [phone] & CHILD [address] [place] [address] 2020-07-04 2020-07-04 Outpatient R DANIELE [facility] [id number] Univers 13:00:00 13:00:00 ALINE waldeny o f [facility] 2020-07-04 2020-07-04 Telephone Dejah [facility] 1.2.840.114 [id number] Univers 00:00:00 00:00:00 Rocio Lorenz [employer] [id number] it y of REGIONAL [id number] [place] as MATERNAL [phone] Med ical & CHILD [address] [place] [address] 2020-07-04 2020-07-04 [facility] 1.2.840.114 [id number] 00:00:00 00:00:00 Rocio Kelechi [employer] [id number] REGIONAL [id number] MATERNAL [phone] & CHILD [address] [place] [address] 2020-07-03 2020-07-03 Office Rocio Pond Kelechi [facility] 1.2.840. 114 [id number] Univers 14:23:30 14:50:28 Visit Aline Sanabria [employer] [id number]. 10 ity of [facility] [id number] Christiano as MATERNAL [phone] [facility] ical & CHILD [address] [place] [address] 2020-07-03 2020-07-03 Office [facility] [id number] 14:23:30 14:50:28 Visit Rocio Kelechi [employer] [id number] REGIONAL [id number] MATERNAL [phone] & CHILD [address] [place] [address] 2020-07-03 2020-07-03 [facility] [id number] Univers 14:30:00 14:30:00 ROCIO disla [facility] 2020-06-28 2020-06-28 Telephone [facility] 1.2.840.114 [id number] Univers 00:00:00 00:00:[address] G[id number] [facility] [id number] Profess[place] [phone] [address] 2020-06-20 2020-06-20 [facility] [id number] Univers 08:04:56 08:46:32 Visit Aline Upton [employer] [id number] ity of [facility] [id number] Christian[place] as MATERNAL [phone] [facility] & CHILD [address] [place] [address] 2020-06-20 2020-06-20 [facility] [id number] Univers 08:00:00 08:00:00 ALINE disla o f [facility] 2020-05-26 2020-05-26 Outpatient R [facility] [id number] Univers 10:30:00 10:30:00 ity [facility] 2020-02-24 2020-02-24 Office [facility] [id number] Univers 10:16:42 11:11:42 Visit Aline Upton [employer] [id number] ity of [facility] [id number] [place] as MATERNAL [phone] Med ical & CHILD [address] [place] [address] 2020-02-24 2020-02-24 Outpatient R DANIELE [facility] [id number] Univers 10:00:00 10:00:00 ALINE disla o f [facility] 2020-02-24 2020-02-24 Outpatient R [facility] [id number] Univers 09:30:00 09:30:[facility] 2020-02-24 2020-02-24 Orders Doctor ANABELA 1.2.840.114 [id number] Univers 00:00:00 00:00:00 Only Unassigned, CALVIN [id number] ity of [place] [facility] [id number] [place] as [phone] [address] 2020-02-17 2020-02-17 [facility] [id number] Univers 14:30:00 14:30:00 ROCIO [facility] Results Test Description Test Time Test Comments Results Result Comments Source POCT URINALYSIS W/O SPECIFIC GRAVITY 2022 16:56:00 Test Item Value Reference Range Interpretation Comme nts POCT PH U (test code = 3254) n/a 5-8 POCT U LEUK EST (test code = 3263) n/a Negative - Negative POCT U NIT (test code = 3262) n/a Negative - Negative POCT U PROT (test code = 3259) negative Negative - Negative POCT U GLU (test code = 3256) negative Negative - Negative POCT U KETONE (test code = 3258) n/a Negative - Negative POCT U BLD (test code = 3257) n/a Negative - Negative [facility] SPECIFIC [id number] 22:09:00 Test Item Value Reference Range Interpretation Comments POCT PH U (test code = 3254) N/A 5-8 POCT U LEUK EST (test code = N/A Negative - Negative 3263) POCT U NIT (test code = 3262) N/A Negative - Negative POCT U PROT (test code = 3259) Negative Negative - Negative POCT U GLU (test code = 3256) Negative Negative - Negative POCT U KETONE (test code = 3258) N/A Negative - Negative POCT U BLD (test code = 3257) N/A Negative - Negative [facility] URINALYSIS W/O SPECIFIC [id number] 22:09:00 Test Item Value Reference Range Interpretation Comments POCT PH U (test code = 3254) N/A 5-8 POCT U LEUK EST (test code = N/A Negative - Negative 3263) POCT U NIT (test code = 3262) N/A Negative - Negative POCT U PROT (test code = 3259) Negative Negative - Negative POCT U GLU (test code = 3256) Negative Negative - Negative POCT U KETONE (test code = 3258) N/A Negative - Negative POCT U BLD (test code = 3257) N/A Negative - Negative [facility] URINALYSIS W/O SPECIFIC [id number] 17:05:00 Test Item Value Reference Range Interpretation Comments POCT PH U (test code = 3254) N/A 5-8 POCT U LEUK EST (test code = N/A Negative - Negative 3263) POCT U NIT (test code = 3262) N/A Negative - Negative POCT U PROT (test code = 3259) Negative Negative - Negative POCT U GLU (test code = 3256) Negative Negative - Negative POCT U KETONE (test code = 3258) N/A Negative - Negative POCT U BLD (test code = 3257) N/A Negative - Negative [facility] AmericaGLUCO[facility] [id number] 16:58:30 Test Item Value Reference Range Interpretation Comments GLU FASTNG (test code = 6614680620) 83 mg/dL 70-110 Lab Interpretation (test code = Normal 29101-9) [facility] URINALYSIS W/O SPECIFIC [id number] 15:06:00 Test Item Value Reference Range Interpretation Comments POCT PH U (test code = 3254) N/A 5-8 POCT U LEUK EST (test code = N/A Negative - Negative 3263) POCT U NIT (test code = 3262) N/A Negative - Negative POCT U PROT (test code = 3259) Negative Negative - Negative POCT U GLU (test code = 3256) Negative Negative - Negative POCT U KETONE (test code = 3258) N/A Negative - Negative POCT U BLD (test code = 3257) N/A Negative - Negative [facility] URINALYSIS W/O SPECIFIC [id number] 16:05:00 Test Item Value Reference Range Interpretation Comments POCT PH U (test code = 3254) N/A 5-8 POCT U LEUK EST (test code = N/A Negative - Negative 3263) POCT U NIT (test code = 3262) N/A Negative - Negative POCT U PROT (test code = 3259) Negative Negative - Negative POCT U GLU (test code = 3256) Negative Negative - Negative POCT U KETONE (test code = 3258) N/A Negative - Negative POCT U BLD (test code = 3257) N/A Negative - Negative [facility] URINALYSIS W/O SPECIFIC [id number] 16:26:00 Test Item Value Reference Range Interpretation Comments POCT PH U (test code = 3254) n/a 5-8 POCT U LEUK EST (test code = n/a Negative - Negative 3263) POCT U NIT (test code = 3262) n/a Negative - Negative POCT U PROT (test code = 3259) negative Negative - Negative POCT U GLU (test code = 3256) negative Negative - Negative POCT U KETONE (test code = 3258) n/a Negative - Negative POCT U BLD (test code = 3257) n/a Negative - Negative [facility] [id number] 16:26:00 Test Item Value Reference Range Interpretation Comments POCT PH U (test code = 3254) n/a 5-8 POCT U LEUK EST (test code = n/a Negative - Negative 3263) POCT U NIT (test code = 3262) n/a Negative - Negative POCT U PROT (test code = 3259) negative Negative - Negative POCT U GLU (test code = 3256) negative Negative - Negative POCT U KETONE (test code = 3258) n/a Negative - Negative POCT U BLD (test code = 3257) n/a Negative - Negative [facility] W/O SPECIFIC [id number] 15:50:00 Test Item Value Reference Range Interpretation Comments POCT PH U (test code = 3254) n/a 5-8 POCT U LEUK EST (test code = n/a Negative - Negative 3263) POCT U NIT (test code = 3262) n/a Negative - Negative POCT U PROT (test code = 3259) negative Negative - Negative POCT U GLU (test code = 3256) negative Negative - Negative POCT U KETONE (test code = 3258) n/a Negative - Negative POCT U BLD (test code = 3257) n/a Negative - Negative [facility]
[2022-09-21] MEDS ORDERED: ONDANSETRON 4 MG (ODT) TAB ONE (22:22)
[2022-09-21 22:43] LABS: Urine Blood Negative (Negative); Urine Glucose Negative (Negative); Urine Protein Negative (Negative)
[2022-09-21 22:58] LABS: Urine Bacteria <20 /HPF (<20); Urine Mucus Slight /HPF (None Seen); Urine RBC <5 /HPF (None Seen)
--- NOTE | 2022-09-21 23:35 | EDPHYS ---
Physician Documentation [facility] Name: Carlita Atkinson Age: 22 yrs Sex: Female : 2000 Arrival Date: 09/21/2022 Time: 21:27 Bed 12 Private MD: CORI Physician Felicia Chiang HPI: 09/21 22:27 This 22 yrs old Female presents to ER via Ambulatory with complaints of EST 33 sd2 WKS GESTATION, Nausea/Vomiting. 22:27 22-year-old female G1, P0 at 33 weeks gestation presents with chief complaint of "I sd2 feel dehydrated." She reports feeling nauseous and queasy throughout the day today and then tried to drink water while at work and threw up once. She reports going home and trying to eat crawfish which she also threw up after. She is not currently on any nausea medications and has not experienced any significant nausea and vomiting this since her first trimester. She reports feeling normal movement with no associated abdominal pain, vaginal bleeding, leakage of fluid or vaginal discharge. She denies any chest pain or shortness of breath and has not had any fevers or diarrhea. She denies any urinary symptoms.. LAB RN: 22:02 LMP 01/30/2022, Verified, EDC 11/06/2022, Gestational age from LMP: 33 weeks 4 tw5 days Historical: - Allergies: 22:02 NKA; tw5 - Home Meds: 22:02 Vitamin Oral tab [Active]; tw5 - PMHx: 22:02 Asthma; GERD; scoliosis; tw5 - PSHx: 22:02 None; tw5 - Immunization history:: Flu vaccine is not up to date. - Social history:: Smoking status: Patient denies any tobacco usage or history of. ROS: 22:27 Constitutional: Negative for fever, chills, and weight loss, Eyes: Negative for injury, sd2 pain, redness, and discharge, Cardiovascular: Negative for chest pain, palpitations, and edema, Respiratory: Negative for shortness of breath, cough, wheezing. 22:27 : Negative for dysuria, urinary frequency, hesitancy, urgency and hematuria. MS/Extremity: Negative for injury and deformity, Skin: Negative for injury, rash, and discoloration. 22:27 Abdomen/GI: Positive for nausea and vomiting, Negative for abdominal pain. Exam: 22:27 Constitutional: This is a well developed, well nourished patient who is awake, alert, sd2 and in no acute distress. Head/Face: Normocephalic, atraumatic. Eyes: EOMI, normal conjunctiva bilaterally Chest/axilla: Normal chest wall appearance and motion. Nontender with no deformity. Cardiovascular: Regular rate and rhythm with a normal S1 and S2. No gallops, murmurs, or rubs. 2+ distal pulses. Respiratory: Lungs have equal breath sounds bilaterally, clear to auscultation and percussion. No rales, rhonchi or wheezes noted. No increased work of breathing, no retractions or nasal flaring. Abdomen/GI: Soft, non-tender, with normal bowel sounds. No guarding or rebound. No evidence of tenderness throughout. Gravid abdomen, no uterine tenderness. Skin: Warm, dry with normal turgor. Normal color with no rashes, no lesions, and no evidence of cellulitis. MS/ Extremity: Pulses equal, no cyanosis. Neurovascular intact. Full, normal range of motion. Ambulatory without difficulty. Psych: Awake, alert, with orientation to person, place and time. Behavior, mood, and affect are within normal limits. Vital Signs: 22:00 Pulse 94; Resp 16; Temp 98.6; Pulse Ox 99% ; Weight 100.24 kg; Height 5 ft. 4 in. tw5 (162.56 cm); Pain 0/10; 22:07 BP 134 / 78; tw5 22:00 Body Mass Index 37.93 (100.24 kg, 162.56 cm) tw5 MDM: 22:07 Patient medically screened. sd2 22:27 Differential diagnosis: Gastritis, cholecystitis, pancreatitis, SBO, diverticulitis, sd2 kidney stone, appendicitis, UTI, dehydration, electrolyte abnormality among others. Data reviewed: vital signs, nurses notes. 23:32 Data reviewed: lab test result(s), urinalysis, No signs of infection. Consideration of sd2 Admission/Observation Escalation of care including admission/observation considered. No indication or need for L\\T\\D with no abdominal pain, bleeding or other complications at this time. I considered the following discharge prescriptions or medication management in the emergency department Medications were administered in the Emergency Department. See MAR. Test considered but Not performed: Labs: Not currently indicated and offered but pt declined. Counseling: I had a detailed discussion with the patient and/or guardian regarding: the historical points, exam findings, and any diagnostic results supporting the discharge/admit diagnosis, lab results, the need for outpatient follow up, to return to the emergency department if symptoms worsen or persist or if there are any questions or concerns that arise at home. Medication response: Zofran relieved the patient's nausea. Response to treatment: the patient's symptoms have markedly improved after treatment, patient is well hydrated. ED course: Patient tolerating p.o. with benign abdominal exam. She is requesting discharge home at this time and states that she feels improved. She will follow-up outpatient with her LAB RN and verbalizes understanding of discharge plan and strict return precautions.. 09/21 22:29 Order name: Urine Microscopic Only; Complete Time: 23:03 sd2 09/21 22:42 Order name: Urine --Ancillary (enter results); Complete Time: 23:03 ds4 09/21 22:17 Order name: PO challenge; Complete Time: 22:17 tw5 09/21 22:17 Order name: FHT's; Complete Time: 22:17 tw5 09/21 22:43 Order name: Urine Dipstick-Ancillary; Complete Time: 22:52 EDMS 09/21 22:29 Order name: Urine Dipstick-Ancillary (obtain specimen); Complete Time: 22:42 sd2 Administered Medications: 22:21 Drug: Ondansetron 4 mg Route: PO; tw5 23:36 Follow up: Response: No adverse reaction; Nausea is decreased tw5 Disposition Summary: 09/21/22 23:35 Discharge Ordered Location: Home sd2 Problem: new sd2 Symptoms: have improved sd2 Condition: Stable sd2 Diagnosis - Nausea and vomiting in third trimester of sd2 Followup: sd2 - With: Private Physician - When: 2 - 3 days - Reason: Recheck today's complaints, Continuance of care, Re-evaluation by your physician Discharge Instructions: - Discharge Summary Sheet sd2 - Nausea and Vomiting, Adult sd2 - Third Trimester of sd2 Forms: - Medication Reconciliation Form sd2 - Thank You Letter sd2 - Antibiotic Education sd2 - Prescription Opioid Use sd2 Prescriptions: - ondansetron 4 mg Oral - take 4 milligrams by SUBLINGUAL route every 6 hours As needed; 15 tablet; sd2 Refills: 0, Product Selection Permitted Signatures: Dispatcher [employer] Qi Martin tw5 Felicia Chiang MD MD sd2
--- NOTE | 2022-09-21 23:35 | ER ---
Nurse's Notes [facility] Name: Carlita Atkinson Age: 22 yrs Sex: Female : 2000 Arrival Date: 09/21/2022 Time: 21:27 Bed 12 Private MD: Diagnosis: Nausea and vomiting in third trimester of Presentation: 09/21 22:00 Chief complaint: Patient states: "I just feel really drained. I went to work today and tw5 had to leave because I couldn't even keep water down. My doctor said if I was feeling any kind of way to come to the ER. When I got home I tried to eat my dinner and I couldn't keep that down either.". Coronavirus screen: Vaccine status: Patient reports receiving the 2nd dose of the covid vaccine. Moderna. Ebola Screen: Patient negative for fever greater than or equal to 101.5 degrees Fahrenheit, and additional compatible Ebola Virus Disease symptoms Patient denies exposure to infectious person. Patient denies travel to an Ebola-affected area in the 21 days before illness onset. Initial Sepsis Screen: Does the patient meet any 2 criteria? HR > 90 bpm. Does the patient have a suspected source of infection? No. Patient's initial sepsis screen is negative. Risk Assessment: Do you want to hurt yourself or someone else? Patient reports no desire to harm self or others. Onset of symptoms was September 21, 2022 at 14:00. 22:00 Method Of Arrival: Ambulatory tw5 22:00 Acuity: YOU 3 tw5 Triage Assessment: 22:02 General: Appears in no apparent distress. Behavior is calm, cooperative, appropriate tw5 for age. Pain: Pain currently is 0 out of 10 on a pain scale. GI: Reports nausea, vomiting. 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 - Social history:: Smoking status: Patient denies any tobacco usage or history of. Screenin:15 [facility] ED Fall Risk Assessment (Adult) History of falling in the last 3 months, tw5 including since admission No falls in past 3 months (0 pts). Abuse screen: Denies threats or abuse. Denies injuries from another. Nutritional screening: No deficits noted. Tuberculosis screening: No symptoms or risk factors identified. Assessment: 23:33 General: Appears in no apparent distress. Behavior is calm, cooperative, appropriate tw5 for age. General: Reports "I am feeling better and would like to go home.". Neuro: Level of Consciousness is awake, alert, obeys commands. GI: Abdomen is round. Vital Signs: 22:00 Pulse 94; Resp 16; Temp 98.6; Pulse Ox 99% ; Weight 100.24 kg; Height 5 ft. 4 in. tw5 (162.56 cm); Pain 0/10; 22:07 BP 134 / 78; tw5 22:00 Body Mass Index 37.93 (100.24 kg, 162.56 cm) tw5 Vitals: 22:15 Heart Tones 160 BPM FHT. tw5 ED Course: 21:27 Patient arrived in ED. jj6 21:50 Felicia Chiang MD is Attending Physician. sd2 22:02 Triage completed. tw5 22:02 Arm band placed on. tw5 22:15 Patient has correct armband on for positive identification. tw5 23:33 No provider procedures requiring assistance completed. Patient did not have IV access tw5 during this emergency room visit. Administered Medications: 22:21 Drug: Ondansetron 4 mg Route: PO; tw5 23:36 Follow up: Response: No adverse reaction; Nausea is decreased tw5 Medication: 22:15 VIS not applicable for this client. tw5 Outcome: 23:33 Discharged to home ambulatory. tw5 23:33 Condition: improved 23:33 Discharge instructions given to patient, Instructed on discharge instructions, follow up and referral plans. medication usage, Demonstrated understanding of instructions, follow-up care, medications, Prescriptions given X 1. 23:35 Discharge ordered by . sd2 23:40 Patient left the ED. tw5 Signatures: Qi Car tw5 Carlita Clark jj6 Felicia Chiang MD MD sd2
[2022-09-22 00:15] VITALS: TEMP 98.6; O2SAT 99
[2022-09-22 00:16] VITALS: BP 134/78
== END 2022-09-21 23:40 | disposition home or self-care (01) ==
LOC: ER 21:25
DX: O21.9 Vomiting of pregnancy, unspecified (principal); Z3A.33 33 weeks gestation of pregnancy
CPT/HCPCS: 81025; 99283; Q0162; 81003; 81015

== ENCOUNTER 2023-02-22 17:13 | Emergency (ER) | payer OTHER ==
--- OUTSIDE RECORDS SUMMARY | 2023-02-22 17:20 | XMS REPORT | Continuity of Care Document ---
:[address] [facility] t Address [address] [place] [address] [place] [id number] Care Team Providers Name Role Phone PCP, PATIENT DOES NOT HAVE A Primary Care Physician Unavaila YARI Steele Attending Clinician Unavailable VIRA JERONIMO Attending Clinician Unavailable VIRA JERONIMO Attending Clinician Unavailable Doctor Unassigned, [place] Attending Clinician Unavailable Yari Buchanan MD Attending Clinician Anabela Howell MD Attending Clinician 2, [facility] Attending Clinician Unavailable Aline Sawant Attending Clinician [phone] ALINE SANABRIA Attending Clinician Unavailable TAMARA JAIMES Attending Clinician Unavailable TAMARA JAIMES Attending Clinician Unavailable LEIGH ANN PALOMO Attending Clinician Unavailable Leigh Ann Palomo MD Attending Clinician Pob, [facility] Main Attending Clinician Unavailable David Mauro MD Attending Clinician DAVID MAURO Attending Clinician Unavailable Ultrasound, Ang[facility] Attending Clinician Unavailable Chau King DO Attending Clinician Ultrasound, Adc Mfm Attending Clinician Unavailable Jerri Mayer MD, Michael Attending Clinician [phone] JERRI MAYER, RODRIGUEZ Attending Clinician Unavailable MELINDA BRIGGS Attending Clinician Unavailable Trimester, [facility] Attending Clinician Unavailable Melinda Briggs MD Attending Clinician [facility] Attending Clinician Unavailable UNKNOWN, ATTENDING Attending Clinician Unavailable JACKELINE PUGH Attending Clinician Unavailable Ebrahim SUPERMARKET MANAGER, Jackeline Attending Clinician JUANA LLAMAS Attending Clinician Unavailable Juana Balbuena Attending Clinician Kevin Brown DO Attending Clinician RICARDO WAGNER Attending Clinician Unavailable ROCIO POND Attending Clinician Unavailable Visit, [facility] Nurse Attending Clinician Unavailable Ricardo Corea Attending Clinician Rocio Sauer Attending Clinician LEIGH ANN PALOMO Admitting Clinician Unavailable YARI BUCHANAN Admitting Clinician Unavailable Yari Buchanan MD Admitting Clinician Leigh Ann Palomo MD Admitting Clinician JUANA LLAMAS Admitting Clinician Unavailable Payers Payer Name Policy Type Policy Number Effective Date Expiration Date [facility] [id number] 2022 [facility] 00:00:00 [facility] [id number] 2022 00:00:00 [place]ICAID OF [place] [id number] 2022 2022 00:00:00 00:00:00 MULTIPLAN GENERIC [id number] 2017 00:00:00 Problems Condition Condition Condition Status Onset Resolution Last Treating Co mments Source Name Details Category Date Date Treatment Clinician Date Liveborn Liveborn Disease Active Unive rs infant, of , of 3-15 it y of maloney maloney 00:00: Luis s , , 00 Me dical born in born in [facility] by vaginal by vaginal delivery delivery Full-term Full-term Disease Active Uni vers premature premature 3-14 ity of rupture of [place] of 00:[place] membranes membranes 00 [facility] Branch 38 weeks 38 weeks Disease Active Unive rs gestation gestation 3-14 ity of of of 00:00: [place] 00 [facility] Branch Positive Positive Disease Active Unive rs GBS test GBS test 3-14 ity of 00:00: [place] 00 [facility] Premature Premature Disease Active Uni vers labor with labor with 3-14 it y of rupture of rupture of 00:[place] membranes membranes 00 [facility] Abnormal Abnormal Disease Active Unive rs maternal maternal 1-04 ity of glucose glucose 00:00: [place] tolerance, tolerance, 00 Me dical antepartum antepartum Br anch Need for Need for Disease Active 2021-08 Unive rs diphtheria diphtheria 2-23 it y of -tetanus-p -tetanus-p 00:00[place] ertussis ertussis 00 Medica l (Tdap) (Tdap) Branch vaccine vaccine BMI BMI Disease Active Univers 36.0-36.9, 36.0-36.9, 9-23 it y of adult adult 00:00: [place] [facility] Supervisio Supervisio Disease Active U nivers n of high n of high 7-28 ity of risk risk 00:00: [place] 00 [facility] in second in second Bran ch trimester trimester Gonorrhea Gonorrhea Disease Active 2019-08 Uni vers 1-17 ity of 00:00: [address] Obesity in Obesity in Disease Active 2019- U nivers 7-09 ity of 00:00: [address] Allergies, Adverse Reactions, Alerts Allergy Allergy Status Severity Reaction(s) Onset Inactive Treating Comm ents Source Name Type Date Date Clinician NO KNOWN Drug Active Univers ALLERGIE Class ity of S [facility] Social History Social Habit Start Date Stop Date Quantity Comments Source ASSERTION 2022-02-13 University of 00:00:00 [facility] History SDOH University o f Alcohol Frequency [facility] edical Branch History SDOH University o f Alcohol Std [place] Medical Drinks Branch History SDWY University o f Alcohol Binge [place] Medic al Branch Alcohol intake 2022-12-27 2022-12-27 Ex-drinker University of 00:00:00 00:00:00 (finding) [facility] Exposure to 2022-10-20 2022-10-30 Not sure [facility]-CoV-2 00:00:00 11:23:00 [facility] [place] Tobacco use and 2022-03-14 2022-03-14 Smokeless tobacco Un iversity of exposure 00:00:00 00:00:00 non-user [facility] Alcohol Comment 2020-02-24 2020-02-24 Socially Universit y of 00:00:00 00:00:00 [facility] Sex Assigned At [birth year] Universit y of 00:00:00 00:00:00 [facility] Smoking Status Start Date Stop Date Source Never smoked tobacco [facility] [place] Medications Ordered Filled Start Stop Current Ordering Indication Dosage Frequency Signature Comments Components Source Medication Medication Date Date Medication? Clinician (SIG) Name Name ondansetron Yes [id number] 4mg Take 1 Univers 4 mg 4-11 tablet by ity of disintegrat 00:00: mouth [place] ing tablet 00 every 8 Medica l (eight) Branch hours as needed for Nausea and Vomiting (N/V). ondansetron Yes [id number] 4mg Take 1 Univers 4 mg 4-11 tablet by ity of disintegrat 00:00: mouth [place] ing tablet 00 every 8 Medica l (eight) Branch hours as needed for Nausea and Vomiting (N/V). ondansetron Yes [id number] 4mg Take 1 Univers 4 mg 4-11 tablet by ity of disintegrat 00:00: mouth [place] ing tablet 00 every 8 Medica l (eight) Branch hours as needed for Nausea and Vomiting (N/V). ondansetron Yes [id number] 4mg Take 1 Univers 4 mg 4-11 tablet by ity of disintegrat 00:00: mouth [place] ing tablet 00 every 8 Medica l (eight) Branch hours as needed for Nausea and Vomiting (N/V). ondansetron 2022-0 Yes [id number] 4mg Take 1 Univers 4 mg 4-11 tablet by ity of disintegrat 00:00: mouth [place] ing tablet 00 every 8 Medica l (eight) Branch hours as needed for Nausea and Vomiting (N/V). ondansetron 2022-0 Yes [id number] 4mg Take 1 Univers 4 mg 4-11 tablet by ity of disintegrat 00:00: mouth [place] ing tablet 00 every 8 Medica l (eight) Branch hours as needed for Nausea and Vomiting (N/V). medroxyPROG Yes 150mg 150 mg, Un aj ESTERone 3-16 Intramuscu ity o f (DEPO-PROVE 15:30: moon, Tony LI) 00 [id number], Medical injection First dose Bran ch 150 mg on [place] 10/31/22 at 1030, Until Discontinu ed, Routine Yes [id number] 1{tbl} Take 1 Univers vitamin 3-16 102 tablet by ity of w/FA tablet 00:00: mouth [place] 00 the Medical morning. Branch docusate Yes [id number] 200mg Take 2 Univers 100 mg 3-16 102 capsules ity of capsule 00:00: by mouth [place] 00 once daily Medical as needed Branch for Constipati on. ferrous Yes [id number] 325mg Take 1 Univers sulfate 325 3-16 102 tablet by ity of mg (65 mg 00:00: [place] iron[place] 00 the Medical tablet morning Branch and 1 tablet in the evening. Yes [id number] 1{tbl} Take 1 Univers vitamin 3-16 102 tablet by ity of w/FA tablet 00:00: mouth [place] 00 the Medical morning. Branch docusate Yes [id number] 200mg Take 2 Univers 100 mg 3-16 102 capsules ity of capsule 00:00: by mouth [place] 00 once daily Medical as needed Branch for Constipati on. ferrous Yes [id number] 325mg Take 1 Univers sulfate 325 3-16 102 tablet by ity of mg (65 mg 00:00: [place] iron[place] 00 the Medical tablet morning Branch and 1 tablet in the evening. Yes [id number] 1{tbl} Take 1 Univers vitamin 3-16 102 tablet by ity of w/FA tablet 00:00: mouth [place] 00 the Medical morning. Branch docusate Yes [id number] 200mg Take 2 Univers 100 mg 3-16 102 capsules ity of capsule 00:00: by mouth [place] 00 once daily Medical as needed Branch for Constipati on. ferrous Yes [id number] 325mg Take 1 Univers sulfate 325 3-16 102 tablet by ity of mg (65 mg 00:00: [place] iron[place] 00 the Medical tablet morning Branch and 1 tablet in the evening. 0 Yes [id number] 1{tbl} Take 1 Univers vitamin 3-16 102 tablet by ity of w/FA tablet 00:00: mouth in [place] 00 the Medical morning. Branch docusate Yes [id number] 200mg Take 2 Univers 100 mg 3-16 102 capsules ity of capsule 00:00: by mouth [place] 00 once daily Medical as needed Branch for Constipati on. ferrous Yes [id number] 325mg Take 1 Univers sulfate 325 3-16 102 tablet by ity of mg (65 mg 00:00: [place] iron[place] 00 the Medical tablet morning Branch and 1 tablet in the evening. Yes [id number] 1{tbl} Take 1 Univers vitamin 3-16 102 tablet by ity of w/FA tablet 00:00: mouth in [place] 00 the Medical morning. Branch docusate Yes [id number] 200mg Take 2 Univers 100 mg 3-16 102 capsules ity of capsule 00:00: by mouth [place] 00 once daily Medical as needed Branch for Constipati on. ferrous Yes [id number] 325mg Take 1 Univers sulfate 325 3-16 102 tablet by ity of mg (65 mg 00:00: [place] iron[place] 00 the Medical tablet morning Branch and 1 tablet in the evening. 0 Yes [id number] 1{tbl} Take 1 Univers vitamin 3-16 102 tablet by ity of w/FA tablet 00:00: mouth [place] 00 the Medical morning. Branch docusate Yes [id number] 200mg Take 2 Univers 100 mg 3-16 102 capsules ity of capsule 00:00: by mouth [place] 00 once daily Medical as needed Branch for Constipati on. ferrous Yes [id number] 325mg Take 1 Univers sulfate 325 3-16 102 tablet by ity of mg (65 mg 00:00: [place] iron[place] 00 the Medical tablet morning Branch and 1 tablet in the evening. Yes [id number] 1{tbl} Take 1 Univers vitamin 3-16 102 tablet by ity of w/FA tablet 00:00: mouth [place] 00 the Medical morning. Branch docusate Yes [id number] 200mg Take 2 Univers 100 mg 3-16 102 capsules ity of capsule 00:00: by mouth [place] 00 once daily Medical as needed Branch for Constipati on. ferrous Yes [id number] 325mg Take 1 Univers sulfate 325 3-16 102 tablet by ity of mg (65 mg 00:00: [place] iron[place] 00 the Medical tablet morning Branch and 1 tablet in the evening. HYDROcodone Yes 1{tbl} 1 tablet, Univers -acetaminop 3-15 Oral, ity of hen (NORCO 13:05: Q6HPRN, [place] 5) 5-325 mg 06 Starting Medi alyssa tablet 1 on Fri Branch tablet 10/30/22 at 0805, Until Discontinu ed, Routine, Pain (scale 7-10) ibuprofen Yes 600mg 600 mg, Univ ers (IBU) 3-15 Oral, ity of tablet 600 13:05: Q6HPRN, [place] mg 06 Starting Medical on Fri Branch 10/30/22 at 0805, Until Discontinu ed, Routine, Pain (scale 4-6) acetaminoph Yes 650mg 650 mg, Un aj en 3-15 Oral, ity of (TYLENOL) 13:05: Q6HPRN, [place] tablet 650 06 Starting Medic al mg on Fri Branch 10/30/22 at 0805, Until Discontinu ed, Routine, Pain (scale 1-3) diphenhydrA Yes 25mg 25 mg, Univ ers MINE 3-15 Oral, ity of (BENADRYL) 13:05: Q6HPRN, [place] tablet 25 06 Starting Medica l mg on Fri Branch 10/30/22 at 0805, Until Discontinu ed, Routine, Sleep, Itching ondansetron 0 Yes 4mg 4 mg, Slow Univers (ZOFRAN 3-15 IV Push, ity of (PF)) 13:05: Q8HPRN, [place] injection 4 06 Starting Medi alyssa mg on Fri Branch 10/30/22 at 0805, Until Discontinu ed, Routine, Nausea and Vomiting (N/V) simethicone Yes 160mg 160 mg, Un aj (GAS RELIEF 3-15 Oral, ity of (SIMETHICON 13:05: PC+HSPRN, [place] E)) 06 Starting Medical chewable on Fri Branch tablet 160 10/30/22 at mg 0805, Until Discontinu ed, Routine, Gas docusate Yes 200mg 200 mg, Unive rs (COLACE) 3-15 Oral, ity of capsule 200 13:05: QDAILYPRN, [place] mg 06 Starting Medical on Fri Branch 10/30/22 at 0805, Until Discontinu ed, Routine, Constipati on magnesium Yes 30mL 30 mL, Univer s hydroxide 3-15 Oral, ity of (MILK OF 13:05: QDAILYPRN, [place] as MAGNESIA) 06 Starting Medica l 400 mg/5 mL on Fri Branch suspension 10/30/22 at 30 mL 0805, Until Discontinu ed, Routine, Constipati on benzocaine- Yes Topical, Un aj menthol 3-15 PRN, ity of (DERMOPLAST 13:05: Starting [place] ) 20-0.5 % 06 on Fri Medical topical 10/30/22 at Branch spray 0805, Until Discontinu ed, Routine, Perineum discomfort fentaNYL-ro 2022- No Epidural, Univers pivacaine 2 10-30 ONCE INTRA i ty of mcg/mL-0.1 07:58: 14:27 PROCEDURE, [place] % (PF) in 00 :11 Starting Medica l NS 200 mL on Fri Branch epidural 10/30/22 at infusion 0258, RTU Until Fri10/30/22 at 09, Routine, Intra-op lidocaine-e 2022- No Intraderma Univers pinephrine 10-3015 l, ONCE ity o f (XYLOCAINE 07:50: 14:27 INTRA [place] W/EPINEPHRI 00 :11 PROCEDURE, Me dical NE) 1.5 Starting Branch %-1:200,000 on Wed injection 10/30/22 at 0250, Until 10/30/22 at 09, Routine, Intra-op oxytocin 2022- No 2mU/min at 2-40 Un aj (PITOCIN) 10-30 mL/hr, IV ity of 30 units in 01:11: 13:06 Infusion, [place] NS 500 mL 09 :44 TITRATE, Medica l IV infusion Starting Bran ch on Fri10/29/22 at 2011, Until Fri10/30/22 at 0806, Routine misoprostol 2022- No 50ug 50 mcg, Un aj (CYTOTEC) 10-30 Oral, ity of quarter-tab 00:30: 00:27 ONCE, 1 [place] let 50 mcg 00 :00 dose, On Medic al Fri Branch 10/29/22 at 1930, Routine butorphanol No 2mg 2 mg, IV U nivers (STADOL) 10-30 Push, ity of injection 2 00:17: 13:06 Q3HPRN, 3 [place] mg 38 :44 doses, Medical Starting Branch on Fri10/29/22 at 1916, Until Fri10/30/22 at 0806, Routine, Pain ondansetron No 4mg 4 mg, Slow Univers (ZOFRAN 10-30 IV Push, ity of (PF)) 00:17: 13:06 Q6HPRN, [place] injection 4 30 :44 Starting Medi alyssa mg on Fri Branch 10/29/22 at 1916, Until Fri10/30/22 at 0806, Routine, Nausea and Vomiting (N/V) lidocaine No 50mL 50 mL, Unive rs 1% 10-30 Infiltrati ity of (XYLOCAINE) 00:11: 13:06 on, PRN - [place] 10 mg/mL (1 09 :44 SEE Medical %) INSTRUCTIO Branch injection NS, 50 mL Starting on Fri10/29/22 at 1910, Until Fri10/30/22 at 0806, Routine, Local anesthesia , For laceration repair only as a local anesthetic as indicated. lactated 2022- No 500mL at 999 Unive rs ringers IV 10-30 mL/hr, 500 it y of infusion 00:11: 13:06 mL, IV [place] 500 mL 09 :44 Infusion, Medical PRN - SEE Branch INSTRUCTIO NS, Starting on Fri10/29/22 at 1910, Until Fri10/30/22 at 0806, Routine D5W-LR IV 2022-0 2022- No 1000mL at 1-125 U nivers infusion 3 03-15 mL/hr, IV ity o f 1,000 mL 00:11: 13:06 Infusion, [place] 09 :44 TITRATE, Medical Starting Branch on Fri10/29/22 at 1910, Until Fri10/30/22 at 0806, Routine proMETHazin 2021-0 Yes TAKE 1 Univ ers e 25 mg 9-09 TABLET BY ity of tablet 00:00: MOUTH [place] 00 EVERY 6 Medical HOURS Branch NEEDED FOR NAUSEA AND VOMITING proMETHazin 0 Yes TAKE 1 Univ ers e 25 mg 9-09 TABLET BY ity of tablet 00:00: MOUTH [place] 00 EVERY 6 Medical HOURS Branch NEEDED FOR NAUSEA AND VOMITING proMETHazin 2021-0 Yes TAKE 1 Univ ers e 25 mg 9-09 TABLET BY ity of tablet 00:00: MOUTH [place] 00 EVERY 6 Medical HOURS Branch NEEDED FOR NAUSEA AND VOMITING proMETHazin 2021-0 Yes TAKE 1 Univ ers e 25 mg 9-09 TABLET BY ity of tablet 00:00: MOUTH [place] 00 EVERY 6 Medical HOURS Branch NEEDED FOR NAUSEA AND VOMITING proMETHazin 0 Yes TAKE 1 Univ ers e 25 mg 9-09 TABLET BY ity of tablet 00:00: MOUTH [place] 00 EVERY 6 Medical HOURS Branch NEEDED FOR NAUSEA AND VOMITING proMETHazin 2021-0 Yes TAKE 1 Univ ers e 25 mg 9-09 TABLET BY ity of tablet 00:00: MOUTH [place] 00 EVERY 6 Medical HOURS Branch NEEDED FOR NAUSEA AND VOMITING proMETHazin 2021-0 Yes TAKE 1 Univ ers e 25 mg 9-09 TABLET BY ity of tablet 00:00: MOUTH [place] 00 EVERY 6 Medical HOURS Branch NEEDED FOR NAUSEA AND VOMITING proMETHazin 2021-0 Yes TAKE 1 Univ ers e 25 mg 9-09 TABLET BY ity of tablet 00:00: MOUTH [place] 00 EVERY 6 Medical HOURS Branch NEEDED FOR NAUSEA AND VOMITING proMETHazin 2021-0 Yes TAKE 1 Univ ers e 25 mg 9-09 TABLET BY ity of tablet 00:00: MOUTH [place] 00 EVERY 6 Medical HOURS Branch NEEDED FOR NAUSEA AND VOMITING proMETHazin 2021-0 Yes TAKE 1 Univ ers e 25 [...] Branch NEEDED FOR NAUSEA AND VOMITING proMETHazin 2021-0 Yes TAKE 1 Univ ers e 25 mg 9-09 TABLET BY ity of tablet 00:00: MOUTH [place] 00 EVERY 6 Medical HOURS Branch NEEDED FOR NAUSEA AND VOMITING proMETHazin 0 Yes TAKE 1 Univ ers e 25 mg 9-09 TABLET BY ity of tablet 00:00: MOUTH [place] 00 EVERY 6 Medical HOURS Branch NEEDED FOR NAUSEA AND VOMITING proMETHazin 2021-0 Yes TAKE 1 Univ ers e 25 mg 9-09 TABLET BY ity of tablet 00:00: MOUTH [place] 00 EVERY 6 Medical HOURS Branch NEEDED FOR NAUSEA AND VOMITING proMETHazin 2021-0 Yes TAKE 1 Univ ers e 25 [...] Branch NEEDED FOR NAUSEA AND VOMITING proMETHazin 2022- No TAKE 1 Uni vers e 25 mg 9-09 03-16 TABLET BY ity of tablet 00:00: 00:00 MOUTH [place] 00 :00 EVERY 6 Medical HOURS Branch NEEDED FOR NAUSEA AND VOMITING Yes [id number] 1{tbl} Take 1 U nivers vitamin 7-28 tablet by ity of w/FA tablet 00:00: mouth in [place] 00 the Medical morning. Branch Yes [id number] 1{tbl} Take 1 U nivers vitamin 7-28 tablet by ity of w/FA tablet 00:00: mouth in [place] 00 the Medical morning. Branch Yes [id number] 1{tbl} Take 1 U nivers vitamin 7-28 tablet by ity of w/FA tablet 00:00: mouth in [place] 00 the Medical morning. Branch Yes [id number] 1{tbl} Take 1 U nivers vitamin 7-28 tablet by ity of w/FA tablet 00:00: mouth in [place] 00 the Medical morning. Branch Yes [id number] 1{tbl} Take 1 U nivers vitamin 7-28 tablet by ity of w/FA tablet 00:00: mouth in [place] 00 the Medical morning. Branch Yes [id number] 1{tbl} Take 1 U nivers vitamin 7-28 tablet by ity of w/FA tablet 00:00: mouth in [place] 00 the Medical morning. Branch Yes [id number] 1{tbl} Take 1 U nivers vitamin 7-28 tablet by ity of w/FA tablet 00:00: mouth in [place] 00 the Medical morning. [facility] Yes [id number] 1{tbl} Take 1 U nivers vitamin 7-28 tablet by ity of w/FA tablet 00:00: mouth in [place] 00 the Medical morning. [facility] Yes [id number] 1{tbl} Take 1 U nivers vitamin 7-28 tablet by ity of w/FA tablet 00:00: mouth in [place] 00 the Medical morning. [facility] Yes [id number] 1{tbl} Take 1 U nivers vitamin 7-28 tablet by ity of w/FA tablet 00:00: mouth in [place] 00 the Medical morning. [facility] Yes [id number] 1{tbl} Take 1 U nivers vitamin 7-28 tablet by ity of w/FA tablet 00:00: mouth in [place] 00 the Medical morning. [facility] Yes [id number] 1{tbl} Take 1 U nivers vitamin 7-28 tablet by ity of w/FA tablet 00:00: mouth in [place] 00 the Medical morning. [facility] Yes [id number] 1{tbl} Take 1 U nivers vitamin 7-28 tablet by ity of w/FA tablet 00:00: mouth in [place] 00 the Medical morning. [facility] Yes [id number] 1{tbl} Take 1 U nivers vitamin 7-28 tablet by ity of w/FA tablet 00:00: mouth in [place] 00 the Medical morning. [facility] Yes [id number] 1{tbl} Take 1 U nivers vitamin 7-28 tablet by ity of w/FA tablet 00:00: mouth in [place] 00 the Medical morning. [facility] Yes [id number] 1{tbl} Take 1 U nivers vitamin 7-28 tablet by ity of w/FA tablet 00:00: mouth in [place] 00 the Medical morning. [facility] Yes [id number] 1{tbl} Take 1 U nivers vitamin 7-28 tablet by ity of w/FA tablet 00:00: mouth in [place] 00 the Medical morning. [facility] 2022-0 Yes [id number] 1{tbl} Take 1 U nivers vitamin 7-28 tablet by ity of w/FA tablet 00:00: mouth in [place] 00 the Medical morning. [facility] Yes [id number] 1{tbl} Take 1 U nivers vitamin 7-28 tablet by ity of w/FA tablet 00:00: mouth in [place] 00 the Medical morning. [facility] Yes [id number] 1{tbl} Take 1 U nivers vitamin 7-28 tablet by ity of w/FA tablet 00:00: mouth in [place] 00 the Medical morning. [facility] Yes [id number] 1{tbl} Take 1 U nivers vitamin 7-28 tablet by ity of w/FA tablet 00:00: mouth in [place] 00 the Medical morning. [facility] Yes [id number] 1{tbl} Take 1 U nivers vitamin 7-28 tablet by ity of w/FA tablet 00:00: mouth in [place] 00 the Medical morning. [facility] Yes [id number] 1{tbl} Take 1 U nivers vitamin 7-28 tablet by ity of w/FA tablet 00:00: mouth in [place] 00 the Medical morning. [facility] Yes [id number] 1{tbl} Take 1 U nivers vitamin 7-28 tablet by ity of w/FA tablet 00:00: mouth in [place] 00 the Medical morning. [facility] Yes [id number] 1{tbl} Take 1 U nivers vitamin 7-28 tablet by ity of w/FA tablet 00:00: mouth in [place] 00 the Medical morning. [facility] Yes [id number] 1{tbl} Take 1 U nivers vitamin 7-28 tablet by ity of w/FA tablet 00:00: mouth in [place] 00 the Medical morning. [facility] Yes [id number] 1{tbl} Take 1 U nivers vitamin 7-28 tablet by ity of w/FA tablet 00:00: mouth in [place] 00 the Medical morning. [facility] Yes [id number] 1{tbl} Take 1 U nivers vitamin 7-28 tablet by ity of w/FA tablet 00:00: mouth in [place] 00 the Medical morning. [facility] Yes [id number] 1{tbl} Take 1 U nivers vitamin 7-28 tablet by ity of w/FA tablet 00:00: mouth in [place] 00 the Medical morning. [facility] Yes [id number] 1{tbl} Take 1 U nivers vitamin 7-28 tablet by ity of w/FA tablet 00:00: mouth in [place] 00 the Medical morning. [facility] Yes [id number] 1{tbl} Take 1 U nivers vitamin 7-28 tablet by ity of w/FA tablet 00:00: mouth in [place] 00 the Medical morning. [facility] Yes [id number] 1{tbl} Take 1 U nivers vitamin 7-28 tablet by ity of w/FA tablet 00:00: mouth in [place] 00 the Medical morning. [facility] Yes [id number] 1{tbl} Take 1 U nivers vitamin 7-28 tablet by ity of w/FA tablet 00:00: mouth in [place] 00 the Medical morning. [facility] Yes [id number] 1{tbl} Take 1 U nivers vitamin 7-28 tablet by ity of w/FA tablet 00:00: mouth in [place] 00 the Medical morning. [facility] Yes [id number] 1{tbl} Take 1 U nivers vitamin 7-28 tablet by ity of w/FA tablet 00:00: mouth in [place] 00 the Medical morning. [facility] Yes [id number] 1{tbl} Take 1 U nivers vitamin 7-28 tablet by ity of w/FA tablet 00:00: mouth in [place] 00 the Medical morning. [facility] Yes [id number] 1{tbl} Take 1 U nivers vitamin 7-28 tablet by ity of w/FA tablet 00:00: mouth in [place] 00 the Medical morning. [facility] Yes [id number] 1{tbl} Take 1 U nivers vitamin 7-28 tablet by ity of w/FA tablet 00:00: mouth in [place] 00 the Medical morning. [facility] Yes [id number] 1{tbl} Take 1 U nivers vitamin 7-28 tablet by ity of w/FA tablet 00:00: mouth [place] 00 the Medical morning. Branch Yes [id number] 1{tbl} Take 1 U nivers vitamin 7-28 tablet by ity of w/FA tablet 00:00: mouth [place] 00 the Medical morning. Branch albuterol Yes [id number] 2{puff} Inhale 2 Univers 90 3-12 Puffs ity of mcg/actuati 00:00: every 4 [place] on inhaler 00 (four) Medical hours as Branch needed for Wheezing or Shortness of Breath. albuterol Yes [id number] 2{puff} Inhale 2 Univers 90 3-12 Puffs ity of mcg/actuati 00:00: every 4 [place] on inhaler 00 (four) Medical hours as Branch needed for Wheezing or Shortness of Breath. albuterol Yes [id number] 2{puff} Inhale 2 Univers 90 3-12 Puffs ity of mcg/actuati 00:00: every 4 [place] on inhaler 00 (four) Medical hours as Branch needed for Wheezing or Shortness of Breath. albuterol Yes [id number] 2{puff} Inhale 2 Univers 90 3-12 Puffs ity of mcg/actuati 00:00: every 4 [place] on inhaler 00 (four) Medical hours as Branch needed for Wheezing or Shortness of Breath. albuterol Yes [id number] 2{puff} Inhale 2 Univers 90 3-12 Puffs ity of mcg/actuati 00:00: every 4 [place] on inhaler 00 (four) Medical hours as Branch needed for Wheezing or Shortness of Breath. albuterol Yes [id number] 2{puff} Inhale 2 Univers 90 3-12 Puffs ity of mcg/actuati 00:00: every 4 [place] on inhaler 00 (four) Medical hours as Branch needed for Wheezing or Shortness of Breath. albuterol Yes [id number] 2{puff} Inhale 2 [facility] 90 3-12 Puffs ity of mcg/actuati 00:00: every 4 [place] as on inhaler 00 (four) Medical hours as Branch needed for Wheezing or Shortness of Breath. albuterol Yes [id number] 2{puff} Inhale 2 [facility] 90 3-12 Puffs ity of mcg/actuati 00:00: every 4 [place] as on inhaler 00 (four) Medical hours as Branch needed for Wheezing or Shortness of Breath. albuterol Yes [id number] 2{puff} Inhale 2 [facility] 90 3-12 Puffs ity of mcg/actuati 00:00: every 4 [place] [facility] on inhaler 00 (four) Medical hours as Branch needed for Wheezing or Shortness of Breath. albuterol Yes [id number] 2{puff} Inhale 2 [facility] 90 3-12 Puffs ity of mcg/actuati 00:00: every 4 [place] [facility] on inhaler 00 (four) Medical hours as Branch needed for Wheezing or Shortness of Breath. albuterol Yes [id number] 2{puff} Inhale 2 [facility] 90 3-12 Puffs ity of mcg/actuati 00:00: every 4 [place] [facility] on inhaler 00 (four) Medical hours as Branch needed for Wheezing or Shortness of Breath. albuterol Yes [id number] 2{puff} Inhale 2 [facility] 90 3-12 Puffs ity of mcg/actuati 00:00: every 4 [place] [facility] on inhaler 00 (four) Medical hours as Branch needed for Wheezing or Shortness of Breath. albuterol Yes [id number] 2{puff} Inhale 2 [facility] 90 3-12 Puffs ity of mcg/actuati 00:00: every 4 [place] [facility] on inhaler 00 (four) Medical hours as Branch needed for Wheezing or Shortness of Breath. albuterol Yes [id number] 2{puff} Inhale 2 [facility] 90 3-12 Puffs ity of mcg/actuati 00:00: every 4 [place] [facility] on inhaler 00 (four) Medical hours as Branch needed for Wheezing or Shortness of Breath. albuterol Yes [id number] 2{puff} Inhale 2 [facility] 90 3-12 Puffs ity of mcg/actuati 00:00: every 4 [place] [facility] on inhaler 00 (four) Medical hours as Branch needed for Wheezing or Shortness of Breath. albuterol Yes [id number] 2{puff} Inhale 2 [facility] 90 3-12 Puffs ity of mcg/actuati 00:00: every 4 [place] [facility] on inhaler 00 (four) Medical hours as Branch needed for Wheezing or Shortness of Breath. albuterol Yes [id number] 2{puff} Inhale 2 [facility] 90 3-12 Puffs ity of mcg/actuati 00:00: every 4 [place] [facility] on inhaler 00 (four) Medical hours as Branch needed for Wheezing or Shortness of Breath. albuterol Yes [id number] 2{puff} Inhale 2 [facility] 90 3-12 Puffs ity of mcg/actuati 00:00: every 4 [place] [facility] on inhaler 00 (four) Medical hours as Branch needed for Wheezing or Shortness of Breath. albuterol Yes [id number] 2{puff} Inhale 2 [facility] 90 3-12 Puffs ity of mcg/actuati 00:00: every 4 [place] [facility] on inhaler 00 (four) Medical hours as Branch needed for Wheezing or Shortness of Breath. albuterol Yes [id number] 2{puff} Inhale 2 [facility] 90 3-12 Puffs ity of mcg/actuati 00:00: every 4 [place] [facility] on inhaler 00 (four) Medical hours as Branch needed for Wheezing or Shortness of Breath. albuterol Yes [id number] 2{puff} Inhale 2 [facility] 90 3-12 Puffs ity of mcg/actuati 00:00: every 4 [place] [facility] on inhaler 00 (four) Medical hours as Branch needed for Wheezing or Shortness of Breath. albuterol Yes [id number] 2{puff} Inhale 2 [facility] 90 3-12 Puffs ity of mcg/actuati 00:00: every 4 [place] [facility] on inhaler 00 (four) Medical hours as Branch needed for Wheezing or Shortness of Breath. albuterol Yes [id number] 2{puff} Inhale 2 [facility] 90 3-12 Puffs ity of mcg/actuati 00:00: every 4 [place] [facility] on inhaler 00 (four) Medical hours as Branch needed for Wheezing or Shortness of Breath. albuterol Yes [id number] 2{puff} Inhale 2 [facility] 90 3-12 Puffs ity of mcg/actuati 00:00: every 4 [place] [facility] on inhaler 00 (four) Medical hours as Branch needed for Wheezing or Shortness of Breath. albuterol Yes [id number] 2{puff} Inhale 2 [facility] 90 3-12 Puffs ity of mcg/actuati 00:00: every 4 [place] [facility] on inhaler 00 (four) Medical hours as Branch needed for Wheezing or Shortness of Breath. albuterol Yes [id number] 2{puff} Inhale 2 [facility] 90 3-12 Puffs ity of mcg/actuati 00:00: every 4 [place] [facility] on inhaler 00 (four) Medical hours as Branch needed for Wheezing or Shortness of Breath. albuterol Yes [id number] 2{puff} Inhale 2 [facility] 90 3-12 Puffs ity of mcg/actuati 00:00: every 4 [place] [facility] on inhaler 00 (four) Medical hours as Branch needed for Wheezing or Shortness of Breath. albuterol Yes [id number] 2{puff} Inhale 2 [facility] 90 3-12 Puffs ity of mcg/actuati 00:00: every 4 [place] as on inhaler 00 (four) Medical hours as Branch needed for Wheezing or Shortness of Breath. albuterol Yes [id number] 2{puff} Inhale 2 [facility] 90 3-12 Puffs ity of mcg/actuati 00:00: every 4 [place] [facility] on inhaler 00 (four) Medical hours as Branch needed for Wheezing or Shortness of Breath. albuterol Yes [id number] 2{puff} Inhale 2 [facility] 90 3-12 Puffs ity of mcg/actuati 00:00: every 4 [place] as on inhaler 00 (four) Medical hours as Branch needed for Wheezing or Shortness of Breath. albuterol Yes [id number] 2{puff} Inhale 2 [facility] 90 3-12 Puffs ity of mcg/actuati 00:00: every 4 [place] as on inhaler 00 (four) Medical hours as Branch needed for Wheezing or Shortness of Breath. albuterol Yes [id number] 2{puff} Inhale 2 [facility] 90 3-12 Puffs ity of mcg/actuati 00:00: every 4 [place] as on inhaler 00 (four) Medical hours as Branch needed for Wheezing or Shortness of Breath. albuterol Yes [id number] 2{puff} Inhale 2 [facility] 90 3-12 Puffs ity of mcg/actuati 00:00: every 4 [place] [facility] on inhaler 00 (four) Medical hours as Branch needed for Wheezing or Shortness of Breath. albuterol Yes [id number] 2{puff} Inhale 2 [facility] 90 3-12 Puffs ity of mcg/actuati 00:00: every 4 [place] as on inhaler 00 (four) Medical hours as Branch needed for Wheezing or Shortness of Breath. albuterol Yes [id number] 2{puff} Inhale 2 [facility] 90 3-12 Puffs ity of mcg/actuati 00:00: every 4 [place] as on inhaler 00 (four) Medical hours as Branch needed for Wheezing or Shortness of Breath. albuterol Yes [id number] 2{puff} Inhale 2 [facility] 90 3-12 Puffs ity of mcg/actuati 00:00: every 4 [place] [facility] on inhaler 00 (four) Medical hours as Branch needed for Wheezing or Shortness of Breath. albuterol Yes [id number] 2{puff} Inhale 2 [facility] 90 3-12 Puffs ity of mcg/actuati 00:00: every 4 [place] [facility] on inhaler 00 (four) Medical hours as Branch needed for Wheezing or Shortness of Breath. albuterol Yes [id number] 2{puff} Inhale 2 [facility] 90 3-12 Puffs ity of mcg/actuati 00:00: every 4 [place] [facility] on inhaler 00 (four) Medical hours as Branch needed for Wheezing or Shortness of Breath. albuterol Yes [id number] 2{puff} Inhale 2 [facility] 90 3-12 Puffs ity of mcg/actuati 00:00: every 4 [place] as on inhaler 00 (four) Medical hours as Branch needed for Wheezing or Shortness of Breath. albuterol Yes [id number] 2{puff} Inhale 2 [facility] 90 3-12 Puffs ity of mcg/actuati 00:00: every 4 [place] as on inhaler 00 (four) Medical hours as Branch needed for Wheezing or Shortness of Breath. Immunizations Ordered Immunization Filled Immunization Date Status Commen ts Source Name Name TD 2022-08-08 Completed [facility] 00:00:00 [facility] TDAP 2022-08-08 Completed [facility] 00:00:00 [facility] TDAP 2022-08-08 Completed [facility] 00:00:00 [facility] TDAP 2022-08-08 Completed [facility] 00:00:00 [facility] TDAP 2022-08-08 Completed [facility] 00:00:00 [facility] TDAP 2022-08-08 Completed [facility] 00:00:00 [facility] TDAP 2022-08-08 Completed [facility] 00:00:00 [facility] TDAP 2022-08-08 Completed [facility] 00:00:00 [facility] TDAP 2022-08-08 Completed [facility] of 00:00:00 [facility] TDAP 2022-08-08 Completed [facility] 00:00:00 [facility] TDAP 2022-08-08 Completed [facility] of 00:00:00 [facility] TDAP 2022-08-08 Completed [facility] 00:00:00 [facility] TDAP 2022-08-08 Completed [facility] 00:00:00 [facility] TDAP 2022-08-08 Completed [facility] of 00:00:00 [facility] TDAP 2022-08-08 Completed [facility] 00:00:00 [facility] TDAP 2022-08-08 Completed [facility] 00:00:00 [facility] TDAP 2022-08-08 Completed [facility] 00:00:00 [facility] TDAP 2022-08-08 Completed [facility] 00:00:00 [facility] TDAP 2022-08-08 Completed [facility] 00:00:00 [facility] TDAP 2022-08-08 Completed [facility] 00:00:00 [facility] TDAP 2022-08-08 Completed [facility] of 00:00:00 [facility] TDAP 2022-08-08 Completed [facility] of 00:00:00 [facility] TDAP 2022-08-08 Completed [facility] of 00:00:00 [facility] TDAP 2022-08-08 Completed [facility] of 00:00:00 [facility] TDAP 2022-08-08 Completed [facility] 00:00:00 [facility] TDAP 2022-08-08 Completed [facility] of 00:00:00 [facility] TDAP 2022-08-08 Completed [facility] of 00:00:00 [facility] TDAP 2022-08-08 Completed [facility] of 00:00:00 [facility] TDAP 2022-08-08 Completed [facility] of 00:00:00 [facility] Influenza Virus 2022-06-11 Completed Universit y of Vaccine [facility] IM, 00:00:00 [place] [facility] Preserv and ABX Free Bran [...] [facility]it y of Vaccine [facility], 00:00:00 [place] [facility] Preserv and ABX Free Bran [...] Universit y of Vaccine [facility] IM, 00:00:00 [place] [facility] Preserv and ABX Free Bran [...] Universit y of Vaccine Quad IM, 00:00:00 [facility] dical Preserv and ABX Free Bran ch 6 MO-64 YRS HPV 2022-02-14 Completed [facility] of 00:00:00 [place] [id number] 2022-02-14 Completed [facility] of 00:00:[address] [facility] 2022-02-14 Completed [facility] of 00:00:00 [place] [address] 2022-02-14 Completed [facility] 00:00:[address] [facility] 2022-02-14 Completed [facility] 00[facility]00:[address] [facility] 2022-02-14 Completed [facility] 00[facility]00:[address] [facility] 2022-02-14 Completed [facility] of 00:00:[address] [facility] 2022-02-14 Completed [facility] of 00:00:00 [place] [address] 2022-02-14 Completed [facility] of 00:00:00 [place] [address] 2022-02-14 Completed [facility] of 00:00:00 [place] [address] 2022-02-14 Completed [facility] of 00:00:[address] [facility] 2022-02-14 Completed [facility] of 00[facility]00:[address] [facility] 2022-02-14 Completed [facility] of 00[facility]00:[address] [facility] 2022-02-14 Completed [facility] of 00[facility]00:[address] [facility] 2022-02-14 Completed [facility] 00[facility]00:[address] [facility] 2022-02-14 Completed [facility] 00[facility]00:[address] [facility] 2022-02-14 Completed [facility] 00[facility]00:[address] [facility] 2022-02-14 Completed [facility] 00[facility]00:[address] [facility] 2022-02-14 Completed [facility] of 00[facility]00:[address] [facility] 2022-02-14 Completed [facility] of 00[facility]00:[address] [facility] 2022-02-14 Completed [facility] of 00[facility]00:[address] [facility] 2022-02-14 Completed [facility] of 00[facility]00:[address] [facility] 2022-02-14 Completed [facility] of 00[facility]00:[address] [facility] 2022-02-14 Completed [facility] of 00[facility]00:[address] [facility] 2022-02-14 Completed [facility] of 00:00:[address] [facility] 2022-02-14 Completed [facility] of 00:00:00 [facility] HPV9 2022-02-14 Completed [facility] of 00:00:00 [facility] HPV9 2022-02-14 Completed [facility] 00:00:00 [facility] HPV9 2022-02-14 Completed [facility] of 00:00:00 [facility] HPV9 2022-02-14 Completed [facility] 00:00:00 [facility] HPV9 2022-02-14 Completed [facility] of 00:00:00 [facility] HPV9 2022-02-14 Completed [facility] 00:00:00 [facility] HPV9 2022-02-14 Completed [facility] 00:00:00 [facility] HPV9 2022-02-14 Completed [facility] of 00:00:00 [facility] HPV9 2022-02-14 Completed [facility] 00:00:00 [facility] HPV9 2022-02-14 Completed [facility] 00:00:00 [facility] HPV9 2022-02-14 Completed [facility] 00:00:00 [facility] HPV9 2022-02-14 Completed [facility] 00:00:00 [facility] HPV9 2022-02-14 Completed [facility] 00:00:00 [facility] HPV9 2022-02-14 Completed [facility] 00:00:00 [facility] Influenza Virus 2020-04-29 Completed Universit y of [...] y of Vaccine Quad IM 3+ 00:00:00 [facility] Influenza Virus 2016-05-20 Completed Universit y of Vaccine Quad IM 3+ 00:00:00 [facility] Influenza Virus 2016-05-20 Completed Universit y of Vaccine Quad IM 3+ 00:00:00 [facility] Influenza Virus 2016-05-20 Completed Universit y of Vaccine Quad IM 3+ 00:00:00 [facility] Influenza Virus 2016-05-20 Completed Universit y of Vaccine Quad IM 3+ 00:00:00 [facility] Influenza Virus 2016-05-20 Completed Universit y of Vaccine Quad IM 3+ 00:00:00 [facility] Influenza Virus 2016-05-20 Completed Universit y of Vaccine Quad IM 3+ 00:00:00 [facility] Influenza Virus 2016-05-20 Completed [facility]it y of Vaccine Quad IM 3+ 00:00:00 [facility] Influenza Virus 2016-05-20 Completed [facility]it y of Vaccine Quad IM 3+ 00:00:00 [facility] Influenza Virus 2016-05-20 Completed Universit y of Vaccine Quad IM 3+ 00:00:00 [facility] Influenza Virus 2016-05-20 Completed [facility]it y of Vaccine Quad IM 3+ 00:00:00 [facility] Influenza Virus 2016-05-20 Completed Universit y of Vaccine Quad IM 3+ 00:00:00 [facility] Influenza Virus 2016-05-20 Completed [facility]it y of Vaccine Quad IM 3+ 00:00:00 [facility] Influenza Virus 2016-05-20 Completed [facility]it y of Vaccine Quad IM 3+ 00:00:00 [facility] Influenza Virus 2016-05-20 Completed [facility]it y of Vaccine Quad IM 3+ 00:00:00 [facility] Influenza Virus 2016-05-20 Completed [facility]it y of Vaccine Quad IM 3+ 00:00:00 [facility] Influenza Virus 2016-05-20 Completed [facility]it y of Vaccine Quad IM 3+ 00:00:00 [facility] Influenza Virus 2016-05-20 Completed [facility]it y of Vaccine Quad IM 3+ 00:00:00 [facility] Influenza Virus 2016-05-20 Completed [facility]it y of Vaccine Quad IM 3+ 00:00:00 [facility] Influenza Virus 2016-05-20 Completed [facility]it y of Vaccine Quad IM 3+ 00:00:00 [facility] Influenza Virus 2016-05-20 Completed [facility]it y of Vaccine Quad IM 3+ 00:00:00 [facility] Influenza Virus 2016-05-20 Completed [facility]it y of Vaccine Quad IM 3+ 00:00:00 [facility] Influenza Virus 2016-05-20 Completed [facility]it y of Vaccine Quad IM 3+ 00:00:00 [facility] Influenza Virus 2016-05-20 Completed [facility]it y of Vaccine Quad IM 3+ 00:00:00 [facility] Influenza Virus 2016-05-20 Completed [facility]it y of Vaccine Quad IM 3+ 00:00:00 [facility] Influenza Virus 2016-05-20 Completed [facility]it y of Vaccine Quad IM 3+ 00:00:00 [facility] Influenza Virus 2016-05-20 Completed [facility]it y of Vaccine Quad IM 3+ 00:00:00 [facility] Influenza Virus 2016-05-20 Completed [facility]it y of Vaccine Quad IM 3+ 00:00:00 [facility] Influenza Virus 2016-05-20 Completed [facility]it y of Vaccine Quad IM 3+ 00:00:00 [facility] Influenza Virus 2016-05-20 Completed [facility]it y of Vaccine Quad IM 3+ 00:00:00 [facility] Influenza Virus 2016-05-20 Completed [facility]it y of Vaccine Quad IM 3+ 00:00:00 [facility] Influenza Virus 2016-05-20 Completed [facility]it y of Vaccine Quad IM 3+ 00:00:00 [facility] Influenza Virus 2016-05-20 Completed [facility]it y of Vaccine Quad IM 3+ 00:00:00 [facility] Influenza Virus 2016-05-20 Completed [facility]it y of Vaccine Quad IM 3+ 00:00:00 [facility] Influenza Virus 2016-05-20 Completed [facility]it y of Vaccine Quad IM 3+ 00:00:00 [facility] Influenza Virus 2016-05-20 Completed [facility]it y of Vaccine Quad IM 3+ 00:00:00 [facility] Influenza Virus 2016-05-20 Completed [facility]it y of Vaccine Quad IM 3+ 00:00:00 [facility] Influenza Virus 2016-05-20 Completed [facility]it y of Vaccine Quad IM 3+ 00:00:00 [facility] Influenza Virus 2016-05-20 Completed [facility]it y of Vaccine Quad IM 3+ 00:00:00 [facility] Influenza Virus 2016-05-20 Completed [facility]it y of Vaccine Quad IM 3+ 00:00:00 [facility] HPV9 2015-08-21 Completed [facility] of 00:00:00 [facility] HPV9 2015-08-21 Completed [facility] of 00:00:00 [facility] HPV9 2015-08-21 Completed [facility] of 00:00:00 [facility] HPV9 2015-08-21 Completed [facility] of 00:00:00 [facility] HPV9 2015-08-21 Completed [facility] of 00:00:00 [facility] HPV9 2015-08-21 Completed [facility] of 00:00:00 [facility] HPV9 2015-08-21 Completed [facility] of 00:00:00 [facility] HPV9 2015-08-21 Completed [facility] of 00:00:00 [facility] HPV9 2015-08-21 Completed [facility] of 00:00:00 [facility] HPV9 2015-08-21 Completed [facility] of 00:00:00 [facility] HPV9 2015-08-21 Completed [facility] of 00:00:00 [facility] HPV9 2015-08-21 Completed [facility] of 00:00:00 [facility] HPV9 2015-08-21 Completed [facility] of 00:00:00 [facility] HPV9 2015-08-21 Completed [facility] of 00:00:00 [facility] HPV9 2015-08-21 Completed [facility] of 00:00:00 [facility] HPV9 2015-08-21 Completed [facility] of 00:00:00 [facility] HPV9 2015-08-21 Completed [facility] of 00:00:00 [facility] HPV9 2015-08-21 Completed [facility] of 00:00:00 [facility] HPV9 2015-08-21 Completed [facility] of 00:00:00 [facility] HPV9 2015-08-21 Completed [facility] of 00:00:00 [facility] HPV9 2015-08-21 Completed [facility] of 00:00:00 [facility] HPV9 2015-08-21 Completed [facility] of 00:00:00 [facility] HPV9 2015-08-21 Completed [facility] 00:00:00 [facility] HPV9 2015-08-21 Completed [facility] of 00:00:00 [facility] HPV9 2015-08-21 Completed [facility] of 00:00:00 [facility] HPV9 2015-08-21 Completed [facility] of 00:00:00 [facility] HPV9 2015-08-21 Completed [facility] of 00:00:00 [facility] HPV9 2015-08-21 Completed [facility] 00:00:00 [facility] HPV9 2015-08-21 Completed [facility] 00:00:00 [place] [facility] HPV9 2015-08-21 Completed [facility] 00:00:00 [place] [facility] HPV9 2015-08-21 Completed [facility] 00:00:00 [facility] HPV9 2015-08-21 Completed [facility] 00:00:00 [facility] HPV9 2015-08-21 Completed [facility] 00:00:00 [place] [facility] HPV9 2015-08-21 Completed [facility] 00:00:00 [facility] HPV9 2015-08-21 Completed [facility] 00:00:00 [facility] HPV9 2015-08-21 Completed [facility] 00:00:00 [place] [facility] HPV9 2015-08-21 Completed [facility] 00:00:00 [facility] HPV9 2015-08-21 Completed [facility] 00:00:00 [facility] HPV9 2015-08-21 Completed [facility] 00:00:00 [facility] HPV9 2015-08-21 Completed [facility] 00:00:00 [facility] Meningococcal 2015-04-03 Completed [facility] of Polysaccharide 00:00:00 [place] [facility] (groups A, C, Y and Branc h W-135) conjugate vaccine (MCV4P) HPV9 2015-04-03 Completed [facility] 00:00:00 [facility] Meningococcal 2015-04-03 Completed [facility] Polysaccharide 00:00:00 [place] [facility] (groups A, C, Y and Branc h W-135) conjugate vaccine (MCV4P) HPV9 2015-04-03 Completed [facility] 00:00:00 [facility] Meningococcal 2015-04-03 Completed [facility] of Polysaccharide 00:00:00 [place] [facility] (groups A, C, Y and Branc h W-135) conjugate vaccine (MCV4P) HPV9 2015-04-03 Completed [facility] 00:00:00 [facility] Meningococcal 2015-04-03 Completed [facility] of Polysaccharide 00:00:00 [place] [facility] (groups A, C, Y and Branc h W-135) conjugate vaccine (MCV4P) HPV9 2015-04-03 Completed [facility] 00:00:00 [facility] Meningococcal 2015-04-03 Completed [facility] of Polysaccharide 00:00:00 [place] [facility] (groups A, C, Y and Branc h W-135) conjugate vaccine (MCV4P) HPV9 2015-04-03 Completed [facility] 00:00:00 [facility] Meningococcal 2015-04-03 Completed [facility] of Polysaccharide 00:00:00 [place] [facility] (groups A, C, Y and Branc h W-135) conjugate vaccine (MCV4P) HPV9 2015-04-03 Completed [facility] 00:00:00 [facility] Meningococcal 2015-04-03 Completed [facility] of Polysaccharide 00:00:00 [place] [facility] (groups A, C, Y and Branc h W-135) conjugate vaccine (MCV4P) HPV9 2015-04-03 Completed [facility] 00:00:00 [facility] Meningococcal 2015-04-03 Completed [facility] of Polysaccharide 00:00:00 [place] [facility] (groups A, C, Y and Branc h W-135) conjugate vaccine (MCV4P) HPV9 2015-04-03 Completed [facility] 00:00:00 [facility] Meningococcal 2015-04-03 Completed [facility] of Polysaccharide 00:00:00 [place] [facility] (groups A, C, Y and Branc h W-135) conjugate vaccine (MCV4P) HPV9 2015-04-03 Completed [facility] 00:00:00 [facility] Meningococcal 2015-04-03 Completed [facility] of Polysaccharide 00:00:00 [place] [facility] (groups A, C, Y and Branc h W-135) conjugate vaccine (MCV4P) HPV9 2015-04-03 Completed [facility] 00:00:00 [facility] Meningococcal 2015-04-03 Completed [facility] of Polysaccharide 00:00:00 [place] [facility] (groups A, C, Y and Branc h W-135) conjugate vaccine (MCV4P) HPV9 2015-04-03 Completed [facility] 00:00:00 [facility] Meningococcal 2015-04-03 Completed [facility] of Polysaccharide 00:00:00 [place] [facility] (groups A, C, Y and Branc h W-135) conjugate vaccine (MCV4P) HPV9 2015-04-03 Completed [facility] of 00:00:00 [facility] Meningococcal 2015-04-03 Completed University of Polysaccharide 00:00:00 [place] [facility] (groups A, C, Y and Branc h W-135) conjugate vaccine (MCV4P) HPV9 2015-04-03 Completed University of 00:00:00 [facility] Meningococcal 2015-04-03 Completed [facility] Polysaccharide 00:00:00 [place] [facility] (groups A, C, Y and Branc h W-135) conjugate vaccine (MCV4P) HPV9 2015-04-03 Completed University of 00:00:00 [facility] Meningococcal 2015-04-03 Completed [facility] of Polysaccharide 00:00:00 [place] [facility] (groups A, C, Y and Branc h W-135) conjugate vaccine (MCV4P) HPV9 2015-04-03 Completed University of 00:00:00 [facility] Meningococcal 2015-04-03 Completed [facility] of Polysaccharide 00:00:00 [place] [facility] (groups A, C, Y and Branc h W-135) conjugate vaccine (MCV4P) HPV9 2015-04-03 Completed University of 00:00:00 [facility] Meningococcal 2015-04-03 Completed University of Polysaccharide 00:00:00 [place] [facility] (groups A, C, Y and Branc h W-135) conjugate vaccine (MCV4P) HPV9 2015-04-03 Completed University of 00:00:00 [facility] Meningococcal 2015-04-03 Completed University of Polysaccharide 00:00:00 [place] [facility] (groups A, C, Y and Branc h W-135) conjugate vaccine (MCV4P) HPV9 2015-04-03 Completed University of 00:00:00 [facility] Meningococcal 2015-04-03 Completed [facility] of Polysaccharide 00:00:00 [place] [facility] (groups A, C, Y and Branc h W-135) conjugate vaccine (MCV4P) HPV9 2015-04-03 Completed University of 00:00:00 [facility] Meningococcal 2015-04-03 Completed [facility] of Polysaccharide 00:00:00 [place] [facility] (groups A, C, Y and Branc h W-135) conjugate vaccine (MCV4P) HPV9 2015-04-03 Completed University of 00:00:00 [facility] Meningococcal 2015-04-03 Completed [facility] of Polysaccharide 00:00:00 [place] [facility] (groups A, C, Y and Branc h W-135) conjugate vaccine (MCV4P) HPV9 2015-04-03 Completed University of 00:00:00 [facility] Meningococcal 2015-04-03 Completed [facility] of Polysaccharide 00:00:00 [place] [facility] (groups A, C, Y and Branc h W-135) conjugate vaccine (MCV4P) HPV9 2015-04-03 Completed University of 00:00:00 [facility] Meningococcal 2015-04-03 Completed [facility] of Polysaccharide 00:00:00 [place] [facility] (groups A, C, Y and Branc h W-135) conjugate vaccine (MCV4P) HPV9 2015-04-03 Completed University of 00:00:00 [facility] Meningococcal 2015-04-03 Completed [facility] of Polysaccharide 00:00:00 [place] [facility] (groups A, C, Y and Branc h W-135) conjugate vaccine (MCV4P) HPV9 2015-04-03 Completed University of 00:00:00 [facility] Meningococcal 2015-04-03 Completed University of Polysaccharide 00:00:00 [place] [facility] (groups A, C, Y and Branc h W-135) conjugate vaccine (MCV4P) HPV9 2015-04-03 Completed University of 00:00:00 [facility] Meningococcal 2015-04-03 Completed University of Polysaccharide 00:00:00 [place] [facility] (groups A, C, Y and Branc h W-135) conjugate vaccine (MCV4P) HPV9 2015-04-03 Completed University of 00:00:00 [facility] Meningococcal 2015-04-03 Completed [facility] of Polysaccharide 00:00:00 [place] [facility] (groups A, C, Y and Branc h W-135) conjugate vaccine (MCV4P) HPV9 2015-04-03 Completed University of 00:00:00 [facility] Meningococcal 2015-04-03 Completed University of Polysaccharide 00:00:00 [place] [facility] (groups A, C, Y and Branc h W-135) conjugate vaccine (MCV4P) HPV9 2015-04-03 Completed University of 00:00:00 [facility] Meningococcal 2015-04-03 Completed [facility] of Polysaccharide 00:00:00 [place] [facility] (groups A, C, Y and Branc h W-135) conjugate vaccine (MCV4P) HPV9 2015-04-03 Completed University of 00:00:00 [facility] Meningococcal 2015-04-03 Completed [facility] of Polysaccharide 00:00:00 [place] [facility] (groups A, C, Y and Branc h W-135) conjugate vaccine (MCV4P) HPV9 2015-04-03 Completed University of 00:00:00 [facility] Meningococcal 2015-04-03 Completed [facility] of Polysaccharide 00:00:00 [place] [facility] (groups A, C, Y and Branc h W-135) conjugate vaccine (MCV4P) HPV9 2015-04-03 Completed University of 00:00:00 [facility] Meningococcal 2015-04-03 Completed University of Polysaccharide 00:00:00 [place] [facility] (groups A, C, Y and Branc h W-135) conjugate vaccine (MCV4P) HPV9 2015-04-03 Completed University of 00:00:00 [facility] Meningococcal 2015-04-03 Completed University of Polysaccharide 00:00:00 [place] [facility] (groups A, C, Y and Branc h W-135) conjugate vaccine (MCV4P) HPV9 2015-04-03 Completed University of 00:00:00 [facility] Meningococcal 2015-04-03 Completed [facility] of Polysaccharide 00:00:00 [place] [facility] (groups A, C, Y and Branc h W-135) conjugate vaccine (MCV4P) HPV9 2015-04-03 Completed University of 00:00:00 [facility] Meningococcal 2015-04-03 Completed [facility] Polysaccharide 00:00:00 [place] [facility] (groups A, C, Y and Branc h W-135) conjugate vaccine (MCV4P) HPV9 2015-04-03 Completed University of 00:00:00 [facility] Meningococcal 2015-04-03 Completed [facility] Polysaccharide 00:00:00 [place] [facility] (groups A, C, Y and Branc h W-135) conjugate vaccine (MCV4P) HPV9 2015-04-03 Completed University of 00:00:00 [facility] Meningococcal 2015-04-03 Completed [facility] of Polysaccharide 00:00:00 [place] [facility] (groups A, C, Y and Branc h W-135) conjugate vaccine (MCV4P) HPV9 2015-04-03 Completed University of 00:00:00 [facility] Meningococcal 2015-04-03 Completed [facility] of Polysaccharide 00:00:00 [place] [facility] (groups A, C, Y and Branc h W-135) conjugate vaccine (MCV4P) HPV9 2015-04-03 Completed University of 00:00:00 [facility] Meningococcal 2015-04-03 Completed [facility] of Polysaccharide 00:00:00 [place] [facility] (groups A, C, Y and Branc h W-135) conjugate vaccine (MCV4P) HPV9 2015-04-03 Completed University of 00:00:00 [facility] Meningococcal 2015-04-03 Completed University Polysaccharide 00:00:00 [facility] alyssa (groups A, C, Y and Branc h W-135) conjugate vaccine (MCV4P) HPV9 2015-04-03 Completed [facility] 00:00:00 [facility] Vital Signs Vital Name Observation Time Observation Value Comments Source Systolic blood 2022-12-27 19:56:00 129 mm[Hg] Univer sity of pressure [facility] Diastolic blood 2022-12-27 19:56:00 82 mm[Hg] Unive rsity of pressure [facility] Heart rate 2022-12-27 19:56:00 79 /min Universi ty of [facility] Body temperature 2022-12-27 19:56:00 36.72 Sharyn Univ ersity of [facility] Respiratory rate 2022-12-27 19:56:00 17 /min Univ ersity of [facility] Body height 2022-12-27 19:56:00 162.6 cm Universi ty of [facility] Body weight 2022-12-27 19:56:00 96.163 kg Universi ty of [facility] BMI 2022-12-27 19:56:00 36.39 kg/m2 Universi ty of [facility] Systolic blood 2022-11-26 21:07:00 117 mm[Hg] Univer sity of pressure [facility] Diastolic blood 2022-11-26 21:07:00 78 mm[Hg] Unive rsity of pressure [facility] Heart rate 2022-11-26 21:07:00 77 /min Universi ty of [facility] Body temperature 2022-11-26 21:07:00 36.72 Sharyn Univ ersity of [facility] Respiratory rate 2022-11-26 21:07:00 16 /min Univ ersity of [facility] Body height 2022-11-26 21:07:00 162.6 cm Universi ty of [facility] Body weight 2022-11-26 21:07:00 94.666 kg Universi ty of [facility] BMI 2022-11-26 21:07:00 35.82 kg/m2 Universi ty of [facility] Systolic blood 2022-10-31 13:15:00 105 mm[Hg] Univer sity of pressure [facility] Diastolic blood 2022-10-31 13:15:00 49 mm[Hg] Unive rsity of pressure [facility] Heart rate 2022-10-31 13:15:00 79 /min Universi ty of [facility] Body temperature 2022-10-31 13:15:00 36.5 Sharyn Univ ersity of [facility] Respiratory rate 2022-10-31 13:15:00 17 /min Univ ersity of [facility] Oxygen saturation in 2022-10-31 13:15:00 99 /min University of Arterial blood by [facility] Pulse oximetry Branch Body height 2022-10-29 22:17:00 162.6 cm Universi ty of [place] [facility] [place] Body weight 2022-10-29 22:17:00 101.606 kg Universi ty of [facility] BMI 2022-10-29 22:17:00 38.45 kg/m2 Universi ty of [facility] Systolic blood 2022-10-22 16:08:00 106 mm[Hg] Univer sity of pressure [facility] Diastolic blood 2022-10-22 16:08:00 66 mm[Hg] Unive rsity of pressure [facility] Heart rate 2022-10-22 16:08:00 84 /min Universi ty of [facility] Body temperature 2022-10-22 16:08:00 36.61 Sharyn Univ ersity of [facility] Respiratory rate 2022-10-22 16:08:00 18 /min Univ ersity of [facility] Body height 2022-10-22 16:08:00 162.6 cm Universi ty of [facility] Body weight 2022-10-22 16:08:00 101.606 kg Universi ty of [facility] BMI 2022-10-22 16:08:00 38.45 kg/m2 Universi ty of [facility] Systolic blood 2022-10-16 22:12:00 111 mm[Hg] Univer sity of pressure [facility] Diastolic blood 2022-10-16 22:12:00 72 mm[Hg] Unive rsity of pressure [facility] Heart rate 2022-10-16 22:12:00 86 /min Universi ty of [facility] Respiratory rate 2022-10-16 22:12:00 18 /min Univ ersity of [facility] Body height 2022-10-16 22:12:00 162.6 cm Universi ty of [facility] Body weight 2022-10-16 22:12:00 100.245 kg Universi ty of [facility] BMI 2022-10-16 22:12:00 37.93 kg/m2 Universi ty of [facility] Systolic blood 2022-10-10 21:47:00 112 mm[Hg] Univer sity of pressure [facility] Diastolic blood 2022-10-10 21:47:00 70 mm[Hg] Unive rsity of pressure [facility] Heart rate 2022-10-10 21:47:00 83 /min Universi ty of [facility] Body temperature 2022-10-10 21:47:00 36.72 Sharyn Univ ersity of [facility] Respiratory rate 2022-10-10 21:47:00 18 /min Univ ersity of [facility] Body height 2022-10-10 21:47:00 162.6 cm Universi ty of [facility] Body weight 2022-10-10 21:47:00 101.152 kg Universi ty of [facility] BMI 2022-10-10 21:47:00 38.28 kg/m2 Universi ty of [facility] Systolic blood 2022-10-02 22:08:00 115 mm[Hg] Univer sity of pressure [facility] Diastolic blood 2022-10-02 22:08:00 75 mm[Hg] Unive rsity of pressure [facility] Heart rate 2022-10-02 22:08:00 106 /min Universi ty of [facility] Body temperature 2022-10-02 22:08:00 36.72 Sharyn Univ ersity of [facility] Respiratory rate 2022-10-02 22:08:00 16 /min Univ ersity of [facility] Body height 2022-10-02 22:08:00 162.6 cm Universi ty of [facility] Body weight 2022-10-02 22:08:00 100.426 kg Universi ty of [facility] BMI 2022-10-02 22:08:00 38.00 kg/m2 Universi ty of [facility] Oxygen saturation in 2022-10-02 22:08:00 96 /min University of Arterial blood by [facility] Pulse oximetry Branch Heart rate 2022-09-25 00:30:00 80 /min Universi ty of [facility] Oxygen saturation in 2022-09-25 00:30:00 97 /min University Arterial blood by [facility] Pulse oximetry Branch Systolic blood 2022-09-24 23:31:00 123 mm[Hg] Univer sity of pressure [facility] Diastolic blood 2022-09-24 23:31:00 63 mm[Hg] Unive rsity of pressure [facility] Body temperature 2022-09-24 23:31:00 36.28 Sharyn Univ ersity of [facility] Respiratory rate 2022-09-24 23:31:00 18 /min Univ ersity of [facility] Body height 2022-09-24 23:31:00 162.6 cm Universi ty of [facility] Body weight 2022-09-24 23:31:00 98.884 kg Universi ty of [facility] BMI 2022-09-24 23:31:00 37.42 kg/m2 Universi ty of [facility] Systolic blood 2022 16:59:00 110 mm[Hg] Univer sity of pressure [facility] Diastolic blood 2022 16:59:00 77 mm[Hg] Unive rsity of pressure [facility] Heart rate 2022 16:59:00 83 /min Universi ty of [facility] Body temperature 2022 16:59:00 36.72 Sharyn Univ ersity of [facility] Respiratory rate 2022 16:59:00 18 /min Univ ersity of [facility] Body height 2022 16:59:00 162.6 cm Universi ty of [facility] Body weight 2022 16:59:00 100.562 kg Universi ty of [facility] BMI 2022 16:59:00 38.05 kg/m2 Universi ty of [facility] Systolic blood 2022-09-04 22:11:00 109 mm[Hg] Univer sity of pressure [facility] Diastolic blood 2022-09-04 22:11:00 69 mm[Hg] Unive rsity of pressure [facility] Heart rate 2022-09-04 22:11:00 91 /min Universi ty of [facility] Body temperature 2022-09-04 22:11:00 36.56 Sharyn Univ ersity of [facility] Respiratory rate 2022-09-04 22:11:00 18 /min Univ ersity of [facility] Body height 2022-09-04 22:11:00 162.6 cm Universi ty of [facility] Body weight 2022-09-04 22:11:00 97.977 kg Universi ty of [facility] BMI 2022-09-04 22:11:00 37.08 kg/m2 Universi ty of [facility] Systolic blood 2022-08-21 17:02:00 110 mm[Hg] Univer sity of pressure [facility] Diastolic blood 2022-08-21 17:02:00 72 mm[Hg] Unive rsity of pressure [facility] Heart rate 2022-08-21 17:02:00 84 /min Universi ty of [facility] Body temperature 2022-08-21 17:02:00 36.5 Sharyn Univ ersity of [facility] Respiratory rate 2022-08-21 17:02:00 18 /min Univ ersity of [facility] Body height 2022-08-21 17:02:00 162.6 cm Universi ty of [facility] Body weight 2022-08-21 17:02:00 96.616 kg Universi ty of [facility] BMI 2022-08-21 17:02:00 36.56 kg/m2 Universi ty of [facility] Systolic blood 2022-08-08 15:11:00 105 mm[Hg] Univer sity of pressure [facility] Diastolic blood 2022-08-08 15:11:00 70 mm[Hg] Unive rsity of pressure [facility] Heart rate 2022-08-08 15:11:00 82 /min Universi ty of [facility] Body temperature 2022-08-08 15:11:00 36.5 Sharyn Univ ersity of [facility] Respiratory rate 2022-08-08 15:11:00 18 /min Univ ersity of [facility] Body height 2022-08-08 15:11:00 162.6 cm Universi ty of [facility] Body weight 2022-08-08 15:11:00 97.523 kg Universi ty of [facility] BMI 2022-08-08 15:11:00 36.90 kg/m2 [...] 2022-07-09 16:02:00 35.53 kg/m2 Universi ty of [facility] Systolic blood 2022-06-11 16:19:00 108 mm[Hg] Univer sity of pressure [facility] Diastolic blood 2022-06-11 16:19:00 72 mm[Hg] Unive rsity of pressure [facility] Heart rate 2022-06-11 16:19:00 73 /min Universi ty of [facility] Body temperature 2022-06-11 16:19:00 36.56 Sharyn Univ ersity of [facility] Respiratory rate 2022-06-11 16:19:00 17 /min Univ ersity of [facility] Body height 2022-06-11 16:19:00 162.6 [...] Branch Respiratory rate 2022-05-10 15:34:00 18 /min [facility] height 2022-05-10 15:34:00 162.6 cm Universi ty of [facility] Body weight 2022-05-10 15:34:00 89.54 kg Universi ty [facility] BMI 2022-05-10 15:34:00 33.88 kg/m2 Universi ty [facility] Systolic blood 2022-04-11 15:51:00 128 mm[Hg] Univer sity of [facility] Diastolic blood 2022-04-11 15:51:00 82 mm[Hg] Unive rsity of [facility] Heart rate 2022-04-11 15:45:00 81 /min Universi ty [facility] Body temperature 2022-04-11 15:45:00 36.33 Sharyn [facility] Respiratory rate 2022-04-11 15:45:00 18 /min [facility] Body height 2022-04-11 15:45:00 162.6 cm Universi ty [facility] Body weight 2022-04-11 15:45:00 92.035 kg [facility] BMI 2022-04-11 15:45:00 34.83 kg/m2 [facility] Procedures Procedure Date / Time Performing Clinician Source Performed CONSENT FOR 2022-12-27 05:01:00 Doctor Unassigned, No [facility] CBC WITH DIFF 2022-10-31 10:02:00 Adum, Yari Ramirez [facility] CENTRAL NEURAXIAL BLOCK 2022-10-30 07:34:00 Anabela Howell [facility] CBC WITH DIFF 2022-10-30 00:21:00 Adum, Yari Ramirez [facility] HEPATITIS B SURFACE 2022-10-30 00:21:00 Adum, Yari Ramirez [facility] ANTIGEN [facility] HB ABO GROUPING 2022-10-30 00:21:00 Adum, Yari Ramirez [facility] ADC OR MARLENE ONLY - 2022-10-30 00:21:00 Adum, Yari Ramirez [facility] HIV 1/2 AG-AB WITH 2022-10-30 00:21:00 Adum, Yari Nicolasit y [facility] PATIENT FINANCIAL 2022-10-22 15:26:12 Doctor Unassigned, No [facility] POLICY [facility] POCT URINALYSIS W/O 2022-10-22 00:00:00 Adum, Yari Ramirez Universi ty [facility] GROUP B STREPTOCOCCUS BY 2022-10-16 22:45:00 Adum, Yari Ramirez Uni [facility] POCT URINALYSIS W/O 2022-10-16 00:00:00 Adum, Yari Ramirez Universi ty [facility] >14 WEEKS US 2022-10-10 22:22:08 Adum, Yari Ramirez [facility] DSU PRE-OP 2022-10-10 06:01:00 Doctor Unassigned, No [facility] W/O 2022-10-10 00:00:00 Adum, Yari Ramirez Universi ty [facility] POCT URINALYSIS W/O 2022-10-02 00:00:00 Adum, Yari Ramirez Universi ty [facility] US PELVIS > 14 2022-09-25 01:02:26 Leigh Ann Palomo [facility] ADC ONLY - FERN TEST 2022-09-25 00:05:00 Leigh Ann Palomo [facility] CONSENT/REFUSAL FOR 2022-09-24 23:02:13 Doctor Unassigned, No [facility] DIAGNOSIS AND TREATMENT [facility] POCT URINALYSIS W/O 2022 00:00:00 Adum, Yari Ramirez Universi ty [facility] POCT URINALYSIS W/O 2022-09-04 00:00:00 Adum, Yari Ramirez [facility] ty [facility] POCT URINALYSIS W/O 2022-08-21 00:00:00 Adum, Yari Ramirez Universi ty [facility] 1 HR GLUCOSE TOLERANCE 2022-08-16 16:51:00 Tamara Jaimes [facility] TEST [facility] GLUCOSE FASTING 2022-08-16 15:51:00 Tamara Jaimes [facility] ASSIGNMENT OF BENEFITS 2022-08-13 15:34:13 Doctor Unassigned, No [facility] TDAP VACCINE, >11 YRS, 2022-08-08 15:08:44 Tamara Jaimes [facility] POCT URINALYSIS W/O 2022-08-08 00:00[facility]00 [facility] 2022-07-09 00:00:00 [facility] FLU VACC ([id number]), 6 2022-06-11 16:53:43 [facility]62 [facility] .5ML, IM, Medical Bra nch QUAD (FLUCELVAX) POCT URINALYSIS W/O 2022-06-11 00:00:00 Adum, Yari Ramirez [facility] POCT URINALYSIS W/O 2022-05-10 15:50:00 Adum, [facility] SCANNED LAB RESULTS 2022-05-10 05:01:00 Doctor Unassigned, No [facility] Encounters Start End Encounter Admission Attending Care Care Encounter Source Date/Time Date/Time Type Type Clinicians Facility Department ID 2022-09-24 Outpatient X ADUM, [facility] LUL [id number] Univers 20:35:25 [facility] 2023-01-24 2023-01-24 Outpatient R PRUDENCIO JERONIMOSOL [facility] [id number] Univers 14:30:00 14:30:00 VIRA JERONIMO [facility] 2022-12-27 2022-12-27 Outpatient R KANDACE VIRA [facility] [id number] Univers 15:00:00 15:18:30 PRUDENCIO JERONIMOSOL [facility] 2022-12-27 2022-12-27 Routine Aguiar-Lesli [facility] [id number] Univers 15:00:00 15:18:30 sVira [id number] ity of [id number] [id number] [address] 2022-12-27 2022-12-27 Orders Doctor ANABELA [id number] Univers 00:00:00 00:00:00 Only Unassigned, CALVIN [id number] ity of [place] [facility] 4.2.7.2.686 Chirst[place] as [id number] [address] 2022-12-25 2022-12-25 [facility] [id number] Univers 16:00:00 16:00:00 [facility] 2022-11-26 2022-11-26 [facility] [id number] Univers 16:00:00 16:21:15 [facility] 2022-11-26 2022-11-26 [facility] [id number] Univers 16:00:00 16:21:15 Yari L YOSEPH [id number] [place] [id number] [address] 2022-11-20 2022-11-20 Outpatient R AD, [facility] [id number] Univers 11:00:00 11:00:00 [facility] 2022-10-29 2022-10-31 Inpatient X AD, [facility] LUL [id number] Univers 17:18:00 13:43:00 [facility] 2022-10-29 2022-10-31 Hospital Ad, [facility] [id number] Univers 17:18:00 13:43:00 Encounter Yari GELLER [id number] [place] [id number] [facility] [address] [place] 2022-10-30 2022-10-30 [facility] [id number] [id number] Univers 02:32:00 09:22:00 Event UsmanKeith GELLER [id number] i ty [facility] 4.2.7.2.686 [facility] [id number] [place] [address] [place] 2022-10-24 2022-10-24 Telephone Adum, [facility] [id number] Univers 00:00:00 00:00:00 Yari Ramirez DUYEN [id number] [place] [id number] [address] dic[address] 2022-10-24 2022-10-24 [facility] [id number] Univers 00:00:00 00:00:00 Yarilyssa GELLER [id number] ity of [place] 4.2.7.2.[address] [facility] PROFESSIO [id number] Tn dical NAL [address] [place] [address] 2022-10-22 2022-10-22 Outpatient R ADUM, [facility] [id number] Univers 09:45:00 10:23:18 YARI ity of [facility] 2022-10-22 2022-10-22 Routine Adum, [facility] [id number] Univers 09:45:00 10:23:18 Yari HAMEED [id number] ity of Visit WOMEN'S 4.2.7.2.[address] [facility] HEALTH [id number] [facility] [address] 2022-10-22 2022-10-22 Orders Doctor ANABELA 1.2.840.114 [id number] Univers 00:00:00 00:00:00 Only Unassigned, CALVIN [id number] ity of [place] [facility] 4.2.7.2.686 [place] as [phone] [facility] [address] 2022-10-16 2022-10-16 Outpatient R ADUM, [facility] [facility] [id number] Univers 15:45:00 16:47:09 YARI ity of [facility] 2022-10-16 2022-10-16 Routine Adum, [facility] 1.2.437.672 [id number] Univers 15:45:00 16:47:09 Yari HAMEED 350.1.13.10 ity of [place] [id number] [facility] [address] 2022-10-15 2022-10-15 Bundle Tier And Labeler 2, Adc Lab [facility] 1.2.840.114 [id number] Univers 11:45:00 12:00:00 Visit Aline Sanabria 350.1.13 .10 ity of [place] [id number] Tn dical NAL [facility] 2022-10-15 2022-10-15 Outpatient R AKINFORMERLY [facility], [facility] [id number] Univers 11:45:00 11:45:00 ALINE ity o f [facility] 2022-10-11 2022-10-11 Outpatient R [facility] [id number] Univers 13:30:00 13:30:00 ity of [facility] 2022-10-10 2022-10-10 Outpatient R ADUM, [facility] [id number] Univers 15:45:00 16:38:10 YARI ity of [facility] 2022-10-10 2022-10-10 Routine Adum, [facility] 1.2.840.114 [id number] Univers 15:45:00 16:38:10 Yari Ramirez DUYEN 350.1.13.10 ity of [facility] 4.2.[place].2.[place] [phone] Tn dical NAL [facility] 2022-10-10 2022-10-10 Orders Doctor PEÑALOZA 1.2.840.114 [id number] Univers 00:00:00 00:00:00 Only Unassigned, CALVIN 350.1.13.10 ity of [place] [facility] 4.2.7.2.686 Christiano as [phone] [facility] [address] 2022-10-02 2022-10-02 [facility] 1.2.969.292 [id number] Univers 15:30:00 16:19:21 Yari HAMEED 350.1.13.10 ity of Visit WOMEN'S 4.2.7.2.686 [facility] [id number] [address] 2022-10-02 2022-10-02 Outpatient R ADUM, [facility] [id number] Univers 15:30:00 16:19:21 YARI ity [facility] 2022-09-24 2022-09-24 Outpatient X [facility] LUL [id number] Univers 17:08:00 19:30:00 ity [facility] 2022-09-24 2022-09-24 Emergency [facility] 1.2.840.114 10 [id number] Univers 17:08:00 19:30:00 Cam DUYEN 350.1.13.10 i ty of [place] 4.2.7.2.686 [facility] [id number] [place] [address] 2022-09-24 2022-09-24 Telephone [facility] 1.2.840.114 10 [id number] Univers 00:00:00 00:00:00 Yari HAMEED 350.1.13.10 i ty of PEDIATRIC 4.2.7.2.686 [facility] [id number] [address] 2022 2022 Outpatient R ADUM, [facility] [id number] Univers 11:00:00 11:15:00 YARI itgrant [facility] 2022 2022 Routine [facility] 1.2.809.793 [id number] Univers 11:00:00 11:15:00 Yari HAMEED 350.1.13.10 ity of Visit WOMEN'S 4.2.7.2.686 [facility] [id number] [address] 2022-09-04 2022-09-04 Outpatient [facility] [id number] Univers 16:00:00 16:32:51 YARI disla [facility] 2022-09-04 2022-09-04 Routine Adum, [facility] 1.2.846.953 [id number] Univers 16:00:00 16:32:51 Yari HAMEED 350.1.13.10 ity of [place] [id number] [address] 2022-08-21 2022-08-21 Routine Tamara Jaimes [facility] 1.2. 840.114 [id number] Univers 11:15:00 11:15:00 AdumYari 350.1.13.10 ity of Visit [place] 4.[place] [id number] [address] 2022-08-21 2022-08-21 Outpatient R AD, [facility] [id number] Univers 11:15:00 11:13:58 YARI disla [facility] 2022-08-20 2022-08-20 Telephone Adum, [facility] 1.2.971.452 [id number] Univers 00:00:00 00:00:00 Yari Ramirez DUYEN 350.1.13.10 ity of [place] [phone] Tn dical NAL [facility] 2022-08-16 2022-08-16 Bundle Tier And Labeler Natacha, Adc Lab Main [facility] 1.2.8 40.114 [id number] Univers 09:45:00 10:00:00 Visit David Mauro 350.1.13.10 ity of [place].7.2.[place] [id number] Tn dical NAL [facility] 2022-08-16 2022-08-16 Outpatient R [facility] [id number] Univers 09:45:00 09:45:00 DAVID disla [facility] 2022-08-13 2022-08-13 Bundle Tier And Labeler Natacha, Adc Lab Main [facility] 1.2.8 40.114 [id number] Univers 09:45:00 10:00:00 Visit TritsTamara mancuso DUYEN 350.1.13. 10 ity of [facility] 4.2.7.2.[place] [id number] Tn dical [address] 2022-08-13 2022-08-13 Outpatient R IMANINELLIE TAMARA [facility] B [id number] Univers 09:45:00 09:45:00 [facility] BALLARD grant [facility] 2022-08-13 2022-08-13 Orders Doctor ANABELA 1.2.840.114 [id number] Univers 00:00:00 00:00:00 Only Unassigned, CALVIN 350.1.13.10 ity of [place] [facility] 4.2.7.2.686 Christiano as [id number] [address] 2022-08-13 2022-08-13 Telephone Fiona KSRUBIO [place] 1.2.840.11 4 [id number] Univers 00:00:00 00:00:00 Tamara HAMEED 350.1.13.10 it y of [place] 4[place] [id number] [address] 2022-08-08 2022-08-08 Outpatient R FIONA TAMARA [facility] B [id number] Univers 09:00:00 09:19:12 IMANITAMARA BALLARD [facility] 2022-08-08 2022-08-08 Routine [facility] 1.2.840.114 [id number] Univers 09:00:00 09:19:12 Tamara HAMEED 350.1.13.10 i ty of Visit [place] 4.[place] [id number] [address] 2022-08-06 2022-08-06 Outpatient R FIONA TAMARA [facility] B [id number] Univers 10:00:00 10:00:00 FIONACOLEQUINN disla [facility] 2022-08-01 2022-08-01 Bundle Tier And Labeler Ultrasound, [facility] 1.2 .840.114 [id number] Univers 14:30:00 15:23:14 Visit Chau King DIRECTOR OPERATING ROOM 350.1.13.10 ity of [facility] 4.2.7.2.686 Christiano as MATERNAL [id number] Med ical & CHILD [address] [place] [address] 2022-08-01 2022-08-01 Outpatient P ARLEEN [facility] [id number] Univers 14:30:00 14:30:00 [facility]AU [facility] 2022-07-09 2022-07-09 Outpatient R TAMARA JAIMES [facility] B [id number] Univers 10:00:00 10:15:41 TAMARA JAIMES [facility] 2022-07-09 2022-07-09 Routine [facility] [place] 1.2.840.114 [id number] Univers 10:00:00 10:15:41 Tamara HAMEED 350.1.13.10 i ty of Visit [place] 4.2.[place] [id number] [address] 2022-06-29 2022-06-29 Case Adum, [facility] 1.2.840.114 [id number] Univers 00:00:00 00:00:00 Management Yari GELLER 350.1.13.10 ity of [place].2.7.2.[place] [id number] Tn dical [address] 2022-06-25 2022-06-25 Bundle Tier And Labeler Ultrasound, Adc [facility] 1.2 .840.114 [id number] Univers 15:00:00 16:00:00 Visit Anderson Michael Mayer DUYEN 350.1 .13.10 ity of [facility] 4.2.7.2.[place] [phone] Tn dical NAL [address] [place] [address] 2022-06-25 2022-06-25 Outpatient P JERRI [facility] [id number] Univers 15:00:00 15:00:00 COURT it y of MICHAEL Holley [facility] 2022-06-11 2022-06-11 Bundle Tier And Labeler 2, Adc Lab [facility] 1.2.840.114 [id number] Univers 13:00:00 13:31:03 Visit Adum, Yari GELLER 350.1.13.10 ity of [facility] 4.2.7.2.[place] [id number] Tn dical NAL [facility] 2022-06-11 2022-06-11 Outpatient R ADUM, [facility] [id number] Univers 11:00:00 11:51:51 YARI ity of [facility] 2022-06-11 2022-06-11 Routine Adum, [facility] 1.2.445.141 [id number] Univers 11:00:00 11:51:51 Yari Ramirez YOSEPH 350.1.13.10 ity of [place] 4.[place] [id number] [address] 2022-05-24 2022-05-24 Telephone Adum, [facility] 1.2.128.789 [id number] Univers 00:00:00 00:00:00 Yari GELLER 350.1.13.10 ity of [facility] 4.2.7.2.[place] [id number] Tn dical NAL [address] [facility] 2022-05-10 2022-05-10 Outpatient R ADUM, [facility] [id number] Univers 10:00:00 11:19:12 YARI ity of [facility] 2022-05-10 2022-05-10 Initial Adum, [facility] 1.2.840.114 [id number] Univers 10:00:00 11:19:12 Yari LYMICHELLE 350.1.13.10 ity of Visit [facility] [place].2.7.2.[place] [id number] Tn dical [facility] 2022-05-10 2022-05-10 Orders Doctor ANABELA 1.2.840.114 [id number] Univers 00:00:00 00:00:00 Only Unassigned, CALVIN 350.1.13.10 ity of [place] [facility] 4.2.7.2.686 Christiano as [id number] [address] 2022-05-03 2022-05-03 Outpatient R ADUM, [facility] [id number] Univers 10:00:00 10:00:00 YARI [facility] 2022-04-30 2022-04-30 Outpatient P [facility] [id number] Univers 10:30:00 10:30:00 [facility] 2022-04-29 2022-04-29 Outpatient P [facility] [id number] Univers 15:00:00 15:00:00 [facility] 2022-04-29 2022-04-29 Outpatient P [facility] [id number] Univers 14:00:00 14:00:00 [facility] 2022-04-18 2022-04-18 Outpatient R DANIELE, [facility] [id number] Univers 11:00:00 11:00:00 ALINE disla o [facility] 2022-04-16 2022-04-16 Outpatient R MACIEJ, [facility] [id number] Univers 10:00:00 10:00:00 [facility] 2022-04-11 2022-04-11 Outpatient R DANIELE, [facility] [id number] Univers 16:00:00 16:00:00 ALINE iramgrant boyd [facility] 2022-04-11 2022-04-11 Outpatient R HUBERT [facility] [id number] Univers 09:45:00 11:12:27 [facility] 2022-04-11 2022-04-11 Routine Trimester, [facility]-1st UNIVERSIT 1.2.840.114 [id number] Univers 09:45:00 11:12:27 Melinda Briggs [facility] 350.1.13.10 ity of Visit CLINICS 4.2.7.2.686 Luis holley [id number] [address] 2022-04-11 2022-04-11 Outpatient Deejay BRIGGS [facility] [id number] Univers 09:45:00 11:12:27 [facility] 2022-04-09 2022-04-09 Telephone [facility] 1.2.840.114 [id number] Univers 00:00:00 00:00:00 Aline C DIRECTOR OPERATING ROOM 350.1.13.10 ity of REGIONAL 4.2.7.2.686 Christiano as MATERNAL [id number] [facility] & CHILD [address] [place] [address] 2022-04-08 2022-04-08 Outpatient R AKINSIPE, [facility] [id number] Univers 07:45:00 08:15:01 ALINE ity o [facility] 2022-04-08 2022-04-08 Outpatient R AKINSIPE, [facility] [id number] Univers 07:45:00 08:15:01 ALINE ity o [facility] 2022-04-08 2022-04-08 Bundle Tier And Labeler Lab, [facility] 1.2.840. 114 [id number] Univers 07:45:00 08:00:00 Visit AkinDarren harrellilola C DIRECTOR OPERATING ROOM 350.1.13. 10 ity of REGIONAL 4.2.7.2.686 Christiano as MATERNAL [id number] [facility] & [address] 2022-04-08 2022-04-08 Outpatient R AKINSIPE, [facility] [id number] Univers 07:45:00 07:45:00 ALINE ity o [facility] 2022-04-04 2022-04-04 [facility]ine [facility] 1.2.144.575 [id number] Univers 16:00:00 16:00:00 Aline C DIRECTOR OPERATING ROOM 350.1.13.10 ity of Visit REGIONAL 4.2.7.2.686 Christiano as MATERNAL [id number] [facility] & CHILD [address] [place] [address] 2022-04-04 2022-04-04 Outpatient R AKINSIPE, [facility] [id number] Univers 16:00:00 13:56:07 ALINE ity o [facility] 2022-04-04 2022-04-04 Outpatient R AKINSIPE, [facility] [id number] Univers 16:00:00 13:56:07 ALINE ity o [facility] 2022-04-04 2022-04-04 Telephone Akinsipe, [facility] 1.2.840.114 [id number] Univers 00:00:00 00:00:00 Aline C DIRECTOR OPERATING ROOM 350.1.13.10 ity of [facility] 4.2.7.2.686 Christiano as MATERNAL [id number] [facility] ical & CHILD [address] [place] [address] 2022-03-27 2022-03-27 Telephone [facility] 1.2.840.114 [id number] Univers 00:00:00 00:00:00 Aline C DIRECTOR OPERATING ROOM 350.1.13.10 ity of [facility] 4.2.7.2.686 Christiano as MATERNAL [id number] [facility] ical & CHILD [address] [place] [address] 2022-03-14 2022-03-14 Initial [facility] 1.2.505.853 [id number] Univers 08:30:00 09:36:51 Aline C DIRECTOR OPERATING ROOM 350.1.13.10 ity of Visit [facility] 4.2.7.2.686 Christiano as MATERNAL [id number] [facility] ical & CHILD [address] [place] [address] 2022-03-14 2022-03-14 Outpatient [facility] [id number] Univers 08:00:00 09:36:43 ALINE disla o f [facility] 2022-03-14 2022-03-14 Orders Doctor ANABELA 1.2.840.114 [id number] Univers 00:00:00 00:00:00 Only Unassigned, CALVIN 350.1.13.10 ity of [place] [facility] 4.2.7.2.686 Christiano as [id number] [address] 2022-03-09 2022-03-09 Outpatient R UNKNOWN, [facility] [id number] Univers 13:40:00 13:40:00 ATTENDING ity [facility] 2022-03-08 2022-03-08 Outpatient R GINGER [facility] [id number] Univers 17:00:00 17:22:05 JACKELINE [facility] 2022-03-08 2022-03-08 Urgent Ginger [facility] 1.2.840.114 [id number] Univers 17:00:00 17:22:05 Care [facility] 350.1.13.10 it y of [place] 4.2.7.2.686 Christiano as PATSY?BLEA [id number] Tn teresa GALLAGHER [address] [place] [address] MEDICAL OFFICE BUILDING 2022-03-08 2022-03-08 Outpatient R GINGER [facility] [id number] Univers 17:00:00 17:22:05 JACKELINE ity [facility] 2022-02-21 2022-02-21 Outpatient R [facility] [id number] Univers 08:00:00 08:00:00 ity [facility] 2022-02-14 2022-02-14 Outpatient [facility] [id number] Univers 13:15:00 14:27:02 ALINE disla o [facility] 2022-02-14 2022-02-14 Office [facility] 1.2.877.446 [id number] Univers 13:15:00 14:27:02 Visit Aline Upton DIRECTOR OPERATING ROOM 350.1.13.10 ity [facility] 4.2.7.2.686 Christiano as MATERNAL [id number] [facility] ical & CHILD [address] [place] [address] 2022-02-14 2022-02-14 Outpatient R [facility] [id number] Univers 13:15:00 14:27:02 ALINE disla o [facility] 2022-02-14 2022-02-14 Orders Doctor PEÑALOZA 1.2.840.114 [id number] Univers 00:00:00 00:00:00 Only Unassigned, CALVIN 350.1.13.10 ity of [place] [facility] 4.2.7.2.686 Christiano as [id number] [address] 2022-01-29 2022-01-29 Outpatient R DANIELE [facility] [id number] Univers 13:45:00 13:45:00 ALINE disla o [facility] 2022-01-29 2022-01-29 Outpatient R [facility] [id number] Univers 13:15:00 13:15:00 ity of [facility] 2021-10-27 2021-10-27 Emergency [facility] E[facility] [id number] Univers 19:27:00 21:47:00 JUANA [facility] 2021-10-27 2021-10-27 Emergency [facility] 1.2.140.775 [id number] Univers 19:27:00 21:47:00 Juana S [place] 350.1.13.10 i ty of [place]2.7.2.[place] [id number] [facility] [address] 2021-10-27 2021-10-27 Orders Doctor ANABELA 1.2.840.114 [id number] Univers 00:00:00 00:00:00 Only Unassigned, CALVIN 350.1.13.10 [facility] 4.2.7.2.686 Christiano as [id number] [facility] [address] 2020-11-07 2020-11-07 Patient [facility] 1.2.840.114 [id number] Univers 00:00:00 00:00:00 Outreach Kevin PRIMARY 350.1.13.10 i ty of [facility] 4.2.7.2.686 [place] [id number] Tn dical [address] 2020-11-07 2020-11-07 Patient [facility] 1.2.840.114 [id number] 20 00:00:00 00:00:00 Outreach Kevin PRIMARY 350.1.13.10 Robert CARE 4.2.7.2.686 PAVILLION [id number] 388 2020-11-06 2020-11-06 Outpatient R [facility] [id number] Univers 10:00:00 10:00:00 RICARDO disla o oliver [facility] 2020 2020 Outpatient [facility] [id number] Univers 08:00:00 08:00:00 ROCIO disla [facility] 2020-09-12 2020-09-12 Outpatient R [facility] [id number] Univers 10:00:00 10:00:00 [facility] 2020-07-07 2020-07-07 Nurse Visit, [facility] Nurse [facility] 1.2 .840.114 [id number] Univers 09:55:55 10:22:59 Visit Wagner Beckafaiza Villalba DIRECTOR OPERATING ROOM 350.1.13.10 ity of REGIONAL 4.2.7.2.686 [place]o as MATERNAL [id number] Med ical & CHILD [address] [place] [address] 2020-07-07 2020-07-07 Nurse Visit, [facility] 1.2.840.114 [id number] 09:55:55 10:22:59 Visit [facility] DIRECTOR OPERATING ROOM 350.1.13.10 Nurse REGIONAL 4.2.7.2.686 MATERNAL [id number] & CHILD [address] [place] [address] 2020-07-07 2020-07-07 Outpatient R [facility] [id number] Univers 10:00:00 10:00:00 ity [facility] 2020-07-07 2020-07-07 Telephone [facility] 1.2.840.114 [id number] Univers 00:00:00 00:00:00 Aline Upton DIRECTOR OPERATING ROOM 350.1.13.10 ity of REGIONAL 4.2.7.2.686 Christiano as MATERNAL [id number] [address] 2020-07-07 2020-07-07 Telephone [facility] 1.2.840.114 [id number] 00:00:00 00:00:00 Aline Upton DIRECTOR OPERATING ROOM 350.1.13.10 REGIONAL 4.2.7.2.686 MATERNAL [id number] & CHILD [address] [place] [address] 2020-07-04 2020-07-04 Outpatient R [facility]UNITED [facility] [id number] Univers 13:00:00 13:00:00 ALINE boyd [facility] 2020-07-04 2020-07-04 Telephone [facility] 1.2.840.114 [id number] Univers 00:00:00 00:00:00 Rocio Lorenz DIRECTOR OPERATING ROOM 350.1.13.10 it y of REGIONAL 4.2.7.2.686 Christiano as MATERNAL [id number] [facility] ical & CHILD [address] [place] [address] 2020-07-04 2020-07-04 Telephone [facility] 1.2.840.114 [id number] 00:00:00 00:00:00 Rocio Lorenz DIRECTOR OPERATING ROOM 350.1.13.10 REGIONAL 4.2.7.2.686 MATERNAL [id number] & CHILD [address] [place] [address] 2020-07-03 2020-07-03 Office Rocio Pond Kelechi [facility] 1.2.840. 114 [id number] Univers 14:23:30 14:50:28 Visit Aline Sanabria DIRECTOR OPERATING ROOM 350.1.13. 10 ity of [facility] 4.2.7.2.686 Christiano as MATERNAL [phone] [facility] & CHILD [address] [place] [address] 2020-07-03 2020-07-03 Office [facility] 1.2.220.929 [id number] 14:23:30 14:50:28 Visit Rocio Lorenz DIRECTOR OPERATING ROOM 350.1.13.10 REGIONAL 4.2.7.2.686 MATERNAL [id number] & CHILD [address] [place] [address] 2020-07-03 2020-07-03 Outpatient [facility] [id number] Univers 14:30:00 14:30:00 ROCIO disla [facility] 2020-06-28 2020-06-28 Telephone [facility] 1.2.840.114 [id number] Univers 00:00:00 00:00:00 Aline Geller 350.1.13.10 ity [facility] [place].2.7.2.[place] [id number] [address] 2020-06-20 2020-06-20 Office [facility] 1.2.101.213 [id number] Univers 08:04:56 08:46:32 Visit Aline Upton DIRECTOR OPERATING ROOM 350.1.13.10 ity of [facility] 4.2.7.2.686 Christiano as MATERNAL [id number] [facility] & [address] 2020-06-20 2020-06-20 Outpatient [facility] [id number] Univers 08:00:00 08:00:00 ALINE disla o f [facility] 2020-05-26 2020-05-26 Outpatient R [facility] [id number] Univers 10:30:00 10:30:00 ity [facility] 2020-02-24 2020-02-24 Office [facility] 1.2.297.463 [id number] Univers 10:16:42 11:11:42 Visit Aline Upton DIRECTOR OPERATING ROOM [id number] ity of [facility] [id number] Christiano as MATERNAL [phone] Med ical & CHILD [address] [place] [address] 2020-02-24 2020-02-24 [facility] [id number] Univers 10:00:00 10:00:00 ALINE disla o f [facility] 2020-02-24 2020-02-24 Outpatient R [facility] [id number] Univers 09:30:00 09:30:00 ity [facility] 2020-02-24 2020-02-24 Orders Doctor ANABELA [id number] Univers 00:00:00 00:00:00 Only Unassigned, CALVIN [id number] ity of [place] [facility] [id number] Christinao as [id number] [address] 2020-02-17 2020-02-17 [facility] [id number] Univers 14:30:00 14:30:00 ROCIO disla [facility] Results Test Description Test Time Test Comments Results Result Comments Source CBC with Differential 2022-10-31 11:59:36 Test Item Value Reference Range Interpretation Comme nts WBC (test code = 6690-2) 10.67 See_Comment [A utomated message] The system which ge nerated this result transmit nuris reference range: 4.30 - 1 1.10 10*3/?L. The reference r altagracia was not used to interpr et this result as normal/abnor mal. RBC (test code = 789-8) 3.09 See_Comment L [Au tomated message] The system which ge nerated this result transmit nuris reference range: 3.93 - 5 .25 10*6/?L. The reference r altagracia was not used to interpr et this result as normal/abnor mal. HGB (test code = 718-7) 9.3 g/dL 11.6-15.0 L HCT (test code = 4544-3) 28.0 % 35.7-45.2 L MCV (test code = 787-2) 90.6 fL 80.6-95.5 MCH (test code = 785-6) 30.1 pg 25.9-32.8 MCHC (test code = 786-4) 33.2 g/dL 31.6-35.1 RDW-SD (test code = 35367-2) 48.3 fL 39.0-49.9 RDW-CV (test code = 788-0) 14.9 % 12.0-15.5 PLT (test code = 777-3) 234 See_Comment [Au tomated message] The system which ge nerated this result transmit nuris reference range: 166 - 35 8 10*3/?L. The reference range was not used to interpret th is result as normal/abnormal . MPV (test code = 31510-2) 10.1 fL 9.5-12.9 NRBC/100 WBC (test code = 0.0 See_Comment [ Automated message] The [id number]) system which ge nerated this result transmit nuris reference range: 0.0 - 10 .0 /100 WBCs. The reference r altagracia was not used to interpr et this result as normal/abnor mal. NRBC x10^3 (test code = See_Comment [Au tomated message] The [id number]) system which Chamelic nerated this result transmit nuris reference range: 10*3/?L. The reference range was not u sed to interpret this result as normal/abnormal . GRAN MAT (NEUT) % (test code 72.1 % = 770-8) IMM GRAN % (test code = 0.40 % 2092605198) LYMPH % (test code = 736-9) 20.7 % MONO % (test code = 5905-5) 6.1 % EOS % (test code = 713-8) 0.3 % BASO % (test code = 706-2) 0.4 % GRAN MAT x10^3(ANC) (test 7.70 10*3/uL 1.88-7.09 H code = 7342283223) IMM GRAN x10^3 (test code = 0.04 10*3/uL 0.00-0.06 [id number]) LYMPH x10^3 (test code = 2.21 10*3/uL 1.32-3.29 731-0) MONO x10^3 (test code = 0.65 10*3/uL 0.33-0.92 742-7) EOS x10^3 (test code = 0.03 10*3/uL 0.03-0.39 711-2) BASO x10^3 (test code = 0.04 10*3/uL 0.01-0.07 704-7) Lab Interpretation (test Abnormal code = 57414-2) [facility] OR MARLENE RODRIGUEZ - [id number] 08:41:13 Test Item Value Reference Range Interpretation Comments RPR (Qualitative) (test code = Nonreactive Nonreactive 04873-2) Lab Interpretation (test code = Normal 09627-7) [facility] [id number] 05:39:08 Test Item Value Reference Range Interpretation Comments HBsAg Semi-Quantitative (test code = 0.05 Negative 5195-3) [facility]-AB WITH [id number] 02:16:01 Test Item Value Reference Range Interpretation Comments HIV 0.07 Negative Semi-quantitative (test code = 48676-9) NADJA (test code = Non-reactive for HIV-1 NADJA) antigen and HIV-1/HIV-2 antibodies. ?No laboratory evidence of HIV infection. ?Repeat in 2-4 weeks if acute HIV infection is suspected. [facility] with [id number] 00:40:11 Test Item Value Reference Range Interpretation Comments WBC (test code = 7.97 See_Comment [Automated 8561-2) message] The sy stem which generated this result transmitted reference range : 4.30 - 11.10 10*3/?L. The reference range was not used to interpret this result as normal/abnormal . RBC (test code = 4.08 See_Comment [Automated 747-8) message] The sy stem which generated this result transmitted reference range : 3.93 - 5.25 10*6/?L. The reference range was not used to interpret this result as normal/abnormal . HGB (test code = 12.0 g/dL 11.6-15.0 718-7) HCT (test code = 35.9 % 35.7-45.2 4544-3) MCV (test code = 88.0 fL 80.6-95.5 787-2) MCH (test code = 29.4 pg 25.9-32.8 785-6) MCHC (test code = 33.4 g/dL 31.6-35.1 786-4) RDW-SD (test code = 46.5 fL 39.0-49.9 30207-7) RDW-CV (test code = 14.5 % 12.0-15.5 788-0) PLT (test code = 273 See_Comment [Automated 777-3) message] The sy stem which generated this result transmitted reference range : 166 - 358 10*3/ ?L. The reference r altagracia was not used to interpret this result as normal/abnormal . MPV (test code = 9.9 fL 9.5-12.9 53406-1) NRBC/100 WBC (test 0.0 See_Comment [Automat ed code = 0312306026) message] The system which generated this result transmitted reference range : 0.0 - 10.0 /100 WBCs. The refer ence range was not u sed to interpret th is result as normal/abnormal . NRBC x10^3 (test code See_Comment [Auto mated = [id number]) message] The s ystem which generated this result transmitted reference range : 10*3/?L. The reference range was not used to interpret this result as normal/abnormal . GRAN MAT (NEUT) % 75.6 % (test code = 770-8) IMM GRAN % (test code 0.50 % = 7769474718) LYMPH % (test code = 16.1 % 736-9) MONO % (test code = 6.9 % 5905-5) EOS % (test code = 0.4 % 713-8) BASO % (test code = 0.5 % 706-2) GRAN MAT x10^3(ANC) 6.03 10*3/uL 1.88-7.09 (test code = 2527108062) IMM GRAN x10^3 (test 0.04 10*3/uL 0.00-0.06 code = 2254159612) LYMPH x10^3 (test code 1.28 10*3/uL 1.32-3.29 L = 731-0) MONO x10^3 (test code 0.55 10*3/uL 0.33-0.92 = 742-7) EOS x10^3 (test code = 0.03 10*3/uL 0.03-0.39 711-2) BASO x10^3 (test code 0.04 10*3/uL 0.01-0.07 = 704-7) Lab Interpretation Abnormal (test code = 63414-8) [facility] - ONCE [id number] 00:38:00 Test Item Value Reference Range Interpretation Comments ABO & RH (test code = 20) A Positive IAT (test code = 1185) Negative [facility] W/O SPECIFIC [id number] 15:58:00 Test Item Value Reference Range Interpretation Comments POCT PH U (test code = 3254) N/A 5-8 POCT U LEUK EST (test code = N/A Negative - Negative 3) POCT U NIT (test code = 3262) N/A Negative - Negative POCT U PROT (test code = 3259) Negative Negative - Negative POCT U GLU (test code = 3256) Negative Negative - Negative POCT U KETONE (test code = 3258) N/A Negative - Negative POCT U BLD (test code = 3257) N/A Negative - Negative [facility] W/O SPECIFIC [id number] 22:13:00 Test Item Value Reference Range Interpretation Comments [...] code = 3257) N/A Negative - Negative [facility] [id number] 21:55:00 Test Item Value Reference Range Interpretation Comments [...] code = 3257) n/a Negative - Negative [facility] URINALYSIS W/O SPECIFIC [id number] 22:12:00 Test Item Value Reference Range Interpretation Comments POCT PH U (test code = 3254) n/a 5-8 POCT U LEUK EST (test code = na Negative - Negative 3263) POCT U NIT (test code = 3262) n/a Negative - Negative POCT U PROT (test code = 3259) negative Negative - Negative POCT U GLU (test code = 3256) negative Negative - Negative POCT U KETONE (test code = 3258) n/a Negative - Negative POCT U BLD (test code = 3257) n/a Negative - Negative [facility] W/O SPECIFIC [id number] 16:56:00 Test Item Value Reference Range Interpretation Comments [...] code = 3257) n/a Negative - [facility] [id number] 22:09:00 Test Item Value Reference Range Interpretation [...] code = 3257) N/A Negative - Negative [facility] UR[facility]ALYS[facility] W/O SPECIFIC [id number] 22:09:00 Test Item Value Reference Range Interpretation [...] code = 3257) N/A Negative - Negative [facility] URINALYSIS W/O SPECIFIC [id number] 17:05:00 Test Item Value Reference Range Interpretation [...] code = 3257) N/A Negative - Negative [facility]GLU[facility] [id number] 16:58:30 Test Item Value Reference Range Interpretation Comments GLU FASTNG (test code = 7688410064) 83 mg/dL 70-110 Lab Interpretation (test code = Normal 02926-9) [facility] URINALYSIS W/O SPECIFIC [id number] 15:06:00 Test Item Value Reference Range Interpretation [...] code = 3257) N/A Negative - Negative [facility] [id number] 16:05:00 Test Item Value Reference Range Interpretation [...] code = 3257) N/A Negative - [facility] [id number] 16:26:00 Test Item Value Reference Range Interpretation [...] code = 3257) n/a Negative - Negative [facility] [id number] 16:26:00 Test Item Value Reference Range Interpretation [...] code = 3257) n/a Negative - Negative [facility] W/O SPECIFIC [id number] 15:50:00 Test Item Value Reference Range Interpretation [...] code = 3257) n/a Negative - Negative [facility]
[2023-02-22] MEDS ORDERED: ONDANSETRON 4 MG/2 ML VIAL ONE (18:18)
[2023-02-22] MEDS ORDERED: KETOROLAC 30 MG/ML INJ ONE (18:18)
[2023-02-22] MEDS ORDERED: NA CHLORIDE 0.9% 1,000 ML ONE (18:18)
[2023-02-22 18:54] LABS: Specific Gravity 1.014 (1.005-1.030); Urine Bacteria <20 /HPF (<20); Urine Bilirubin NEGATIVE (Negative); Urine Blood Negative (Negative); Urine Clarity Turbid (Clear); Urine Color Colorless (Yellow); Urine Crystals Unidentified Few /HPF (None Seen); Urine Glucose NEGATIVE (Negative); Urine Protein NEGATIVE (Negative); Urine RBC None Seen /HPF (None Seen); Urine Urobilinogen Normal (Normal); Urine pH 5.5 (5.0-7.0)
[2023-02-22 18:58] LABS: Absolute Lymphocytes (CBC) 1.6 K/uL (0.7-4.9); Hematocrit 40.7 % (36.0-45.0); Lymphocytes % 18.6 % (15.3-44.8); MCV 83.6 fL (80-100); MPV 8.1 fL (7.6-11.3); RBC Red Blood Cell Count 4.87 M/uL (3.86-4.86)
[2023-02-22 19:18] LABS: Potassium 3.9 mEq/L (3.5-5.1)
[2023-02-22 19:19] LABS: Albumin 3.6 g/dL (3.4-5.0); Bilirubin Total 0.3 mg/dL (0.2-1.0); Protein, Total 8.1 g/dL (6.4-8.2)
--- NOTE | 2023-02-22 19:42 | RAD REPORT ---
EXAM DESCRIPTION: CT - Abdomen Pelvis W Contrast - 02/22/2023 7:31 pm CLINICAL HISTORY: Abdominal pain COMPARISON: 2019 TECHNIQUE: Computed axial tomography of the abdomen pelvis was obtained. 100 cc Isovue-300 was admin istered intravenously. Oral contrast was not requested which limits evaluation of bowel and appendix All CT scans are performed using dose optimization technique as appropriate and may include automated exposure control or mA/KV adjustment according to patient size. FINDINGS: The liver, spleen, pancreas, adrenal and kidneys appear unremarkable. There is no evidence of diverticulitis. Normal appendix. No adnexal mass. Scoliosis IMPRESSION: No acute abnormality is displayed.
--- NOTE | 2023-02-22 20:15 | EDPHYS ---
Physician Documentation [facility] Name: Carlita Atkinson Age: 22 yrs Sex: Female : 2000 Arrival Date: 02/22/2023 Time: 17:13 Bed 17 Private MD: ED Physician Blayne Cottrell HPI: 02/22 18:09 This 22 yrs old Female presents to ER via Ambulatory with complaints of Back sb4 Pain, Vomiting. 18:09 22 year old female with PMH of asthma, GERD, and scoliosis presents with worsening sb4 lower back pain and vomiting. She states that she has had lower back pain ever since she had an epidural back in October during child labor. States that the anesthesiologist had to inject at an abnormal location due to her scoliosis. She also reports vomiting 6x today. No abdominal pain, urinary symptoms, fever. Historical: - Allergies: 17:21 NKA; nj1 - PMHx: 17:21 Asthma; GERD; scoliosis; nj1 - PSHx: 17:21 None; nj1 - Immunization history:: Client reports receiving the 2nd dose of the Covid vaccine. - Social history:: Smoking status: Patient denies any tobacco usage or history of. ROS: 18:09 Constitutional: Negative for fever, chills, and weight loss, Eyes: Negative for injury, sb4 pain, redness, and discharge, ENT: Negative for injury, pain, and discharge, Cardiovascular: Negative for chest pain, palpitations, and edema, Respiratory: Negative for shortness of breath, cough, wheezing, and pleuritic chest pain, : Negative for injury, bleeding, discharge, and swelling, MS/Extremity: Negative for injury and deformity, Skin: Negative for injury, rash, and discoloration, Neuro: Negative for headache, weakness, numbness, tingling, and seizure. 18:09 Abdomen/GI: Positive for nausea, vomiting, Negative for abdominal pain, diarrhea, constipation, abdominal cramps, abdominal distension. 18:09 Back: Positive for pain at rest, pain with movement, flank pain, on the left. Exam: 18:09 Constitutional: This is a well developed, well nourished patient who is awake, alert, sb4 and in no acute distress. Head/Face: Normocephalic, atraumatic. Eyes: Extra-ocular motions intact. Periorbital areas with no swelling, redness, or edema. ENT: Mucous membranes moist. Cardiovascular: Regular rate and rhythm with a normal S1 and S2. Respiratory: Lungs have equal breath sounds bilaterally, clear to auscultation and percussion. No rales, rhonchi or wheezes noted. No increased work of breathing, no retractions or nasal flaring. Abdomen/GI: Soft, non-tender, no distension. Back: No spinal tenderness. No costovertebral tenderness. Full range of motion. Skin: Warm, dry with normal turgor. Normal color with no rashes, no lesions, and no evidence of cellulitis. MS/ Extremity: Pulses equal, no cyanosis. Neurovascular intact. Full, normal range of motion. Neuro: Awake and alert, GCS 15, oriented to person, place, time, and situation. Cranial nerves II-XII grossly intact. Motor strength 5/5 in all extremities. Sensory grossly intact. Cerebellar exam normal. Normal gait. 18:09 : CVA tenderness, that is moderate. 18:09 Neuro: Orientation: to person, place, time \T\ situation. Mentation: is normal, appropriate for stated age, able to follow commands, Memory: is normal, appropriate for stated age. Vital Signs: 17:17 BP 126 / 84; Pulse 78; Resp 18; Temp 97.6; Pulse Ox 99% on R/A; Weight 95.25 kg; Height nj1 5 ft. 4 in. ; Pain 9/10; 18:30 BP 110 / 69; Pulse 71; Resp 18; Pulse Ox 98% on R/A; db 19:25 BP 110 / 71; Pulse 66; Resp 16 S; Pulse Ox 99% on R/A; ha1 20:30 BP 112 / 72; Pulse 71; Resp 16 S; Pulse Ox 100% on R/A; ha1 17:17 Body Mass Index 36.05 (95.25 kg, 162.56 cm) nj1 17:17 Pain Scale: Adult nj1 MDM: 17:15 Patient medically screened. sb4 18:09 Differential diagnosis: Epidural or Perispinal Abcess Epidural or Perispinal Bleed sb4 Fracture Hydronephrosis Neoplasm Osteomyelitis Pyelonephritis ruptured disc, spinal injury, TB Meningitis vertebral fracture. 02/23 08:15 Data reviewed: vital signs, nurses notes, lab test result(s), radiologic studies, I sb4 have discussed the patient's presentation/case with the attending Emergency Department Physician; and as a result, I will discharge patient. Counseling: I had a detailed discussion with the patient and/or guardian regarding: the historical points, exam findings, and any diagnostic results supporting the discharge/admit diagnosis, lab results, radiology results, to return to the emergency department if symptoms worsen or persist or if there are any questions or concerns that arise at home. 02/22 17:47 Order name: CBC with Diff; Complete Time: 19:23 sb4 02/22 17:47 Order name: CMP; Complete Time: 19:20 sb4 02/22 17:47 Order name: Lipase; Complete Time: 19:20 sb4 02/22 17:47 Order name: Test, Urine; Complete Time: 18:55 sb4 02/22 17:47 Order name: Urinalysis w/ reflexes; Complete Time: 18:55 sb4 02/22 17:47 Order name: CT Abd/Pelvis - IV Contrast Only; Complete Time: 20:01 sb4 02/22 17:47 Order name: IV Saline Lock; Complete Time: 18:36 sb4 02/22 17:47 Order name: Labs collected and sent; Complete Time: 18:36 sb4 Administered Medications: 02/22 18:25 Drug: NS 0.9% IV 1000 ml Route: IV; Rate: 1 bolus; Site: right forearm; db 18:25 Drug: TORadol - Ketorolac IVP 15 mg Route: IVP; Site: right forearm; db 18:25 Drug: Ondansetron IVP 4 mg Route: IVP; Site: right forearm; db Disposition: 20:14 Co-signature as Attending Physician, Blayne Cottrell MD I agree with the assessment and kdr plan of care. Disposition Summary: 02/22/23 20:15 Discharge Ordered Location: Home kdr Problem: an ongoing problem kdr Symptoms: have improved kdr Condition: Stable kdr Diagnosis - Low back pain kdr Followup: kdr - With: Private Physician - When: 2 - 3 days - Reason: If symptoms return, Further diagnostic work-up, Recheck today's complaints, Continuance of care, Re-evaluation by your physician Discharge Instructions: - Discharge Summary Sheet kdr - Musculoskeletal Pain kdr - Chronic Back Pain, [id number] kdr Forms: - Medication Reconciliation Form kdr - Thank You Letter kdr - [email or web address] kdr Prescriptions: - Ibuprofen 600 mg Oral Tablet - take 1 tablet by ORAL route every 6 hours As needed take with food; 15 tablet; kdr Refills: 0, Product Selection Permitted - Cyclobenzaprine 10 mg Oral Tablet - take 1 tablet by ORAL route every 8 hours As needed; 16 tablet; Refills: 0, kdr Product Selection Permitted - Medrol (Froylan) 4 mg Oral Tablets, Dose Pack - take 1 tablet by ORAL route as directed - follow package instructions; 1 kdr packet; Refills: 0, Product Selection Permitted Signatures: Dispatcher [employer] Blayne Mosher MD MD kdr Miranda Murillo, RN RN Stephanie Peters PA-C PA-C sb4 Anayeli Graham RN RN nj1
--- NOTE | 2023-02-22 20:15 | ER ---
Nurse's Notes [facility] Name: Carlita Atkinson Age: 22 yrs Sex: Female : 2000 Arrival Date: 02/22/2023 Time: 17:13 Bed 17 Private MD: Diagnosis: Low back pain Presentation: 02/22 17:17 Chief complaint: Patient states: Low back pain since she had her epidural October 30. nj1 Woke up this morning vomiting, has a headache right now. Coronavirus screen: Vaccine status: Patient reports receiving the 2nd dose of the covid vaccine. Ebola Screen: Patient denies travel to an Ebola-affected area in the 21 days before illness onset. Initial Sepsis Screen: Does the patient meet any 2 criteria? No. Patient's initial sepsis screen is negative. Does the patient have a suspected source of infection? No. Patient's initial sepsis screen is negative. Risk Assessment: Do you want to hurt yourself or someone else? Patient reports no desire to harm self or others. Onset of symptoms was February 22, 2023. 17:17 Method Of Arrival: Ambulatory [facility] 17:17 Acuity: YOU 3 [facility] Triage Assessment: 18:15 General: Appears in no apparent distress. comfortable. General: Behavior is calm, db cooperative. Musculoskeletal: No deficits noted. No signs and/or symptoms reported regarding the musculoskeletal system. Historical: - Allergies: 17:21 NKA; nj1 - PMHx: 17:21 Asthma; GERD; scoliosis; nj1 - PSHx: 17:21 None; nj1 - Immunization history:: Client reports receiving the 2nd dose of the Covid vaccine. - Social history:: Smoking status: Patient denies any tobacco usage or history of. Screenin:39 [facility] ED Fall Risk Assessment (Adult) History of falling in the last 3 months, db including since admission No falls in past 3 months (0 pts) Confusion or Disorientation No (0 pts) Intoxicated or Sedated No (0 pts) Impaired Gait No (0 pts) Mobility Assist Device Used No (0 pt) Altered Elimination No (0 pt) Score/Fall Risk Level 0 - 2 = Low Risk Oriented to surroundings, Maintained a safe environment. Abuse screen: Denies threats or abuse. Denies injuries from another. Nutritional screening: No deficits noted. Tuberculosis screening: No symptoms or risk factors identified. Assessment: 18:10 Reassessment: Patient appears in no apparent distress at this time. Patient and/or db family updated on plan of care and expected duration. Pain level reassessed. Patient is alert, oriented x 3, equal unlabored respirations, skin warm/dry/pink. back pain and nausea and vomiting. General: Appears in no apparent distress. comfortable, Behavior is calm, cooperative. Pain: Complains of pain in back and abdomen. Neuro: Level of Consciousness is awake, alert, obeys commands, Oriented to person, place, time, situation. Respiratory: Airway is patent Respiratory effort is even, unlabored, Respiratory pattern is regular, symmetrical. 19:20 General: Appears comfortable, Behavior is calm, cooperative. Pain: Complains of pain in ha1 back Pain does not radiate. Pain currently is 5 out of 10 on a pain scale. Quality of pain is described as throbbing. Neuro: Level of Consciousness is awake, alert, obeys commands, Oriented to person, place, time, situation. Cardiovascular: Patient's skin is warm and dry. Respiratory: Airway is patent Respiratory effort is even, unlabored, Respiratory pattern is regular, symmetrical. GI: Abdomen is round non-distended, Bowel sounds present X 4 quads. Reports nausea. : No signs and/or symptoms were reported regarding the genitourinary system. Derm: Skin is pink, warm \T\ dry. Musculoskeletal: Circulation, motion, and sensation intact. Range of motion: intact in all extremities. 20:30 Reassessment: Patient and/or family updated on plan of care and expected duration. Pain ha1 level reassessed. Patient is alert, oriented x 3, equal unlabored respirations, skin warm/dry/pink. Patient states feeling better. Patient states symptoms have improved. Vital Signs: 17:17 BP 126 / 84; Pulse 78; Resp 18; Temp 97.6; Pulse Ox 99% on R/A; Weight 95.25 kg; Height nj1 5 ft. 4 in. ; Pain 9/10; 18:30 BP 110 / 69; Pulse 71; Resp 18; Pulse Ox 98% on R/A; db 19:25 BP 110 / 71; Pulse 66; Resp 16 S; Pulse Ox 99% on R/A; ha1 20:30 BP 112 / 72; Pulse 71; Resp 16 S; Pulse Ox 100% on R/A; ha1 17:17 Body Mass Index 36.05 (95.25 kg, 162.56 cm) nj1 17:17 Pain Scale: Adult nj1 ED Course: 17:14 Patient arrived in ED. ts1 17:15 Stephanie Kelsey PA-C is PHCP. sb4 17:15 Chau Al MD is Attending Physician. sb4 17:21 Triage completed. nj1 17:22 Miranda Murillo, RN is Primary Nurse. db 17:22 Arm band placed on right wrist. nj1 18:15 Missed attempt(s): 20 gauge in right antecubital area. Bleeding controlled, band aid db applied, catheter tip intact. 18:25 Inserted saline lock: 22 gauge in right forearm, using aseptic technique. Blood db collected. 18:40 Patient has correct armband on for positive identification. Bed in low position. Call db light in reach. Side rails up X 1. Client placed on continuous cardiac and pulse oximetry monitoring. NIBP monitoring applied. Warm blanket given. 19:29 Attending Physician role handed off by Chau Al MD kdr 19:29 Blayne Cottrell MD is Attending Physician. kdr 19:33 CT Abd/Pelvis - IV Contrast Only In Process Unspecified. EDMS 20:54 No provider procedures requiring assistance completed. IV discontinued, intact, ha1 bleeding controlled, No redness/swelling at site. Pressure dressing applied. Administered Medications: 18:25 Drug: NS 0.9% IV 1000 ml Route: IV; Rate: 1 bolus; Site: right forearm; db 18:25 Drug: TORadol - Ketorolac IVP 15 mg Route: IVP; Site: right forearm; db 18:25 Drug: Ondansetron IVP 4 mg Route: IVP; Site: right forearm; db Medication: 20:55 VIS not applicable for this client. ha1 Outcome: 20:15 Discharge ordered by . kdr 20:54 Patient left the ED. ha1 20:54 Discharged to home ambulatory, with family. ha1 20:54 Condition: stable 20:54 Discharge instructions given to patient, family, Instructed on discharge instructions, follow up and referral plans. medication usage, Demonstrated understanding of instructions, follow-up care, medications, Prescriptions given X 3. Signatures: Dispatcher [employer] EDMS Blayne Cottrell MD MD kdr Apolonia Chaidez, RN RN ha1 Miranda Murillo RN RN db Stephanie Kelsey PA-C PAPaul sb4 Anayeli Graham RN RN nj1 Marilee Hager PAS PAS ts1
[2023-02-22 21:27] VITALS: TEMP 97.6
[2023-02-22 21:29] VITALS: BP 110/71; O2SAT 99
== END 2023-02-22 20:54 | disposition home or self-care (01) ==
LOC: ER 17:13
DX: M54.50 Low back pain, unspecified (principal); R11.10 Vomiting, unspecified; J45.909 Unspecified asthma, uncomplicated; K21.9 Gastro-esophageal reflux disease without esophagitis; M41.9 Scoliosis, unspecified
CPT/HCPCS: 85025; 81001; 36415; 81025; 83690; 80053; 74177; 96375; 96374; 99284; Q9967; J2405; J7030

== ENCOUNTER 2023-07-16 14:32 | Emergency (ER) | payer OTHER ==
--- OUTSIDE RECORDS SUMMARY | 2023-07-16 14:39 | XMS REPORT | Continuity of Care Document ---
:2000 Author Organization [facility] t Address [address] [place] [address] [place] [id number] Care Team Providers Name Role Phone Aline Sawant Primary Care Physician [phone] YARI BUCHANAN Attending Clinician Unavailable [email or web address] Attending Clinician Unavailable VIRA JERONIMO Attending Clinician Unavailable VIRA JERONIMO Attending Clinician Unavailable Doctor Unassigned, Mcalester Attending Clinician Unavailable Yari Buchanan MD Attending Clinician Anabela Howell MD Attending Clinician 2, [facility] Attending Clinician Unavailable Aline Sawant Attending Clinician [phone] ALINE SANABRIA Attending Clinician Unavailable TAMARA JAIMES Attending Clinician Unavailable TAMARA JAIMES Attending Clinician Unavailable LEIGH ANN PALOMO Attending Clinician Unavailable Leigh Ann Palomo MD Attending Clinician Pob, [facility] Main Attending Clinician Unavailable David Mauro MD Attending Clinician DAVID MAURO Attending Clinician Unavailable Ultrasound, Ang-Mfm Attending Clinician Unavailable Chau King DO Attending Clinician Ultrasound, Adc Mfm Attending Clinician Unavailable Michael Vasquez MD Attending Clinician [phone] MICHAEL VASQUEZ Attending Clinician Unavailable MELINDA BRIGGS Attending Clinician Unavailable Trimester, [facility] Res-1st Attending Clinician Unavailable Melinda Briggs MD Attending Clinician Lab, [facility] Attending Clinician Unavailable UNKNOWN, ATTENDING Attending Clinician Unavailable EBJACKELINE KHAN Attending Clinician Unavailable Ebrahim [employer], Jackeline Attending Clinician JUANA LLAMAS Attending Clinician Unavailable Juana Balbuena S Attending Clinician Kevin Brown DO Attending Clinician RICARDO WAGNER Attending Clinician Unavailable ROCIO POND Attending Clinician Unavailable Visit, [facility] Nurse Attending Clinician Unavailable Ricardo Corea Attending Clinician Rocio Sauer Attending Clinician LEIGH ANN PALOMO Admitting Clinician Unavailable [email or web address]_S Admitting Clinician Unavailable YARI BUCHANAN Admitting Clinician Unavailable Yari Buchanan MD Admitting Clinician Leigh Ann Palomo MD Admitting Clinician JUANA LLAMAS Admitting Clinician Unavailable Payers Payer Name Policy Type Policy Number Effective Date Expiration Date [facility] [id number] 2022 [place] 00:00:00 BCBS [facility] [id number] 2022 00:00:00 MEDICAID [facility] [id number] 2022 2022 00:00:00 00:00:00 MULTIPLAN GENERIC [id number] 2017 00:00:00 Problems Condition Condition Condition Status Onset Resolution Last Treating Co mments Source Name Details Category Date Date Treatment Clinician Date Liveborn Liveborn Disease Active Unive rs , of infant, of 3-15 it y [place] , [place] born in born in [facility] hospital by vaginal by vaginal delivery delivery Full-term Full-term Disease Active Uni vers premature premature 3-14 [place]y of rupture [place] 00:[place] membranes membranes 00 [facility] Branch 38 weeks 38 weeks Disease Active Unive rs gestation gestation 3-14 ity of of of 00:00: [place] 00 [facility] Positive Positive Disease Active Unive rs GBS test GBS test 3-14 ity of 00:00: [place] 00 [facility] Premature Premature Disease Active Uni vers labor with labor with 3-14 it y of rupture of rupture of 00:[place] membranes membranes 00 [facility] Abnormal Abnormal Disease Active Unive rs maternal maternal 1-04 ity of glucose glucose 00:00: [place] tolerance, tolerance, 00 Me dical antepartum antepartum Br anch Need for Need for Disease Active 2021-08 Unive rs diphtheria diphtheria 2-23 it y of -tetanus-p -tetanus-p 00:[place] ertussis ertussis 00 Medica l (Tdap) (Tdap) [place] vaccine vaccine BMI BMI Disease Active Univers 36.0-36.9, 36.0-36.9, 9-23 it y of adult adult 00:00: [place] [facility] Supervisio Supervisio Disease Active U holly n of high n of high 7-28 ity of risk risk 00:00: [place] 00 [facility] in second in second Bran ch trimester trimester Gonorrhea Gonorrhea Disease Active 2019-08 Uni vers 1-17 ity of 00:00: [address] Obesity in Obesity in Disease Active 2019-0 U nivers 7-09 ity of 00:00: [address] Allergies, Adverse Reactions, Alerts Allergy Allergy Status Severity Reaction(s) Onset Inactive Treating Comm ents Source Name Type Date Date Clinician NO KNOWN Drug Active Univers ALLERGIE Class ity of S [facility] Social History Social Habit Start Date Stop Date Quantity Comments Source ASSERTION 2022-02-13 University of 00:00:[address] [facility] Sexual orientation Univer sity of [facility] History [facility] University o f Alcohol Frequency [facility] History [facility] University o f Alcohol Std Drinks [facility] History SDOH University o f Alcohol Binge [facility] Exposure to 2022-10-20 2022-10-30 Not sure [facility] SARS-CoV-2 (event) 00:00:00 11:23:[address] [facility] Alcohol intake 2022-04-04 2022-04-04 Current drinker Unive rsity of 00:00:00 00:00:00 of alcohol [place] [facility] (finding) [place] Tobacco use and 2022-03-14 2022-03-14 Smokeless Universit y of exposure 00:00:00 00:00:00 tobacco non-user [facility] dical [place] History of Social 2022-02-14 2022-02-14 Univers ity of function 00:00:00 00:00:[address] [facility] Alcohol Comment 2020-02-24 2020-02-24 Socially Universit y of 00:00:00 00:00:[address] [facility] Sex Assigned At [birth year] Universit y of 00:00:00 00:00:[address] [facility] Smoking Status Start Date Stop Date Source Never smoked tobacco [facility] [place] [facility] Medications Ordered Filled Start Stop Current Ordering Indication Dosage Frequency Signature Comments Components Source Medication Medication Date Date Medication? Clinician (SIG) Name Name ondansetron Yes [id number] 4mg Take 1 Univers 4 mg 4-11 tablet by ity of disintegrat 00:00: mouth [place] ing tablet 00 every 8 Medica l (eight) Branch hours as needed for Nausea and Vomiting (N/V). ondansetron 2022-0 Yes [id number] 4mg Take 1 Univers 4 mg 4-11 tablet by ity of disintegrat 00:00: mouth [place] ing tablet 00 every 8 Medica l (eight) Branch hours as needed for Nausea and Vomiting (N/V). ondansetron 2022-0 Yes [id number] 4mg Take 1 Univers 4 mg 4-11 tablet by ity of disintegrat 00:00: mouth [place] ing tablet 00 every 8 Medica l (eight) Branch hours as needed for Nausea and Vomiting (N/V). ondansetron 2022-0 Yes [id number] 4mg Take 1 Univers 4 mg 4-11 tablet by ity of disintegrat 00:00: mouth [place] ing tablet 00 every 8 Medica l (eight) Branch hours as needed for Nausea and Vomiting (N/V). ondansetron Yes [id number] 4mg Take 1 Univers 4 mg 4-11 tablet by ity of disintegrat 00:00: mouth [place] ing tablet 00 every 8 Medica l (eight) Branch hours as needed for Nausea and Vomiting (N/V). ondansetron Yes [id number] 4mg Take 1 Univers 4 mg 4-11 tablet by ity of disintegrat 00:00: mouth [place] ing tablet 00 every 8 Medica l (eight) Branch hours as needed for Nausea and Vomiting (N/V). medroxyPROG Yes 150mg 150 mg, Un aj ESTERone 3-16 Intramuscu ity o f (DEPO-PROVE 15:30: lar, Tony LI) 00 [id number], Medical injection First dose Bran ch 150 mg on Milagro 10/31/22 at 1030, Until Discontinu ed, Routine Yes [id number] 1{tbl} Take 1 Univers vitamin 3-16 102 tablet by ity of w/FA tablet 00:00: mouth in [place] 00 the Medical morning. Branch docusate Yes [id number] 200mg Take 2 Univers 100 mg 3-16 102 capsules ity of capsule 00:00: by mouth [place] 00 once daily Medical as needed Branch for Constipati on. ferrous Yes [id number] 325mg Take 1 Univers sulfate 325 3-16 102 tablet by ity of mg (65 mg 00:00: [place] iron[place] 00 the Medical tablet morning Branch and 1 tablet in the evening. Yes [id number] 1{tbl} Take 1 Univers vitamin 3-16 102 tablet by ity of w/FA tablet 00:00: mouth [place] 00 the Medical morning. Branch docusate Yes [id number] 200mg Take 2 Univers 100 mg 3-16 102 capsules ity of capsule 00:00: by mouth [place] 00 once daily Medical as needed Branch for Constipati on. ferrous Yes [id number] 325mg Take 1 Univers sulfate 325 3-16 102 tablet by ity of mg (65 mg 00:00: [place] iron[place] 00 the Medical tablet morning Branch and 1 tablet in the evening. Yes [id number] 1{tbl} Take 1 Univers vitamin 3-16 102 tablet by ity of w/FA tablet 00:00: mouth in [place] 00 the Medical morning. Branch docusate Yes [id number] 200mg Take 2 Univers 100 mg 3-16 102 capsules ity of capsule 00:00: by mouth [place] 00 once daily Medical as needed Branch for Constipati on. ferrous 2022-0 Yes [id number] 325mg Take 1 Univers sulfate 325 3-16 102 tablet by ity of mg (65 mg 00:00: [place] iron[place] 00 the Medical tablet morning Branch and 1 tablet in the evening. Yes [id number] 1{tbl} Take 1 Univers vitamin 3-16 102 tablet by ity of w/FA tablet 00:00: mouth in [place] 00 the Medical morning. Branch docusate Yes [id number] 200mg Take 2 Univers 100 mg 3-16 102 capsules ity of capsule 00:00: by mouth [place] 00 once daily Medical as needed Branch for Constipati on. ferrous 2022- Yes [id number] 325mg Take 1 Univers sulfate 325 3-16 102 tablet by ity of mg (65 mg 00:00: [place] iron[place] 00 the Medical tablet morning Branch and 1 tablet in the evening. Yes [id number] 1{tbl} Take 1 Univers vitamin 3-16 102 tablet by ity of w/FA tablet 00:00: mouth in [place] 00 the Medical morning. Branch docusate Yes [id number] 200mg Take 2 Univers 100 mg 3-16 102 capsules ity of capsule 00:00: by mouth [place] 00 once daily Medical as needed Branch for Constipati on. ferrous 2022-0 Yes [id number] 325mg Take 1 Univers sulfate 325 3-16 102 tablet by ity of mg (65 mg 00:00: [place] iron[place] 00 the Medical tablet morning Branch and 1 tablet in the evening. 2022-0 Yes [id number] 1{tbl} Take 1 Univers vitamin 3-16 102 tablet by ity of w/FA tablet 00:00: mouth in [place] 00 the Medical morning. Branch docusate Yes [id number] 200mg Take 2 Univers 100 mg 3-16 102 capsules ity of capsule 00:00: by mouth [place] 00 once daily Medical as needed Branch for Constipati on. ferrous 0 Yes [id number] 325mg Take 1 Univers sulfate 325 3-16 102 tablet by ity of mg (65 mg 00:00: [place] iron[place] 00 the Medical tablet morning Branch and 1 tablet in the evening. Yes [id number] 1{tbl} Take 1 Univers vitamin 3-16 102 tablet by ity of w/FA tablet 00:00: mouth in [place] 00 the Medical morning. Branch docusate Yes [id number] 200mg Take 2 Univers 100 mg 3-16 102 capsules ity of capsule 00:00: by mouth 00 once daily Medical as needed Branch for Constipati on. ferrous Yes [id number] 325mg Take 1 Univers sulfate 325 3-16 [...] Discontinu ed, Routine, Pain (scale 7-10) ibuprofen 0 Yes 600mg 600 mg, Univ ers (IBU) 3-15 Oral, ity of tablet 600 13:05: Q6HPRN, [place] mg 06 Starting Medical on Fri Branch 10/30/22 at 0805, Until Discontinu ed, Routine, Pain (scale 4-6) acetaminoph 0 Yes 650mg 650 mg, Un aj en 3-15 Oral, ity of (TYLENOL) 13:05: Q6HPRN, [place] tablet 650 06 Starting Medic al mg on Fri Branch 10/30/22 at 0805, Until Discontinu ed, Routine, Pain (scale 1-3) diphenhydrA 0 Yes 25mg 25 mg, Univ ers MINE 3-15 Oral, ity of (BENADRYL) 13:05: Q6HPRN, [place] tablet 25 06 Starting Medica l mg on Fri Branch 10/30/22 at 0805, Until Discontinu ed, Routine, Sleep, Itching ondansetron 2022-0 Yes 4mg 4 mg, Slow Univers (ZOFRAN 3-15 IV Push, ity of (PF)) 13:05: Q8HPRN, [place] injection 4 06 Starting Medi alyssa mg on Fri Branch 10/30/22 at 0805, Until Discontinu ed, Routine, Nausea and Vomiting (N/V) simethicone 2022-0 Yes 160mg 160 mg, Un aj (GAS RELIEF 3-15 Oral, ity of (SIMETHICON 13:05: PC+HSPRN, [place] E)) 06 Starting Medical chewable on Fri Branch tablet 160 10/30/22 at mg 0805, Until Discontinu ed, Routine, Gas docusate 2022-0 Yes 200mg 200 mg, Unive rs (COLACE) 3-15 Oral, ity of capsule 200 13:05: QDAILYPRN, [place] mg 06 Starting Medical on Fri Branch 10/30/22 at 0805, Until Discontinu ed, Routine, Constipati on magnesium 2022-0 Yes 30mL 30 mL, Univer s hydroxide 3-15 Oral, ity of (MILK OF 13:05: QDAILYPRN, [place] as MAGNESIA) 06 Starting Medica l 400 mg/5 mL on Fri Branch suspension 10/30/22 at 30 mL 0805, Until Discontinu ed, Routine, Constipati on benzocaine- 2022-0 Yes Topical, Un aj menthol 3-15 PRN, ity of (DERMOPLAST 13:05: Starting [place] ) 20-0.5 % 06 on Fri Medical topical 10/30/22 at Branch spray 0805, Until Discontinu ed, Routine, Perineum discomfort fentaNYL-ro 2022-0 2022- No Epidural, Univers pivacaine 2 10-30-15 ONCE INTRA i ty of mcg/mL-0.1 07:58: 14:27 PROCEDURE, [place] % (PF) in 00 :11 Starting Medica l NS 200 mL on Fri Branch epidural 10/30/22 at infusion 0258, RTU Until Fri10/30/22 at 0927, Routine, Intra-op lidocaine-e 2022- No Intraderma Univers pinephrine 10-30 l, ONCE ity o f (XYLOCAINE 07:50: 14:27 INTRA [place] W/EPINEPHRI 00 :11 PROCEDURE, Me dical NE) 1.5 Starting Branch %-1:200,000 on Wed injection 10/30/22 at 0250, Until Fri10/30/22 at 0927, Routine, Intra-op oxytocin 2022- No 2mU/min at 2-40 Un aj (PITOCIN) 10-30 mL/hr, IV ity of 30 units in 01:11: 13:06 Infusion, [place] NS 500 mL 09 :44 TITRATE, Medica l IV infusion Starting Bran ch on Fri10/29/22 at 2010, Until Fri10/30/22 at 0806, Routine misoprostol 2022- No 50ug 50 mcg, Un aj (CYTOTEC) 10-30 Oral, ity of quarter-tab 00:30: 00:27 ONCE, 1 [place] let 50 mcg 00 :00 dose, On Medic al Fri Branch 10/29/22 at 1930, Routine butorphanol 2022- No 2mg 2 mg, IV U nivers (STADOL) 10-30 Push, ity of injection 2 00:17: 13:06 Q3HPRN, 3 [place] mg 38 :44 doses, Medical Starting Branch on Fri10/29/22 at 191, Until Fri10/30/22 at 0806, Routine, Pain ondansetron 2022- No 4mg 4 mg, Slow Univers (ZOFRAN 10-30 IV Push, ity of (PF)) 00:17: 13:06 Q6HPRN, [place] injection 4 30 :44 Starting Medi alyssa mg on Fri Branch 10/29/22 at 191, Until Fri10/30/22 at 0806, Routine, Nausea and Vomiting (N/V) lidocaine 2022- No 50mL 50 mL, Unive rs 1% [...] 500mL at 999 Unive rs ringers IV 3-15 03-15 mL/hr, 500 it y of infusion 00:11: 13:06 mL, IV [place] 500 mL 09 :44 Infusion, Medical PRN - SEE Branch INSTRUCTIO NS, Starting on Fri10/29/22 at 1910, Until Fri10/30/22 at 0806, Routine D5W-LR IV 2022- No 1000mL at 1-125 U nivers infusion 10-30 03-15 mL/hr, IV ity o f 1,000 mL 00:11: 13:06 Infusion, [place] as 09 :44 TITRATE, Medical Starting Branch on Fri10/29/22 at 1910, Until Fri10/30/22 at 0806, Routine proMETHazin Yes TAKE 1 Univ ers e [...] Branch NEEDED FOR NAUSEA AND VOMITING Yes [id number] 1{tbl} Take 1 U nivers vitamin 7-28 tablet by ity of w/FA tablet 00:00: mouth in [place] 00 the Medical morning. Branch Yes [id number] 1{tbl} Take 1 U nivers vitamin 7-28 tablet by ity of w/FA tablet 00:00: mouth in [place] 00 the Medical morning. Branch 0 Yes [id number] 1{tbl} Take 1 U nivers vitamin 7-28 tablet by ity of w/FA tablet 00:00: mouth in [place] 00 the Medical morning. Branch 0 Yes [id number] 1{tbl} Take 1 U nivers vitamin 7-28 tablet by ity of w/FA tablet 00:00: mouth in [place] 00 the Medical morning. Branch 0 Yes [id number] 1{tbl} Take 1 U nivers vitamin 7-28 tablet by ity of w/FA tablet 00:00: mouth in [place] 00 the Medical morning. [facility] Yes [id number] 1{tbl} Take 1 U nivers vitamin 7-28 tablet by ity of w/FA tablet 00:00: mouth in [place] 00 the Medical morning. [facility] Yes [id number] 1{tbl} Take 1 U nivers vitamin 7-28 tablet by ity of w/FA tablet 00:00: mouth in [place] 00 the Medical morning. [facility] Yes [id number] 1{tbl} Take 1 U nivers vitamin 7-28 tablet by ity of w/FA tablet 00:00: mouth in [place] 00 the Medical morning. [facility] Yes [id number] 1{tbl} Take 1 U nivers vitamin 7-28 tablet by ity of w/FA tablet 00:00: mouth in [place] 00 the Medical morning. [facility] Yes [id number] 1{tbl} Take 1 U nivers vitamin 7-28 tablet by ity of w/FA tablet 00:00: mouth in [place] 00 the Medical morning. [facility] Yes [id number] 1{tbl} Take 1 U nivers vitamin 7-28 tablet by ity of w/FA tablet 00:00: mouth in [place] 00 the Medical morning. [facility] Yes [id number] 1{tbl} Take 1 U nivers vitamin 7-28 tablet by ity of w/FA tablet 00:00: mouth in [place] 00 the Medical morning. [facility] Yes [id number] 1{tbl} Take 1 U nivers vitamin 7-28 tablet by ity of w/FA tablet 00:00: mouth in [place] 00 the Medical morning. [facility] Yes [id number] 1{tbl} Take 1 U nivers vitamin 7-28 tablet by ity of w/FA tablet 00:00: mouth in [place] 00 the Medical morning. [facility] Yes [id number] 1{tbl} Take 1 U nivers vitamin 7-28 tablet by ity of w/FA tablet 00:00: mouth in [place] 00 the Medical morning. [facility] Yes [id number] 1{tbl} Take 1 U nivers vitamin 7-28 tablet by ity of w/FA tablet 00:00: mouth in [place] 00 the Medical morning. [facility] Yes [id number] 1{tbl} Take 1 U nivers vitamin 7-28 tablet by ity of w/FA tablet 00:00: mouth in [place] 00 the Medical morning. [facility] Yes [id number] 1{tbl} Take 1 U nivers vitamin 7-28 tablet by ity of w/FA tablet 00:00: mouth in [place] 00 the Medical morning. [facility] Yes [id number] 1{tbl} Take 1 U nivers vitamin 7-28 tablet by ity of w/FA tablet 00:00: mouth in [place] 00 the Medical morning. [facility] Yes [id number] 1{tbl} Take 1 U nivers vitamin 7-28 tablet by ity of w/FA tablet 00:00: mouth in [place] 00 the Medical morning. [facility] Yes [id number] 1{tbl} Take 1 U nivers vitamin 7-28 tablet by ity of w/FA tablet 00:00: mouth in [place] 00 the Medical morning. [facility] Yes [id number] 1{tbl} Take 1 U nivers vitamin 7-28 tablet by ity of w/FA tablet 00:00: mouth in [place] 00 the Medical morning. [facility] Yes [id number] 1{tbl} Take 1 U nivers vitamin 7-28 tablet by ity of w/FA tablet 00:00: mouth in [place] 00 the Medical morning. [facility] Yes [id number] 1{tbl} Take 1 U nivers vitamin 7-28 tablet by ity of w/FA tablet 00:00: mouth in [place] 00 the Medical morning. [facility] Yes [id number] 1{tbl} Take 1 U nivers vitamin 7-28 tablet by ity of w/FA tablet 00:00: mouth in [place] 00 the Medical morning. [facility] Yes [id number] 1{tbl} Take 1 U nivers vitamin 7-28 tablet by ity of w/FA tablet 00:00: mouth in [place] 00 the Medical morning. [facility] Yes [id number] 1{tbl} Take 1 U nivers vitamin 7-28 tablet by ity of w/FA tablet 00:00: mouth in [place] 00 the Medical morning. [facility] Yes [id number] 1{tbl} Take 1 U nivers vitamin 7-28 tablet by ity of w/FA tablet 00:00: mouth in [place] 00 the Medical morning. [facility] Yes [id number] 1{tbl} Take 1 U nivers vitamin 7-28 tablet by ity of w/FA tablet 00:00: mouth in [place] 00 the Medical morning. [facility] Yes [id number] 1{tbl} Take 1 U nivers vitamin 7-28 tablet by ity of w/FA tablet 00:00: mouth in [place] 00 the Medical morning. [facility] Yes [id number] 1{tbl} Take 1 U nivers vitamin 7-28 tablet by ity of w/FA tablet 00:00: mouth in [place] 00 the Medical morning. [facility] Yes [id number] 1{tbl} Take 1 U nivers vitamin 7-28 tablet by ity of w/FA tablet 00:00: mouth in [place] 00 the Medical morning. [facility] Yes [id number] 1{tbl} Take 1 U nivers vitamin 7-28 tablet by ity of w/FA tablet 00:00: mouth [place] 00 the Medical morning. [facility] Yes [id number] 1{tbl} Take 1 U nivers vitamin 7-28 tablet by ity of w/FA tablet 00:00: mouth in [place] 00 the Medical morning. [facility] Yes [id number] 1{tbl} Take 1 U nivers vitamin 7-28 tablet by ity of w/FA tablet 00:00: mouth in [place] 00 the Medical morning. [facility] Yes [id number] 1{tbl} Take 1 U nivers vitamin 7-28 tablet by ity of w/FA tablet 00:00: mouth in [place] 00 the Medical morning. [facility] Yes [id number] 1{tbl} Take 1 U nivers vitamin 7-28 tablet by ity of w/FA tablet 00:00: mouth in [place] 00 the Medical morning. Branch Yes [id number] 1{tbl} Take 1 U nivers vitamin 7-28 tablet by ity of w/FA tablet 00:00: mouth in [place] 00 the Medical morning. Branch Yes [id number] 1{tbl} Take 1 U nivers vitamin 7-28 tablet by ity of w/FA tablet 00:00: mouth in [place] 00 the Medical morning. Branch Yes [id number] 1{tbl} Take 1 U nivers vitamin 7-28 tablet by ity of w/FA tablet 00:00: mouth in [place] 00 the Medical morning. Branch Yes [id number] 1{tbl} Take 1 U nivers vitamin 7-28 tablet by ity of w/FA tablet 00:00: mouth in [place] 00 the Medical morning. Branch Yes [id number] 1{tbl} Take 1 U nivers vitamin 7-28 tablet by ity of w/FA tablet 00:00: mouth in [place] 00 the Medical morning. Branch albuterol Yes [id number] 2{puff} Inhale 2 Univers 90 3-12 Puffs ity of mcg/actuati 00:00: every 4 [place] on inhaler 00 (four) Medical hours as Branch needed for Wheezing or Shortness of Breath. albuterol Yes [id number] 2{puff} Inhale 2 Univers 90 3-12 Puffs ity of mcg/actuati 00:00: every 4 [place] on inhaler 00 (four) Medical hours as Branch needed for Wheezing or Shortness of Breath. albuterol Yes [id number] 2{puff} Inhale 2 Univers 90 3-12 Puffs ity of mcg/actuati 00:00: every 4 [place] on inhaler 00 (four) Medical hours as Branch needed for Wheezing or Shortness of Breath. albuterol Yes [id number] 2{puff} Inhale 2 Univers 90 3-12 Puffs ity of mcg/actuati 00:00: every 4 [place] on inhaler 00 (four) Medical hours as Branch needed for Wheezing or Shortness of Breath. albuterol Yes [id number] 2{puff} Inhale 2 Univers 90 3-12 Puffs ity of mcg/actuati 00:00: every 4 [place] on inhaler 00 (four) Medical hours as Branch needed for Wheezing or Shortness of Breath. albuterol Yes [id number] 2{puff} Inhale 2 Univers 90 3-12 Puffs ity of mcg/actuati 00:00: every 4 [place] on inhaler 00 (four) Medical hours as Branch needed for Wheezing or Shortness of Breath. albuterol Yes [id number] 2{puff} Inhale 2 Univers 90 3-12 Puffs ity of mcg/actuati 00:00: every 4 [place] on inhaler 00 (four) Medical hours as Branch needed for Wheezing or Shortness of Breath. albuterol Yes [id number] 2{puff} Inhale 2 Univers 90 3-12 Puffs ity of mcg/actuati 00:00: every 4 [place] on inhaler 00 (four) Medical hours as Branch needed for Wheezing or Shortness of Breath. albuterol Yes [id number] 2{puff} Inhale 2 Univers 90 3-12 Puffs ity of mcg/actuati 00:00: every 4 [place] on inhaler 00 (four) Medical hours as Branch needed for Wheezing or Shortness of Breath. albuterol Yes [id number] 2{puff} Inhale 2 Univers 90 3-12 Puffs ity of mcg/actuati 00:00: every 4 [place] on inhaler 00 (four) Medical hours as Branch needed for Wheezing or Shortness of Breath. albuterol Yes [id number] 2{puff} Inhale 2 Univers 90 3-12 Puffs ity of mcg/actuati 00:00: every 4 [place] on inhaler 00 (four) Medical hours as Branch needed for Wheezing or Shortness of Breath. albuterol Yes [id number] 2{puff} Inhale 2 Univers 90 3-12 Puffs ity of mcg/actuati 00:00: every 4 [place] on inhaler 00 (four) Medical hours as Branch needed for Wheezing or Shortness of Breath. albuterol Yes [id number] 2{puff} Inhale 2 Univers 90 3-12 Puffs ity of mcg/actuati 00:00: every 4 [place] on inhaler 00 (four) Medical hours as Branch needed for Wheezing or Shortness of Breath. albuterol Yes [id number] 2{puff} Inhale 2 Univers 90 3-12 Puffs ity of mcg/actuati 00:00: every 4 [place] on inhaler 00 (four) Medical hours as Branch needed for Wheezing or Shortness of Breath. albuterol Yes [id number] 2{puff} Inhale 2 Univers 90 3-12 Puffs ity of mcg/actuati 00:00: every 4 [place] on inhaler 00 (four) Medical hours as Branch needed for Wheezing or Shortness of Breath. albuterol Yes [id number] 2{puff} Inhale 2 Univers 90 3-12 Puffs ity of mcg/actuati 00:00: every 4 [place] on inhaler 00 (four) Medical hours as Branch needed for Wheezing or Shortness of Breath. albuterol Yes [id number] 2{puff} Inhale 2 [facility] 90 3-12 Puffs ity of mcg/actuati 00:00: every 4 [place] as on inhaler 00 (four) Medical hours as Branch needed for Wheezing or Shortness of Breath. albuterol Yes [id number] 2{puff} Inhale 2 [facility] 90 3-12 Puffs ity of mcg/actuati 00:00: every 4 [place] as on inhaler 00 (four) Medical hours as Branch needed for Wheezing or Shortness of Breath. albuterol Yes [id number] 2{puff} Inhale 2 [facility] 90 3-12 Puffs ity of mcg/actuati 00:00: every 4 [place] [facility] on inhaler 00 (four) Medical hours as Branch needed for Wheezing or Shortness of Breath. albuterol Yes [id number] 2{puff} Inhale 2 [facility] 90 3-12 Puffs ity of mcg/actuati 00:00: every 4 [place] [facility] on inhaler 00 (four) Medical hours as Branch needed for Wheezing or Shortness of Breath. albuterol Yes [id number] 2{puff} Inhale 2 [facility] 90 3-12 Puffs ity of mcg/actuati 00:00: every 4 [place] [facility] on inhaler 00 (four) Medical hours as Branch needed for Wheezing or Shortness of Breath. albuterol Yes [id number] 2{puff} Inhale 2 [facility] 90 3-12 Puffs ity of mcg/actuati 00:00: every 4 [place] [facility] on inhaler 00 (four) Medical hours as Branch needed for Wheezing or Shortness of Breath. albuterol Yes [id number] 2{puff} Inhale 2 [facility] 90 3-12 Puffs ity of mcg/actuati 00:00: every 4 [place] [facility] on inhaler 00 (four) Medical hours as Branch needed for Wheezing or Shortness of Breath. albuterol Yes [id number] 2{puff} Inhale 2 [facility] 90 3-12 Puffs ity of mcg/actuati 00:00: every 4 [place] [facility] on inhaler 00 (four) Medical hours as Branch needed for Wheezing or Shortness of Breath. albuterol Yes [id number] 2{puff} Inhale 2 [facility] 90 3-12 Puffs ity of mcg/actuati 00:00: every 4 [facility] [facility] on inhaler 00 (four) Medical hours as Branch needed for Wheezing or Shortness of Breath. albuterol Yes [id number] 2{puff} Inhale 2 [facility] 90 3-12 Puffs ity of mcg/actuati 00:00: every 4 [facility] [facility] on inhaler 00 (four) Medical hours as Branch needed for Wheezing or Shortness of Breath. albuterol Yes [id number] 2{puff} Inhale 2 [facility] 90 3-12 Puffs ity of mcg/actuati 00:00: every 4 [facility] [facility] on inhaler 00 (four) Medical hours as Branch needed for Wheezing or Shortness of Breath. albuterol Yes [id number] 2{puff} Inhale 2 [facility] 90 3-12 Puffs ity of mcg/actuati 00:00: every 4 [facility] [facility] on inhaler 00 (four) Medical hours as Branch needed for Wheezing or Shortness of Breath. albuterol Yes [id number] 2{puff} Inhale 2 [facility] 90 3-12 Puffs ity of mcg/actuati 00:00: every 4 [facility] on inhaler 00 (four) Medical hours as Branch needed for Wheezing or Shortness of Breath. albuterol Yes [id number] 2{puff} Inhale 2 [facility] 90 3-12 Puffs ity of mcg/actuati 00:00: every 4 [facility] on inhaler 00 (four) Medical hours as Branch needed for Wheezing or Shortness of Breath. albuterol Yes [id number] 2{puff} Inhale 2 [facility] 90 3-12 Puffs ity of mcg/actuati 00:00: every 4 [facility] [facility] on inhaler 00 (four) Medical hours as Branch needed for Wheezing or Shortness of Breath. albuterol Yes [id number] 2{puff} Inhale 2 [facility] 90 3-12 Puffs ity of mcg/actuati 00:00: every 4 [facility] [facility] on inhaler 00 (four) Medical hours as Branch needed for Wheezing or Shortness of Breath. albuterol Yes [id number] 2{puff} Inhale 2 [facility] 90 3-12 Puffs ity of mcg/actuati 00:00: every 4 [facility] on inhaler 00 (four) Medical hours as Branch needed for Wheezing or Shortness of Breath. albuterol Yes [id number] 2{puff} Inhale 2 [facility] 90 3-12 Puffs ity of mcg/actuati 00:00: every 4 [facility] [facility] on inhaler 00 (four) Medical hours as Branch needed for Wheezing or Shortness of Breath. albuterol Yes [id number] 2{puff} Inhale 2 [facility] 90 3-12 Puffs ity of mcg/actuati 00:00: every 4 [facility] [facility] on inhaler 00 (four) Medical hours as Branch needed for Wheezing or Shortness of Breath. albuterol Yes [id number] 2{puff} Inhale 2 [facility] 90 3-12 Puffs ity of mcg/actuati 00:00: every 4 [facility] [facility] on inhaler 00 (four) Medical hours as Branch needed for Wheezing or Shortness of Breath. albuterol Yes [id number] 2{puff} Inhale 2 [facility] 90 3-12 Puffs ity of mcg/actuati 00:00: every 4 [facility] [facility] on inhaler 00 (four) Medical hours as Branch needed for Wheezing or Shortness of Breath. albuterol Yes [id number] 2{puff} Inhale 2 [facility] 90 3-12 Puffs ity of mcg/actuati 00:00: every 4 [facility] [facility] on inhaler 00 (four) Medical hours as Branch needed for Wheezing or Shortness of Breath. albuterol Yes [id number] 2{puff} Inhale 2 [facility] 90 3-12 Puffs ity of mcg/actuati 00:00: every 4 [place] [facility] on inhaler 00 (four) Medical hours as Branch needed for Wheezing or Shortness of Breath. albuterol Yes [id number] 2{puff} Inhale 2 [facility] 90 3-12 Puffs ity of mcg/actuati 00:00: every 4 [facility] [facility] on inhaler 00 (four) Medical hours as Branch needed for Wheezing or Shortness of Breath. albuterol Yes [id number] 2{puff} Inhale 2 [facility] 90 3-12 Puffs ity of mcg/actuati 00:00: every 4 [place] [facility] on inhaler 00 (four) Medical hours as Branch needed for Wheezing or Shortness of Breath. albuterol Yes [id number] 2{puff} Inhale 2 [facility] 90 3-12 Puffs ity of mcg/actuati 00:00: every 4 [place] as on inhaler 00 (four) Medical hours as Branch needed for Wheezing or Shortness of Breath. Immunizations Ordered Immunization Filled Date Status Comments Sour ce Name Immunization Name TDAP 2022-08-08 Completed [facility] 00:[facility]:[address] [facility] TDAP 2022-08-08 Completed [facility] 00:00:[address] [facility] TDAP 2022-08-08 Completed [facility] 00:00:[address] [facility] TDAP 2022-08-08 Completed [facility] 00:00:[address] [facility] TDAP 2022-08-08 Completed [facility] 00[facility]00:[address] [facility] TDAP 2022-08-08 Completed [facility] 00[facility]00:[address] [facility] TDAP 2022-08-08 Completed [facility] 00[facility]00:[address] [facility] TDAP 2022-08-08 Completed [facility] 00[facility]00:[address] [facility] TDAP 2022-08-08 Completed [facility] 00[facility]00:[address] [facility] TDAP 2022-08-08 Completed [facility] 00[facility]00:[address] [facility] TDAP 2022-08-08 Completed [facility] 00[facility]00:[address] [facility] TDAP 2022-08-08 Completed [facility] 00[facility]00:[address] [facility] TDAP 2022-08-08 Completed [facility] 00:00:[address] [facility] TDAP 2022-08-08 Completed [facility] 00[facility]00:[address] [facility] TDAP 2022-08-08 Completed [facility] 00:00:[address] [facility] TDAP 2022-08-08 Completed [facility] 00[facility]00:[address] [facility] TDAP 2022-08-08 Completed [facility] 00[facility]00:[address] [facility] TDAP 2022-08-08 Completed [facility] 00[facility]00:[address] [facility] TDAP 2022-08-08 Completed [facility] 00:00:[address] [facility] TDAP 2022-08-08 Completed [facility] 00[facility]00:[address] [facility] TDAP 2022-08-08 Completed [facility] 00:00:[address] [facility] TDAP 2022-08-08 Completed [facility] 00[facility]00:[address] [facility] TDAP 2022-08-08 Completed [facility] 00:00:[address] [facility] TDAP 2022-08-08 Completed [facility] 00[facility]00:[address] [facility] TDAP 2022-08-08 Completed [facility] 00[facility]00:[address] [facility] TDAP 2022-08-08 Completed [facility] 00:00:[address] [facility] TDAP 2022-08-08 Completed [facility] 00[facility]00:[address] [facility] TDAP 2022-08-08 Completed [facility] 00:00:[address] [facility] TDAP 2022-08-08 Completed [facility] 00:00:[address] [facility] Influenza Virus 2022-06-11 Completed [facility]it y of Vaccine Quad IM, 00:00:00 [place] [facility] Preserv and ABX Free Bran [...] ABX Free Bran ch 6 MO-64 YRS HPV9 2022-02-14 Completed [facility] 00:00:[address] [facility] HPV9 2022-02-14 Completed [facility] 00:00:[address] [facility] HPV9 2022-02-14 Completed [facility] 00:00:[address] [facility] HPV9 2022-02-14 Completed [facility] 00[facility]00:[address] [facility] HPV9 2022-02-14 Completed [facility] 00:00:[address] [facility] HPV9 2022-02-14 Completed [facility] 00:00:[address] [facility] HPV9 2022-02-14 Completed [facility] 00:00:[address] [facility] HPV9 2022-02-14 Completed [facility] 00[facility]00:[address] [facility] HPV9 2022-02-14 Completed [facility] 00:00:[address] [facility] HPV9 2022-02-14 Completed [facility] 00:00:00 [facility] HPV9 2022-02-14 Completed [facility] 00:00:00 [facility] HPV9 2022-02-14 Completed [facility] 00:00:00 [facility] HPV9 2022-02-14 Completed [facility] 00:00:00 [facility] HPV9 2022-02-14 Completed [facility] 00:00:00 [facility] HPV9 2022-02-14 Completed [facility] 00:00:00 [facility] HPV9 2022-02-14 Completed [facility] 00:00:00 [facility] HPV9 2022-02-14 Completed [facility] 00:00:00 [facility] HPV9 2022-02-14 Completed [facility] 00:00:00 [facility] HPV9 2022-02-14 Completed [facility] 00:00:00 [facility] HPV9 2022-02-14 Completed [facility] 00:00:00 [facility] HPV9 2022-02-14 Completed [facility] 00:00:00 [facility] HPV9 2022-02-14 Completed [facility] 00:00:00 [facility] HPV9 2022-02-14 Completed [facility] 00:00:00 [facility] HPV9 2022-02-14 Completed [facility] 00:00:00 [facility] HPV9 2022-02-14 Completed [facility] 00:00:00 [facility] HPV9 2022-02-14 Completed [facility] 00:00:00 [facility] HPV9 2022-02-14 Completed [facility] 00:00:00 [facility] HPV9 2022-02-14 Completed [facility] 00:00:00 [facility] HPV9 2022-02-14 Completed [facility] 00:00:00 [facility] HPV9 2022-02-14 Completed [facility] 00:00:00 [facility] HPV9 2022-02-14 Completed [facility] 00:00:00 [facility] HPV9 2022-02-14 Completed [facility] 00:00:00 [facility] HPV9 2022-02-14 Completed [facility] 00:00:00 [facility] HPV9 2022-02-14 Completed [facility] 00:00:00 [facility] HPV9 2022-02-14 Completed [facility] 00:00:[address] [facility] HPV9 2022-02-14 Completed [facility] 00:00:00 [facility] HPV9 2022-02-14 Completed [facility] 00:00:00 [facility] HPV9 2022-02-14 Completed [facility] 00:00:00 [facility] HPV9 2022-02-14 Completed [facility] 00:00:[address] [facility] HPV9 2022-02-14 Completed [facility] 00:00:[address] [facility] Influenza Virus 2020-04-29 Completed [facility] y of Vaccine Quad .5 mL 00:00:00 [facility] 6[facility] Influenza Virus 2020-04-29 Completed [facility] of Vacc[facility] .5 mL 00:00:00 [facility] 6+ MO [facility] Influenza Virus 2020-04-29 Completed [facility] y of Vaccine [facility] .5 mL 00:00:00 [facility] 6+ MO [facility] Influenza Virus 2020-04-29 Completed [facility] y of [facility] .5 mL 00:00:00 [facility] 6+ MO [facility] Influenza Virus 2020-04-29 Completed [facility] of Vacc[facility] .5 mL 00:00:00 [facility] 6+ MO [facility] Influenza Virus 2020-04-29 Completed [facility] y of Vaccine Quad .5 mL 00:00:00 [facility] 6+ MO [facility] Influenza Virus 2020-04-29 Completed [facility] y of Vaccine Quad .5 mL 00:00:00 [facility] 6+ MO [facility] Influenza Virus 2020-04-29 Completed [facility] of Vaccine [facility] .5 mL 00:00:00 [facility] 6+ MO [facility] Influenza Virus 2020-04-29 Completed [facility] y [facility] Vacc[facility] .5 mL 00:00:00 [facility] 6[facility] Influenza Virus 2020-04-29 Completed [facility] y of Vaccine Quad .5 mL 00:00:00 [facility] 6+ MO [facility] Influenza Virus 2020-04-29 Completed [facility] of Vaccine Quad .5 mL 00:00:00 [facility] 6+ MO [facility] Influenza Virus 2020-04-29 Completed [facility] of Vaccine Quad .5 mL 00:00:00 [facility] 6+ MO [facility] Influenza Virus 2020-04-29 Completed [facility] of Vaccine Quad .5 mL 00:00:00 [facility] 6[facility] MO [facility] Influenza Virus 2020-04-29 Completed [facility] y of Vaccine Quad .5 mL 00:00:00 [facility] 6+ MO [facility] Influenza Virus 2020-04-29 Completed [facility] y of Vaccine Quad .5 mL 00:00:00 [facility] 6[facility] MO [facility] Influenza Virus 2020-04-29 Completed [facility] y of Vaccine Quad .5 mL 00:00:00 [facility] 6[facility] Influenza Virus 2020-04-29 Completed [facility] of Vaccine Quad .5 mL 00:00:00 [facility] 6[facility] Influenza Virus 2020-04-29 Completed [facility] Vaccine Quad .5 mL 00:00:00 [facility] 6[facility] MO [facility] Influenza Virus 2020-04-29 Completed [facility] Vaccine Quad .5 mL 00:00:00 [facility] 6[facility] Influenza Virus 2020-04-29 Completed [facility] of Vaccine Quad .5 mL 00:00:00 [facility] 6[facility] Influenza Virus 2020-04-29 Completed [facility] y of Vaccine Quad .5 mL 00:00:00 [facility] 6[facility] Influenza Virus 2020-04-29 Completed [facility] y of Vaccine Quad .5 mL 00:00:00 [facility] 6[facility] Influenza Virus 2020-04-29 Completed [facility] y of Vaccine Quad .5 mL 00:00:00 [facility] 6[facility] MO [facility] Influenza Virus 2020-04-29 Completed [facility] of Vaccine Quad .5 mL 00:00:00 [facility] 6[facility] MO [facility] Influenza Virus 2020-04-29 Completed [facility] of Vaccine Quad .5 mL 00:00:00 [facility] 6+ MO [facility] Influenza Virus 2020-04-29 Completed [facility] y of Vaccine Quad .5 mL 00:00:00 [facility] 6+ MO [facility] Influenza Virus 2020-04-29 Completed [facility] of Vaccine Quad .5 mL 00:00:00 [facility] 6+ MO [facility] Influenza Virus 2020-04-29 Completed [facility] y of Vaccine Quad .5 mL 00:00:00 [facility] 6[facility] MO [facility] Influenza Virus 2020-04-29 Completed [facility] y of Vaccine Quad .5 mL 00:00:00 [facility] 6[facility] MO [facility] Influenza Virus 2020-04-29 Completed [facility] y of Vaccine Quad .5 mL 00:00:00 [facility] 6[facility] Influenza Virus 2020-04-29 Completed [facility] of Vaccine Quad .5 mL 00:00:00 [facility] 6[facility] MO [facility] Influenza Virus 2020-04-29 Completed [facility] of Vaccine Quad .5 mL 00:00:00 [facility] 6[facility] MO [facility] Influenza Virus 2020-04-29 Completed [facility] of Vaccine Quad .5 mL 00:00:00 [facility] 6[facility] MO [facility] Influenza Virus 2020-04-29 Completed [facility] of Vaccine Quad .5 mL 00:00:00 [facility] 6[facility] MO [facility] Influenza Virus 2020-04-29 Completed [facility] of Vaccine Quad .5 mL 00:00:00 [facility] 6[facility] Influenza Virus 2020-04-29 Completed [facility] of Vaccine Quad .5 mL 00:00:00 [facility] 6[facility] MO [facility] Influenza Virus 2020-04-29 Completed [facility] y of Vaccine Quad .5 mL 00:00:00 [facility] 6[facility] MO [facility] Influenza Virus 2020-04-29 Completed [facility] y of Vaccine Quad .5 mL 00:00:00 [facility] 6[facility] MO [facility] Influenza Virus 2020-04-29 Completed [facility] y of Vaccine Quad .5 mL 00:00:00 [facility] 6[facility] MO [facility] Influenza Virus 2020-04-29 Completed [facility] y of Vaccine Quad .5 mL 00:00:00 [facility] 6[facility] MO [facility] Influenza Virus 2016-05-20 Completed [facility] y of Vaccine Quad IM 3+ 00:00:00 [facility] Influenza Virus 2016-05-20 Completed [facility] y of Vaccine Quad IM 3+ 00:00:00 [facility] Influenza Virus 2016-05-20 Completed [facility] y of Vaccine Quad IM 3+ 00:00:00 [facility] Influenza Virus 2016-05-20 Completed [facility] y of Vaccine Quad IM 3+ 00:00:00 [facility] Influenza Virus 2016-05-20 Completed [facility] y of Vaccine Quad IM 3+ 00:00:00 [facility] Influenza Virus 2016-05-20 Completed [facility] y of Vaccine Quad IM 3+ 00:00:00 [facility] Influenza Virus 2016-05-20 Completed [facility] y of Vaccine Quad IM 3+ 00:00:00 [facility] Influenza Virus 2016-05-20 Completed [facility] y of Vaccine Quad IM 3+ 00:00:00 [facility] Influenza Virus 2016-05-20 Completed [facility] y of Vaccine Quad IM 3+ 00:00:00 [facility] Influenza Virus 2016-05-20 Completed [facility] y of Vaccine Quad IM 3+ 00:00:00 [facility] Influenza Virus 2016-05-20 Completed [facility] y of Vaccine Quad IM 3+ 00:00:00 [facility] Influenza Virus 2016-05-20 Completed [facility] y of Vaccine Quad IM 3+ 00:00:00 [facility] Influenza Virus 2016-05-20 Completed [facility] y of Vaccine Quad IM 3+ 00:00:00 [facility] Influenza Virus 2016-05-20 Completed [facility] y of Vaccine Quad IM 3+ 00:00:00 [facility] Influenza Virus 2016-05-20 Completed [facility] y of Vaccine Quad IM 3+ 00:00:00 [facility] Influenza Virus 2016-05-20 Completed [facility] y of Vaccine Quad IM 3+ 00:00:00 [facility] Influenza Virus 2016-05-20 Completed [facility] y of Vaccine Quad IM 3+ 00:00:00 [facility] Influenza Virus 2016-05-20 Completed [facility] y of Vaccine Quad IM 3+ 00:00:00 [facility] Influenza Virus 2016-05-20 Completed [facility] y of Vaccine Quad IM 3+ 00:00:00 [facility] Influenza Virus 2016-05-20 Completed [facility] y of Vaccine Quad IM 3+ 00:00:00 [facility] Influenza Virus 2016-05-20 Completed [facility] y of Vaccine Quad IM 3+ 00:00:00 [facility] Influenza Virus 2016-05-20 Completed [facility] y of Vaccine Quad IM 3+ 00:00:00 [facility] Influenza Virus 2016-05-20 Completed [facility] y of Vaccine Quad IM 3+ 00:00:00 [facility] Influenza Virus 2016-05-20 Completed [facility] y of Vaccine Quad IM 3+ 00:00:00 [facility] Influenza Virus 2016-05-20 Completed [facility] y of Vaccine Quad IM 3+ 00:00:00 [facility] Influenza Virus 2016-05-20 Completed [facility] y of Vaccine Quad IM 3+ 00:00:00 [facility] Influenza Virus 2016-05-20 Completed [facility] y of Vaccine Quad IM 3+ 00:00:00 [facility] Influenza Virus 2016-05-20 Completed [facility] y of Vaccine Quad IM 3+ 00:00:00 [facility] Influenza Virus 2016-05-20 Completed [facility] y of Vaccine Quad IM 3+ 00:00:00 [facility] Influenza Virus 2016-05-20 Completed [facility] y of Vaccine Quad IM 3+ 00:00:00 [facility] Influenza Virus 2016-05-20 Completed [facility] y of Vaccine Quad IM 3+ 00:00:00 [facility] Influenza Virus 2016-05-20 Completed [facility] y of Vaccine Quad IM 3+ 00:00:00 [facility] Influenza Virus 2016-05-20 Completed [facility] y of Vaccine Quad IM 3+ 00:00:00 [facility] Influenza Virus 2016-05-20 Completed [facility] y of Vaccine Quad IM 3+ 00:00:00 [facility] Influenza Virus 2016-05-20 Completed [facility] y of Vaccine Quad IM 3+ 00:00:00 [facility] Influenza Virus 2016-05-20 Completed [facility] y of Vaccine Quad IM 3+ 00:00:00 [facility] Influenza Virus 2016-05-20 Completed [facility] y of Vaccine Quad IM 3+ 00:00:00 [facility] Influenza Virus 2016-05-20 Completed [facility] y of Vaccine Quad IM 3+ 00:00:00 [facility] Influenza Virus 2016-05-20 Completed [facility] y of Vaccine Quad IM 3+ 00:00:00 [facility] Influenza Virus 2016-05-20 Completed [facility] y of Vaccine Quad IM 3+ 00:00:00 [facility] HPV9 2015-08-21 Completed [facility] 00:00:[address] [facility] HPV9 2015-08-21 Completed [facility] 00:00:[address] [facility] HPV9 2015-08-21 Completed [facility] 00:00:[address] [facility] HPV9 2015-08-21 Completed [facility] 00:00:[address] [facility] HPV9 2015-08-21 Completed [facility] 00:00:[address] [facility] HPV9 2015-08-21 Completed [facility] 00:00:[address] [facility] HPV9 2015-08-21 Completed [facility] 00:00:[address] [facility] HPV9 2015-08-21 Completed [facility] 00:00:[address] [facility] HPV9 2015-08-21 Completed [facility] 00:00:[address] [facility] HPV9 2015-08-21 Completed [facility] of 00:00:[address] [facility] HPV9 2015-08-21 Completed [facility] 00:00:[address] [facility] HPV9 2015-08-21 Completed [facility] 00:00:00 [facility] HPV9 2015-08-21 Completed [facility] 00:00:00 [facility] HPV9 2015-08-21 Completed [facility] 00:00:00 [facility] HPV9 2015-08-21 Completed [facility] 00:00:00 [facility] HPV9 2015-08-21 Completed [facility] 00:00:00 [facility] HPV9 2015-08-21 Completed [facility] 00:00:00 [facility] HPV9 2015-08-21 Completed [facility] 00:00:00 [facility] HPV9 2015-08-21 Completed [facility] 00:00:00 [facility] HPV9 2015-08-21 Completed [facility] 00:00:00 [facility] HPV9 2015-08-21 Completed [facility] 00:00:00 [facility] HPV9 2015-08-21 Completed [facility] 00:00:00 [facility] HPV9 2015-08-21 Completed [facility] 00:00:00 [facility] HPV9 2015-08-21 Completed [facility] 00:00:00 [facility] HPV9 2015-08-21 Completed [facility] 00:00:00 [facility] HPV9 2015-08-21 Completed [facility] 00:00:00 [facility] HPV9 2015-08-21 Completed [facility] 00:00:00 [facility] HPV9 2015-08-21 Completed [facility] 00:00:00 [facility] HPV9 2015-08-21 Completed [facility] 00:00:00 [facility] HPV9 2015-08-21 Completed [facility] 00:00:00 [facility] HPV9 2015-08-21 Completed [facility] 00:00:00 [facility] HPV9 2015-08-21 Completed [facility] 00:00:00 [facility] HPV9 2015-08-21 Completed [facility] 00:00:00 [facility] HPV9 2015-08-21 Completed [facility] 00:00:00 [facility] HPV9 2015-08-21 Completed [facility] 00:00:00 [facility] HPV9 2015-08-21 Completed [facility] 00:00:00 [facility] HPV9 2015-08-21 Completed [facility] 00:00:00 [facility] HPV9 2015-08-21 Completed [facility] 00:00:00 [facility] HPV9 2015-08-21 Completed [facility] 00:00:00 [facility] HPV9 2015-08-21 Completed [facility] 00:00:[address] [facility] Meningococcal 2015-04-03 Completed [facility] Polysaccharide 00:00:00 [place] [facility] (groups A, C, Y and Branc h W-135) conjugate vaccine (MCV4P) HPV9 2015-04-03 Completed [facility] 00:00:[address] [facility] Meningococcal 2015-04-03 Completed [facility] Polysaccharide 00:00:00 [place] [facility] (groups A, C, Y and Branc h W-135) conjugate vaccine (MCV4P) HPV9 2015-04-03 Completed [facility] 00:00:[address] [facility] Meningococcal 2015-04-03 Completed [facility] of Polysaccharide 00:00:00 [place] [facility] (groups A, C, Y and Branc h W-135) conjugate vaccine (MCV4P) HPV9 2015-04-03 Completed [facility] of 00:00:[address] [facility] Meningococcal 2015-04-03 Completed [facility] of Polysaccharide 00:00:00 [place] [facility] (groups A, C, Y and Branc h W-135) conjugate vaccine (MCV4P) HPV9 2015-04-03 Completed [facility] of 00:00:[address] [facility] Meningococcal 2015-04-03 Completed [facility] Polysaccharide 00:00:00 [place] [facility] (groups A, C, Y and Branc h W-135) conjugate vaccine (MCV4P) HPV9 2015-04-03 Completed [facility] of 00:00:[address] [facility] Meningococcal 2015-04-03 Completed [facility] Polysaccharide 00:00:00 [place] [facility] (groups A, C, Y and Branc h W-135) conjugate vaccine (MCV4P) HPV9 2015-04-03 Completed [facility] of 00:00:[address] [facility] Meningococcal 2015-04-03 Completed [facility] Polysaccharide 00:00:00 [place] [facility] (groups A, C, Y and Branc h W-135) conjugate vaccine (MCV4P) HPV9 2015-04-03 Completed [facility] of 00:00:[address] [facility] Meningococcal 2015-04-03 Completed [facility] Polysaccharide 00:00:00 [place] [facility] (groups A, C, Y and Branc h W-135) conjugate vaccine (MCV4P) HPV9 2015-04-03 Completed [facility] of 00:00:[address] [facility] Meningococcal 2015-04-03 Completed [facility] Polysaccharide 00:00:00 [place] [facility] (groups A, C, Y and Branc h W-135) conjugate vaccine (MCV4P) HPV9 2015-04-03 Completed [facility] of 00:00:[address] [facility] Meningococcal 2015-04-03 Completed [facility] Polysaccharide 00:00:00 [place] [facility] (groups A, C, Y and Branc h W-135) conjugate vaccine (MCV4P) HPV9 2015-04-03 Completed [facility] of 00:00:[address] [facility] Meningococcal 2015-04-03 Completed [facility] Polysaccharide 00:00:00 [place] [facility] (groups A, C, Y and Branc h W-135) conjugate vaccine (MCV4P) HPV9 2015-04-03 Completed [facility] of 00:00:[address] [facility] Meningococcal 2015-04-03 Completed [facility] Polysaccharide 00:00:00 [place] [facility] (groups A, C, Y and Branc h W-135) conjugate vaccine (MCV4P) HPV9 2015-04-03 Completed [facility] of 00:00:[address] [facility] Meningococcal 2015-04-03 Completed [facility] Polysaccharide 00:00:00 [place] [facility] (groups A, C, Y and Branc h W-135) conjugate vaccine (MCV4P) HPV9 2015-04-03 Completed [facility] of 00:00:[address] [facility] Meningococcal 2015-04-03 Completed [facility] Polysaccharide 00:00:00 [place] [facility] (groups A, C, Y and Branc h W-135) conjugate vaccine (MCV4P) HPV9 2015-04-03 Completed [facility] of 00:00:[address] [facility] Meningococcal 2015-04-03 Completed [facility] Polysaccharide 00:00:00 [place] [facility] (groups A, C, Y and Branc h W-135) conjugate vaccine (MCV4P) HPV9 2015-04-03 Completed [facility] of 00:00:[address] [facility] Meningococcal 2015-04-03 Completed [facility] Polysaccharide 00:00:00 [place] [facility] (groups A, C, Y and Branc h W-135) conjugate vaccine (MCV4P) HPV9 2015-04-03 Completed [facility] of 00:00:[address] [facility] Meningococcal 2015-04-03 Completed [facility] Polysaccharide 00:00:00 [place] [facility] (groups A, C, Y and Branc h W-135) conjugate vaccine (MCV4P) HPV9 2015-04-03 Completed [facility] of 00:00:[address] [facility] Meningococcal 2015-04-03 Completed [facility] Polysaccharide 00:00:00 [place] [facility] (groups A, C, Y and Branc h W-135) conjugate vaccine (MCV4P) HPV9 2015-04-03 Completed [facility] of 00:00:[address] [facility] Meningococcal 2015-04-03 Completed [facility] Polysaccharide 00:00:00 [place] [facility] (groups A, C, Y and Branc h W-135) conjugate vaccine (MCV4P) HPV9 2015-04-03 Completed [facility] of 00:00:[address] [facility] Meningococcal 2015-04-03 Completed [facility] Polysaccharide 00:00:00 [place] [facility] (groups A, C, Y and Branc h W-135) conjugate vaccine (MCV4P) HPV9 2015-04-03 Completed [facility] of 00:00:[address] [facility] Meningococcal 2015-04-03 Completed [facility] Polysaccharide 00:00:00 [place] [facility] (groups A, C, Y and Branc h W-135) conjugate vaccine (MCV4P) HPV9 2015-04-03 Completed [facility] of 00:00:[address] [facility] Meningococcal 2015-04-03 Completed [facility] Polysaccharide 00:00:00 [place] [facility] (groups A, C, Y and Branc h W-135) conjugate vaccine (MCV4P) HPV9 2015-04-03 Completed [facility] of 00:00:[address] [facility] Meningococcal 2015-04-03 Completed [facility] Polysaccharide 00:00:00 [place] [facility] (groups A, C, Y and Branc h W-135) conjugate vaccine (MCV4P) HPV9 2015-04-03 Completed [facility] of 00:00:[address] [facility] Meningococcal 2015-04-03 Completed [facility] Polysaccharide 00:00:00 [place] [facility] (groups A, C, Y and Branc h W-135) conjugate vaccine (MCV4P) HPV9 2015-04-03 Completed [facility] of 00:00:[address] [facility] Meningococcal 2015-04-03 Completed [facility] of Polysaccharide 00:00:00 [place] [facility] (groups A, C, Y and Branc h W-135) conjugate vaccine (MCV4P) HPV9 2015-04-03 Completed [facility] of 00:00:[address] [facility] Meningococcal 2015-04-03 Completed [facility] Polysaccharide 00:00:00 [place] [facility] (groups A, C, Y and Branc h W-135) conjugate vaccine (MCV4P) HPV9 2015-04-03 Completed [facility] of 00:00:[address] [facility] Meningococcal 2015-04-03 Completed [facility] Polysaccharide 00:00:00 [place] [facility] (groups A, C, Y and Branc h W-135) conjugate vaccine (MCV4P) HPV9 2015-04-03 Completed [facility] of 00:00:[address] [facility] Meningococcal 2015-04-03 Completed [facility] of Polysaccharide 00:00:00 [place] [facility] (groups A, C, Y and Branc h W-135) conjugate vaccine (MCV4P) HPV9 2015-04-03 Completed [facility] of 00:00:[address] [facility] Meningococcal 2015-04-03 Completed [facility] of Polysaccharide 00:00:00 [place] [facility] (groups A, C, Y and Branc h W-135) conjugate vaccine (MCV4P) HPV9 2015-04-03 Completed [facility] of 00:00:[address] [facility] Meningococcal 2015-04-03 Completed [facility] of Polysaccharide 00:00:00 [place] [facility] (groups A, C, Y and Branc h W-135) conjugate vaccine (MCV4P) HPV9 2015-04-03 Completed [facility] of 00:00:[address] [facility] Meningococcal 2015-04-03 Completed [facility] of Polysaccharide 00:00:00 [place] [facility] (groups A, C, Y and Branc h W-135) conjugate vaccine (MCV4P) HPV9 2015-04-03 Completed [facility] of 00:00:[address] [facility] Meningococcal 2015-04-03 Completed [facility] of Polysaccharide 00:00:00 [place] [facility] (groups A, C, Y and Branc h W-135) conjugate vaccine (MCV4P) HPV9 2015-04-03 Completed [facility] of 00:00:[address] [facility] Meningococcal 2015-04-03 Completed [facility] Polysaccharide 00:00:00 [place] [facility] (groups A, C, Y and Branc h W-135) conjugate vaccine (MCV4P) HPV9 2015-04-03 Completed [facility] of 00:00:[address] [facility] Meningococcal 2015-04-03 Completed [facility] of Polysaccharide 00:00:00 [place] [facility] (groups A, C, Y and Branc h W-135) conjugate vaccine (MCV4P) HPV9 2015-04-03 Completed [facility] of 00:00:[address] [facility] Meningococcal 2015-04-03 Completed [facility] of Polysaccharide 00:00:00 [place] [facility] (groups A, C, Y and Branc h W-135) conjugate vaccine (MCV4P) HPV9 2015-04-03 Completed [facility] of 00:00:[address] [facility] Meningococcal 2015-04-03 Completed [facility] of Polysaccharide 00:00:00 [place] [facility] (groups A, C, Y and Branc h W-135) conjugate vaccine (MCV4P) HPV9 2015-04-03 Completed [facility] of 00:00:[address] [facility] Meningococcal 2015-04-03 Completed [facility] of Polysaccharide 00:00:00 [place] [facility] (groups A, C, Y and Branc h W-135) conjugate vaccine (MCV4P) HPV9 2015-04-03 Completed [facility] of 00:00:[address] [facility] Meningococcal 2015-04-03 Completed [facility] of Polysaccharide 00:00:00 [place] [facility] (groups A, C, Y and Branc h W-135) conjugate vaccine (MCV4P) HPV9 2015-04-03 Completed [facility] of 00:00:[address] [facility] Meningococcal 2015-04-03 Completed [facility] Polysaccharide 00:00:00 [place] [facility] (groups A, C, Y and Branc h W-135) conjugate vaccine (MCV4P) HPV9 2015-04-03 Completed [facility] of 00:00:[address] [facility] Meningococcal 2015-04-03 Completed [facility] Polysaccharide 00:00:00 [place] [facility] (groups A, C, Y and Branc h W-135) conjugate vaccine (MCV4P) HPV9 2015-04-03 Completed [facility] of 00:00:[address] [facility] Meningococcal Unknown Completed [facility] Polysaccharide [place] [facility] (groups A, C, Y and Branc h W-135) conjugate vaccine (MCV4P) HPV9 Unknown Completed [facility] HPV9 Unknown Completed [facility] Influenza Virus Unknown Completed Universit y of Vaccine Quad IM 3+ [facility] Influenza Virus Unknown Completed Universit y of Vaccine Quad .5 mL [place] [facility] IM 6+ [facility] (FLUZONE/FLULAVAL/FL UARIX) HPV9 Unknown Completed [facility] Influenza Virus Unknown Completed Universit y of Vaccine Quad IM, [place] [facility] dical Preserv and ABX Free Bran ch 6 MO-64 YRS (FLUCELVAX) TDAP Unknown Completed [facility] Meningococcal Unknown Completed [facility] Polysaccharide [place] [facility] (groups A, C, Y and Branc h W-135) conjugate vaccine (MCV4P) HPV9 Unknown Completed [facility] HPV9 Unknown Completed [facility] Influenza Virus Unknown Completed Universit y of Vaccine Quad IM 3+ [facility] YRS [place] Influenza Virus Unknown Completed Universit y of Vaccine Quad .5 mL [facility] IM 6+ [place] [facility] (FLUZONE/FLULAVAL/FL UARIX) HPV9 Unknown Completed [facility] Vital Signs Vital Name Observation Time Observation Value Comments Source Systolic blood 2022-12-27 19:56:00 129 mm[Hg] Univer sity of pressure [facility] Diastolic blood 2022-12-27 19:56:00 82 mm[Hg] Unive rsity of [facility] Heart rate 2022-12-27 19:56:00 79 /min Universi ty [facility] Body temperature 2022-12-27 19:56:00 [facility].72 [facility] rate 2022-12-27 19:56:00 17 /min Univ ersity [facility] Body height 2022-12-27 19:56:00 162.6 cm Universi ty of [facility] Body weight 2022-12-27 19:56:00 96.163 kg Universi ty [facility] BMI 2022-12-27 19:56:00 36.39 kg/m2 Universi ty [facility] Systolic blood 2022-11-26 21:07:00 117 mm[Hg] Univer sity of [facility] Diastolic blood 2022-11-26 21:07:00 78 mm[Hg] Unive rsity of [facility] Heart rate 2022-11-26 21:07:00 77 /min Universi ty of [facility] Body temperature 2022-11-26 21:07:00 36.72 Sharyn Univ ersity [facility] Respiratory rate 2022-11-26 21:07:00 16 /min Univ ersity [facility] Body height 2022-11-26 21:07:00 162.6 cm Universi ty of [facility] Body weight 2022-11-26 21:07:00 94.666 kg Universi ty [facility] BMI 2022-11-26 21:07:00 35.82 kg/m2 [facility] Systolic blood 2022-10-31 13:15:00 105 mm[Hg] Univer sity of pressure [facility] Diastolic blood 2022-10-31 13:15:00 49 mm[Hg] Unive rsity of pressure [facility] Heart rate 2022-10-31 13:15:00 79 /min Universi ty [facility] Body temperature 2022-10-31 13:15:00 36.5 Sharyn Univ ersity of [facility] Respiratory rate 2022-10-31 13:15:00 17 /min Univ ersity of [facility] Oxygen saturation in 2022-10-31 13:15:00 99 /min University of Arterial blood by [facility] Pulse oximetry Branch Body height 2022-10-29 22:17:00 162.6 cm Universi ty [facility] Body weight 2022-10-29 22:17:00 101.606 kg [facility]i ty [facility] BMI 2022-10-29 22:17:00 38.45 kg/m2 [facility] Systolic blood 2022-10-22 16:08:00 106 mm[Hg] Univer sity of pressure [facility] Diastolic blood 2022-10-22 16:08:00 66 mm[Hg] Unive rsity of pressure [facility] Heart rate 2022-10-22 16:08:00 84 /min [facility]i ty [facility] Body temperature 2022-10-22 16:08:00 36.61 Sharyn Univ ersity of [facility] Respiratory rate 2022-10-22 16:08:00 18 /min Univ ersity of [facility] Body height 2022-10-22 16:08:00 162.6 cm [facility]i [facility] Body weight 2022-10-22 16:08:00 101.606 kg [facility] BMI 2022-10-22 16:08:00 38.45 kg/m2 [facility] Systolic blood 2022-10-16 22:12:00 111 mm[Hg] Univer sity of pressure [facility] Diastolic blood 2022-10-16 22:12:00 72 mm[Hg] Unive rsity of pressure [facility] Heart rate 2022-10-16 22:12:00 86 /min [facility]i ty [facility] Respiratory rate 2022-10-16 22:12:00 18 /min Univ ersity of [facility] Body height 2022-10-16 22:12:00 162.6 cm [facility] Body weight 2022-10-16 22:12:00 100.245 kg [facility] BMI 2022-10-16 22:12:00 37.93 kg/m2 [facility] Systolic blood 2022-10-10 21:47:00 112 mm[Hg] Univer sity of pressure [facility] Diastolic blood 2022-10-10 21:47:00 70 mm[Hg] Unive rsity of pressure [facility] Heart rate 2022-10-10 21:47:00 83 /min Universi ty [facility] Body temperature 2022-10-10 21:47:00 36.72 Sharyn Univ ersity of [facility] Respiratory rate 2022-10-10 21:47:00 18 /min Univ ersity of [facility] Body height 2022-10-10 21:47:00 162.6 cm [facility]i ty [facility] Body weight 2022-10-10 21:47:00 101.152 kg [facility] BMI 2022-10-10 21:47:00 38.28 kg/m2 [facility] Systolic blood 2022-10-02 22:08:00 115 mm[Hg] Univer sity of pressure [facility] Diastolic blood 2022-10-02 22:08:00 75 mm[Hg] Unive rsity of pressure [facility] Heart rate 2022-10-02 22:08:00 106 /min [facility]i [facility] Body temperature 2022-10-02 22:08:00 36.72 Sharyn Univ ersity of [facility] Respiratory rate 2022-10-02 22:08:00 16 /min Univ ersity of [facility] Body height 2022-10-02 22:08:00 162.6 cm [facility]i [facility] Body weight 2022-10-02 22:08:00 100.426 kg [facility] BMI 2022-10-02 22:08:00 38.00 kg/m2 [facility] Oxygen saturation in 2022-10-02 22:08:00 96 /min University of Arterial blood by [facility] Pulse oximetry Branch Heart rate 2022-09-25 00:30:00 80 /min Universi ty of [facility] Oxygen saturation in 2022-09-25 00:30:00 97 /min University of Arterial blood by [facility] Pulse oximetry Branch Systolic blood 2022-09-24 23:31:00 123 mm[Hg] Univer sity of pressure [facility] Diastolic blood 2022-09-24 23:31:00 63 mm[Hg] Unive rsity of pressure [facility] Body temperature 2022-09-24 23:31:00 36.28 Sharyn Univ ersity of [facility] Respiratory rate 2022-09-24 23:31:00 18 /min Univ ersity of [facility] Body height 2022-09-24 23:31:00 162.6 cm [facility]i [facility] Body weight 2022-09-24 23:31:00 98.884 kg [facility] BMI 2022-09-24 23:31:00 37.42 kg/m2 [facility] Systolic blood 2022 16:59:00 110 mm[Hg] Univer sity of pressure [facility] Diastolic blood 2022 16:59:00 77 mm[Hg] Unive rsity of pressure [facility] Heart rate 2022 16:59:00 83 /min [facility]i ty [facility] Body temperature 2022 16:59:00 36.72 Sharyn Univ ersity of [facility] Respiratory rate 2022 16:59:00 18 /min Univ ersity of [facility] Body height 2022 16:59:00 162.6 cm [facility] Body weight 2022 16:59:00 100.562 kg [facility] BMI 2022 16:59:00 38.05 kg/m2 [facility] Systolic blood 2022-09-04 22:11:00 109 mm[Hg] Univer sity of pressure [facility] Diastolic blood 2022-09-04 22:11:00 69 mm[Hg] Unive rsity of pressure [facility] Heart rate 2022-09-04 22:11:00 91 /min [facility]i ty [facility] Body temperature 2022-09-04 22:11:00 36.56 Sharyn Univ ersity of [facility] Respiratory rate 2022-09-04 22:11:00 18 /min Univ ersity of [facility] Body height 2022-09-04 22:11:00 162.6 cm [facility]i [facility] Body weight 2022-09-04 22:11:00 97.977 kg [facility] BMI 2022-09-04 22:11:00 37.08 kg/m2 [facility] Systolic blood 2022-08-21 17:02:00 110 mm[Hg] Univer sity of pressure [facility] Diastolic blood 2022-08-21 17:02:00 72 mm[Hg] Unive rsity of pressure [facility] Heart rate 2022-08-21 17:02:00 84 /min [facility]i ty [facility] Body temperature 2022-08-21 17:02:00 36.5 Sharyn Univ ersity of [facility] Respiratory rate 2022-08-21 17:02:00 18 /min Univ ersity of [facility] Body height 2022-08-21 17:02:00 162.6 cm [facility] Body weight 2022-08-21 17:02:00 96.616 kg [facility] BMI 2022-08-21 17:02:00 36.56 kg/m2 [facility] Systolic blood 2022-08-08 15:11:00 105 mm[Hg] Univer sity of pressure [facility] Diastolic blood 2022-08-08 15:11:00 70 mm[Hg] Unive rsity of pressure [facility] Heart rate 2022-08-08 15:11:00 82 /min [facility]i ty [facility] Body temperature 2022-08-08 15:11:00 36.5 Sharyn Univ ersity of [facility] Respiratory rate 2022-08-08 15:11:00 18 /min Univ ersity of [facility] Body height 2022-08-08 15:11:00 162.6 cm [facility] Body weight 2022-08-08 15:11:00 97.523 kg [facility] BMI 2022-08-08 15:11:00 36.90 kg/m2 [facility] Systolic blood 2022-07-09 16:02:00 106 mm[Hg] Univer sity of pressure [facility] Diastolic blood 2022-07-09 16:02:00 73 mm[Hg] Unive rsity of pressure [facility] Heart rate 2022-07-09 16:02:00 77 /min [facility]i ty [facility] Body temperature 2022-07-09 16:02:00 36.67 Sharyn Univ ers[facility] Respiratory rate 2022-07-09 16:02:00 18 /min Univ ersity of [facility] Body height 2022-07-09 16:02:00 162.6 cm [facility]i ty [facility] Body weight 2022-07-09 16:02:00 93.895 kg [facility]i ty [facility] BMI 2022-07-09 16:02:00 35.53 kg/m2 [facility] Systolic blood 2022-06-11 16:19:00 108 mm[Hg] Univer sity of pressure [facility] Diastolic blood 2022-06-11 16:19:00 72 mm[Hg] Unive rsity of pressure [facility] Heart rate 2022-06-11 16:19:00 73 /min [facility]i ty [facility] Body temperature 2022-06-11 16:19:00 36.56 Sharyn Univ ersity of [facility] Respiratory rate 2022-06-11 16:19:00 17 /min Univ ersity of [facility] Body height 2022-06-11 16:19:00 162.6 [...] 2022-05-10 15:34:00 80 /min Universi ty of [facility] Body temperature 2022-05-10 15:34:00 36.78 Sharyn [facility] Res[facility] rate 2022-05-10 15:34:00 18 /min [facility] Body height 2022-05-10 15:34:00 162.6 cm Universi ty of [facility] Body weight 2022-05-10 15:34:00 89.54 kg Universi ty of [facility] BMI 2022-05-10 15:34:00 33.88 kg/m2 Universi ty [facility] Systolic blood 2022-04-11 15:51:00 128 mm[Hg] Univer sity of [facility] Diastolic blood 2022-04-11 15:51:00 82 mm[facility]Hg] [facility] 2022-04-11 15:45:00 81 /min Universi ty [facility] Body temperature 2022-04-11 15:45:00 36.33 Sharyn [facility] Respiratory rate 2022-04-11 15:45:00 18 /min [facility] Body height 2022-04-11 15:45:00 162.6 cm Universi ty of [facility] Body weight 2022-04-11 15:45:00 92.035 kg Universi ty [facility] BMI 2022-04-11 15:45:00 34.83 kg/m2 Universi ty [facility] Procedures Procedure Date / Time Performing Clinician Source Performed CONSENT FOR 2022-12-27 05:01:00 Doctor Unassigned, No [facility] CBC WITH DIFF 2022-10-31 10:02:00 Adum, [facility] CENTRAL NEURAXIAL BLOCK 2022-10-30 07:34:00 Anabela Howell [facility] CBC WITH DIFF 2022-10-30 00:21:00 Adum, [facility] HEPATITIS B SURFACE 2022-10-30 00:21:00 Adum, Yari [facility] ANTIGEN [facility] HB ABO GROUPING 2022-10-30 00:21:00 Adum, [facility] ADC OR MARLENE ONLY - 2022-10-30 00:21:00 [facility]/2 [facility]-AB WITH 2022-10-30 00:21:00 Adum, Yari Nicolasit y of [facility] ALMB PATIENT FINANCIAL 2022-10-22 15:26:12 Doctor Unassigned, No [facility] POCT URINALYSIS W/O 2022-10-22 00:00:00 Adum, Yari Ramirez Universi ty [facility] GROUP B STREPTOCOCCUS BY 2022-10-16 22:45:00 Adum, Yari [facility] POCT URINALYSIS W/O 2022-10-16 00:00:00 Adum, Yari Nicolasi ty [facility] SPECIFIC [facility] >14 WEEKS US 2022-10-10 22:22:08 Adum, [facility] DSU PRE-OP 2022-10-10 06:01:00 Doctor Unassigned, No Jemma [facility] POCT URINALYSIS W/O 2022-10-10 00:00:00 Adum, Yari Nicolasi ty [facility] SPECIFIC [facility] POCT URINALYSIS W/O 2022-10-02 00:00:00 Adum, Yari Ramirez Universi ty [facility] SPECIFIC [facility] US PELVIS > 14 2022-09-25 01:02:26 Leigh Ann Palomo [facility] [place] ADC ONLY - FERN TEST 2022-09-25 00:05:00 Leigh Ann Palomo [facility] CONSENT/REFUSAL FOR 2022-09-24 23:02:13 Doctor Unassigned, No [facility] DIAGNOSIS AND TREATMENT [facility] POCT URINALYSIS W/O 2022 00:00:00 Adum, Yair Ramirez Universi ty [facility] POCT URINALYSIS W/O 2022-09-04 00:00:00 Adum, Yari Nicolasi ty [facility] [place] SPECIFIC [facility] POCT URINALYSIS W/O 2022-08-21 00:00:00 Adum, Yari Ramirez [facility] 1 HR GLUCOSE TOLERANCE 2022-08-16 16:51:00 Tamara Jaimes [facility] TEST [facility] GLUCOSE FASTING 2022-08-16 15:51:00 Tamara Jaimes [facility] ASSIGNMENT OF BENEFITS 2022-08-13 15:34:13 Doctor Unassigned, No [facility] TDAP VACCINE, >11 YRS, 2022-08-08 15:08:44 Tamara Jaimes [facility] Branch POCT URINALYSIS W/O 2022-08-08 00:00:00 Fiona [facility] POCT URINALYSIS W/O 2022-07-09 00:00:00 [facility] FLU VACC ([id number]), 6 2022-06-11 16:53:43 Adum, Yari Ramirez [facility] MO-64 YRS, .5ML, IM, Medical [facility] QUAD (FLUCELVAX) POCT URINALYSIS W/O 2022-06-11 00:00:00 Adravinder, Yari Ramirez [facility] POCT URINALYSIS W/O 2022-05-10 15:50:00 Adum, Yari Ramirez [facility] SCANNED LAB RESULTS 2022-05-10 05:01:00 Doctor Unassigned, No [facility] Encounters Start End Encounter Admission Attending Care Care Encounter Source Date/Time Date/Time Type Type Clinicians Facility Department ID 2022-09-24 Outpatient X ADUM, [facility] LUL [id number] Univers 20:35:25 YARI disla [facility] 2023-06-14 2023-06-14 Outpatient [id number] PRIV PRIV [id number] [facility] 00:00:00 00:00:00 Alma [id number] Medic al 2023-01-24 2023-01-24 Outpatient R VIRA JERONIMO [facility] U TMB [id number] Univers 14:30:00 14:30:00 VIRA JERONIMO itgrant [facility] 2022-12-27 2022-12-27 Outpatient R VIRA JERONIMO [facility] [id number] Univers 15:00:00 15:18:30 VIRA JERONIMO ity [facility] 2022-12-27 2022-12-27 Routine Stefania-Lesli [facility] 1.2.840.114 [id number] Univers 15:00:00 15:18:30 Vira holley 350.1.13.10 ity of [place] [id number] [address] 2022-12-27 2022-12-27 Orders Doctor ANABELA 1.2.840.114 [id number] Univers 00:00:00 00:00:00 Only Unassigned, CALVIN 350.1.13.10 ity of [place] [facility] 4.2.7.2.686 Christiano as [id number] [facility] [address] Branch 2022-12-25 2022-12-25 Outpatient R ADUM, [facility] [id number] Univers 16:00:00 16:00:00 [facility] 2022-11-26 2022-11-26 Outpatient R ADUM, [facility] [id number] Univers 16:00:00 16:21:15 [facility] 2022-11-26 2022-11-26 [facility]ine [facility] 1.2.708.051 [id number] Univers 16:00:00 16:21:15 Yari HAMEED 350.1.13.10 ity of [place] [id number] [address] 2022-11-20 2022-11-20 Outpatient R ADUM, [facility] [id number] Univers 11:00:00 11:00:00 [facility] 2022-10-29 2022-10-31 Inpatient X [facility] LUL [id number] Univers 17:18:00 13:43:00 [facility] 2022-10-29 2022-10-31 [facility] 1.2.840.114 [id number] Univers 17:18:00 13:43:00 Encounter Yari GELLER 350.1.13.10 ity of [facility] 4.2.7.2.[place] [id number] [address] 2022-10-30 2022-10-30 Anesthesia [facility] 1.2.840.114 [id number] Univers 02:32:00 09:22:00 Event Anabela Parker DUYEN 350.1.13.10 i ty of [place] 4.2.7.2.[place] [id number] [address] 2022-10-24 2022-10-24 Telephone [facility] 1.2.495.131 [id number] Univers 00:00:00 00:00:00 Yari GELLER 350.1.13.10 ity of [facility] 4.2.7[place]2.[place] [id number] [place] [address] 2022-10-24 2022-10-24 Telephone [facility] 1.2.432.685 [id number] Univers 00:00:00 00:00:00 Yari GELLER 350.1.13.10 ity of [facility] 4.2.7.2.[place] [id number] [place] dical NAL [address] [place] [address] 2022-10-22 2022-10-22 Outpatient R AD, [facility] [id number] Univers 09:45:00 10:23:18 YARI ity of [facility] 2022-10-22 2022-10-22 Routine Ad, [facility] 1.2.974.470 [id number] [facility] 09:45:00 10:23:18 Yari L YOSEPH 350.1.13.10 ity of [place] [id number] [address] 2022-10-22 2022-10-22 Orders Doctor ANABELA 1.2.840.114 [id number] Univers 00:00:00 00:00:00 Only Unassigned, CALVIN 350.1.13.10 ity of [place] [facility] 4.2.7.2.686 Christiano as [id number] [facility] [address] [place] 2022-10-16 2022-10-16 Outpatient R ADUM, [facility] [id number] Univers 15:45:00 16:47:09 YARI ity [facility] 2022-10-16 2022-10-16 Routine Adum, [facility] 1.2.380.167 [id number] Univers 15:45:00 16:47:09 Yari HAMEED 350.1.13.10 ity of Visit [place] [id number] [facility] [address] 2022-10-15 2022-10-15 Home 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 2022-10-11 2022-10-11 Outpatient R [facility] [id number] Univers 13:30:00 13:30:[address] [facility] 2022-10-10 2022-10-10 Outpatient R ADUM, [facility] [id number] Univers 15:45:00 16:38:10 YARI ity [facility] 2022-10-10 2022-10-10 Routine Adum, [facility] 1.2.840.114 [id number] Univers 15:45:00 16:38:10 Yari GELLER 350.1.13.10 ity of [place].2.[place] [id number] Me dical NAL [address] [facility] 2022-10-10 2022-10-10 Orders Doctor ANABELA 1.2.840.114 [id number] Univers 00:00:00 00:00:00 Only Unassigned, CALVIN 350.1.13.10 ity of [place] [facility] 4.2.7.2.686 Christiano [id number] [facility] [address] 2022-10-02 2022-10-02 Routine [facility] 1.2.971.713 [id number] Univers 15:30:00 16:19:21 Yari HAMEED 350.1.13.10 ity of Visit WOMENS 4.2.7.2.686 [facility] [id number] [facility] [address] 2022-10-02 2022-10-02 [facility] [id number] Univers 15:30:00 16:19:21 YARI [facility] 2022-09-24 2022-09-24 Outpatient X DEWEY [facility] LUL [id number] Univers 17:08:00 19:30:00 ity [facility] 2022-09-24 2022-09-24 Emergency Dewey [facility] 1.2.840.114 [id number] Univers 17:08:00 19:30:00 Marv GELLER 350.1.13.10 i ty of [place] 4.2.7.2.686 [facility] [id number] [facility] [address] [place] 2022-09-24 2022-09-24 Telephone [facility] 1.2.840.114 [id number] Univers 00:00:00 00:00:00 Yari HAMEED 350.1.13.10 i ty of [place] [id number] [facility] [address] 2022 2022 Outpatient [facility] [id number] Univers 11:00:00 11:15:00 YARI disla [facility] 2022 2022 Routine [facility] 1.2.843.624 [id number] Univers 11:00:00 11:15:00 Yair HAMEED 350.1.13.10 ity of [place] [id number] [address] 2022-09-04 2022-09-04 Outpatient R ADUM, [facility] [id number] Univers 16:00:00 16:32:51 YARI disla [facility] 2022-09-04 2022-09-04 Routine [facility] 1.2.458.723 [id number] Univers 16:00:00 16:32:51 Yari Ramirez YOSEPH 350.1.13.10 ity of [place] [id number] [address] 2022-08-21 2022-08-21 Routine TritsTamara mancuso [facility] 1.2. 840.114 [id number] Univers 11:15:00 11:15:00 Adum, Yari Ramirez YOSEPH 350.1.13.10 ity of Visit [place] 4[place] [id number] [address] 2022-08-21 2022-08-21 Outpatient R ADUM, [facility] [id number] Univers 11:15:00 11:13:58 YARI disla [facility] 2022-08-20 2022-08-20 Telephone Ad, [facility] 1.2.570.948 [id number] Univers 00:00:00 00:00:00 Yari Ashley GELLER 350.1.13.10 ity of [place] 4.2.7.2.[place] [id number] [place] dical [address] 2022-08-19 2022-08-19 Patient [facility] 1.2.840.114 [id number] Univers 00:00:00 00:00:00 Secure Msg Tamara HAMEED 350.1.13.10 ity of [place] [id number] [address] 2022-08-16 2022-08-16 Home Lighting Adviser Natacha, Adc Lab Main [facility] 1.2.8 40.114 [id number] Univers 09:45:00 10:00:00 Visit David Mauro DUYEN 350.1.13.10 ity of [facility] 4.2.7.2.[place] [id number] [place] dical NAL [address] [facility] 2022-08-16 2022-08-16 Outpatient R NJ [facility] [id number] Univers 09:45:00 09:45:00 DAVID ity [facility] 2022-08-13 2022-08-13 Home Lighting Adviser Natacha, [facility] Lab Main [facility] 1.2.8 40.114 [id number] Univers 09:45:00 10:00:00 Visit Tamara Jaimes 350.1.13. 10 ity of [place] 4.2.[place].2.[place] [id number] [address] 2022-08-13 2022-08-13 Outpatient R TAMARA JAIMES [facility] B [id number] Univers 09:45:00 09:45:00 TAMARA JAIMES [facility] 2022-08-13 2022-08-13 Orders Doctor ANABELA 1.2.840.114 [id number] Univers 00:00:00 00:00:00 Only Unassigned, CALVIN 350.1.13.10 ity of [place] [facility] 4.2.7.2.686 Christiano as [id number] [facility] [address] 2022-08-13 2022-08-13 Telephone [facility]enaoutagamie county health centerglo [facility] 1.2.840.11 [id number] Univers 00:00:00 00:00:00 Tamara HAMEED 350.1.13.10 it y of [place] [id number] [facility] [address] 2022-08-08 2022-08-08 Outpatient R TAMARA JAIMES [facility] B [id number] Univers 09:00:00 09:19:12 TAMARA JAIMES [facility] 2022-08-08 2022-08-08 Routine [facility] 1.2.840.114 [id number] Univers 09:00:00 09:19:12 Tamara HAMEED 350.1.13.10 i ty of Visit [place] 4[place] [id number] [address] 2022-08-06 2022-08-06 Outpatient R [facility] [id number] Univers 10:00:00 10:00:00 [facility]ITAL[facility]IR[facility]AM[facility] MANCUSO [facility] 2022-08-01 2022-08-01 Home Lighting Adviser Ultrasound, [facility] 1.2 .840.114 [id number] Univers 14:30:00 15:23:14 Visit Chau King SECOND MATE 350.1.13.10 ity [facility] 4.2.7.2.686 Christiano as MATERNAL [id number] [facility] ical & CHILD [address] [place] [address] 2022-08-01 2022-08-01 Outpatient P ARLEEN [facility] [id number] Univers 14:30:00 14:30:00 [facility] 2022-07-09 2022-07-09 Outpatient R FIONA [facility] B [id number] Univers 10:00:00 10:15:[address] [facility] 2022-07-09 2022-07-09 Routine [facility] 1.2.840.114 [id number] Univers 10:00:00 10:15:41 Colepooja HAMEED 350.1.13.10 i ty of Visit [place] [id number] [address] 2022-06-29 2022-06-29 Case DewayneREHOB[facility] 1.2.840.114 [id number] Univers 00:00:00 00:00:00 Management Yari GELLER 350.1.13.10 ity [facility] 4.2.7.2.[place] [id number] [place] dical [address] 2022-06-25 2022-06-25 Home Lighting Adviser Ultrasound, Adc [facility] 1.2 .840.114 [id number] Univers 15:00:00 16:00:00 Visit Jerri PoseyetelvinaMichael wu 350.1 .13.10 ity of [place] 4.2.[place].2.[place] [id number] [address] 2022-06-25 2022-06-25 Outpatient P JERRI [facility] [id number] Univers 15:00:00 15:00:00 COURT it y of SMICHAEL [facility] 2022-06-11 2022-06-11 Home Lighting Adviser 2, Adc Lab [facility] 1.2.840.114 [id number] Univers 13:00:00 13:31:03 Visit Adum, Yari Ramirez DUYEN 350.1.13.10 ity of [facility] 4.2.7.2.[place] [id number] [address] 2022-06-11 2022-06-11 Outpatient R ADUM, [facility] [id number] Univers 11:00:00 11:51:51 YARI ity [facility] 2022-06-11 2022-06-11 Routine Adum, [facility] 1.2.721.101 [id number] Univers 11:00:00 11:51:51 Yari L YOSEPH 350.1.13.10 ity of Visit [place] 4[place]2.[place].2.[place] [id number] [address] 2022-05-24 2022-05-24 Telephone Adum, [facility] 1.2.818.966 [id number] Univers 00:00:00 00:00:00 Yari Ramirez DUYEN 350.1.13.10 ity of [facility] 4.2.7.2.[place] [id number] [place] dic[address] 2022-05-10 2022-05-10 Outpatient R ADUM, [facility] [id number] Univers 10:00:00 11:19:12 YARI ity [facility] 2022-05-10 2022-05-10 Initial Adum, [facility] 1.2.840.114 [id number] Univers 10:00:00 11:19:12 Yari GELLER 350.1.13.10 ity of Visit [place] 4.2.7.2.686 Christianofaiza s LIUDMILAIO [id number] [place] dical NAL 134 [facility] 2022-05-10 2022-05-10 Orders Doctor ANABELA 1.2.840.114 [id number] Univers 00:00:00 00:00:00 Only Unassigned, CALVIN 350.1.13.10 ity of [place] [facility] 4.2.7.2.686 Christiano as [id number] [address] 2022-05-03 2022-05-03 Out[facility] [id number] Univers 10:00:00 10:00:00 [facility] 2022-04-30 2022-04-30 Outpatient P [facility] [id number] Univers 10:30:00 10:30:00 [facility] 2022-04-29 2022-04-29 Outpatient P [facility] [id number] Univers 15:00:00 15:00:00 [facility] 2022-04-29 2022-04-29 Outpatient P [facility] [id number] Univers 14:00:00 14:00:00 [facility] 2022-04-18 2022-04-18 Outpatient R AKINSIPE, [facility] [id number] Univers 11:00:00 11:00:00 ALINE disla o oliver [facility] 2022-04-16 2022-04-16 Outpatient R ROSALBAUM, [facility] [id number] Univers 10:00:00 10:00:00 YARI [facility] 2022-04-11 2022-04-11 Outpatient R AKINSIPE, [facility] [id number] Univers 16:00:00 16:00:00 ALINE disla o f [facility] 2022-04-11 2022-04-11 Outpatient R UHBERT [facility] [id number] Univers 09:45:00 11:12:27 MELINDA ity [facility] 2022-04-11 2022-04-11 Routine Trimester, [facility] Res-1st UNIVERSIT 1.2.840.114 [id number] Univers 09:45:00 11:12:27 Melinda Briggs [facility] 350.1.13.10 ity of Visit CLINICS 4.2.7.2.[place] [id number] [address] 2022-04-11 2022-04-11 Outpatient R HUBERT [facility] [id number] Univers 09:45:00 11:12:27 MELINDA ity [facility] 2022-04-09 2022-04-09 Patient Daniele [facility] 1.2.405.336 [id number] Univers 00:00:00 00:00:00 Secure Msg Aline Upton SECOND MATE 350.1.13.10 ity of REGIONAL 4.2.7.2.686 [place] as MATERNAL [id number] Med ical & CHILD [address] [place] [address] 2022-04-09 2022-04-09 Telephone Marjdeisy [facility] 1.2.840.114 [id number] Univers 00:00:00 00:00:00 Aline Upton SECOND MATE 350.1.13.10 ity of [employer] 4.2.7.2.686 Christiano as MATERNAL [id number] [facility] & CHILD [address] [place] [address] 2022-04-08 2022-04-08 Outpatient R DANIELE [facility] [id number] Univers 07:45:00 08:15:01 ALINE disla o [facility] 2022-04-08 2022-04-08 Outpatient R DANIELE [facility] [id number] Univers 07:45:00 08:15:01 ALINE disla o f [facility] 2022-04-08 2022-04-08 Home Lighting Adviser Lab, [facility] 1.2.840. 114 [id number] Univers 07:45:00 08:00:00 Visit Aline Sanabria SECOND MATE 350.1.13. 10 ity of REGIONAL 4.2.7.2.686 [place] as MATERNAL [id number] [facility] CHILD [address] [place] [address] 2022-04-08 2022-04-08 Outpatient [facility] [id number] Univers 07:45:00 07:45:00 ALINE ity o f [facility] 2022-04-04 2022-04-04 Routine [facility] 1.2.434.742 [id number] Univers 16:00:00 16:00:00 Aline C SECOND MATE 350.1.13.10 ity of Visit REGIONAL 4.2.7.2.686 [place]o as MATERNAL [id number] [facility] & [address] 2022-04-04 2022-04-04 Outpatient R [facility] [id number] Univers 16:00:00 13:56:07 ALINE disla o [facility] 2022-04-04 2022-04-04 Outpatient R [facility] [id number] Univers 16:00:00 13:56:07 ALINE ity o [facility] 2022-04-04 2022-04-04 Telephone [facility] 1.2.840.114 [id number] Univers 00:00:00 00:00:00 Aline C SECOND MATE 350.1.13.10 ity of REGIONAL 4.2.7.2.686 [place] as MATERNAL [id number] [facility] & [address] 2022-03-27 2022-03-27 Telephone [facility] 1.2.840.114 [id number] Univers 00:00:00 00:00:00 Aline C SECOND MATE 350.1.13.10 ity of REGIONAL 4.2.7.2.686 [place] as MATERNAL [id number] [facility] & CHILD [address] [place] [address] 2022-03-14 2022-03-14 Initial [facility] 1.2.358.967 [id number] Univers 08:30:00 09:36:51 Aline C SECOND MATE 350.1.13.10 ity of Visit REGIONAL 4.2.7.2.686 Christiano as MATERNAL [id number] [facility] ical & CHILD [address] [place] [address] 2022-03-14 2022-03-14 Outpatient R DANIELE, [facility] [id number] Univers 08:00:00 09:36:43 ALINE disla o f [facility] 2022-03-14 2022-03-14 Orders Doctor ANABELA 1.2.840.114 [id number] Univers 00:00:00 00:00:00 Only Unassigned, [place] 350.1.13.[address] [facility] 4.2.7.2.686 Christiano as [id number] [address] 2022-03-09 2022-03-09 Outpatient R UNKNOWN, [facility] [id number] Univers 13:40:00 13:40:00 ATTENDING [facility] 2022-03-08 2022-03-08 Outpatient R GINGER [facility] [id number] Univers 17:00:00 17:22:05 [facility] 2022-03-08 2022-03-08 Urgent Ginger [facility] 1.2.840.114 [id number] Univers 17:00:00 17:22:05 [facility] 350.1.13.10 it y [facility] 4.2.7.2.686 Christiano as PATSY?BLEA [id number] [address] MEDICAL OFFICE [facility] 2022-03-08 2022-03-08 Outpatient R GINGER [facility] [id number] Univers 17:00:00 [facility]22[facility] 2022-02-21 Outpatient R [facility] [id number] Univers 08:00:00 08:[facility] 2022-[facility]-14 2022-02-14 Outpatient R DANIELE [facility] [id number] Univers 13:15:00 14:27:[address] [facility] 2022-02-14 2022-02-14 Office [facility] 1.2.494.587 [id number] Univers 13:15:00 14:27:02 Visit Aline C SECOND MATE 350.1.13.10 ity of [employer] 4.2.7.2.686 Christiano as MATERNAL [id number] Med ical & CHILD [address] [place] [address] 2022-02-14 2022-02-14 Outpatient R [facility] [id number] Univers 13:15:00 14:27:02 ALINE disla o f [facility] 2022-02-14 2022-02-14 Orders Doctor ANABELA 1.2.840.114 [id number] Univers 00:00:00 00:00:00 Only Unassigned, CALVIN 350.1.13.10 ity of [place] [facility] 4.2.7.2.686 Christiano as [id number] [address] 2022-01-29 2022-01-29 Outpatient R [facility] [id number] Univers 13:45:00 13:45:00 ALINE armstrong f [facility] 2022-01-29 2022-01-29 Outpatient R [facility] [id number] Univers 13:15:00 13:15:00 ity [facility] 2021-10-27 2021-10-27 Emergency [facility] ERT [id number] Univers 19:27:00 21:47:00 JUANA [facility] 2021-10-27 2021-10-27 Emergency jTREHOB[facility] [id number] Univers 19:27:00 21:47:00 Juana [facility] 350.1.13.10 i ty [facility] 4.2.7.2.686 [place] [facility] [phone] [facility] [address] [place] 2021-10-27 2021-10-27 Orders Doctor ANABELA 1.2.840.114 [id number] Univers 00:00:00 00:00:00 Only Unassigned, CALVIN 350.1.13.10 ity of [place] [facility] 4.2.7.2.686 Christiano as [phone] [facility] [address] [place] 2020-11-07 2020-11-07 Patient Kevin [facility] 1.2.840.114 [id number] Univers 00:00:00 00:00:00 Outreach Kevin PRIMARY 350.1.13.10 i ty of [facility] 4.2.7.2.686 [place] [phone] [place] [address] [place] [address] 2020-11-07 2020-11-07 Patient Kevin [facility] 1.2.840.114 [id number] 00:00:00 00:00:00 Outreach Kevin PRIMARY 350.1.13.10 [facility] 4.2.7.2.686 PAVILLION [phone] [facility] 2020-11-06 2020-11-06 Outpatient R BERNARD [facility] [id number] Univers 10:00:00 10:00:00 RICARDO disla o f [facility] 2020 2020 [facility] [id number] Univers 08:00:00 08:00:00 ROCIO dsila [facility] 2020-09-12 2020-09-12 Outpatient R [facility] [id number] Univers 10:00:00 [facility] 2020-07-07 Nurse Visit, [facility] Nurse [facility] 1.2 .840.114 [id number] Univers 09:55:55 10:22:59 Visit Ricardo Wagner R SECOND MATE 350.1.13.10 ity REGIONAL 4.2.7.2.686 Christiano as MATERNAL [phone] Med ical & CHILD [address] [place] [address] 2020-07-07 2020-07-07 Nurse Visit, [facility] 1.2.840.114 [id number] 09:55:55 10:22:[facility] 350.1.13.10 Nurse REGIONAL 4.2.7.2.686 MATERNAL [phone] & CHILD [address] [place] [address] 2020-07-07 2020-07-07 Outpatient R [facility] [id number] Univers 10:00:00 [facility]07 2020-07-07 Telephone Daniele [facility] 1.2.840.114 [id number] Univers 00:00:00 00:00:00 Aline C SECOND MATE 350.1.13.10 ity of REGIONAL 4.2.7.2.686 Christiano as MATERNAL [phone] Med ical & CHILD [address] [place] [address] 2020-07-07 2020-07-07 Telephone [facility] 1.2.840.114 [id number] 00:00:00 00:00:00 Aline C SECOND MATE 350.1.13.10 REGIONAL 4.2.7.2.686 MATERNAL [phone] & CHILD [address] [place] [address] 2020-07-04 2020-07-04 Outpatient R DANIELE [facility] [id number] [facility] 13:00:00 13:00:00 ALINE disla o oliver [facility] [facility] 2020-07-04 2020-07-04 Telephone [facility] [id number] Univers 00:00:00 00:00:00 Rocio Lorezn SECOND MATE [id number] it y of REGIONAL 4.2.7.2.686 Christiano as MATERNAL [phone] [facility] & CHILD [address] [place] [address] 2020-07-04 2020-07-04 Telephone [facility] [id number] 00:00:00 00:00:00 Rocio Lorenz SECOND MATE [id number] REGIONAL [id number] MATERNAL [id number] & CHILD [address] [place] [address] 2020-07-03 2020-07-03 Office Rocio Pond [facility] 1.2.840. [id number] [facility] 14:23:30 14:50:28 Visit Aline Sanabria SECOND MATE 350.1.13. 10 ity of REGIONAL [id number] Christiano as MATERNAL [phone] [facility] [address] [place] [address] 2020-07-03 2020-07-03 Office [facility] [id number] 14:23:30 14:50:28 Visit Rocio Lorenz SECOND MATE [id number] REGIONAL [id number] MATERNAL [id number] & CHILD [address] [place] [address] 2020-07-03 2020-07-03 [address] [facility] [id number] Univers 14:30:00 14:30:00 ROCIO ity [facility] 2020-06-28 2020-06-28 Telephone MarjdeisyRE[facility] [id number] Univers 00:00:00 00:00:00 Aline Upton [place] 350.1.13.10 ity [facility] 4.2.7.2.686 [place] [id number] [place] [address] 2020-06-20 2020-06-20 Office [facility]ieleRE[facility] [id number] Univers 08:04:56 08:46:32 Visit Aline Upton SECOND MATE [id number] ity [facility] [id number] Christiano as MATERNAL [id number] [facility] CH[facility] [address] [place] [address] 2020-06-20 2020-06-20 Outpatient [facility] [id number] Univers 08:00:00 08:00:00 ALINE disla o oliver [facility] 2020-05-26 2020-05-26 Outpatient R [facility] [id number] Univers 10:30:00 [facility] 2020-02-24 2020-02-24 Office [facility] [id number] Univers 10:16:42 11:11:42 Visit Aline Upton SECOND MATE 350.1.13.10 ity [facility] [id number] Christiano as MATERNAL [phone] [facility] & [address] 2020-02-24 2020-02-24 Outpatient [facility] [id number] Univers 10:00:00 10:00:00 ALINE disla o f [facility] 2020-02-24 2020-02-24 Outpatient R [facility] [id number] Univers 09:30:00 09:30:[facility] 2020-02-24 2020-02-24 Orders Doctor PEÑALOZA 1.2.840.114 [id number] Univers 00:00:00 00:00:00 Only Unassigned, CALVIN 350.1.13.10 ity of [place] [facility] 4.2.7.2.686 Christiano as [id number] [address] 2020-02-17 2020-02-17 Outpatient Deejay POND [facility] [id number] Univers 14:30:00 14:30:00 ROCIO disla of [facility] Results Test Description Test Time Test Comments [...] 33.2 g/dL 31.6-35.1 RDW-SD (test code = 12199-4) 48.3 fL 39.0-49.9 RDW-CV (test code = 788-0) 14.9 % 12.0-15.5 PLT (test code = 777-3) 234 See_Comment [Au tomated message] The system which ge nerated this result transmit nuris reference range: 166 - 35 8 10*3/?L. The reference range was not used to interpret th is result as normal/abnormal . MPV (test code = 54985-3) 10.1 fL 9.5-12.9 NRBC/100 WBC (test code = 0.0 See_Comment [ Automated message] The [id number]) system which [employer] nerated this result transmit nuris reference range: 0.0 - 10 .0 /100 WBCs. The reference r altagracia was not used to interpr et this result as normal/abnor mal. NRBC x10^3 (test code = See_Comment [Au tomated message] The 7306683133) system which [employer] nerated this result transmit nuris reference range: 10*3/?L. The reference range was not u sed to interpret this result as normal/abnormal . GRAN MAT (NEUT) % (test code 72.1 % = 770-8) IMM GRAN % (test code = 0.40 % 2712843022) LYMPH % (test code = 736-9) 20.7 % MONO % (test code = 5905-5) 6.1 % EOS % (test code = 713-8) 0.3 % BASO % (test code = 706-2) 0.4 % GRAN MAT x10^3(ANC) (test 7.70 10*3/uL 1.88-7.09 H code = 6778182024) IMM GRAN x10^3 (test code = 0.04 10*3/uL 0.00-0.06 1341357041) LYMPH x10^3 (test code = 2.21 10*3/uL 1.32-3.29 731-0) MONO x10^3 (test code = 0.65 10*3/uL 0.33-0.92 742-7) EOS x10^3 (test code = 0.03 10*3/uL 0.03-0.39 711-2) BASO x10^3 (test code = 0.04 10*3/uL 0.01-0.07 704-7) Lab Interpretation (test Abnormal code = 70901-4) [facility] CLAUDETTE RODRIGUEZ - [id number] 08:41:13 Test Item Value Reference Range Interpretation Comments RPR (Qualitative) (test code = Nonreactive Nonreactive 83248-5) Lab Interpretation (test code = Normal 28410-0) [facility] Surface [id number] 05:39:08 Test Item Value Reference Range Interpretation Comments HBsAg Semi-Quantitative (test code = 0.05 Negative 5195-3) [facility] AG-AB WITH [id number] 02:16:01 Test Item Value Reference Range Interpretation Comments HIV 0.07 Negative Semi-quantitative (test code = 69565-7) NADJA (test code = Non-reactive for HIV-1 NADJA) antigen and HIV-1/HIV-2 antibodies. ?No laboratory evidence of HIV infection. ?Repeat in 2-4 weeks if acute HIV infection is suspected. [facility] with [id number] 00:40:11 Test Item Value Reference Range Interpretation Comments WBC (test code = 7.97 See_Comment [Automated 1254-2) message] The sy stem which generated this result transmitted reference range : 4.30 - 11.10 10*3/?L. The reference range was not used to interpret this result as normal/abnormal . RBC (test code = 4.08 See_Comment [Automated 743-8) message] The sy stem which generated this [...] RDW-SD (test code = 46.5 fL 39.0-49.9 19394-9) RDW-CV (test code = 14.5 % 12.0-15.5 788-0) PLT (test code = 273 See_Comment [Automated 947-3) message] The sy stem which generated this result transmitted reference range : 166 - 358 10*3/ ?L. The reference r altagracia was not used to interpret this result as normal/abnormal . MPV (test code = 9.9 fL 9.5-12.9 37982-5) NRBC/100 WBC (test 0.0 See_Comment [Automat ed code = 5212229450) message] The system which generated this result transmitted reference range : 0.0 - 10.0 /100 WBCs. The refer ence range was not u sed to interpret th is result as normal/abnormal . NRBC x10^3 (test code See_Comment [Auto mated = 6291947769) message] The s ystem which generated this result transmitted reference range : 10*3/?L. The reference range was not used to interpret this result as normal/abnormal . GRAN MAT (NEUT) % 75.6 % (test code = 770-8) IMM GRAN % (test code 0.50 % = 9947920697) LYMPH % (test code = 16.1 % 736-9) MONO % (test code = 6.9 % 5905-5) EOS % (test code = 0.4 % 713-8) BASO % (test code = 0.5 % 706-2) GRAN MAT x10^3(ANC) 6.03 10*3/uL 1.88-7.09 (test code = 5505608837) IMM GRAN x10^3 (test 0.04 10*3/uL 0.00-0.06 code = 1562261904) LYMPH x10^3 (test code 1.28 10*3/uL 1.32-3.29 L = 731-0) MONO x10^3 (test code 0.55 10*3/uL 0.33-0.92 = 742-7) EOS x10^3 (test code = 0.03 10*3/uL 0.03-0.39 711-2) BASO x10^3 (test code 0.04 10*3/uL 0.01-0.07 = 704-7) Lab Interpretation Abnormal (test code = 57619-8) [facility] - ONCE [id number] 00:38:00 Test Item Value Reference Range Interpretation Comments ABO & RH (test code = 20) A Positive IAT (test code = 1185) Negative [facility] W/O SPECIFIC [id number] 15:58:00 Test Item Value Reference Range Interpretation [...] code = 3257) N/A Negative - Negative General acute hospital URINALYSIS W/O SPECIFIC [id number] 22:13:00 Test Item Value Reference Range Interpretation [...] code = 3257) N/A Negative - Negative General acute hospital URINALYSIS W/O SPECIFIC [id number] 21:55:00 Test Item Value Reference Range Interpretation [...] code = 3257) n/a Negative - [facility] [id number] 22:12:00 Test Item Value Reference Range Interpretation [...] code = 3257) n/a Negative - Negative General acute hospital URINALYSIS W/O SPECIFIC [id number] 16:56:00 Test Item Value Reference Range Interpretation [...] code = 3257) n/a Negative - Negative General acute hospital URINALYSIS W/O SPECIFIC [id number] 22:09:00 Test Item Value Reference Range Interpretation [...] code = 3257) N/A Negative - Negative General acute hospital URINALYSIS W/O SPECIFIC [id number] 22:09:00 Test Item Value Reference Range Interpretation [...] code = 3257) N/A Negative - Negative [facility] HospitalPONJ URINALYSIS W/O SPECIFIC [id number] 17:05:00 Test Item Value Reference Range Interpretation [...] code = 3257) N/A Negative - Negative [facility] HospitalGLUCOSE [id number] 16:58:30 Test Item Value Reference Range Interpretation Comments GLU FASTNG (test code = 4095018718) 83 mg/dL 70-110 Lab Interpretation (test code = Normal 87773-1) General acute hospital URINALYSIS W/O SPECIFIC [id number] 15:06:00 Test Item Value Reference Range Interpretation [...] code = 3257) N/A Negative - Negative [facility] W/O SPECIFIC [id number] 16:05:00 Test Item Value Reference Range Interpretation [...] code = 3257) N/A Negative - Negative [facility]PO[facility] W/O SPECIFIC [id number] 16:26:00 Test Item Value Reference Range Interpretation [...] code = 3257) n/a Negative - Negative [facility]PO[facility] W/O SPECIFIC [id number] 16:26:00 Test Item Value Reference Range Interpretation [...] code = 3257) n/a Negative - Negative [facility]PO[facility] W/O SPECIFIC [id number] 15:50:00 Test Item Value Reference Range Interpretation [...] code = 3257) n/a Negative - Negative [facility]
[2023-07-16] MEDS ORDERED: ONDANSETRON 4 MG (ODT) TAB ONE (15:09)
--- NOTE | 2023-07-16 15:24 | ER ---
Nurse's Notes [facility] Name: Carlita Atkinson Age: 22 yrs Sex: Female : 2000 Arrival Date: 07/16/2023 Time: 14:32 Bed IW3 Private MD: Diagnosis: Influenza due to identified novel influenza A virus-B Presentation: 07/16 14:40 Chief complaint: Patient states: cough, congestion, chills that began 2 days ago. aa5 14:40 Coronavirus screen: congestion, cough unrelated to allergies. Ebola Screen: Patient aa5 denies travel to an Ebola-affected area in the 21 days before illness onset. Initial Sepsis Screen: Does the patient meet any 2 criteria? No. Patient's initial sepsis screen is negative. Does the patient have a suspected source of infection? No. Patient's initial sepsis screen is negative. Risk Assessment: Do you want to hurt yourself or someone else? Patient reports no desire to harm self or others. Onset of symptoms was July 14, 2023. 14:40 Method Of Arrival: Ambulatory aa5 14:40 Acuity: YOU 4 aa5 Triage Assessment: 14:47 General: Appears uncomfortable, Behavior is calm, cooperative, appropriate for age, aa5 Reports chills for. EENT: Reports nasal congestion. Respiratory: Reports cough that is. 15:36 Pain: Denies pain. 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 - Social history:: Smoking status: Patient denies any tobacco usage or history of. Screenin:33 [facility] ED Fall Risk Assessment (Adult) Score/Fall Risk Level 0 - 2 = Low Risk aa5 Oriented to surroundings, Maintained a safe environment, Educated pt \T\ family on fall prevention, incl call for assistance when getting out of bed. Abuse screen: Denies threats or abuse. Nutritional screening: No deficits noted. Tuberculosis screening: No symptoms or risk factors identified. Assessment: 15:34 Reassessment: Patient and/or family updated on plan of care and expected duration. Pain aa5 level reassessed. not in lobby when called for discharge. Called patients phone and left a message. Vital Signs: 14:40 BP 132 / 89; Pulse 90; Resp 19 S; Temp 97.5(TE); Pulse Ox 98% on R/A; Weight 81.65 kg aa5 (R); Height 5 ft. 4 in. (R); 14:40 Body Mass Index 30.90 (81.65 kg, 162.56 cm) aa5 ED Course: 14:34 Patient arrived in ED. mg5 14:35 Tara Serrano FNP-C is [facility]. kb 14:35 Slava Buchanan DO is Attending Physician. kb 14:40 Arm band placed on. aa5 14:48 Triage completed. aa5 14:51 COVID-19 SARS RT PCR Sent. ds4 14:51 Flu Sent. ds4 15:02 COVID-19 SARS RT PCR Sent. ll1 15:02 Flu Sent. ll1 15:35 Patient has correct armband on for positive identification. Bed in low position. Call aa5 light in reach. Provided Education on: n/a. 15:35 No provider procedures requiring assistance completed. Patient did not have IV access aa5 during this emergency room visit. Administered Medications: 14:56 Drug: Ondansetron Oral Disintegrating Tablet Oral Disintegrating Tablet 4 mg PO once aa5 Route: PO; 15:36 Follow up: Response: No adverse reaction aa5 Medication: 15:36 VIS not applicable for this client. aa5 Outcome: 15:23 Discharge ordered by . kb 15:35 Discharged to home ambulatory, aa5 15:35 Condition: stable 15:35 Discharge instructions given to left without discharge instructions Instructed on n/a. left without discharge instructions 15:36 Patient left the ED. aa5 Signatures: Tara Serrano FNP-C FNP-Ckb Calderon, Audri RN RN aa5 Steve Mejia ds4 Wiliam Terrell, RN RN 1 Letty Casey mg5 Corrections: (The following items were deleted from the chart) 14:48 14:47 Chief complaint: Patient states: cough, congestion that began aa5 aa5 14:51 14:40 Pulse 90bpm; Resp 19bpm; Spontaneous; Pulse Ox 98% RA; Temp 97.5F Temporal; 81.65 aa5 kg Reported; Height 5 ft. 4 in. Reported; BMI: 30.9; aa5 15:34 15:33 Reassessment: No changes from previously documented assessment. Patient and/or aa5 family updated on plan of care and expected duration. Pain level reassessed. Patient is alert, oriented x 3, equal unlabored respirations, skin warm/dry/pink. aa5
--- NOTE | 2023-07-16 15:24 | EDPHYS ---
Physician Documentation [facility] Name: Carlita Atkinson Age: 22 yrs Sex: Female : 2000 Arrival Date: 07/16/2023 Time: 14:32 Bed IW3 Private MD: ED Physician Slava Buchanan HPI: 07/16 14:40 This 22 yrs old Female presents to ER via Unassigned with complaints of Flu kb Symptoms. 14:40 Pt reports cough, nausea, vomiting, chills, bodyaches, congestion, runny nose since kb yesterday. Denies fever. 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 - Social history:: Smoking status: Patient denies any tobacco usage or history of. ROS: 14:43 MS/Extremity: Negative for injury and deformity, kb 14:43 Constitutional: Positive for body aches, chills, malaise, 14:43 ENT: Positive for rhinorrhea, sinus congestion, 14:43 Respiratory: Positive for cough, 14:43 Abdomen/GI: Positive for nausea and vomiting, 14:43 All other systems are negative, Exam: 14:43 Constitutional: This is a well developed, well nourished patient who is awake, alert, kb and in no acute distress. Head/Face: Normocephalic, atraumatic. ENT: Moist Mucous membranes Cardiovascular: Regular rate Respiratory: Respirations even and unlabored. No increased work of breathing. Talking in full sentences Abdomen/GI: Soft, non-tender. No distention Skin: Warm, dry with normal turgor. Normal color. MS/ Extremity: Pulses equal, no cyanosis. Neurovascular intact. Full, normal range of motion. Neuro: Awake and alert, GCS 15, oriented to person, place, time, and situation. Moves all extremities. Normal gait. Vital Signs: 14:40 BP 132 / 89; Pulse 90; Resp 19 S; Temp 97.5(TE); Pulse Ox 98% on R/A; Weight 81.65 kg aa5 (R); Height 5 ft. 4 in. (R); 14:40 Body Mass Index 30.90 (81.65 kg, 162.56 cm) aa5 MDM: 14:35 Patient medically screened. kb 14:44 Differential diagnosis: flu, covid, uri. Data reviewed: vital signs, nurses notes. kb 15:23 Counseling: I had a detailed discussion with the patient and/or guardian regarding the historical points, exam findings, and any diagnostic results supporting the discharge/admit diagnosis, lab results, the need for outpatient follow up, a family practitioner, to return to the emergency department if symptoms worsen or persist or if there are any questions or concerns that arise at home. 15:23 I considered the following discharge prescriptions or medication management in the emergency department I discussed and recommended Over The Counter medications. 07/16 14:41 Order name: Flu; Complete Time: 15:23 kb 07/16 14:41 Order name: COVID-19 SARS RT PCR kb Administered Medications: 14:56 Drug: Ondansetron Oral Disintegrating Tablet Oral Disintegrating Tablet 4 mg PO once aa5 Route: PO; 15:36 Follow up: Response: No adverse reaction aa5 Disposition: 14:58 I was immediately available on-site in the Emergency Department for consultation in the ms3 care of the patient. Disposition Summary: 07/16/23 15:23 Discharge Ordered Notes: Location: Home kb Condition: Stable kb Diagnosis - Influenza due to identified novel influenza A virus - B kb Followup: kb - With: Emergency Department - When: As needed - Reason: Worsening of condition Followup: kb - With: Private Physician - When: 2 - 3 days - Reason: Recheck today's complaints, Continuance of care, Re-evaluation by your physician Discharge Instructions: - Discharge Summary Sheet kb - Influenza, Adult, Uwpr-sp-Eufv kb Forms: - Medication Reconciliation Form kb - Thank You Letter kb - Antibiotic Education kb - Prescription Opioid Use kb - Patient Portal Instructions kb - Leadership Thank You Letter Prescriptions: - Zofran 4 mg Oral tablet - take 1 tablet ORAL route every 6 hours As needed; 10 tablet; Refills: 0, kb Product Selection Permitted - Tamiflu 75 mg Oral capsule - take 1 tablet ORAL route every 12 hours for 5 days; 10 tablet; Refills: 0, kb Product Selection Permitted Signatures: Dispatcher [employer] Tara Coronel FNP-C FNP-Ckb Calderon Micaela, RN RN aa5 Buchanan, Slava, DO DO ms3
[2023-07-16 15:50] VITALS: BP 132/89; TEMP 97.5; O2SAT 98
== END 2023-07-16 15:36 | disposition home or self-care (01) ==
LOC: ER 14:32
DX: J10.1 Influenza due to other identified influenza virus with other respiratory manifestations (principal); Z11.52 Encounter for screening for COVID-19
CPT/HCPCS: 87635; 87804 ×2; 99283; Q0162

== ENCOUNTER 2024-12-16 10:27 | Emergency (ER) | payer OTHER, SELFPAY ==
--- OUTSIDE RECORDS SUMMARY | 2024-12-16 10:35 | XMS REPORT | Continuity of Care Document ---
Author Name Unknown Address [address] [facility] [place] [address] [facility] [place] Address [address] [facility] [place] [address] Care Team Providers Care Motor Vehicle Field Representative Name Role Phone PCP, PATIENT DOES NOT HAVE A Primary Care Physic lyssa Unavailable YARI BUCHANAN Attending Clinician Unavailable NICK RESENDIZ Attending Clinician Unavailable NICK RESENDIZ Attending Clinician Unavailable SABRINA DURHAM Attending Clinician Unavailable Gina CAMPBELL Attending Clinician Unavailable Gina Reyes Attending Clinician [phone] [email or web address] Attending Clinician Unavaila PRUDENCIO LawSOL Attending Clinician VIRA Parekh Attending Clinician Albert connolly Doctor Unassigned, [place] Attending Clinician U Yari Peacock MD Attending Clinician [phone] Juwan Howlel MD Attending Clinician [phone], [facility] Attending Clinician Unavailable Aline Sawant Attending Clinician + ALIEN SANABRIA Attending Clinician Unavail able TAMARA JAIMES Attending Clinician Unavaila TAMARA Cartagena Attending Clinician Unavaila ble DEWEY LEIGH ANNJEWELS ELIZONDO Attending Clinician Unavailable Dewey NARANJO, Leigh Ann Elizondo Attending Clinician [phone] Pob, [facility] Main Attending Clinician Unavailabl David Xie MD Attending Clinician [phone] DAVID FERGUSON Attending Clinician Unavailabl e Ultrasound, [facility] Attending Clinician Unavaila ble Fernando DO, Chau Attending Clinician [phone] Ultrasound, [facility] Attending Clinician Unavaila ble Justin Mayer MD, Silva Attending Clinician + MICHAEL VASQUEZ Attending Clinician Unav ailMELINDA Coronado Attending Clinician Unavailable Trimester, [facility] Res-1st Attending Clinician Unavailable Melinda Briggs MD Attending Clinician [phone] Lab, [facility] Attending Clinician Unavailable UNKNOWN, ATTENDING Attending Clinician Unavailab JACKELINE Elam Attending Clinician Unavailable Eblauren EMERY GRINDERJackeline Attending Clinician [phone] JUANA SPENCER Attending Clinician Unavailable Juana Balbuena Attending Clinician [phone] Kevin Brown DO Attending Clinician [phone] RICARDO WAGNER Attending Clinician Unavailab ROCIO De Jesus Attending Clinician Unavailsowmya e Visit, [facility] Nurse Attending Clinician Unava ilRicardo Graves Attending Clinician + [phone] Rocio Sauer Attending Clinician [phone] LEIGH ANN PALOMO Admitting Clinician Unavailable NICK RESENDIZ Admitting Clinician Unavailable [email or web address] Admitting Clinician Unavaila YARI Steele Admitting Clinician Unavailable Yari Buchanan MD Admitting Clinician [phone] Leigh Ann Palomo MD Admitting Clinician [phone] JUANA SPENCER Admitting Clinician Unavailable Payers Payer Name Policy Type Policy Number Effective Date Expirati on Date Source [facility] [id number] 2022 00:00:00 [id number] 2022 00:00:00 [place] [id number] 2022 00:00:00 2022 00:00:00 MULTIPLAN GENERIC [id number] 00:00:00 Problems Condition Name Condition Details Condition Category Status Onset Date Resolution Date Last Treatment Date Treating Clinician Comments Source Need for diphtheria -tetanus-p ertussis (Tdap) vaccine Need for diphtheria -tetanus-p ertussis (Tdap) vaccine Disease Active 2021-08 00:00: 00 [facility] BMI 36.0-36.9, adult BMI 36.0-36.9, adult Disease Active 05-10 00:00: 00 [facility] Gonorrhea Gonorrhea Disease Active 2019-0817 00:00: 00 [facility] Liveborn , of maloney , born in hospital by vaginal delivery Liveborn , of maloney , born in hospital by vaginal delivery Disease Resolve d 2022-0 3-15 00:00: 00 2022-11-26 00:00:00 2022-11-26 16:01:19 [facility] Full-term premature rupture of membranes Full-term premature rupture of membranes Disease Resolve d 2022-0 3-14 00:00: 00 2022-11-26 00:00:00 2022-11-26 16:29:00 [facility] 38 weeks gestation of 38 weeks gestation of Disease Resolve d 2022-0 3-14 00:00: 00 2022-11-26 00:00:00 2022-11-26 16:28:59 [facility] Positive GBS test Positive GBS test Disease Resolve d 2022-0 3-14 00:00: 00 2022-11-26 00:00:00 2022-11-26 16:28:52 [facility] Premature labor with rupture of membranes Premature labor with rupture of membranes Disease Resolve d 2022-0 3-14 00:00: 00 2022-11-26 00:00:00 2022-11-26 16:28:52 [facility] Abnormal maternal glucose tolerance, antepartum Abnormal maternal glucose tolerance, antepartum Disease Resolve d 2022-0 1-04 00:00: 00 2022-11-26 00:00:00 2022-11-26 16:28:58 [facility] Supervisio n of high risk in second trimester Supervisio n of high risk in second trimester Disease Resolve d 0 - 00:00: 00 2022-11-26 00:00:00 2022-11-26 16:01:19 [facility] Obesity in Obesity in Disease Resolve d 7-09 00:00: 00 2022-11-26 00:00:00 2022-11-26 16:01:19 [facility] Nausea & vomiting Nausea & vomiting Disease Resolve d 0 6-30 00:00: 00 2022-03-14 00:00:00 2022-03-14 09:18:27 [facility] Well woman exam Well woman exam Disease Resolve d 7-09 00:00: 00 2022-03-14 00:00:00 2022-03-14 09:18:06 [facility] Allergies, Adverse Reactions, Alerts Allergy Name Allergy Type Status Severity Reaction(s) Onset Date Inactive Date Treating Clinician Comments Source NO KNOWN ALLERGIE S Drug Class Active [facility] Social History Social Habit Start Date Stop Date Quantity Comments Source ASSERTION 2022-02-13 00:00:00 [facility] Sexual orientation U [facility] History SDOH Alcohol Frequency [facility] History SDOH Alcohol Std Drinks [facility] History SDOH Alcohol Binge [facility] Alcoholic beverage intake 2024-03-15 00:00:00 2024-03-15 00:00:00 Ex-drinker (finding) [facility] Alcohol intake 2023-11-20 00:00:00 2023-11-20 00:00:00 Ex-drinker (finding) [facility] Exposure to SARS-CoV-2 (event) 2022-10-20 00:00:00 2022-10-30 11:23:00 Not sure [facility] Tobacco use and exposure 2022-03-14 00:00:00 2022-03-14 00:00:00 Smokeless tobacco non-user [facility] History of Social function 2022-02-14 00:00:00 2022-02-14 00:00:00 [facility] Alcohol Comment 2020-02-24 00:00:00 2020-02-24 00:00:00 Socially [facility] Sex assigned at 2000 00:00:00 2000 00:00:00 [facility] Smoking Status Start Date Stop Date Source Never smoked tobacco [facility] Medications Ordered Medication Name Filled Medication Name Start Date Stop Date Current Medication? Ordering Clinician Indication Dosage Frequency Signature (SIG) Comments Components Source cefTRIAXone (ROCEPHIN) 1,000 mg in NaCl 0.9% (NS) 100 mL MINI-BAG 03-15 22:45: 00 03-15 22:58 :00 No 1000mg 1,000 mg, IV Piggyback, ONCE, 1 dose, On Fri03/15/24 at 1745, Administer over 30 Minutes, 100 mL, Reason for Anti-Infec tive: Documented Infection, Documented Infection Site: Urine, Duration of Therapy: Once (ED) [facility] hyoscyamine sulfate (LEVSIN/SL) sublingual tablet 0.25 mg 03-15 22:30: 00 03-15 21:56 :00 No .25mg 0.25 mg, Sublingual , ONCE NOW, 1 dose, On Fri03/15/24 at 1730, Routine [facility] ketorolac (TORADOL) injection 30 mg 03-15 22:15: 00 03-15 21:56 :00 No 30mg 30 mg, Slow IV Push, ONCE NOW, 1 dose, On Fri03/15/24 at 1715, JOHAN [facility] NaCl 0.9% (NS) bolus infusion 1,000 mL 03-15 22:15: 00 03-15 22:50 :00 No 1000mL at 999 mL/hr, 1,000 mL, IV Piggyback, ONCE, 1 dose, On Fri03/15/24 at 1715, STAT [facility] ondansetron (ZOFRAN (PF)) injection 4 mg 03-15 21:30: 00 03-15 21:56 :00 No 4mg 4 mg, Slow IV Push, ONCE, 1 dose, On Fri03/15/24 at 1630, JOHAN [facility] proCHLORper azine 10 mg tablet 03-15 00:00: 00 Yes [id number] 10mg Take 1 tablet by mouth every 6 (six) hours as needed for Nausea and Vomiting (N/V) (Migraine, to take together with TORADOL). [facility] ketorolac 10 mg tablet 03-15 00:00: 00 Yes [id number] 10mg Take 1 tablet by mouth every 6 (six) hours as needed for Pain (scale 4-6) or Pain (scale 7-10). [facility] hyoscyamine sulfate (LEVSIN/SL) 0.125 mg sublingual tablet 03-15 00:00: [id number] 2 tablets under the tongue every 6 (six) hours as needed (Abdominal pain or cramping). [facility] cefpodoxime 200 mg tablet 03-15 00:00: 00 Yes [id number] 200mg Take 1 tablet by mouth in the morning and 1 tablet in the evening. [facility] ondansetron 8 mg disintegrat ing tablet 03-15 00:00: 00 Yes [id number] 8mg Take 1 tablet by mouth every 8 (eight) hours as needed for Nausea and Vomiting (N/V). [facility] ciprofloxac in HCl (CIPRO) tablet 500 mg 11-19 23:27: 00 11-19 23:46 :00 No 500mg 500 mg, Oral, ONCE, 1 dose, On Fri11/20/23 at 1830, JOHAN
Re ason for Anti-Infec tive: Documented Infection< br>Documen nuris Infection Site: Urine
D uration of Therapy: Once (ED) [facility] NaCl 0.9% (NS) bolus infusion 1,000 mL 11-19 23:00: 00 11-19 23:45 :00 No 1000mL at 999 mL/hr, 1,000 mL, IV Infusion, ONCE, 1 dose, On Milagro 11/20/23 at 1800, [facility] ondansetron (ZOFRAN (PF)) injection 4 mg 11-19 22:15: 00 11-19 22:44 :00 No 4mg 4 mg, Slow IV Push, ONCE, 1 dose, On Milagro 11/20/23 at 1715, [facility] sodium chloride (NS) injection 5 mL 11-19 22:00: 32 Yes 5mL 5 mL, Intravenou s, PRN, Starting on Milagro 11/20/23 at 1700, Until Discontinu ed, Routine, IV line flushing [facility] ciprofloxac in HCl (CIPRO) 500 mg tablet 11-19 00:00: 00 11-30 04:59 :00 No [id number] 500mg Take 1 tablet by mouth every 12 (twelve) hours for 10 days. [facility] NaCl 0.9% (NS) bolus infusion 1,000 mL 2022-08 00:45: 00 07-17 01:27 :00 No 1000mL at 999 mL/hr, 1,000 mL, IV Infusion, ONCE, 1 dose, On Fri07/16/23 at 1845, STAT [facility] ondansetron (ZOFRAN (PF)) injection 4 mg 2022-08 00:45: 00 07-16 23:35 :00 No 4mg 4 mg, Slow IV Push, ONCE, 1 dose, On Fri07/16/23 at 1845, [facility] cefTRIAXone (ROCEPHIN) 1,000 mg in NaCl 0.9% (NS) 100 mL MINI-BAG 2022-08 23:00: 00 07-16 23:14 :00 No 1000mg 1,000 mg, IV Piggyback, ONCE, 1 dose, On Fri07/16/23 at 1700, Administer over 30 Minutes, 100 mL
Reas on for Anti-Infec tive: Documented Infection< br>Documen nuris Infection Site: Urine
D uration of Therapy: Other (see Comments) [facility] ondansetron (ZOFRAN (PF)) injection 4 mg 2022-08 23:00: 00 07-16 22:05 :00 No 4mg 4 mg, Slow IV Push, ONCE, 1 dose, On Fri07/16/23 at 1700, JOHAN [facility] NaCl 0.9% (NS) bolus infusion 1,000 mL 2022-08 22:45: 00 07-16 22:59 :00 No 1000mL at 999 mL/hr, 1,000 mL, IV Infusion, ONCE, 1 dose, On Fri07/16/23 at 1645, STAT [facility] ondansetron 4 mg disintegrat ing tablet 2022-08 00:00: 00 Yes [id number] 4mg Take 1 tablet by mouth every 8 (eight) hours as needed for Nausea and Vomiting (N/V). [facility] benzonatate 200 mg capsule 2022-08 00:00: 00 Yes [id number] 200mg Take 1 capsule by mouth 3 (three) times daily as needed for Cough for up to 20 doses. [facility] cefdinir 300 mg capsule 2022-08 00:00: 00 07-27 05:59 :00 No [id number] 300mg Take 1 capsule by mouth every 12 (twelve) hours for 10 days. [facility] ondansetron 4 mg disintegrat ing tablet 11-26 00:00: 00 11-19 00:00 :00 No [id number] 4mg Take 1 tablet by mouth every 8 (eight) hours as needed for Nausea and Vomiting (N/V). [facility] medroxyPROG ESTERone (DEPO-PROVE RA) injection 150 mg 3-16 15:30: 00 Yes 150mg 150 mg, Intramuscu lar, [id number], First dose on Milagro 10/31/22 at 1030, Until Discontinu ed, Routine [facility] vitamin w/FA tablet 10-31 00:00: 00 Yes [id number] 102 1{tbl} Take 1 tablet by mouth in the morning. [facility] docusate 100 mg capsule 10-31 00:00: 00 Yes [id number] 102 200mg Take 2 capsules by mouth once daily as needed for Constipati on. [facility] ferrous sulfate 325 mg (65 mg iron) tablet 10-31 00:00: 00 Yes [id number] 102 325mg Take 1 tablet by mouth in the morning and 1 tablet in the evening. [facility] vitamin w/FA tablet 10-31 00:00: 00 Yes [id number] 102 1{tbl} Take 1 tablet by mouth in the morning. [facility] HYDROcodone -acetaminop hen (NORCO 5) 5-325 mg tablet 1 tablet 10-30 13:05: 06 Yes 1{tbl} 1 tablet, Oral, Q6HPRN, Starting on Fri10/30/22 at 0805, Until Discontinu ed, Routine, Pain (scale 7-10) [facility] ibuprofen (IBU) tablet 600 mg 10-30 13:05: 06 Yes 600mg 600 mg, Oral, Q6HPRN, Starting on Fri10/30/22 at 0805, Until Discontinu ed, Routine, Pain (scale 4-6) [facility] acetaminoph en (TYLENOL) tablet 650 mg 10-30 13:05: 06 Yes 650mg 650 mg, Oral, Q6HPRN, Starting on Fri10/30/22 at 0805, Until Discontinu ed, Routine, Pain (scale 1-3) [facility] diphenhydrA MINE (BENADRYL) tablet 25 mg 10-30 13:05: 06 Yes 25mg 25 mg, Oral, Q6HPRN, Starting on Fri10/30/22 at 0805, Until Discontinu ed, Routine, Sleep, Itching [facility] ondansetron (ZOFRAN (PF)) injection 4 mg 10-30 13:05: 06 Yes 4mg 4 mg, Slow IV Push, Q8HPRN, Starting on Fri10/30/22 at 0805, Until Discontinu ed, Routine, Nausea and Vomiting (N/V) [facility] simethicone (GAS RELIEF (SIMETHICON E)) chewable tablet 160 mg 10-30 13:05: 06 Yes 160mg 160 mg, Oral, PC+HSPRN, Starting on Fri10/30/22 at 0805, Until Discontinu ed, Routine, Gas [facility] docusate (COLACE) capsule 200 mg 10-30 13:05: 06 Yes 200mg 200 mg, Oral, QDAILYPRN, Starting on Fri10/30/22 at 0805, Until Discontinu ed, Routine, Constipati on [facility] magnesium hydroxide (MILK OF MAGNESIA) 400 mg/5 mL suspension 30 mL 10-30 13:05: 06 Yes 30mL 30 mL, Oral, QDAILYPRN, Starting on Fri10/30/22 at 0805, Until Discontinu ed, Routine, Constipati on [facility] benzocaine- menthol (DERMOPLAST ) 20-0.5 % topical spray 10-30 13:05: 06 Yes Topical, PRN, Starting on Fri10/30/22 at 0805, Until Discontinu ed, Routine, Perineum discomfort [facility] fentaNYL-ro pivacaine 2 mcg/mL-0.1 % (PF) in NS 200 mL epidural infusion RTU 10-30 07:58: 00 10-30 14:27 :11 No Epidural, ONCE INTRA PROCEDURE, Starting on Fri10/30/22 at 0258, Until Fri10/30/22 at 0927, Routine, Intra-op [facility] lidocaine-e pinephrine (XYLOCAINE W/EPINEPHRI NE) 1.5 %-1:200,000 injection 10-30 07:50: 00 10-30 14:27 :11 No Intraderma l, ONCE INTRA PROCEDURE, Starting on Fri10/30/22 at 0250, Until Fri10/30/22 at 0927, Routine, Intra-op [facility] oxytocin (PITOCIN) 30 units in NS 500 mL IV infusion 10-30 01:11: 09 10-30 13:06 :44 No 2mU/min at 2-40 mL/hr, IV Infusion, TITRATE, Starting on Fri10/29/22 at 2010, Until Fri10/30/22 at 08, Routine [facility] misoprostol (CYTOTEC) quarter-tab let 50 mcg 10-30 00:30: 00 10-30 00:27 :00 No 50ug 50 mcg, Oral, ONCE, 1 dose, On Fri10/29/22 at 1930, Routine [facility] butorphanol (STADOL) injection 2 mg 10-30 00:17: 38 10-30 13:06 :44 No 2mg 2 mg, IV Push, Q3HPRN, 3 doses, Starting on Fri10/29/22 at 191, Until Fri10/30/22 at 0806, Routine, Pain [facility] ondansetron (ZOFRAN (PF)) injection 4 mg 10-30 00:17: 30 10-30 13:06 :44 No 4mg 4 mg, Slow IV Push, Q6HPRN, Starting on Fri10/29/22 at 191, Until Fri10/30/22 at 08, Routine, Nausea and Vomiting (N/V) [facility] lidocaine 1% (XYLOCAINE) 10 mg/mL (1 %) injection 50 mL 10-30 00:11: 09 10-30 13:06 :44 No 50mL 50 mL, Infiltrati on, PRN - SEE INSTRUCTIO NS, Starting on Fri10/29/22 at 1911, Until Fri10/30/22 at 0806, Routine, Local anesthesia , For laceration repair only as a local anesthetic as indicated. [facility] lactated ringers IV infusion 500 mL 10-30 00:11: 09 10-30 13:06 :44 No 500mL at 999 mL/hr, 500 mL, IV Infusion, PRN - SEE INSTRUCTIO NS, Starting on Fri10/29/22 at 191, Until Fri10/30/22 at 0806, Routine [facility] D5W-LR IV infusion 1,000 mL 10-30 00:11: 09 10-30 13:06 :44 No 1000mL at 1-125 mL/hr, IV Infusion, TITRATE, Starting on Fri10/29/22 at 191, Until Fri10/30/22 at 0806, Routine [facility] proMETHazin e 25 mg tablet 04-26 00:00: 00 10-31 00:00 :00 No TAKE 1 TABLET BY MOUTH EVERY 6 HOURS NEEDED FOR NAUSEA AND VOMITING [facility] vitamin w/FA tablet 03-14 00:00: 00 Yes [id number] 1{tbl} Take 1 tablet by mouth in the morning. [facility] vitamin w/FA tablet 03-14 00:00: 00 Yes [id number] 1{tbl} Take 1 tablet by mouth in the morning. [facility] albuterol 90 mcg/actuati on inhaler 10-27 00:00: 00 Yes [id number] 2{puff} Inhale 2 Puffs every 4 (four) hours as needed for Wheezing or Shortness of Breath. [facility] Immunizations Ordered Immunization Name Filled Immunization Name Date Status Comments Source TDAP 2022-08-08 00:00:00 Completed [facility] TDAP 2022-08-08 00:00:00 Completed [facility] TDAP 2022-08-08 00:00:00 Completed [facility] TDAP 2022-08-08 00:00:00 Completed [facility] TDAP 2022-08-08 00:00:00 Completed [facility] TDAP 2022-08-08 00:00:00 Completed [facility] TDAP 2022-08-08 00:00:00 Completed [facility] TDAP 2022-08-08 00:00:00 Completed [facility] TDAP 2022-08-08 00:00:00 Completed [facility] TDAP 2022-08-08 00:00:00 Completed [facility] TDAP 2022-08-08 00:00:00 Completed [facility] TDAP 2022-08-08 00:00:00 Completed [facility] TDAP 2022-08-08 00:00:00 Completed [facility] TDAP 2022-08-08 00:00:00 Completed [facility] TDAP 2022-08-08 00:00:00 Completed [facility] TDAP 2022-08-08 00:00:00 Completed [facility] TDAP 2022-08-08 00:00:00 Completed [facility] TDAP 2022-08-08 00:00:00 Completed [facility] TDAP 2022-08-08 00:00:00 Completed [facility] TDAP 2022-08-08 00:00:00 Completed [facility] TDAP 2022-08-08 00:00:00 Completed [facility] TDAP 2022-08-08 00:00:00 Completed [facility] TDAP 2022-08-08 00:00:00 Completed [facility] TDAP 2022-08-08 00:00:00 Completed [facility] TDAP 2022-08-08 00:00:00 Completed [facility] Influenza Virus Vaccine Quad IM, Preserv and ABX Free 6 MO-64 YRS 2022-06-11 00:00:00 Completed [facility] Influenza Virus Vaccine Quad IM, Preserv and ABX Free 6 MO-64 YRS 2022-06-11 00:00:00 Completed [facility] Influenza Virus Vaccine Quad IM, Preserv and ABX Free 6 MO-64 YRS 2022-06-11 00:00:00 Completed [facility] Influenza Virus Vaccine Quad IM, Preserv and ABX Free 6 MO-64 YRS 2022-06-11 00:00:00 Completed [facility] Influenza Virus Vaccine Quad IM, Preserv and ABX Free 6 MO-64 YRS 2022-06-11 00:00:00 Completed [facility] Influenza Virus Vaccine Quad IM, Preserv and ABX Free 6 MO-64 YRS 2022-06-11 00:00:00 Completed [facility] Influenza Virus Vaccine Quad IM, Preserv and ABX Free 6 MO-64 YRS 2022-06-11 00:00:00 Completed [facility] Influenza Virus Vaccine Quad IM, Preserv and ABX Free 6 MO-64 2022-06-11 00:00:00 Completed [facility] Influenza Virus Vaccine Quad IM, Preserv and ABX Free 6 MO-64 YRS 2022-06-11 00:00:00 Completed [facility] Influenza Virus Vaccine Quad IM, Preserv and ABX Free 6 MO-64 2022-06-11 00:00:00 Completed [facility] Influenza Virus Vaccine Quad IM, Preserv and ABX Free 6 MO-64 2022-06-11 00:00:00 Completed [facility] Influenza Virus Vaccine Quad IM, Preserv and ABX Free 6 MO-64 2022-06-11 00:00:00 Completed [facility] Influenza Virus Vaccine Quad IM, Preserv and ABX Free 6 MO-64 2022-06-11 00:00:00 Completed [facility] Influenza Virus Vaccine Quad IM, Preserv and ABX Free 6 MO-64 2022-06-11 00:00:00 Completed [facility] Influenza Virus Vaccine Quad IM, Preserv and ABX Free 6 MO-64 2022-06-11 00:00:00 Completed [facility] Influenza Virus Vaccine Quad IM, Preserv and ABX Free 6 MO-64 2022-06-11 00:00:00 Completed [facility] Influenza Virus Vaccine Quad IM, Preserv and ABX Free 6 MO-64 2022-06-11 00:00:00 Completed [facility] Influenza Virus Vaccine Quad IM, Preserv and ABX Free 6 MO-64 2022-06-11 00:00:00 Completed [facility] Influenza Virus Vaccine Quad IM, Preserv and ABX Free 6 MO-64 2022-06-11 00:00:00 Completed [facility] Influenza Virus Vaccine Quad IM, Preserv and ABX Free 6 MO-64 YRS 2022-06-11 00:00:00 Completed [facility] Influenza Virus Vaccine Quad IM, Preserv and ABX Free 6 MO-64 YRS 2022-06-11 00:00:00 Completed [facility] Influenza Virus Vaccine Quad IM, Preserv and ABX Free 6 MO-64 YRS 2022-06-11 00:00:00 Completed [facility] Influenza Virus Vaccine Quad IM, Preserv and ABX Free 6 MO-64 YRS 2022-06-11 00:00:00 Completed [facility] Influenza Virus Vaccine Quad IM, Preserv and ABX Free 6 MO-64 YRS 2022-06-11 00:00:00 Completed [facility] Influenza Virus Vaccine Quad IM, Preserv and ABX Free 6 MO-64 YRS 2022-06-11 00:00:00 Completed [facility] Influenza Virus Vaccine Quad IM, Preserv and ABX Free 6 MO-64 YRS 2022-06-11 00:00:00 Completed [facility] Influenza Virus Vaccine Quad IM, Preserv and ABX Free 6 MO-64 YRS 2022-06-11 00:00:00 Completed [facility] Influenza Virus Vaccine Quad IM, Preserv and ABX Free 6 MO-64 YRS 2022-06-11 00:00:00 Completed [facility] Influenza Virus Vaccine Quad IM, Preserv and ABX Free 6 MO-64 YRS 2022-06-11 00:00:00 Completed [facility] Influenza Virus Vaccine Quad IM, Preserv and ABX Free 6 MO-64 YRS 2022-06-11 00:00:00 Completed [facility] Influenza Virus Vaccine Quad IM, Preserv and ABX Free 6 MO-64 YRS 2022-06-11 00:00:00 Completed [facility] HPV9 2022-02-14 00:00:00 Completed [facility] HPV9 2022-02-14 00:00:00 Completed [facility] HPV9 2022-02-14 00:00:00 Completed [facility] HPV9 2022-02-14 00:00:00 Completed [facility] HPV9 2022-02-14 00:00:00 Completed [facility] HPV9 2022-02-14 00:00:00 Completed [facility] [facility] HPV9 2022-02-14 00:00:00 Completed [facility] HPV9 2022-02-14 00:00:00 Completed [facility] HPV9 2022-02-14 00:00:00 Completed [facility] HPV9 2022-02-14 00:00:00 Completed [facility] HPV9 2022-02-14 00:00:00 Completed [facility] HPV9 2022-02-14 00:00:00 Completed [facility] HPV9 2022-02-14 00:00:00 Completed [facility] HPV9 2022-02-14 00:00:00 Completed [facility] HPV9 2022-02-14 00:00:00 Completed [facility] HPV9 2022-02-14 00:00:00 Completed [facility] HPV9 2022-02-14 00:00:00 Completed [facility] HPV9 2022-02-14 00:00:00 Completed [facility] HPV9 2022-02-14 00:00:00 Completed [facility] HPV9 2022-02-14 00:00:00 Completed [facility] HPV9 2022-02-14 00:00:00 Completed [facility] HPV9 2022-02-14 00:00:00 Completed [facility] HPV9 2022-02-14 00:00:00 Completed [facility] HPV9 2022-02-14 00:00:00 Completed [facility] HPV9 2022-02-14 00:00:00 Completed [facility] HPV9 2022-02-14 00:00:00 Completed [facility] HPV9 2022-02-14 00:00:00 Completed [facility] HPV9 2022-02-14 00:00:00 Completed [facility] HPV9 2022-02-14 00:00:00 Completed [facility] HPV9 2022-02-14 00:00:00 Completed [facility] HPV9 2022-02-14 00:00:00 Completed [facility] HPV9 2022-02-14 00:00:00 Completed [facility] HPV9 2022-02-14 00:00:00 Completed [facility] HPV9 2022-02-14 00:00:00 Completed [facility] HPV9 2022-02-14 00:00:00 Completed [facility] Influenza Virus Vaccine Quad .5 mL IM 6+ MO 2020-04-29 00:00:00 Completed [facility] Influenza Virus Vaccine Quad .5 mL IM 6+ MO 2020-04-29 00:00:00 Completed [facility] Influenza Virus Vaccine Quad .5 mL IM 6+ MO 2020-04-29 00:00:00 Completed [facility] Influenza Virus Vaccine Quad .5 mL IM 6+ MO 2020-04-29 00:00:00 Completed [facility] Influenza Virus Vaccine Quad .5 mL IM 6+ MO 2020-04-29 00:00:00 Completed [facility] Influenza Virus Vaccine Quad .5 mL IM 6+ MO 2020-04-29 00:00:00 Completed [facility] Influenza Virus Vaccine Quad .5 mL IM 6+ MO 2020-04-29 00:00:00 Completed [facility] Influenza Virus Vaccine Quad .5 mL IM 6+ MO 2020-04-29 00:00:00 Completed [facility] Influenza Virus Vaccine Quad .5 mL IM 6+ MO 2020-04-29 00:00:00 Completed [facility] Influenza Virus Vaccine Quad .5 mL IM 6+ MO 2020-04-29 00:00:00 Completed [facility] Influenza Virus Vaccine Quad .5 mL IM 6+ MO 2020-04-29 00:00:00 Completed [facility] Influenza Virus Vaccine Quad .5 mL IM 6+ MO 2020-04-29 00:00:00 Completed [facility] Influenza Virus Vaccine Quad .5 mL IM 6+ MO 2020-04-29 00:00:00 Completed [facility] Influenza Virus Vaccine Quad .5 mL IM 6+ MO 2020-04-29 00:00:00 Completed [facility] Influenza Virus Vaccine Quad .5 mL IM 6+ MO 2020-04-29 00:00:00 Completed [facility] Influenza Virus Vaccine Quad .5 mL IM 6+ MO 2020-04-29 00:00:00 Completed [facility] Influenza Virus Vaccine Quad .5 mL IM 6+ MO 2020-04-29 00:00:00 Completed [facility] Influenza Virus Vaccine Quad .5 mL IM 6+ MO 2020-04-29 00:00:00 Completed [facility] Influenza Virus Vaccine Quad .5 mL IM 6+ MO 2020-04-29 00:00:00 Completed [facility] Influenza Virus Vaccine Quad .5 mL IM 6+ MO 2020-04-29 00:00:00 Completed [facility] Influenza Virus Vaccine Quad .5 mL IM 6+ MO 2020-04-29 00:00:00 Completed [facility] Influenza Virus Vaccine Quad .5 mL IM 6+ MO 2020-04-29 00:00:00 Completed [facility] Influenza Virus Vaccine Quad .5 mL IM 6+ MO 2020-04-29 00:00:00 Completed [facility] Influenza Virus Vaccine Quad .5 mL IM 6+ MO 2020-04-29 00:00:00 Completed [facility] Influenza Virus Vaccine Quad .5 mL IM 6+ MO 2020-04-29 00:00:00 Completed [facility] Influenza Virus Vaccine Quad .5 mL IM 6+ MO 2020-04-29 00:00:00 Completed [facility] Influenza Virus Vaccine Quad .5 mL IM 6+ MO 2020-04-29 00:00:00 Completed [facility] Influenza Virus Vaccine Quad .5 mL IM 6+ MO 2020-04-29 00:00:00 Completed [facility] Influenza Virus Vaccine Quad .5 mL IM 6+ MO 2020-04-29 00:00:00 Completed [facility] Influenza Virus Vaccine Quad .5 mL IM 6+ MO 2020-04-29 00:00:00 Completed [facility] Influenza Virus Vaccine Quad .5 mL IM 6+ MO 2020-04-29 00:00:00 Completed [facility] Influenza Virus Vaccine Quad .5 mL IM 6+ MO 2020-04-29 00:00:00 Completed [facility] Influenza Virus Vaccine Quad .5 mL IM 6+ MO 2020-04-29 00:00:00 Completed [facility] Influenza Virus Vaccine Quad .5 mL IM 6+ MO 2020-04-29 00:00:00 Completed [facility] Influenza Virus Vaccine Quad .5 mL IM 6+ MO 2020-04-29 00:00:00 Completed [facility] Influenza Virus Vaccine Quad IM 3+ YRS 2016-05-20 00:00:00 Completed [facility] Influenza Virus Vaccine Quad IM 3+ YRS 2016-05-20 00:00:00 Completed [facility] Influenza Virus Vaccine Quad IM 3+ YRS 2016-05-20 00:00:00 Completed [facility] Influenza Virus Vaccine Quad IM 3+ YRS 2016-05-20 00:00:00 Completed [facility] Influenza Virus Vaccine Quad IM 3+ YRS 2016-05-20 00:00:00 Completed [facility] Influenza Virus Vaccine Quad IM 3+ YRS 2016-05-20 00:00:00 Completed [facility] Influenza Virus Vaccine Quad IM 3+ YRS 2016-05-20 00:00:00 Completed [facility] Influenza Virus Vaccine Quad IM 3+ YRS 2016-05-20 00:00:00 Completed [facility] Influenza Virus Vaccine Quad IM 3+ YRS 2016-05-20 00:00:00 Completed [facility] Influenza Virus Vaccine Quad IM 3+ YRS 2016-05-20 00:00:00 Completed [facility] Influenza Virus Vaccine Quad IM 3+ YRS 2016-05-20 00:00:00 Completed [facility] Influenza Virus Vaccine Quad IM 3+ YRS 2016-05-20 00:00:00 Completed [facility] Influenza Virus Vaccine Quad IM 3+ YRS 2016-05-20 00:00:00 Completed [facility] Influenza Virus Vaccine Quad IM 3+ YRS 2016-05-20 00:00:00 Completed [facility] Influenza Virus Vaccine Quad IM 3+ YRS 2016-05-20 00:00:00 Completed [facility] Influenza Virus Vaccine Quad IM 3+ YRS 2016-05-20 00:00:00 Completed [facility] Influenza Virus Vaccine Quad IM 3+ YRS 2016-05-20 00:00:00 Completed [facility] Influenza Virus Vaccine Quad IM 3+ YRS 2016-05-20 00:00:00 Completed [facility] Influenza Virus Vaccine Quad IM 3+ YRS 2016-05-20 00:00:00 Completed [facility] Influenza Virus Vaccine Quad IM 3+ YRS 2016-05-20 00:00:00 Completed [facility] Influenza Virus Vaccine Quad IM 3+ YRS 2016-05-20 00:00:00 Completed [facility] Influenza Virus Vaccine Quad IM 3+ YRS 2016-05-20 00:00:00 Completed [facility] Influenza Virus Vaccine Quad IM 3+ YRS 2016-05-20 00:00:00 Completed [facility] Influenza Virus Vaccine Quad IM 3+ YRS 2016-05-20 00:00:00 Completed [facility] Influenza Virus Vaccine Quad IM 3+ YRS 2016-05-20 00:00:00 Completed [facility] Influenza Virus Vaccine Quad IM 3+ YRS 2016-05-20 00:00:00 Completed [facility] Influenza Virus Vaccine Quad IM 3+ YRS 2016-05-20 00:00:00 Completed [facility] Influenza Virus Vaccine Quad IM 3+ YRS 2016-05-20 00:00:00 Completed [facility] Influenza Virus Vaccine Quad IM 3+ YRS 2016-05-20 00:00:00 Completed [facility] Influenza Virus Vaccine Quad IM 3+ YRS 2016-05-20 00:00:00 Completed [facility] Influenza Virus Vaccine Quad IM 3+ YRS 2016-05-20 00:00:00 Completed [facility] Influenza Virus Vaccine Quad IM 3+ YRS 2016-05-20 00:00:00 Completed [facility] Influenza Virus Vaccine Quad IM 3+ YRS 2016-05-20 00:00:00 Completed [facility] Influenza Virus Vaccine Quad IM 3+ YRS 2016-05-20 00:00:00 Completed [facility] Influenza Virus Vaccine Quad IM 3+ YRS 2016-05-20 00:00:00 Completed [facility] HPV9 2015-08-21 00:00:00 Completed [facility] HPV9 2015-08-21 00:00:00 Completed [facility] HPV9 2015-08-21 00:00:00 Completed [facility] HPV9 2015-08-21 00:00:00 Completed [facility] HPV9 2015-08-21 00:00:00 Completed [facility] HPV9 2015-08-21 00:00:00 Completed [facility] HPV9 2015-08-21 00:00:00 Completed [facility] HPV9 2015-08-21 00:00:00 Completed [facility] HPV9 2015-08-21 00:00:00 Completed [facility] HPV9 2015-08-21 00:00:00 Completed [facility] HPV9 2015-08-21 00:00:00 Completed [facility] HPV9 2015-08-21 00:00:00 Completed [facility] HPV9 2015-08-21 00:00:00 Completed [facility] HPV9 2015-08-21 00:00:00 Completed [facility] HPV9 2015-08-21 00:00:00 Completed [facility] HPV9 2015-08-21 00:00:00 Completed [facility] HPV9 2015-08-21 00:00:00 Completed [facility] HPV9 2015-08-21 00:00:00 Completed [facility] HPV9 2015-08-21 00:00:00 Completed [facility] HPV9 2015-08-21 00:00:00 Completed [facility] HPV9 2015-08-21 00:00:00 Completed [facility] HPV9 2015-08-21 00:00:00 Completed [facility] HPV9 2015-08-21 00:00:00 Completed [facility] HPV9 2015-08-21 00:00:00 Completed [facility] HPV9 2015-08-21 00:00:00 Completed [facility] HPV9 2015-08-21 00:00:00 Completed [facility] HPV9 2015-08-21 00:00:00 Completed [facility] HPV9 2015-08-21 00:00:00 Completed [facility] HPV9 2015-08-21 00:00:00 Completed [facility] HPV9 2015-08-21 00:00:00 Completed [facility] HPV9 2015-08-21 00:00:00 Completed [facility] HPV9 2015-08-21 00:00:00 Completed [facility] HPV9 2015-08-21 00:00:00 Completed [facility] HPV9 2015-08-21 00:00:00 Completed [facility] HPV9 2015-08-21 00:00:00 Completed [facility] HPV9 2015-04-03 00:00:00 Completed [facility] Meningococcal Polysaccharide (groups A, C, Y and W-135) conjugate vaccine (MCV4P) 2015-04-03 00:00:00 Completed [facility] HPV9 2015-04-03 00:00:00 Completed [facility] Meningococcal Polysaccharide (groups A, C, Y and W-135) conjugate vaccine (MCV4P) 2015-04-03 00:00:00 Completed [facility] HPV9 2015-04-03 00:00:00 Completed [facility] Meningococcal Polysaccharide (groups A, C, Y and W-135) conjugate vaccine (MCV4P) 2015-04-03 00:00:00 Completed [facility] HPV9 2015-04-03 00:00:00 Completed [facility] Meningococcal Polysaccharide (groups A, C, Y and W-135) conjugate vaccine (MCV4P) 2015-04-03 00:00:00 Completed [facility] 2015-04-03 00:00:00 Completed [facility] Meningococcal Polysaccharide (groups A, C, Y and W-135) conjugate vaccine (MCV4P) 2015-04-03 00:00:00 Completed [facility] HPV9 2015-04-03 00:00:00 Completed [facility] Meningococcal Polysaccharide (groups A, C, Y and W-135) conjugate vaccine (MCV4P) 2015-04-03 00:00:00 Completed [facility] 2015-04-03 00:00:00 Completed [facility] Meningococcal Polysaccharide (groups A, C, Y and W-135) conjugate vaccine (MCV4P) 2015-04-03 00:00:00 Completed [facility] HPV9 2015-04-03 00:00:00 Completed [facility] Meningococcal Polysaccharide (groups A, C, Y and W-135) conjugate vaccine (MCV4P) 2015-04-03 00:00:00 Completed [facility] 2015-04-03 00:00:00 Completed [facility] Meningococcal Polysaccharide (groups A, C, Y and W-135) conjugate vaccine (MCV4P) 2015-04-03 00:00:00 Completed [facility] HPV9 2015-04-03 00:00:00 Completed [facility] Meningococcal Polysaccharide (groups A, C, Y and W-135) conjugate vaccine (MCV4P) 2015-04-03 00:00:00 Completed [facility] HPV9 2015-04-03 00:00:00 Completed [facility] Meningococcal Polysaccharide (groups A, C, Y and W-135) conjugate vaccine (MCV4P) 2015-04-03 00:00:00 Completed [facility] HPV9 2015-04-03 00:00:00 Completed [facility] Meningococcal Polysaccharide (groups A, C, Y and W-135) conjugate vaccine (MCV4P) 2015-04-03 00:00:00 Completed [facility] HPV9 2015-04-03 00:00:00 Completed [facility] Meningococcal Polysaccharide (groups A, C, Y and W-135) conjugate vaccine (MCV4P) 2015-04-03 00:00:00 Completed [facility] 2015-04-03 00:00:00 Completed [facility] Meningococcal Polysaccharide (groups A, C, Y and W-135) conjugate vaccine (MCV4P) 2015-04-03 00:00:00 Completed [facility] 2015-04-03 00:00:00 Completed [facility] Meningococcal Polysaccharide (groups A, C, Y and W-135) conjugate vaccine (MCV4P) 2015-04-03 00:00:00 Completed [facility] 2015-04-03 00:00:00 Completed [facility] Meningococcal Polysaccharide (groups A, C, Y and W-135) conjugate vaccine (MCV4P) 2015-04-03 00:00:00 Completed [facility] HPV9 2015-04-03 00:00:00 Completed [facility] Meningococcal Polysaccharide (groups A, C, Y and W-135) conjugate vaccine (MCV4P) 2015-04-03 00:00:00 Completed [facility] 2015-04-03 00:00:00 Completed [facility] Meningococcal Polysaccharide (groups A, C, Y and W-135) conjugate vaccine (MCV4P) 2015-04-03 00:00:00 Completed [facility] HPV9 2015-04-03 00:00:00 Completed [facility] Meningococcal Polysaccharide (groups A, C, Y and W-135) conjugate vaccine (MCV4P) 2015-04-03 00:00:00 Completed [facility] HPV9 2015-04-03 00:00:00 Completed [facility] Meningococcal Polysaccharide (groups A, C, Y and W-135) conjugate vaccine (MCV4P) 2015-04-03 00:00:00 Completed [facility] HPV9 2015-04-03 00:00:00 Completed [facility] Meningococcal Polysaccharide (groups A, C, Y and W-135) conjugate vaccine (MCV4P) 2015-04-03 00:00:00 Completed [facility] HPV9 2015-04-03 00:00:00 Completed [facility] Meningococcal Polysaccharide (groups A, C, Y and W-135) conjugate vaccine (MCV4P) 2015-04-03 00:00:00 Completed [facility] 2015-04-03 00:00:00 Completed [facility] Meningococcal Polysaccharide (groups A, C, Y and W-135) conjugate vaccine (MCV4P) 2015-04-03 00:00:00 Completed [facility] 2015-04-03 00:00:00 Completed [facility] Meningococcal Polysaccharide (groups A, C, Y and W-135) conjugate vaccine (MCV4P) 2015-04-03 00:00:00 Completed [facility] 2015-04-03 00:00:00 Completed [facility] Meningococcal Polysaccharide (groups A, C, Y and W-135) conjugate vaccine (MCV4P) 2015-04-03 00:00:00 Completed [facility] 2015-04-03 00:00:00 Completed [facility] Meningococcal Polysaccharide (groups A, C, Y and W-135) conjugate vaccine (MCV4P) 2015-04-03 00:00:00 Completed [facility] 2015-04-03 00:00:00 Completed [facility] Meningococcal Polysaccharide (groups A, C, Y and W-135) conjugate vaccine (MCV4P) 2015-04-03 00:00:00 Completed [facility] 2015-04-03 00:00:00 Completed [facility] Meningococcal Polysaccharide (groups A, C, Y and W-135) conjugate vaccine (MCV4P) 2015-04-03 00:00:00 Completed [facility] HPV9 2015-04-03 00:00:00 Completed [facility] Meningococcal Polysaccharide (groups A, C, Y and W-135) conjugate vaccine (MCV4P) 2015-04-03 00:00:00 Completed [facility] HPV9 2015-04-03 00:00:00 Completed [facility] Meningococcal Polysaccharide (groups A, C, Y and W-135) conjugate vaccine (MCV4P) 2015-04-03 00:00:00 Completed [facility] HPV9 2015-04-03 00:00:00 Completed [facility] Meningococcal Polysaccharide (groups A, C, Y and W-135) conjugate vaccine (MCV4P) 2015-04-03 00:00:00 Completed [facility] HPV9 2015-04-03 00:00:00 Completed [facility] Meningococcal Polysaccharide (groups A, C, Y and W-135) conjugate vaccine (MCV4P) 2015-04-03 00:00:00 Completed [facility] 2015-04-03 00:00:00 Completed [facility] Meningococcal Polysaccharide (groups A, C, Y and W-135) conjugate vaccine (MCV4P) 2015-04-03 00:00:00 Completed [facility] HPV9 2015-04-03 00:00:00 Completed [facility] Meningococcal Polysaccharide (groups A, C, Y and W-135) conjugate vaccine (MCV4P) 2015-04-03 00:00:00 Completed [facility] 2015-04-03 00:00:00 Completed [facility] Meningococcal Polysaccharide (groups A, C, Y and W-135) conjugate vaccine (MCV4P) 2015-04-03 00:00:00 Completed [facility] Meningococcal Polysaccharide (groups A, C, Y and W-135) conjugate vaccine (MCV4P) Unknown Completed [facility] Influenza Virus Vaccine Quad IM 3+ YRS Unknown Completed [facility] HPV9 Unknown Completed [facility] Influenza Virus Vaccine Quad IM, Preserv and ABX Free 6 MO-64 YRS (FLUCELVAX) Unknown Completed [facility] TDAP Unknown Completed [facility] Meningococcal Polysaccharide (groups A, C, Y and W-135) conjugate vaccine (MCV4P) Unknown Completed [facility] Influenza Virus Vaccine Quad IM 3+ YRS Unknown Completed [facility] HPV9 Unknown Completed [facility] Meningococcal Polysaccharide (groups A, C, Y and W-135) conjugate vaccine (MCV4P) Unknown Completed [facility] HPV9 Unknown Completed [facility] Influenza Virus Vaccine Quad IM 3+ YRS Unknown Completed [facility] Influenza Virus Vaccine Quad IM, Preserv and ABX Free 6 MO-64 YRS (FLUCELVAX) Unknown Completed [facility] TDAP Unknown Completed [facility] Meningococcal Polysaccharide (groups A, C, Y and W-135) conjugate vaccine (MCV4P) Unknown Completed [facility] HPV9 Unknown Completed [facility] Influenza Virus Vaccine Quad IM 3+ YRS Unknown Completed [facility] Influenza Virus Vaccine Quad IM, Preserv and ABX Free 6 MO-64 YRS (FLUCELVAX) Unknown Completed [facility] TDAP Unknown Completed [facility] Meningococcal Polysaccharide (groups A, C, Y and W-135) conjugate vaccine (MCV4P) Unknown Completed [facility] HPV9 Unknown Completed [facility] Influenza Virus Vaccine Quad IM 3+ YRS Unknown Completed [facility] Influenza Virus Vaccine Quad IM, Preserv and ABX Free 6 MO-64 YRS (FLUCELVAX) Unknown Completed [facility] TDAP Unknown Completed [facility] Vital Signs Vital Name Observation Time Observation Value Comments S ource Systolic blood pressure 2024-03-15 22:59:00 111 mm[Hg] [facility] Diastolic blood pressure 2024-03-15 22:59:00 67 mm[Hg] [facility] Heart rate 2024-03-15 22:59:00 89 /min [facility] Respiratory rate 2024-03-15 22:59:00 15 /min [facility] Oxygen saturation in Arterial blood by Pulse oximetry 2024-03-15 22:59:00 99 /min [facility] Body temperature 2024-03-15 20:58:00 36.61 Sharyn [facility] Body height 2024-03-15 20:58:00 160 cm [facility] Body weight 2024-03-15 20:58:[address] [facility] BMI 2024-03-15 20:58:00 38.09 kg/m2 [facility] Systolic blood pressure 2023-11-20 23:00:00 109 mm[Hg] [facility] Diastolic blood pressure 2023-11-20 23:00:00 80 mm[Hg] [facility] Heart rate 2023-11-20 23:00:00 89 /min [facility] Body temperature 2023-11-20 23:00:00 36.61 Sharyn [facility] Respiratory rate 2023-11-20 23:00:00 14 /min [facility] Oxygen saturation in Arterial blood by Pulse oximetry 2023-11-20 23:00:00 99 /min [facility] Body height 2023-11-20 21:58:[address] [facility] Body weight 2023-11-20 21:58:00 81.647 kg [facility] BMI 2023-11-20 21:58:00 30.90 kg/m2 [facility] Systolic blood pressure 2023-07-17 01:00:00 127 mm[Hg] [facility] Diastolic blood pressure 2023-07-17 01:00:00 85 mm[Hg] [facility] Heart rate 2023-07-17 01:00:00 73 /[facility] in Arterial blood by Pulse oximetry 2023-07-17 01:00:00 98 /min [facility] Respiratory rate 2023-07-17 00:00:00 19 /min [facility] Body temperature 2023-07-16 21:34:00 37.11 Sharyn [facility] Body height 2023-07-16 21:34:[address] [facility] Body weight 2023-07-16 21:34:[address] [facility] BMI 2023-07-16 21:34:00 30.90 kg/m2 [facility] Systolic blood pressure 2022-12-27 19:56:00 129 mm[Hg] [facility] Diastolic blood pressure 2022-12-27 19:56:00 82 mm[Hg] [facility] Heart rate 2022-12-27 19:56:00 79 /min [facility] Body temperature 2022-12-27 19:56:00 36.72 Sharyn [facility] Respiratory rate 2022-12-27 19:56:00 17 /min [facility] Body height 2022-12-27 19:56:00 162.6 cm [facility] Body weight 2022-12-27 19:56:00 96.163 kg [facility] BMI 2022-12-27 19:56:00 36.39 kg/m2 [facility] Systolic blood pressure 2022-11-26 21:07:00 117 mm[Hg] [facility] Diastolic blood pressure 2022-11-26 21:07:00 78 mm[Hg] [facility] Heart rate 2022-11-26 21:07:00 77 /min [facility] Body temperature 2022-11-26 21:07:00 36.72 Sharyn [facility] Respiratory rate 2022-11-26 21:07:00 16 /min [facility] Body height 2022-11-26 21:07:00 162.6 cm [facility] Body weight 2022-11-26 21:07:00 94.666 kg [facility] BMI 2022-11-26 21:07:00 35.82 kg/m2 [facility] Systolic blood pressure 2022-10-31 13:15:00 105 mm[Hg] [facility] Diastolic blood pressure 2022-10-31 13:15:00 49 mm[Hg] [facility] Heart rate 2022-10-31 13:15:00 79 /min [facility] Body temperature 2022-10-31 13:15:00 36.5 Sharyn [facility] Respiratory rate 2022-10-31 13:15:00 17 /min [facility] Oxygen saturation in Arterial blood by Pulse oximetry 2022-10-31 13:15:00 99 /min [facility] Body height 2022-10-29 22:17:00 162.6 cm [facility] 2022-10-29 22:17:00 101.606 kg [facility] BMI 2022-10-29 22:17:00 38.45 kg/m2 [facility] Systolic blood pressure 2022-10-22 16:08:00 106 mm[Hg] [facility] Diastolic blood pressure 2022-10-22 16:08:00 66 mm[Hg] [facility] Heart rate 2022-10-22 16:08:00 84 /min [facility] Body temperature 2022-10-22 16:08:00 36.61 Sharyn [facility] Respiratory rate 2022-10-22 16:08:00 18 /min [facility] Body height 2022-10-22 16:08:[address] [facility] Body weight 2022-10-22 16:08:[address] [facility] BMI 2022-10-22 16:08:00 38.45 kg/m2 [facility] Systolic blood pressure 2022-10-16 22:12:00 111 mm[Hg] [facility] Diastolic blood pressure 2022-10-16 22:12:00 72 mm[Hg] [facility] Heart rate 2022-10-16 22:12:00 86 /min [facility] Res[facility] rate 2022-10-16 22:12:00 18 /min [facility] Body height 2022-10-16 22:12:[address] [facility] Body weight 2022-10-16 22:12:[address] [facility] BMI 2022-10-16 22:12:00 37.93 kg/m2 [facility] Systolic blood pressure 2022-10-10 21:47:00 112 mm[Hg] [facility] Diastolic blood pressure 2022-10-10 21:47:00 70 mm[Hg] [facility] Heart rate 2022-10-10 21:47:00 83 /min [facility] Body temperature 2022-10-10 21:47:00 36.72 Sharyn [facility] Respiratory rate 2022-10-10 21:47:00 18 /min [facility] Body height 2022-10-10 21:47:[address] [facility] Body weight 2022-10-10 21:47:[address] [facility] BMI 2022-10-10 21:47:00 38.28 kg/m2 [facility] Systolic blood pressure 2022-10-02 22:08:00 115 mm[Hg] [facility] Diastolic blood pressure 2022-10-02 22:08:00 75 mm[Hg] [facility] Heart rate 2022-10-02 22:08:00 106 /min [facility] Body temperature 2022-10-02 22:08:00 36.72 Sharyn [facility] Respiratory rate 2022-10-02 22:08:00 16 /min [facility] Body height 2022-10-02 22:08:[address] [facility] Body weight 2022-10-02 22:08:[address] [facility] BMI 2022-10-02 22:08:00 38.00 kg/m2 [facility] Oxygen saturation in Arterial blood by Pulse oximetry 2022-10-02 22:08:00 96 /min [facility] Heart rate 2022-09-25 00:30:00 80 /min [facility] Oxygen saturation in Arterial blood by Pulse oximetry 2022-09-25 00:30:00 97 /min [facility] Systolic blood pressure 2022-09-24 23:31:00 123 mm[Hg] [facility] Diastolic blood pressure 2022-09-24 23:31:00 63 mm[Hg] [facility] Body temperature 2022-09-24 23:31:00 36.28 Sharyn [facility] Respiratory rate 2022-09-24 23:31:00 18 /min [facility] Body height 2022-09-24 23:31:[address] [facility] Body weight 2022-09-24 23:31:[address] [facility] BMI 2022-09-24 23:31:00 37.42 kg/m2 [facility] Systolic blood pressure 2022 16:59:00 110 mm[Hg] [facility] Diastolic blood pressure 2022 16:59:00 77 mm[Hg] [facility] Heart rate 2022 16:59:00 83 /min [facility] Body temperature 2022 16:59:00 36.72 Sharyn [facility] Respiratory rate 2022 16:59:00 18 /min [facility] Body height 2022 16:59:[address] [facility] Body weight 2022 16:59:00 100.562 kg [facility] BMI 2022 16:59:00 38.05 kg/m2 [facility] Systolic blood pressure 2022-09-04 22:11:00 109 mm[Hg] [facility] Diastolic blood pressure 2022-09-04 22:11:00 69 mm[Hg] [facility] Heart rate 2022-09-04 22:11:00 91 /min [facility] Body temperature 2022-09-04 22:11:00 36.56 Sharyn [facility] Respiratory rate 2022-09-04 22:11:00 18 /min [facility] Body height 2022-09-04 22:11:[address] [facility] Body weight 2022-09-04 22:11:00 97.977 kg [facility] BMI 2022-09-04 22:11:00 37.08 kg/m2 [facility] Systolic blood pressure 2022-08-21 17:02:00 110 mm[Hg] [facility] Diastolic blood pressure 2022-08-21 17:02:00 72 mm[Hg] [place] [facility] Heart rate 2022-08-21 17:02:00 84 /min [facility] Body temperature 2022-08-21 17:02:00 36.5 Sharyn [facility] Respiratory rate 2022-08-21 17:02:00 18 /min [facility] Body height 2022-08-21 17:02:00 162.6 cm [facility] Body weight 2022-08-21 17:02:[address] [facility] BMI 2022-08-21 17:02:00 36.56 kg/m2 [facility] Systolic blood pressure 2022-08-08 15:11:00 105 mm[Hg] [facility] Diastolic blood pressure 2022-08-08 15:11:00 70 mm[Hg] [facility] Heart rate 2022-08-08 15:11:00 82 /min [facility]ive [facility] Body temperature 2022-08-08 15:11:00 36.5 Sharyn [facility] Respiratory rate 2022-08-08 15:11:00 18 /min [facility] Body height 2022-08-08 15:11:[address] [facility] Body weight 2022-08-08 15:11:[address] [facility] BMI 2022-08-08 15:11:00 36.90 kg/m2 [facility] Systolic blood pressure 2022-07-09 16:02:00 106 mm[Hg] [facility] Diastolic blood pressure 2022-07-09 16:02:00 73 mm[Hg] [facility] Heart rate 2022-07-09 16:02:00 77 /min [facility] Body temperature 2022-07-09 16:02:00 36.67 Sharyn [facility] Respiratory rate 2022-07-09 16:02:00 18 /min [facility] Body height 2022-07-09 16:02:00 162.6 cm [facility] Body weight 2022-07-09 16:02:[address] [facility] BMI 2022-07-09 16:02:00 35.53 kg/m2 [facility] Systolic blood pressure 2022-06-11 16:19:00 108 mm[Hg] [facility] Diastolic blood pressure 2022-06-11 16:19:00 72 mm[Hg] [facility] Heart rate 2022-06-11 16:19:00 73 /min Unive [facility] Body temperature 2022-06-11 16:19:00 36.56 Sharyn [facility] Respiratory rate 2022-06-11 16:19:00 17 /min [facility] Body height 2022-06-11 16:19:[address] [facility] Body weight 2022-06-11 16:19:00 91.491 kg [facility] BMI 2022-06-11 16:19:00 34.62 kg/m2 [facility] Systolic blood pressure 2022-05-10 15:34:00 114 mm[Hg] [facility] Diastolic blood pressure 2022-05-10 15:34:00 75 mm[Hg] [facility] Heart rate 2022-05-10 15:34:00 80 /min [facility]ive [facility] Body temperature 2022-05-10 15:34:00 36.78 Sharyn [facility] Respiratory rate 2022-05-10 15:34:00 18 /min [facility] Body height 2022-05-10 15:34:[address] [facility] Body weight 2022-05-10 15:34:[address] [facility] BMI 2022-05-10 15:34:00 33.88 kg/m2 [facility] Systolic blood pressure 2022-04-11 15:51:00 128 mm[Hg] [facility] Diastolic blood pressure 2022-04-11 15:51:00 82 mm[Hg] [facility] Heart rate 2022-04-11 15:45:00 81 /min Unive [facility] Body temperature 2022-04-11 15:45:00 36.33 Sharyn [facility] Respiratory rate 2022-04-11 15:45:00 18 /min [facility] Body height 2022-04-11 15:45:00 162.6 cm [facility] Body weight 2022-04-11 15:45:00 92.035 kg [facility] BMI 2022-04-11 15:45:00 34.83 kg/m2 [facility] Procedures Procedure Date / Time Performed Performing Clinician Source POCT TEST 2024-03-15 21:52:00 Roxana Resendiz [facility] LIPASE 2024-03-15 21:50:00 Nick Resendiz [facility] COMP. METABOLIC PANEL ([id number]) 2024-03-15 21:50:00 Nick Resendiz [facility] CBC WITH DIFF 2024-03-15 21:50:00 Nick [facility]iz [facility] URINALYSIS 2024-03-15 21:50:00 Nick Resendiz [facility] US GALL BLADDER 2024-03-15 21:31:[address] [facility] PO[facility] 2023-11-20 22:46:00 Concepción Durham [facility] LIPASE 2023-11-20 22:44:00 [facility] COMP. METABOLIC PANEL ([id number]) 2023-11-20 22:44:00 Sabrina Durham [facility] CBC WITH DIFF 2023-11-20 22:44:00 Sabrina Durham [facility] URINALYSIS 2023-11-20 22:44:00 [facility] POCT TEST 2023-07-16 23:50:00 Gina Campbell [facility] RAPID STREP SCREEN FOR GROUP A 2023-07-16 22:05:00 Gnia Campbell [facility] RAPID INFLUENZA A/B 2023-07-16 22:05:00 Gina Campbell [facility] COVID-19 (ID NOW RAPID TESTING) 2023-07-16 22:05:00 Gina Campbell [facility] LIPASE 2023-07-16 21:59:[address] [facility] MAGNESIUM 2023-07-16 21:59:[address] [facility] COMP. METABOLIC PANEL ([id number]) 2023-07-16 21:59:00 Gina Campbell [facility] CBC WITH DIFF 2023-07-16 21:59:00 [facility] 2023-07-16 21:59:[address] [facility] CONSENT/REFUSAL FOR DIAGNOSIS AND TREATMENT 2023-07-16 21:29:39 Doctor Unassigned, [place] [facility] CONSENT FOR CONTRACEPTION 2022-12-27 05:01:00 Doctor Unassigned, [place] [facility] CBC WITH DIFF 2022-10-31 10:02:00 Adum, Yari Waldrop [facility] CENTRAL NEURAXIAL BLOCK 2022-10-30 07:34:00 Mena Howell [facility] CBC WITH DIFF 2022-10-30 00:21:00 Adum, Yari Waldrop [facility] HEPATITIS B SURFACE ANTIGEN 2022-10-30 00:21:00 Adum, Yari Ramirez [facility] HB ABO GROUPING 2022-10-30 00:21:00 Adum, Yari Ramirez [facility] OR MARLENE ONLY - RPR 2022-10-30 00:21:00 Adum, Yari Ramirez [facility] HIV 1/2 AG-AB WITH REFLEX 2022-10-30 00:21:00 Adum, Yari Ramirez [facility] PATIENT FINANCIAL POLICY 2022-10-22 15:26:12 Doctor Unassigned, [place] [facility] POCT URINALYSIS W/O SPECIFIC GRAVITY 2022-10-22 00:00:00 Adum, Yari Ramirez [facility] GROUP B STREPTOCOCCUS BY PCR 2022-10-16 22:45:00 Adum, Yari Ashley [facility] POCT URINALYSIS W/O SPECIFIC GRAVITY 2022-10-16 00:00:00 Adum, Yari Ashley [facility] >14 WEEKS US LIMITED 2022-10-10 22:22:08 Adum, Yari Ashley [facility] DSU PRE-OP 2022-10-10 06:01:00 Doctor Unass igned, [place] [facility] POCT URINALYSIS W/O SPECIFIC GRAVITY 2022-10-10 00:00:00 Adum, Yari L [facility] POCT URINALYSIS W/O SPECIFIC GRAVITY 2022-10-02 00:00:00 Adum, Yari Ramirez [facility] US PELVIS > 14 WEEKS 2022-09-25 01:02:26 Leigh Ann Palomo [facility] ADC ONLY - FERN TEST 2022-09-25 00:05:00 Leigh Ann Palomo [facility] CONSENT/REFUSAL FOR DIAGNOSIS AND TREATMENT 2022-09-24 23:02:13 Doctor Unassigned, [place] [facility] POCT URINALYSIS W/O SPECIFIC GRAVITY 2022 00:00:00 Adum, Yari L [facility] POCT URINALYSIS W/O SPECIFIC GRAVITY 2022-09-04 00:00:00 Adum, Yari Ramirez [facility] POCT URINALYSIS W/O SPECIFIC GRAVITY 2022-08-21 00:00:00 Adum, Yari Ramirez [facility] 1 HR GLUCOSE TOLERANCE TEST 2022-08-16 16:51:00 Tamara Jaimes [facility] GLUCOSE FASTING 2022-08-16 15:51:00 Bossman Jaimes [facility] ASSIGNMENT OF BENEFITS 2022-08-13 15:34:13 Docto r Unassigned, [place] [facility] TDAP VACCINE, >11 YRS, IM 2022-08-08 15:08:44 Tamara Jaimes [facility] POCT URINALYSIS W/O SPECIFIC GRAVITY 2022-08-08 00:00:00 Tamara Jaimes [facility] POCT URINALYSIS W/O SPECIFIC GRAVITY 2022-07-09 00:00:00 Tamara Jaimes [facility] FLU VACC (), 6 MO-64 YRS, .5ML, IM, QUAD (FLUCELVAX) 2022-06-11 16:53:43 Adum, Yari Ramirez [facility] POCT URINALYSIS W/O SPECIFIC GRAVITY 2022-06-11 00:00:00 Adum, Yari Ramirez [facility] POCT URINALYSIS W/O SPECIFIC GRAVITY 2022-05-10 15:50:00 Adum, Yari Ramirez [facility] SCANNED LAB RESULTS 2022-05-10 05:01:00 Doctor Barbara castro, [place] [facility] Encounters Start Date/Time End Date/Time Encounter Type Admission Type Attending [facility] Facility Care Department Encounter ID Source 2022-09-24 20:35:25 Outpatient X ADYARI MCINTOSH [facility] LUL [id number] [facility] 2024-03-15 16:00:00 2024-03-15 18:02:00 Emergency X NICK RESENDIZ ANDRES [facility] ERT [id number] [facility] 2024-03-15 16:00:00 2024-03-15 18:02:00 Emergency Nick Resendiz [facility] 1..840.114 350.1.13.10 4.2.7.2.686 [id number] [facility] 2024-02-09 13:21:33 2024-02-09 13:21:33 Outpatient SFA SFA [id number] Charles Sánchez Daniel 2023-11-20 17:00:00 2023-11-20 18:51:00 Emergency X SABRINA DURHAM [facility] ERT [id number] [facility] 2023-11-20 17:00:00 2023-11-20 18:51:00 Emergency Sabrina Durham [facility] 1..840.114 350.1.13.10 4.2.7.2.686 [id number] [facility] 2023-07-16 15:36:00 2023-07-16 19:51:00 Emergency X Gina CAMPBELL [facility] ERT [id number] [facility] 2023-07-16 15:36:00 2023-07-16 19:51:00 Emergency Gina Campbell [facility] 1.0.114 350.1.13.10 4.2.7.2.686 [id number] [facility] 2023-06-14 00:00:00 2023-06-14 00:00:00 Outpatient GC_[id number] [id number]_S [facility] [id number] [facility] 2023-01-24 14:30:00 2023-01-24 14:30:00 Outpatient R TATO S, VIRA TATO SPRUDENCIOVIRA [facility] [id number] [facility] 2022-12-27 15:00:00 2022-12-27 15:18:30 Outpatient R JUSTINA-LISBET Holley, VIRA JUSTINA-LISBET SPRUDENCIOVIRA [facility] [id number] [facility] 2022-12-27 15:00:00 2022-12-27 15:18:30 Routine Visit Vira Zapata [facility] 1..114 350.1.13.10 4.2.7.2.686 [id number] [facility] 2022-12-27 00:00:00 2022-12-27 00:00:00 Orders Only Doctor Unassigned, [place] [facility] 1.0.114 350.1.13.10 4.2.7.2.686 [id number] [facility] 2022-12-25 16:00:00 2022-12-25 16:00:00 Outpatient R YARI BUCHANAN [facility] [id number] [facility] 2022-11-26 16:00:00 2022-11-26 16:21:15 Outpatient R ADYARI MCINTOSH [facility] [id number] [facility] 2022-11-26 16:00:00 2022-11-26 16:21:15 Routine Visit Addayna Yari Ramirez [facility] 1.2840.114 350.1.13.10 4.2.7.2.686 [id number] [facility] 2022-11-20 11:00:00 2022-11-20 11:00:00 Outpatient R YARI BUCHANAN [facility] [id number] [facility] 2022-10-29 17:18:00 2022-10-31 13:43:00 Inpatient X ADDAYNA [facility] L[facility] [id number] [facility] 2022-10-29 17:18:00 2022-10-31 13:43:00 Hospital Encounter AdYari mcintosh [facility] 1.2840.114 350.1.13.10 4.2.7.2.686 [id number] [facility] 2022-10-30 02:32:00 2022-10-30 09:22:00 Anesthesia Event Juwan Howell [facility] 1.2840.114 350.1.13.10 4.2.7.2.686 [id number] [facility] 2022-10-24 00:00:00 2022-10-24 00:00:00 Telephone AddaynaYari [facility] 1.2840.114 350.1.13.10 4.2.7.2.686 [id number] [facility] 2022-10-24 00:00:00 2022-10-24 00:00:00 Telephone AddaynaYari [facility] 1.2.840.114 350.1.13.10 4.2.7.2.686 [id number] [facility] 2022-10-22 09:45:00 2022-10-22 10:23:18 Outpatient R ADUM, [facility] [id number] [facility] 2022-10-22 09:45:00 2022-10-22 10:23:18 Routine Visit Adum, [facility] 1.2.840.114 350.1.13.10 4.2.7.2.686 [id number] [facility] 2022-10-22 00:00:00 2022-10-22 00:00:00 Orders Only Doctor Unassigned, [place] [facility] 1.2.840.114 350.1.13.10 4.2.7.2.686 [id number] [facility] 2022-10-16 15:45:00 2022-10-16 16:47:09 Outpatient R ADUM, [facility] [id number] [facility] 2022-10-16 15:45:00 2022-10-16 16:47:09 Routine Visit Adum, [facility] 1.2.840.114 350.1.13.10 4.2.7.2.686 [id number] [facility] 2022-10-15 11:45:00 2022-10-15 12:00:00 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 2, Adc Lab Aline Sanabria [facility] 1.2.840.114 350.1.13.10 4.2.7.2.686 [id number] [facility] 2022-10-15 11:45:00 2022-10-15 11:45:00 Outpatient R ALINE SANABRIA [facility] [id number] [facility] 2022-10-11 13:30:00 2022-10-11 13:30:00 Outpatient R [facility] [id number] [facility] 2022-10-10 15:45:00 2022-10-10 16:38:10 Outpatient R ADUM [facility] [id number] [facility] 2022-10-10 15:45:00 2022-10-10 16:38:10 Routine Visit AddaynaYari [facility] 1..114 350.1.13.10 4.2.7.2.686 [id number] [facility] 2022-10-10 00:00:00 2022-10-10 00:00:00 Orders Only Doctor Unassigned, [place] [facility] 1..114 350.1.13.10 4.2.7.2.686 [id number] [facility] 2022-10-02 15:30:00 2022-10-02 16:19:21 Routine Visit AdYari mcintosh [facility] 1..114 350.1.13.10 4.2.7.2.686 [id number] [facility] 2022-10-02 15:30:00 2022-10-02 16:19:21 [facility] [id number] 2022-09-24 17:08:00 2022-09-24 19:30:00 Outpatient X LEIGH ANN PALOMO [facility] [id number] [facility] 2022-09-24 17:08:00 2022-09-24 19:30:00 Emergency Leigh Ann Palomo [facility] 1..114 350.1.13.10 4.2.7.2.686 [id number] [facility] 2022-09-24 00:00:00 2022-09-24 00:00:00 Telephone Addayna Yari [facility] 1.2.840.114 350.1.13.10 4.2.7.2.686 [id number] 134 [id number] [facility] 2022 11:00:00 2022 11:15:00 Outpatient R MACIEJ [facility] [id number] [facility] 2022 11:00:00 2022 11:15:00 Routine Visit Jeannette Buchananian [facility] 1.2.840.114 350.1.13.10 4.2.7.2.686 [id number] [facility] 2022-09-04 16:00:00 2022-09-04 16:32:51 [facility] [id number] [facility] 2022-09-04 16:00:00 2022-09-04 16:32:51 Routine Visit Jeannette Buchananian [facility] 1.2.840.114 350.1.13.10 4.2.7.2.686 [id number] [facility] 2022-08-21 11:15:00 2022-08-21 11:15:00 [facility] 1.2.840.114 350.1.13.10 4.2.7.2.686 [id number] [facility] 2022-08-21 11:15:00 2022-08-21 11:13:58 Outpatient R ADDAYNA [facility] [id number] [facility] 2022-08-20 00:00:00 2022-08-20 00:00:00 Telephone Adum, Yari Ramirez [facility] 1.2840.114 350.1.13.10 4.2.7.2.686 [id number] [facility] 2022-08-19 00:00:00 2022-08-19 00:00:00 Patient Secure Tamara Michael [facility] 1.2840.114 350.1.13.10 4.2.7.2.686 [id number] [facility] 2022-08-16 09:45:00 2022-08-16 10:00:00 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 Pob, [facility]c Lab Main David Ferguson [facility] 1.2840.114 350.1.13.10 4.2.7.2.686 [id number] [facility] 2022-08-16 09:45:00 2022-08-16 09:45:00 Outpatient DAVID ESCOBAR [facility] [id number] [facility] 2022-08-13 09:45:00 2022-08-13 10:00:00 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 Natacha, Adc Lab Main Tamara Jaimes [facility] 1.2840.114 350.1.13.10 4.2.7.2.686 [id number] [facility] 2022-08-13 09:45:00 2022-08-13 09:45:00 Outpatient TAMARA MUHAMMAD CHERYAL [facility] [id number] [facility] 2022-08-13 00:00:00 2022-08-13 00:00:00 Orders Only Doctor Unassigned, [place] [facility] 1.2840.114 350.1.13.10 4.2.7.2.686 [id number] [facility] 2022-08-13 00:00:00 2022-08-13 00:00:00 [facility] 1..840.114 350.1.13.10 4.2.7.2.686 [id number] [facility] 2022-08-08 09:00:00 2022-08-08 09:19:12 Outpatient R FIONA TAMARA JAIMES [facility] [id number] [facility] 2022-08-08 09:00:00 2022-08-08 09:19:12 [facility] 1.2.840.114 350.1.13.10 4.2.7.2.686 [id number] [facility] 2022-08-06 10:00:00 2022-08-06 10:00:00 Outpatient R FIONA TAMARA JAIMES [facility] [id number] [facility] 2022-08-01 14:30:00 2022-08-01 15:23:14 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 Ultrasound, Chau Archibald [facility] ANALYSIS ENGINEER [facility] MATERNAL & [facility]ILD [facility] 1.2.840.114 350.1.13.10 4.2.7.2.686 [id number] [facility] 2022-08-01 14:30:00 2022-08-01 14:30:00 Outpatient P CHAU BACON [facility] [id number] [facility] 2022-07-09 10:00:00 2022-07-09 10:15:41 Outpatient R TAMARA JAIMES [facility] [id number] [facility] 2022-07-09 10:00:00 2022-07-09 10:15:41 [facility] 1.2840.114 350.1.13.10 4.2.7.2.686 [id number] [facility] 2022-06-29 00:00:00 2022-06-29 00:00:00 Case Management Adum, Yari Ramirez [facility] 1.2840.114 350.1.13.10 4.2.7.2.686 [id number] [facility] 2022-06-25 15:00:00 2022-06-25 16:00:00 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 Ultrasound, Adc m Justin holley Michael [facility] 1.2840.114 350.1.13.10 4.2.7.2.686 [id number] [facility] 2022-06-25 15:00:00 2022-06-25 15:00:[address] Holley MICHAEL [facility] [id number] [facility] 2022-06-11 13:00:00 2022-06-11 13:31:03 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 2, Adc Lab Adum, Yari [facility] 1.2840.114 350.1.13.10 4.2.7.2.686 [id number] [facility] 2022-06-11 11:00:00 2022-06-11 11:51:51 Outpatient R ADUM, YARI [facility] [id number] [facility] 2022-06-11 11:00:00 2022-06-11 11:51:51 Routine Visit AdJeannette mcintoshian [facility] 1.2840.114 350.1.13.10 4.2.7.2.686 [id number] [facility] 2022-05-24 00:00:00 2022-05-24 00:00:00 Telephone AdYari mcintosh [facility] 1.2.840.114 350.1.13.10 4.2.7.2.686 [id number] [facility] 2022-05-10 10:00:00 2022-05-10 11:19:12 Outpatient R YARI BUCHANAN [facility] [id number] [facility] 2022-05-10 10:00:00 2022-05-10 11:19:12 Initial Visit AdYari mcintosh [facility] 1.2.840.114 350.1.13.10 4.2.7.2.686 [id number] [facility] 2022-05-10 00:00:00 2022-05-10 00:00:00 Orders Only Doctor Unassigned, [place] [facility] 1.2.840.114 350.1.13.10 4.2.7.2.686 [id number] [facility] 2022-05-03 10:00:00 2022-05-03 10:00:00 Outpatient R MACIEJ YARI [facility] [id number] [facility] 2022-04-30 10:30:00 2022-04-30 10:30:00 Outpatient P [facility] [id number] [facility] 2022-04-29 15:00:00 2022-04-29 15:00:00 Outpatient P [facility] [id number] [facility] 2022-04-29 14:00:00 2022-04-29 14:00:00 Outpatient P [facility] [id number] [facility] 2022-04-18 11:00:00 2022-04-18 11:00:00 Outpatient R ALINE SANABRIA [facility] [id number] [facility] 2022-04-16 10:00:00 2022-04-16 10:00:00 Outpatient R ADYARI MCINTOSH [facility] [id number] [facility] 2022-04-11 16:00:00 2022-04-11 16:00:00 Outpatient R ALINE SANABRIA [facility] [id number] [facility] 2022-04-11 09:45:00 2022-04-11 11:12:27 Outpatient R MELINDA BRIGGS [facility] [id number] [facility] 2022-04-11 09:45:00 2022-04-11 11:12:27 Routine Visit Trimester, [facility] Res-1st Melinda Briggs [facility] 1..840.114 350.1.13.10 4.2.7.2.686 [id number] [facility] 2022-04-11 09:45:00 2022-04-11 11:12:27 Outpatient R MELINDA BRIGGS [facility] [id number] [facility] 2022-04-09 00:00:00 2022-04-09 00:00:00 Patient Secure Msg Aline Sanabria [facility] ANALYSIS ENGINEER [facility] MATERNAL & [facility] 1.2.840.114 350.1.13.10 4.2.7.2.686 [id number] [facility] 2022-04-09 00:00:00 2022-04-09 00:00:00 Telephone Aline Sanabria [facility] ANALYSIS ENGINEER [facility] MATERNAL & CHILD [facility] 1.2.840.114 350.1.13.10 4.2.7.2.686 [id number] [facility] 2022-04-08 07:45:00 2022-04-08 08:15:01 Outpatient R ALINE SANABRIA [facility] [id number] [facility] 2022-04-08 07:45:00 2022-04-08 08:15:01 Outpatient R ALINE SANABRIA [facility] [id number] [facility] 2022-04-08 07:45:00 2022-04-08 08:00:00 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 Lab, Ang-Rmchp Aline Sanabria [facility] ANALYSIS ENGINEER [facility] & CHILD [facility] ..114 350.1.13.10 4.2.7.2.686 [id number] [facility] 2022-04-08 07:45:00 2022-04-08 07:45:00 Outpatient R SABRINA LAINE [facility] [id number] [facility] 2022-04-04 16:00:00 2022-04-04 16:00:00 Routine Visit Alnie Sanabria [facility] ANALYSIS ENGINEER [facility] & CHILD [facility] ..114 350.1.13.10 4.2.7.2.686 [id number] [facility] 2022-04-04 16:00:00 2022-04-04 13:56:07 Outpatient R ALINE SANABRIA [facility] [id number] [facility] 2022-04-04 16:00:00 2022-04-04 13:56:07 Outpatient R ALINE SANABRIA [facility] [id number] [facility] 2022-04-04 00:00:00 2022-04-04 00:00:00 Telephone Aline Sanabria [facility] ANALYSIS ENGINEER [facility] & CHILD [facility] ..114 350.1.13.10 4.2.7.2.686 [id number] [facility] 2022-03-27 00:00:00 2022-03-27 00:00:00 Telephone Aline Sanabria [facility] ANALYSIS ENGINEER [facility] & CHILD [facility] .0.114 350.1.13.10 4.2.7.2.686 [id number] [facility] 2022-03-14 08:30:00 2022-03-14 09:36:51 Initial Visit Aline Sanabria [facility] ANALYSIS ENGINEER [facility] MATERNAL & [facility]ILD [facility] 1.2.840.114 350.1.13.10 4.2.7.2.686 [id number] [facility] 2022-03-14 08:00:00 2022-03-14 09:36:43 Outpatient R ALINE SANABRIA [facility] [id number] [facility] 2022-03-14 00:00:00 2022-03-14 00:00:00 Orders Only Doctor Unassigned, [place] [facility] 1.2.840.114 350.1.13.10 4.2.7.2.686 [id number] [facility] 2022-03-09 13:40:00 2022-03-09 13:40:00 Outpatient R UMM, MARY ANN [facility] [id number] [facility] 2022-03-08 17:00:00 2022-03-08 17:22:05 Outpatient R JACKELINE MILES [facility] [id number] [facility] 2022-03-08 17:00:00 2022-03-08 17:22:05 Urgent Care Jackeline Miles [facility]NATHANIEL [facility] 1.2.840.114 350.1.13.10 4.2.7.2.686 [id number] [facility] 2022-03-08 17:00:00 2022-03-08 17:22:05 Outpatient R JACKELINE MILES [facility] [id number] [facility] 2022-02-21 08:00:00 2022-02-21 08:00:00 Outpatient R [facility] [id number] [facility] 2022-02-14 13:15:00 2022-02-14 14:27:02 Outpatient R ALINE SANABRIA [facility] [id number] [facility] 2022-02-14 13:15:00 2022-02-14 14:27:02 Office Visit Darren Sanabriamarco a [place] [facility] ANALYSIS ENGINEER [facility] MATERNAL & [facility] 1.0.114 350.1.13.10 4.2.7.2.686 [id number] [facility] 2022-02-14 13:15:00 2022-02-14 14:27:02 Outpatient R ALINE SANABRIA [facility] [id number] [facility] 2022-02-14 00:00:00 2022-02-14 00:00:00 Orders Only Doctor Unassigned, [place] [facility] 1.0.114 350.1.13.10 4.2.7.2.686 [id number] [facility] 2022-01-29 13:45:00 2022-01-29 13:45:00 Outpatient R ALINE SANABRIA [facility] [id number] [facility] 2022-01-29 13:15:00 2022-01-29 13:15:00 Outpatient R [facility] [id number] [facility] 2021-10-27 19:27:00 2021-10-27 21:47:00 Emergency X JUANA SPENCER [facility] ERT [id number] [facility] 2021-10-27 19:27:00 2021-10-27 21:47:00 Emergency Juana Spencer S [facility] 1..114 350.1.13.10 4.2.7.2.686 [id number] [facility] 2021-10-27 00:00:00 2021-10-27 00:00:00 Orders Only Doctor Unassigned, [place] [facility] 1.0.114 350.1.13.10 4.2.7.2.686 [id number] [facility] 2020-11-07 00:00:00 2020-11-07 00:00:00 Patient Outreach Kevin Brown [facility] 1.2.840.114 350.1.13.10 4.2.7.2.686 [id number] [facility] 2020-11-07 00:00:00 2020-11-07 00:00:00 Patient Outreach Kevin Brown [facility] 1.2.840.114 350.1.13.10 4.2.7.2.686 [id number] 2020-11-06 10:00:00 2020-11-06 10:00:00 Outpatient RICARDO LANDRUM [facility] [id number] [facility] 2020 08:00:00 2020 08:00:00 Outpatient R ROCIO POND [facility] [id number] [facility] 2020-09-12 10:00:00 2020-09-12 10:00:00 Outpatient R [facility] [id number] [facility] 2020-07-07 09:55:55 2020-07-07 10:22:59 [facility] Gunn [facility] ANALYSIS ENGINEER [facility] & CHILD [facility] 1..840.114 350.1.13.10 4.2.7.2.686 [id number] [facility] 2020-07-07 09:55:55 2020-07-07 10:22:59 [facility] ANALYSIS ENGINEER [facility] & CHILD [facility] 1.2.840.114 350.1.13.10 4.2.7.2.686 [id number] 2020-07-07 10:00:00 2020-07-07 10:00:00 Outpatient R [facility] [id number] [facility] 2020-07-07 00:00:00 2020-07-07 00:00:00 Telephone Aline Sanabria [facility] ANALYSIS ENGINEER [facility] MATERNAL & CHILD [facility] 1.2.840.114 350.1.13.10 4.2.7.2.686 [id number] [facility] 2020-07-07 00:00:00 2020-07-07 00:00:00 Telephone Aline Sanabria [facility] ANALYSIS ENGINEER [facility] MATERNAL & CH[facility] 1.2.840.114 350.1.13.10 4.2.7.2.686 [id number] 2020-07-04 13:00:00 2020-07-04 13:00:00 Outpatient R ALINE SANABRIA [facility] [id number] [facility] 2020-07-04 00:00:00 2020-07-04 00:00:00 Telephone Rocio Pond [facility] ANALYSIS ENGINEER [facility] MATERNAL & CH[facility] 1.2.840.114 350.1.13.10 4.2.7.2.686 [id number] [facility] 2020-07-04 00:00:00 2020-07-04 00:00:00 Telephone Rocio Pond [facility] ANALYSIS ENGINEER [facility] & CHILD [facility] 1.2.840.114 350.1.13.10 4.2.7.2.686 [id number] 2020-07-03 14:23:30 2020-07-03 14:50:28 Office Visit Rocio Pond [place] C [facility] ANALYSIS ENGINEER [facility] MATERNAL & CHILD [facility] 1.2.840.114 350.1.13.10 4.2.7.2.686 [id number] [facility] 2020-07-03 14:23:30 2020-07-03 14:50:28 Office Visit Rocio Pond [facility] ANALYSIS ENGINEER [facility] MATERNAL & CHILD [facility] 1.2.840.114 350.1.13.10 4.2.7.2.686 [id number] 2020-07-03 14:30:00 2020-07-03 14:30:00 Outpatient R ROCIO POND [facility] [id number] [facility] 2020-06-28 00:00:00 2020-06-28 00:00:00 Telephone Aline Sanabria [facility] 1..840.114 350.1.13.10 4.2.7.2.686 [id number] [facility] 2020-06-20 08:04:56 2020-06-20 08:46:32 Office Visit Aline Sanabria [facility] ANALYSIS ENGINEER [facility] MATERNAL & CHILD [facility] 1..840.114 350.1.13.10 4.2.7.2.686 [id number] [facility] 2020-06-20 08:00:00 2020-06-20 08:00:00 Outpatient R ALINE SANABRIA [facility] [id number] [facility] 2020-05-26 10:30:00 2020-05-26 10:30:00 Outpatient R [facility] [id number] [facility] 2020-02-24 10:16:42 2020-02-24 11:11:42 Office Visit Aline Sanabria [facility] ANALYSIS ENGINEER [facility] & CHILD [facility] 1..840.114 350.1.13.10 4.2.7.2.686 [id number] [facility] 2020-02-24 10:00:00 2020-02-24 10:00:00 Outpatient R ALINE SANABRIA [facility] [id number] [facility] 2020-02-24 09:30:00 2020-02-24 09:30:00 Outpatient R [facility] [id number] [facility] 2020-02-24 00:00:00 2020-02-24 00:00:00 Orders Only Doctor Unassigned, [place] [facility] 1.2.840.114 350.1.13.10 4.2.7.2.686 [id number] [facility] 2020-02-17 14:30:00 2020-02-17 14:30:00 Outpatient Deejay POND ROCIO [facility] [id number] [facility] Results Test Description Test Time Test Comments Results Result Co mments Source [facility] 22:18:49* Test Item Value Reference Range Interpretation Comme nts LIPASE (test code = 0546928588) 81 U/L 0-220 Lab Interpretation (test cod e = 43389-4) Normal [facility] [id number] 22:08:02* Test Item Value Reference Range Interpretation Comme nts WBC (test code = 6690-2) 8.34 4.30-11.10 RBC (test code = 789-8) 5.09 3.93-5.25 HGB (test code = 718-7) 13.2 g/dL 11.6-15.0 HCT (test code = 4544-3) 41.3 % 35.7-45.2 MCV (test code = 787-2) 81.1 fL 80.6-95.5 MCH (test code = 785-6) 25.9 pg 25.9-32.8 MCHC (test code = 786-4) 32.0 g/dL 31.6-35.1 RDW-SD (test code = 00296-7) 42.6 fL 39.0-49.9 RDW-CV (test code = 788-0) 14.6 % 12.0-15.5 PLT (test code = 777-3) 350 166-358 MPV (test code = 72264-1) 10.4 fL 9.5-12.9 NRBC/100 WBC (test code = 4645439940) 0.0 0.0-10.0 NRBC x10^3 (test code = 3101826060) See_Comment [Automated messa ge] The system which generated this result transmitted reference range: 10*3/?L. The reference range was not used to interpret this result as normal/abnormal. GRAN MAT (NEUT) % (test code = 770-8) 77.4 % IMM GRAN % (test code = 1158211699) 0.40 % LYMPH % (test code = 736-9) 17.6 % MONO % (test code = 5905-5) 3.5 % EOS % (test code = 713-8) 0.5 % BASO % (test code = 706-2) 0.6 % GRAN MAT x10^3(ANC) (test code = 8453856406) 6.46 10*3/uL 1.88-7.09 IMM GRAN x10^3 (test code = 4837224199) 0.03 10*3/uL 0.00-0.06 LYMPH x10^3 (test code = 731-0) 1.47 10*3/uL 1.32-3.29 MONO x10^3 (test code = 742-7) 0.29 10*3/uL 0.33-0.92 L EOS x10^3 (test code = 711-2) 0.04 10*3/uL 0.03-0.39 BASO x10^3 (test code = 704-7) 0.05 10*3/uL 0.01-0.07 Lab Interpretation (test code = 85745-7) Abnormal [facility] GALL [id number] 21:55:42EXAM: US GALL BLADDER HISTORY: 23 years-old Female; Rule out cholecystitis, RUQ pain withpersistentN/V TECHNIQUE: Limited abdominal ultrasound focused on the gallbladder wasperformed. The main portal vein was evaluated with color Doppler.Help Desk Supervisor images were obtained for the record. Exam limited by bowelgas. COMPARISON: None FINDINGS: PANCREAS:The visualized portions of the pancreas are unremarkable. The tail of thepancreas is not well-visualized due to bowel gas. BILE DUCTS:No intra- orextrahepatic biliary dilatation is visualized.The common duct diameter is normal and measures 0.3 cm. GALLBLADDER:No shadowing stones are seen. The gallbladder wall thickness is normal and measures 0.2 cm. Nopericholecystic fluid is visualized.Albright's sign was negative. OTHER: None.[facility] Test 2024-03-15 21:52:00* Test Item Value Reference Range Interpretation Comme nts POCT PREG (test code = 1605) Negative On board controls acceptable with C Line (test code = 3574) Yes POCT PREG LOT # (test code = 3575) [id number] POCT PREG TEST DATE ( test code = 3576) 12/19/2024 Lab Interpretation (test cod e = 38362-7) Normal [facility] [id number] 22:46:00* Test Item Value Reference Range Interpretation Comme nts POCT PREG (test code = 1605) Negative On board controls acceptable with C Line (test code = 3574) Yes POCT PREG LOT # (test code = 3575) [id number] POCT PREG TEST DATE ( test code = 3576) 11/23/2024 Lab Interpretation (test cod e = 93345-8) Normal [facility] [id number] 23:50:00* Test Item Value Reference Range Interpretation Comme nts POCT PREG (test code = 1605) Negative On board controls acceptable with C Line (test code = 3574) Yes Lab Interpretation (test cod e = 31760-5) Normal [facility] 22:33:14* Test Item Value Reference Range Interpretation Comme nts MAGNESIUM (test code = 7748716480) 2.4 mg/dL 1.7-2.4 Lab Interpretation (test cod e = 26552-7) Normal [facility]. METABOLIC PANEL (32118)2023-07-16 22:33:13* Test Item Value Reference Range Interpretation Comme nts NA (test code = 0334635399) 139 mmol/L 135-145 K (test code = 6197434295) 3.4 mmol/L 3.5-5.0 L CL (test code = 3045682468) 105 mmol/L 98-108 CO2 TOTAL (test code = 0127024482) 23 mmol/L 23-31 AGAP (test code = 8720376857) 11 2-16 BUN (test code = 7654870341) 13 mg/dL 7-23 GLUCOSE (test code = 1153005502) 108 mg/dL 70-110 CREATININE (test code = 9741202469) 0.56 mg/dL 0.50-1.04 TOTAL BILI (test code = 5792286779) 0.4 mg/dL 0.1-1.1 CALCIUM (test code = 4011039825) 8.9 mg/dL 8.6-10.6 T PROTEIN (test code = 9952417137) 8.1 g/dL 6.3-8.2 ALBUMIN (test code = 6008271328) 4.5 g/dL 3.5-5.0 ALK PHOS (test code = 2233161739) 75 U/L 34-122 ALTv (test code = 1742-6) 24 U/L 5-35 AST(SGOT) (test code = 5829096626) 34 U/L 13-40 eGFR (test code = 42891-5) 130.9 mL/min/1.73m2 CKD-EPI eGFR (2020). Assuming creatinine has been stable day-to-day for at least three months, the eGFR indicates Category G1 (>= 90 mL/min/1.73 m2) Lab Interpretation (test code = 99188-0) Abnormal [facility] 22:32:53* Test Item Value Reference Range Interpretation Comme nts LIPASE (test code = 7632917893) 58 U/L 0-220 Lab Interpretation (test cod e = 88285-2) Normal [facility] WITH [id number] 22:17:14* Test Item Value Reference Range Interpretation Comme nts WBC (test code = 6690-2) 3.85 See_Comment L [Automated messa ge] The system which generated this result transmitted reference range: 4.30 - 11.10 10*3/?L. The reference range was not used to interpret this result as normal/abnormal. RBC (test code = 789-8) 4.77 See_Comment [Automated messa ge] The system which generated this result transmitted reference range: 3.93 - 5.25 10*6/?L. The reference range was not used to interpret this result as normal/abnormal. HGB (test code = 718-7) 13.6 g/dL 11.6-15.0 HCT (test code = 4544-3) 40.9 % 35.7-45.2 MCV (test code = 787-2) 85.7 fL 80.6-95.5 MCH (test code = 785-6) 28.5 pg 25.9-32.8 MCHC (test code = 786-4) 33.3 g/dL 31.6-35.1 RDW-SD (test code = 17391-4) 40.3 fL 39.0-49.9 RDW-CV (test code = 788-0) 12.9 % 12.0-15.5 PLT (test code = 777-3) 222 See_Comment [Automated messa ge] The system which generated this result transmitted reference range: 166 - 358 10*3/?L. The reference range was not used to interpret this result as normal/abnormal. MPV (test code = 09653-0) 9.9 fL 9.5-12.9 NRBC/100 WBC (test code = 3601599892) 0.0 See_Comment [Automated [employer] ssage] The system which generated this result transmitted reference range: 0.0 - 10.0 /100 WBCs. The reference range was not used to interpret this result as normal/abnormal. NRBC x10^3 (test code = 6109447628) See_Comment [Automated messa ge] The system which generated this result transmitted reference range: 10*3/?L. The reference range was not used to interpret this result as normal/abnormal. GRAN MAT (NEUT) % (test code = 770-8) 72.4 % IMM GRAN % (test code = 0981729632) 0.30 % LYMPH % (test code = 736-9) 18.4 % MONO % (test code = 5905-5) 8.6 % EOS % (test code = 713-8) 0.0 % BASO % (test code = 706-2) 0.3 % GRAN MAT x10^3(ANC) (test code = 4058188193) 2.79 10*3/uL 1.88-7.09 IMM GRAN x10^3 (test code = 1129496629) 0.00-0.06 LYMPH x10^3 (test code = 731-0) 0.71 10*3/uL 1.32-3.29 L MONO x10^3 (test code = 742-7) 0.33 10*3/uL 0.33-0.92 EOS x10^3 (test code = 711-2) 0.03-0.39 L BASO x10^3 (test code = 704-7) 0.01-0.07 Lab Interpretation (test code = 25842-8) Abnormal [facility] with [id number] 11:59:36* Test Item Value Reference Range Interpretation Comme nts WBC (test code = 6690-2) 10.67 See_Comment [Automated messa ge] The system which generated this result transmitted reference range: 4.30 - 11.10 10*3/?L. The reference range was not used to interpret this result as normal/abnormal. RBC (test code = 789-8) 3.09 See_Comment L [Automated messa ge] The system which generated this result transmitted reference range: 3.93 - 5.25 10*6/?L. The reference range was not used to interpret this result as normal/abnormal. HGB (test code = 718-7) 9.3 g/dL 11.6-15.0 L HCT (test code = 4544-3) 28.0 % 35.7-45.2 L MCV (test code = 787-2) 90.6 fL 80.6-95.5 MCH (test code = 785-6) 30.1 pg 25.9-32.8 MCHC (test code = 786-4) 33.2 g/dL 31.6-35.1 RDW-SD (test code = 66913-9) 48.3 fL 39.0-49.9 RDW-CV (test code = 788-0) 14.9 % 12.0-15.5 PLT (test code = 777-3) 234 See_Comment [Automated messa ge] The system which generated this result transmitted reference range: 166 - 358 10*3/?L. The reference range was not used to interpret this result as normal/abnormal. MPV (test code = 33195-6) 10.1 fL 9.5-12.9 NRBC/100 WBC (test code = 6103721029) 0.0 See_Comment [Automated me ssage] The system which generated this result transmitted reference range: 0.0 - 10.0 /100 WBCs. The reference range was not used to interpret this result as normal/abnormal. NRBC x10^3 (test code = 5192024136) See_Comment [Automated messa ge] The system which generated this result transmitted reference range: 10*3/?L. The reference range was not used to interpret this result as normal/abnormal. GRAN MAT (NEUT) % (test code = 770-8) 72.1 % IMM GRAN % (test code = 6042991929) 0.40 % LYMPH % (test code = 736-9) 20.7 % MONO % (test code = 5905-5) 6.1 % EOS % (test code = 713-8) 0.3 % BASO % (test code = 706-2) 0.4 % GRAN MAT x10^3(ANC) (test code = 3934267500) 7.70 10*3/uL 1.88-7.09 H IMM GRAN x10^3 (test code = 1167996294) 0.04 10*3/uL 0.00-0.06 LYMPH x10^3 (test code = 731-0) 2.21 10*3/uL 1.32-3.29 MONO x10^3 (test code = 742-7) 0.65 10*3/uL 0.33-0.92 EOS x10^3 (test code = 711-2) 0.03 10*3/uL 0.03-0.39 BASO x10^3 (test code = 704-7) 0.04 10*3/uL 0.01-0.07 Lab Interpretation (test code = 58714-9) Abnormal [facility] OR MARLENE ONLY - [id number] 08:41:13* Test Item Value Reference Range Interpretation Comme nts RPR (Qualitative) (test code = 11911-8) Nonreactive Nonreactive Lab Interpretation (test cod e = 36972-6) Normal [facility] Surface [id number] 05:39:08 * Test Item Value Reference Range Interpretation Comme nts HBsAg Semi-Quantitative (derrick t code = 5195-3) 0.05 Negative [facility]2 AG-AB WITH [id number] 02:16:01* Test Item Value Reference Range Interpretation Comme nts HIV Semi-quantitative (test code = 13411-3) 0.07 Negative NADJA (test code = NADJA) Non-reactive for HIV-1 antigen and HIV-1/HIV-2 antibodies. ?No laboratory evidence of HIV infection. ?Repeat in 2-4 weeks if acute HIV infection is suspected. [facility] with [id number] 00:40:11* Test Item Value Reference Range Interpretation Comme nts WBC (test code = 6690-2) 7.97 See_Comment [Automated messa ge] The system which generated this result transmitted reference range: 4.30 - 11.10 10*3/?L. The reference range was not used to interpret this result as normal/abnormal. RBC (test code = 789-8) 4.08 See_Comment [Automated messa ge] The system which generated this result transmitted reference range: 3.93 - 5.25 10*6/?L. The reference range was not used to interpret this result as normal/abnormal. HGB (test code = 718-7) 12.0 g/dL 11.6-15.0 HCT (test code = 4544-3) 35.9 % 35.7-45.2 MCV (test code = 787-2) 88.0 fL 80.6-95.5 MCH (test code = 785-6) 29.4 pg 25.9-32.8 MCHC (test code = 786-4) 33.4 g/dL 31.6-35.1 RDW-SD (test code = 10548-6) 46.5 fL 39.0-49.9 RDW-CV (test code = 788-0) 14.5 % 12.0-15.5 PLT (test code = 777-3) 273 See_Comment [Automated messa ge] The system which generated this result transmitted reference range: 166 - 358 10*3/?L. The reference range was not used to interpret this result as normal/abnormal. MPV (test code = 54817-3) 9.9 fL 9.5-12.9 NRBC/100 WBC (test code = 3349783246) 0.0 See_Comment [Automated me ssage] The system which generated this result transmitted reference range: 0.0 - 10.0 /100 WBCs. The reference range was not used to interpret this result as normal/abnormal. NRBC x10^3 (test code = 7452189232) See_Comment [Automated messa ge] The system which generated this result transmitted reference range: 10*3/?L. The reference range was not used to interpret this result as normal/abnormal. GRAN MAT (NEUT) % (test code = 770-8) 75.6 % IMM GRAN % (test code = 5866907511) 0.50 % LYMPH % (test code = 736-9) 16.1 % MONO % (test code = 5905-5) 6.9 % EOS % (test code = 713-8) 0.4 % BASO % (test code = 706-2) 0.5 % GRAN MAT x10^3(ANC) (test code = 1651868246) 6.03 10*3/uL 1.88-7.09 IMM GRAN x10^3 (test code = 4526613391) 0.04 10*3/uL 0.00-0.06 LYMPH x10^3 (test code = 731-0) 1.28 10*3/uL 1.32-3.29 L MONO x10^3 (test code = 742-7) 0.55 10*3/uL 0.33-0.92 EOS x10^3 (test code = 711-2) 0.03 10*3/uL 0.03-0.39 BASO x10^3 (test code = 704-7) 0.04 10*3/uL 0.01-0.07 Lab Interpretation (test code = 91409-0) Abnormal [facility] - ONCE [id number] 00:38:00 * Test Item Value Reference Range Interpretation Comme nts ABO & RH (test code = 20) A Positive IAT (test code = 1185) Negative [facility] UR[facility] W/O SPECIFIC [id number] 15:58:00* Test Item Value Reference Range Interpretation Comme nts POCT PH U (test code = 3254) N/A 5-8 POCT U LEUK EST (test code = 3263) N/A Negative - Negative POCT U NIT (test code = 3262) N/A Negative - Negati ve POCT U PROT (test code = 3259) Negative Negative - Negat kapil POCT U GLU (test code = 3256) Negative Negative - Negati ve POCT U KETONE (test code = 3258) N/A Negative - Neg ative POCT U BLD (test code = 3257) N/A Negative - Negati ve [facility] URINALYSIS W/O SPECIFIC [id number] 22:13:00* Test Item Value Reference Range Interpretation Comme nts POCT PH U (test code = 3254) N/A 5-8 POCT U LEUK EST (test code = 3263) N/A Negative - Negative POCT U NIT (test code = 3262) N/A Negative - Negati ve POCT U PROT (test code = 3259) Negative Negative - Negat kapil POCT U GLU (test code = 3256) Negative Negative - Negati ve POCT U KETONE (test code = 3258) N/A Negative - Neg ative POCT U BLD (test code = 3257) N/A Negative - Negati ve [facility] URINALYSIS W/O SPECIFIC [id number] 21:55:00* Test Item Value Reference Range Interpretation Comme nts POCT PH U (test code = 3254) n/a 5-8 POCT U LEUK EST (test code = 3263) n/a Negative - Negative POCT U NIT (test code = 3262) n/a Negative - Negati ve POCT U PROT (test code = 3259) negative Negative - Negat kapil POCT U GLU (test code = 3256) negative Negative - Negati ve POCT U KETONE (test code = 3258) n/a Negative - Neg ative POCT U BLD (test code = 3257) n/a Negative - Negati ve [facility] URINALYSIS W/O SPECIFIC [id number] 22:12:00* Test Item Value Reference Range Interpretation Comme nts POCT PH U (test code = 3254) n/a 5-8 POCT U LEUK EST (test code = 3263) na Negative - Negative POCT U NIT (test code = 3262) n/a Negative - Negati ve POCT U PROT (test code = 3259) negative Negative - Negat kapil POCT U GLU (test code = 3256) negative Negative - Negati ve POCT U KETONE (test code = 3258) n/a Negative - Neg ative POCT U BLD (test code = 3257) n/a Negative - Negati ve [facility] URINALYSIS W/O SPECIFIC [id number] 16:56:00* Test Item Value Reference Range Interpretation Comme nts POCT PH U (test code = 3254) n/a 5-8 POCT U LEUK EST (test code = 3263) n/a Negative - Negative POCT U NIT (test code = 3262) n/a Negative - Negati ve POCT U PROT (test code = 3259) negative Negative - Negat kapil POCT U GLU (test code = 3256) negative Negative - Negati ve POCT U KETONE (test code = 3258) n/a Negative - Neg ative POCT U BLD (test code = 3257) n/a Negative - Negati ve [facility] URINALYSIS W/O SPECIFIC [id number] 22:09:00* Test Item Value Reference Range Interpretation Comme nts POCT PH U (test code = 3254) N/A 5-8 POCT U LEUK EST (test code = 3263) N/A Negative - Negative POCT U NIT (test code = 3262) N/A Negative - Negati ve POCT U PROT (test code = 3259) Negative Negative - Negat kapil POCT U GLU (test code = 3256) Negative Negative - Negati ve POCT U KETONE (test code = 3258) N/A Negative - Neg ative POCT U BLD (test code = 3257) N/A Negative - Negati ve [facility] URINALYSIS W/O SPECIFIC [id number] 22:09:00* Test Item Value Reference Range Interpretation Comme nts POCT PH U (test code = 3254) N/A 5-8 POCT U LEUK EST (test code = 3263) N/A Negative - Negative POCT U NIT (test code = 3262) N/A Negative - Negati ve POCT U PROT (test code = 3259) Negative Negative - Negat kapil POCT U GLU (test code = 3256) Negative Negative - Negati ve POCT U KETONE (test code = 3258) N/A Negative - Neg ative POCT U BLD (test code = 3257) N/A Negative - Negati ve [facility] URINALYSIS W/O SPECIFIC [id number] 17:05:00* Test Item Value Reference Range Interpretation Comme nts POCT PH U (test code = 3254) N/A 5-8 POCT U LEUK EST (test code = 3263) N/A Negative - Negative POCT U NIT (test code = 3262) N/A Negative - Negati ve POCT U PROT (test code = 3259) Negative Negative - Negat kapil POCT U GLU (test code = 3256) Negative Negative - Negati ve POCT U KETONE (test code = 3258) N/A Negative - Neg ative POCT U BLD (test code = 3257) N/A Negative - Negati ve [facility]GLUCO[facility] [id number] 16:58:30* Test Item Value Reference Range Interpretation Comme nts GLU FASTNG (test code = 7541092437) 83 mg/dL 70-110 Lab Interpretation (test cod e = 42803-0) Normal [facility] URINALYSIS W/O SPECIFIC [id number] 15:06:00* Test Item Value Reference Range Interpretation Comme nts POCT PH U (test code = 3254) N/A 5-8 POCT U LEUK EST (test code = 3263) N/A Negative - Negative POCT U NIT (test code = 3262) N/A Negative - Negati ve POCT U PROT (test code = 3259) Negative Negative - Negat kapil POCT U GLU (test code = 3256) Negative Negative - Negati ve POCT U KETONE (test code = 3258) N/A Negative - Neg ative POCT U BLD (test code = 3257) N/A Negative - Negati ve [facility] W/O SPECIFIC [id number] 16:05:00* Test Item Value Reference Range Interpretation Comme nts POCT PH U (test code = 3254) N/A 5-8 POCT U LEUK EST (test code = 3263) N/A Negative - Negative POCT U NIT (test code = 3262) N/A Negative - Negati ve POCT U PROT (test code = 3259) Negative Negative - Negat kapil POCT U GLU (test code = 3256) Negative Negative - Negati ve POCT U KETONE (test code = 3258) N/A Negative - Neg ative POCT U BLD (test code = 3257) N/A Negative - Negati ve [facility] URINALYSIS W/O SPECIFIC [id number] 16:26:00* Test Item Value Reference Range Interpretation Comme nts POCT PH U (test code = 3254) n/a 5-8 POCT U LEUK EST (test code = 3263) n/a Negative - Negative POCT U NIT (test code = 3262) n/a Negative - Negati ve POCT U PROT (test code = 3259) negative Negative - Negat kapil POCT U GLU (test code = 3256) negative Negative - Negati ve POCT U KETONE (test code = 3258) n/a Negative - Neg ative POCT U BLD (test code = 3257) n/a Negative - Negati ve [facility] URINALYSIS W/O SPECIFIC [id number] 16:26:00* Test Item Value Reference Range Interpretation Comme nts POCT PH U (test code = 3254) n/a 5-8 POCT U LEUK EST (test code = 3263) n/a Negative - Negative POCT U NIT (test code = 3262) n/a Negative - Negati ve POCT U PROT (test code = 3259) negative Negative - Negat kapil POCT U GLU (test code = 3256) negative Negative - Negati ve POCT U KETONE (test code = 3258) n/a Negative - Neg ative POCT U BLD (test code = 3257) n/a Negative - Negati ve [facility] URINALYSIS W/O SPECIFIC [id number] 15:50:00* Test Item Value Reference Range Interpretation Comme nts POCT PH U (test code = 3254) n/a 5-8 POCT U LEUK EST (test code = 3263) n/a Negative - Negative POCT U NIT (test code = 3262) n/a Negative - Negati ve POCT U PROT (test code = 3259) negative Negative - Negat kapil POCT U GLU (test code = 3256) negative Negative - Negati ve POCT U KETONE (test code = 3258) n/a Negative - Neg ative POCT U BLD (test code = 3257) n/a Negative - Negati ve [facility] Notes Date/Time Note Provider Source 2024-03-15 18:01:15 Pt given printed and verbal discharge instructions regarding Bilious vomiting with nausea, encouraged hydration, Prescriptions provided Discussed ibuprofen and to take with food to avoid GI distress. Discussed antibiotic therapy and to take until all completed unless adverse reaction occurs - if occurs, discontinue medication and follow up with pcp/seek medical attention Pt verbalized understanding of instructions, pt awake alert oriented, resp reg unlabored, skin w/d, color appropriate for race, moves all ext well,pt encouraged to follow up with pcp Advised to seek medical attention for new/prolonged/worsening of symptoms. No adverse reaction to meds given in ER noted upon discharge PIV d'cd, dressing to site, catheter in tact. Awake, alert oriented, resp reg unlabored, skin w/d, pt leaving amb with steady gait, in no apparent distress, NT Cyndee Mojica RN [facility] 2024-03-15 15:57:04 Pt arrived via private car, states "I have been having migraines since Friday and its making me vomit, I took tylenol and allergy medicine and its not helping." She reports she has been the ED before for headaches, states she has not followed up with neurology. States "I feel like its my allergies, but nothing I take is helping". Denies any injury. Current on Depo injections. NT Shawanda Pierre RN 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: None Travel and Exposure Screening: Symptoms Does patient have any of these symptoms?: (not recorded) Exposure Screening Has patient had contact with someone with a communicable disease in the last month?: (not recorded) Diseases exposed to:: (not recorded) Is Patient ?: (not recorded) Exposure Date: (not recorded) Chief Complaint: Chief Complaint Patient presents with Headache History of Present Illness: 23 yo female presenting to the ED complaining of migraines since Friday and its making me vomit, I took tylenol and allergy medicine and its not helping." She reports she has been the ED before for headaches, states she has not followed up with neurology. States "I feel like its my allergies, but nothing I take is helping". Denies any injury. Current on Depo injections. History provided by: Patient mapping supervisor used: No Past Medical History/Immunizations: Past Medical History: Diagnosis Date Abnormal maternal glucose tolerance, antepartum 08/21/2022 Anemia Endometriosis STD (sexually transmitted disease) Tetanus received in last 5 years: Unknown Allergies: No Known Allergies Past Social History: Tobacco Use Never smoked or used smokeless tobacco. Vaping Use Never used Alcohol Use Not Currently. Comments: Socially Drug Use Never. Sexual Activity Sexually active; Partners: Male; Control/Protection: None. Past Surgical History: History reviewed. No pertinent surgical history. Review of Systems: Review of Systems Constitutional: Negative for activity change, appetite change, chills, diaphoresis, fatigue and fever. HENT: Negative for congestion, ear discharge, ear pain, rhinorrhea, sore throat and trouble swallowing. Eyes: Negative for photophobia, pain, discharge and redness. Respiratory: Negative for cough, chest tightness, shortness of breath and wheezing. Cardiovascular: Negative for chest pain, palpitations and leg swelling. Gastrointestinal: Positive for abdominal pain, nausea and vomiting. Negative for abdominal distention, blood in stool and constipation. Genitourinary: Negative for dysuria, urgency, polyuria, frequency, hematuria and flank pain. Musculoskeletal: Negative for arthralgias, joint swelling, myalgias and neck stiffness. Skin: Negative for color change, rash and wound. Neurological: Positive for headaches. Negative for dizziness, seizures, syncope, facial asymmetry, weakness, light-headedness and numbness. Psychiatric/Behavioral: Negative for agitation, confusion, hallucinations and self-injury. The patient is not nervous/anxious. Hematological: Negative for adenopathy and cold intolerance. Does not bruise/bleed easily. Endocrine: Negative for cold intolerance, polydipsia and polyuria. Physical Exam: ED Triage Vitals [03/15/24 1558] Weight 97.5 kg (215 lb) Actual or estimated Estimated by patient/family report Height 1.6 m (5' 3") BP (!) 119/92 Pulse 83 Resp 16 Temp 36.6 ?C (97.9 ?F) Temp source Oral SpO2 100 % Measured on Room air Physical Exam Vitals and nursing note reviewed. Constitutional: General: She is awake. She is not in acute distress. Appearance: She is well-developed and well-groomed. She is obese. She is not ill-appearing, toxic-appearing or diaphoretic. HENT: Head: Normocephalic and atraumatic. Right Ear: External ear normal. Left Ear: External ear normal. Nose: Nose normal. Mouth/Throat: Pharynx: No oropharyngeal exudate. Eyes: General: No scleral icterus. Right eye: No discharge. Left eye: No discharge. Conjunctiva/sclera: Conjunctivae normal. Pupils: Pupils are equal, round, and reactive to light. Neck: Thyroid: No thyromegaly. Vascular: No JVD. Trachea: No tracheal deviation. Cardiovascular: Rate and Rhythm: Normal rate and regular rhythm. Heart sounds: Normal heart sounds. No murmur heard. No friction rub. No gallop. Pulmonary: Effort: Pulmonary effort is normal. No respiratory distress. Breath sounds: Normal breath sounds. No stridor. No wheezing or rales. Chest: Chest wall: No tenderness. Abdominal: General: Abdomen is protuberant. Bowel sounds are normal. There is no distension. Palpations: Abdomen is soft. There is no mass. Tenderness: There is abdominal tenderness in the right upper quadrant, epigastric area and suprapubic area. There is no right CVA tenderness, left CVA tenderness, guarding or rebound. Negative signs include Albright's sign and McBurney's sign. Hernia: No hernia is present. Musculoskeletal: General: No tenderness or deformity. Normal range of motion. Cervical back: Normal range of motion and neck supple. Lymphadenopathy: Cervical: No cervical adenopathy. Skin: General: Skin is warm and dry. Coloration: Skin is not pale. Findings: No erythema or rash. Neurological: Mental Status: She is alert and oriented to person, place, and time. Cranial Nerves: No cranial nerve deficit. Motor: No abnormal muscle tone. Coordination: Coordination normal. Deep Tendon Reflexes: Reflexes are normal and symmetric. Reflexes normal. Psychiatric: Behavior: Behavior normal. Behavior is cooperative. Thought Content: Thought content normal. Judgment: Judgment normal. Radiology: US GALL BLADDER Final Result EXAM: US GALL BLADDER HISTORY: 23 years-old Female; Rule out cholecystitis, RUQ pain with persistent N/V TECHNIQUE: Limited abdominal ultrasound focused on the gallbladder was performed. The main portal vein was evaluated with color Doppler. Help Desk Supervisor images were obtained for the record. Exam limited by bowel gas. COMPARISON: None FINDINGS: PANCREAS: The visualized portions of the pancreas are unremarkable. The tail of the pancreas is not well-visualized due to bowel gas. BILE DUCTS: No intra- or extrahepatic biliary dilatation is visualized. The common duct diameter is normal and measures 0.3 cm. GALLBLADDER: No shadowing stones are seen. The gallbladder wall thickness is normal and measures 0.2 cm. No pericholecystic fluid is visualized. Albright's sign was negative. OTHER: None. IMPRESSION No cholelithiasis or acute cholecystitis. Preliminary Report Dictated by Resident: Miguel Mares I, Nikia Lloyd MD., have reviewed this study and agree with the above report. Lab Results: Lab Results CBC WITH DIFF - Abnormal Result Value Ref Range WBC 8.34 4.30 - 11.10 10*3/?L RBC 5.09 3.93 - 5.25 10*6/?L HGB 13.2 11.6 - 15.0 g/dL HCT 41.3 35.7 - 45.2 % MCV 81.1 80.6 - 95.5 fL MCH 25.9 25.9 - 32.8 pg MCHC 32.0 31.6 - 35.1 g/dL RDW-SD 42.6 39.0 - 49.9 fL RDW-CV 14.6 12.0 - 15.5 % PLT 350 166 - 358 10*3/?L MPV 10.4 9.5 - 12.9 fL NRBC/100 WBC 0.0 0.0 - 10.0 /100 WBCs NRBC x10 3 <0.01 10*3/?L GRAN MAT (NEUT) % 77.4 % IMM GRAN % 0.40 % LYMPH % 17.6 % MONO % 3.5 % EOS % 0.5 % BASO % 0.6 % GRAN MAT x10 3 (ANC) 6.46 1.88 - 7.09 10*3/uL IMM GRAN x10 3 0.03 0.00 - 0.06 10*3/uL LYMPH x10 3 1.47 1.32 - 3.29 10*3/uL MONO x10 3 0.29 (*) 0.33 - 0.92 10*3/uL EOS x10 3 0.04 0.03 - 0.39 10*3/uL BASO x10 3 0.05 0.01 - 0.07 10*3/uL COMP. METABOLIC PANEL (61262) - Abnormal NA 141 135 - 145 mmol/L K 4.6 3.5 - 5.0 mmol/L CL 108 98 - 108 mmol/L CO2 TOTAL 21 (*) 23 - 31 mmol/L AGAP 12 2 - 16 BUN 14 7 - 23 mg/dL GLUCOSE 91 70 - 110 mg/dL CREATININE 0.56 0.50 - 1.04 mg/dL TOTAL BILI 0.9 0.1 - 1.1 mg/dL CALCIUM 9.4 8.6 - 10.6 mg/dL T PROTEIN 9.1 (*) 6.3 - 8.2 g/dL ALBUMIN 4.8 3.5 - 5.0 g/dL ALK PHOS 76 34 - 122 U/L ALTv 18 5 - 35 U/L AST(SGOT) 32 13 - 40 U/L eGFR 130.1 mL/min/1.73m2 URINALYSIS - Abnormal APPEARANCE Turbid (*) Clear COLOR Xiomara (*) Yellow PH 5.0 4.8 - 8.0 SP GRAVITY 1.031 (*) 1.003 - 1.030 GLU U QUAL Normal Normal BLOOD 3+ (*) Negative KETONES Negative Negative PROTEIN 30 mg/dL (*) Negative UROBILIN Normal Normal BILIRUBIN Negative Negative NITRITE Negative Negative LEUK BIANCA 250/uL (*) Negative RBC/HPF 55 (*) 0 - 3 HPF WBC/HPF 41 (*) 0 - 5 HPF BACTERIA Few (*) Negative MUCOUS Marked (*) Negative LPF SQ EPITH 10 HPF LIPASE - Normal LIPASE 81 0 - 220 U/L POCT TEST - Normal POCT PREG Negative On board controls acceptable with C Line Yes POCT PREG LOT # [id number] POCT PREG TEST DATE 12/19/2024 EKG: If EKG completed, see Procedure Note. Orders and Treatments: Orders Placed This Encounter Procedures US GALL BLADDER Cbc with Diff Comp. Metabolic Panel (78653) Urinalysis Lipase POCT Test Orders Placed This Encounter Medications NaCl 0.9% (NS) bolus infusion 1,000 mL ketorolac (TORADOL) injection 30 mg hyoscyamine sulfate (LEVSIN/SL) sublingual tablet 0.25 mg ondansetron (ZOFRAN (PF)) injection 4 mg cefTRIAXone (ROCEPHIN) 1,000 mg in NaCl 0.9% (NS) 100 mL MINI-BAG proCHLORperazine 10 mg tablet ketorolac 10 mg tablet hyoscyamine sulfate (LEVSIN/SL) 0.125 mg sublingual tablet cefpodoxime 200 mg tablet ondansetron 8 mg disintegrating tablet First Provider Eval: ED Events Date/Time Event User Comments 03/15/24 161 Medical Screening Begins NICK RESENDIZ MD -- 03/15/24 1614 First Provider Evaluation NICK RESENDIZ MD -- ED COURSE Diagnosis/Impression as of 03/15/24 1732 Bilious vomiting with nausea Urinary tract infection with hematuria, site unspecified Migraine without aura and without status migrainosus, not intractable Procedures: Procedures MDM: Medical Decision Making Problems Addressed: Bilious vomiting with nausea: self-limited or minor problem Migraine without aura and without status migrainosus, not intractable: complicated acute illness or injury with systemic symptoms Urinary tract infection with hematuria, site unspecified: complicated acute illness or injury with systemic symptoms Amount and/or Complexity of Data Reviewed Independent Historian: Details: at 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 Details: From previous visits reviewed and compared with current data Labs: ordered. Decision-making details documented in ED Course. Radiology: ordered and independent interpretation performed. Decision-making details documented in ED Course. Risk OTC drugs. Prescription drug management. Flowsheet Documentation: Scoring Tools: No data recorded Disposition/Condition: ED Disposition ED Disposition Disch - Home Condition Stable Comment -- Discharge Medications: Patient's Medications START taking these medications CEFPODOXIME 200 MG TABLET Take 1 tablet by mouth in the morning and 1 tablet in the evening. HYOSCYAMINE SULFATE (LEVSIN/SL) 0.[address] 2 tablets under the tongue every 6 (six) hours as needed (Abdominal pain or cramping). KETOROLAC 10 MG TABLET Take 1 tablet by mouth every 6 (six) hours as needed for Pain (scale 4-6) or Pain (scale 7-10). ONDANSETRON 8 MG DISINTEGRATING TABLET Take 1 tablet by mouth every 8 (eight) hours as needed for Nausea and Vomiting (N/V). PROCHLORPERAZINE 10 MG TABLET Take 1 tablet by mouth every 6 (six) hours as needed for Nausea and Vomiting (N/V) (Migraine, to take together with TORADOL). CONTINUE taking these medications which have NOT CHANGED ALBUTEROL 90 MCG/ACTUATION INHALER Inhale 2 Puffs every 4 (four) hours as needed for Wheezing or Shortness of Breath. BENZONATATE 200 MG CAPSULE Take 1 capsule by mouth 3 (three) times daily as needed for Cough for up to 20 doses. DOCUSATE 100 MG CAPSULE Take 2 capsules by mouth once daily as needed for Constipation. FERROUS SULFATE 325 MG (65 MG IRON) TABLET Take 1 tablet by mouth in the morning and 1 tablet in the evening. VITAMIN W/FA TABLET Take 1 tablet by mouth in the morning. VITAMIN W/FA TABLET Take 1 tablet by mouth in the morning. START taking Modified Medications as Prescribed No medications on file STOP taking these medications No medications on file Follow-up: Electronically signed by: Nick Resendiz MD 03/15/24 1734 [facility] 2023-11-20 18:50:41 Written/verbal d/c instructions, out of er no distress Nora Grigsby RN [facility] 2023-11-20 16:57:26 Pt c/o generalized abdominal pain accompanied by N/V/D x2 days. Denies urinary complaints. 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 Sarah Pollack RN [facility] 2023-11-20 16:52:00 Images from the original note were not included. 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 She reports that she is able to tolerate liquids w/o vomiting today. Denies F/C, cough/congestion, H/A, dysuria, hesitancy, retention of urine. 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 Vaping Use Never used Alcohol Use Not Currently. Comments: Socially Drug Use Never. Sexual Activity Sexually active; Partners: Male; Control/Protection: None. Past Surgical History: History reviewed. No pertinent surgical history. Review of Systems: Review of Systems Gastrointestinal: Positive for diarrhea, nausea and vomiting. All other systems reviewed and are negative. Physical Exam: ED Triage Vitals [11/20/23 1658] Weight 81.6 kg (180 lb) Actual or estimated Estimated by patient/family report Height 1.626 m (5' 4") BP 133/87 Pulse 98 Resp 16 Temp 36.9 ?C (98.4 ?F) Temp source Oral SpO2 100 % Measured on Room air Physical Exam Vitals and nursing note reviewed. Constitutional: General: She is awake. Appearance: Normal appearance. She is well-developed and well-groomed. She is obese. HENT: Head: Normocephalic and atraumatic. Jaw: There is normal jaw occlusion. Right Ear: Hearing normal. Left Ear: Hearing normal. Nose: Nose normal. Mouth/Throat: Lips: [place]. Mouth: Mucous membranes are dry. Pharynx: Oropharynx is clear. Uvula midline. Eyes: General: Lids are normal. Vision grossly intact. Gaze aligned appropriately. Extraocular Movements: Extraocular movements intact. Conjunctiva/sclera: Conjunctivae normal. Pupils: Pupils are equal, round, and reactive to light. Neck: Trachea: Trachea and phonation normal. Cardiovascular: Rate and Rhythm: Normal rate and regular rhythm. Pulses: Normal pulses. Heart sounds: Normal heart sounds, S1 normal and S2 normal. Pulmonary: Effort: Pulmonary effort is normal. Breath sounds: Normal breath sounds and air entry. Abdominal: General: Abdomen is flat. Bowel sounds are normal. Palpations: Abdomen is soft. Tenderness: There is abdominal tenderness in the right lower quadrant and left lower quadrant. Comments: RLQ and LLQ abdominal pain Musculoskeletal: General: Normal range of motion. Cervical back: Full passive range of motion without pain, normal range of motion and neck supple. Skin: General: Skin is warm and dry. Capillary Refill: Capillary refill takes less than 2 seconds. Neurological: General: No focal deficit present. Mental Status: She is alert and oriented to person, place, and time. Mental status is at baseline. GCS: GCS eye subscore is 4. GCS verbal subscore is 5. GCS motor subscore is 6. Sensory: Sensation is intact. Motor: Motor function is intact. Coordination: Coordination is intact. Gait: Gait is intact. Deep Tendon Reflexes: Reflexes are normal and symmetric. Psychiatric: Attention and Perception: Attention and perception normal. Mood and Affect: Mood and affect normal. Speech: Speech normal. Behavior: Behavior normal. Behavior is cooperative. Thought Content: Thought content normal. Cognition and Memory: Cognition and memory normal. Judgment: Judgment normal. Radiology: No orders to display Lab Results: Lab Results COMP. METABOLIC PANEL (70385) - Abnormal Result Value Ref Range NA 137 135 - 145 mmol/L K 3.7 3.5 - 5.0 mmol/L CL 106 98 - 108 mmol/L CO2 TOTAL 22 (*) 23 - 31 mmol/L AGAP 9 2 - 16 BUN 13 7 - 23 mg/dL GLUCOSE 103 70 - 110 mg/dL CREATININE 0.53 0.50 - 1.04 mg/dL TOTAL BILI 0.4 0.1 - 1.1 mg/dL CALCIUM 8.5 (*) 8.6 - 10.6 mg/dL T PROTEIN 7.9 6.3 - 8.2 g/dL ALBUMIN 4.0 3.5 - 5.0 g/dL ALK PHOS 77 34 - 122 U/L ALTv 17 5 - 35 U/L AST(SGOT) 24 13 - 40 U/L eGFR 131.8 mL/min/1.73m2 CBC WITH DIFF - Abnormal WBC 5.54 4.30 - 11.10 10*3/?L RBC 4.45 3.93 - 5.25 10*6/?L HGB 12.5 11.6 - 15.0 g/dL HCT 38.7 35.7 - 45.2 % MCV 87.0 80.6 - 95.5 fL MCH 28.1 25.9 - 32.8 pg MCHC 32.3 31.6 - 35.1 g/dL RDW-SD 42.1 39.0 - 49.9 fL RDW-CV 13.3 12.0 - 15.5 % PLT 323 166 - 358 10*3/?L MPV 9.7 9.5 - 12.9 fL NRBC/100 WBC 0.0 0.0 - 10.0 /100 WBCs NRBC x10 3 <0.01 10*3/?L GRAN MAT (NEUT) % 59.9 % IMM GRAN % 0.40 % LYMPH % 20.9 % MONO % 8.7 % EOS % 9.6 % BASO % 0.5 % GRAN MAT x10 3 (ANC) 3.32 1.88 - 7.09 10*3/uL IMM GRAN x10 3 <0.03 0.00 - 0.06 10*3/uL LYMPH x10 3 1.16 (*) 1.32 - 3.29 10*3/uL MONO x10 3 0.48 0.33 - 0.92 10*3/uL EOS x10 3 0.53 (*) 0.03 - 0.39 10*3/uL BASO x10 3 0.03 0.01 - 0.07 10*3/uL URINALYSIS - Abnormal APPEARANCE Hazy (*) Clear COLOR Yellow Yellow PH 5.0 4.8 - 8.0 SP GRAVITY 1.020 1.003 - 1.030 GLU U QUAL Normal Normal BLOOD Negative Negative KETONES Negative Negative PROTEIN Negative Negative UROBILIN Normal Normal BILIRUBIN Negative Negative NITRITE Negative Negative LEUK BIANCA 250/uL (*) Negative RBC/HPF 5 (*) 0 - 3 HPF WBC/HPF 26 (*) 0 - 5 HPF BACTERIA Few (*) Negative MUCOUS Slight (*) Negative LPF SQ EPITH 23 HPF LIPASE - Normal LIPASE 101 0 - 220 U/L POCT TEST - Normal POCT PREG Negative On board controls acceptable with C Line Yes POCT PREG LOT # [id number] POCT PREG TEST DATE 11/23/2024 URINE CULTURE EKG: If EKG completed, see Procedure Note. Orders and Treatments: Orders Placed This Encounter Procedures Complete Metabolic Panel CBC with Differential Lipase, Serum Urinalysis POCT Test Urine Culture Orders Placed This Encounter Medications sodium chloride (NS) injection 5 mL ondansetron (ZOFRAN (PF)) injection 4 mg NaCl 0.9% (NS) bolus infusion 1,000 mL ciprofloxacin HCl (CIPRO) tablet 500 mg First Provider Eval: ED Events None ED COURSE ED Course as of 11/20/23 1831 Milagro Nov 20, 2023 1826 MUCOUS(!): Slight Awaiting Cmp results [KV] 1826 BACTERIA(!): Few [KV] 1826 WBC/HPF(!): 26 [KV] 1826 RBC/HPF(!): 5 [KV] 1825 LEUK BIANCA(!): 250/uL [KV] 1825 POCT PREG: Negative [KV] ED Course User Index [KV] Sabrina Durham NP Diagnosis/Impression as of 11/20/23 1831 Generalized abdominal pain Urinary tract infection with hematuria, site unspecified Procedures: Procedures MDM: Medical Decision Making DDX: Abdominal Pain RLQ Appendicitis Salpingitis Ectopic Inguinal hernia Nephrolithiasis Inflammatory bowel disease Mesenteric adenitis (tersina) Epigastric Peptic ulcer disease Gastroesophageal reflux disease Gastritis Pancreatitis LLQ Diverticulitis Salpingitis Ectopic Inguinal hernia Nephrolithiasis IBS UTI MDM: Patient is a 23 y/o F with PMH: Anemia, Obesity who presents with acute onset of lower quadrants abdominal pain, vomiting x 1 and diarrhea. LNMP: 10/20/23. She reports that she is able to tolerate liquids w/o vomiting today. Denies F/C, cough/congestion, H/A, dysuria, hesitancy, retention of urine. ER Labs: LE 250 uL, rbc 5, wbc 26, bacteria few. ER Meds: Cipro 500 mg po x 1 dose. Stable for DC to Home. F/u with pcp in 1 week if symptoms do not improve Amount and/or Complexity of Data Reviewed Labs: ordered. Decision-making details documented in ED Course. Risk Prescription drug management. Flowsheet Documentation: Scoring Tools: No data recorded Disposition/Condition: ED Disposition None Discharge Medications: Patient's Medications START taking these medications No medications on file CONTINUE taking these medications which have NOT CHANGED ALBUTEROL 90 MCG/ACTUATION INHALER Inhale 2 Puffs every 4 (four) hours as needed for Wheezing or Shortness of Breath. BENZONATATE 200 MG CAPSULE Take 1 capsule by mouth 3 (three) times daily as needed for Cough for up to 20 doses. DOCUSATE 100 MG CAPSULE Take 2 capsules by mouth once daily as needed for Constipation. FERROUS SULFATE 325 MG (65 MG IRON) TABLET Take 1 tablet by mouth in the morning and 1 tablet in the evening. ONDANSETRON 4 MG DISINTEGRATING TABLET Take 1 tablet by mouth every 8 (eight) hours as needed for Nausea and Vomiting (N/V). ONDANSETRON 4 MG DISINTEGRATING TABLET Take 1 tablet by mouth every 8 (eight) hours as needed for Nausea and Vomiting (N/V). VITAMIN W/FA TABLET Take 1 tablet by mouth in the morning. VITAMIN W/FA TABLET Take 1 tablet by mouth in the morning. START taking Modified Medications as Prescribed No medications on file STOP taking these medications No medications on file Follow-up: Electronically signed by: Sabrina Durham NP 11/20/231830 Sabrina Durham NP 11/20/231832 Associated attestation - Lisbet Pond DO - 11/20/2023 6:40 PM CDT I was personally available for consultation in the Emergency Department during this encounter and patient evaluation by Sabrina Durham. [facility]
[2024-12-16] MEDS ORDERED: AZITHROMYCIN 250 MG TAB ONE (10:53)
[2024-12-16] MEDS ORDERED: BENZONATATE 100 MG CAP PO ONE (10:53)
[2024-12-16 11:28] LABS: Influenza A Ag Negative; Influenza B Ag Negative; SARS-CoV-2 Antigen Rapid Res Negative (Negative)
--- NOTE | 2024-12-16 11:36 | EDPHYS ---
Physician Documentation [facility] Name: Carlita Atkinson Age: 24 yrs Sex: Female : 2000 Arrival Date: 12/16/2024 Time: 10:27 Bed 13 Private MD: ED Physician Chau Al HPI: 12/16 10:48 This 24 yrs old Female presents to ER via Ambulatory with complaints of Flu henrique Symptoms. 10:48 The patient or guardian reports cough, flu symptoms, arthralgias, low-grade fever, henrique myalgias. Modifying factors: The symptoms are alleviated by nothing. the symptoms are aggravated by nothing. Associated signs and symptoms: Pertinent positives: nausea, rhinorrhea, sore throat. Severity of symptoms: in the emergency department the symptoms. The patient has experienced similar episodes in the past, several times. 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 - Infectious Disease History:: Denies. - Social history:: Smoking status: Patient denies any tobacco usage or history of. ROS: 10:49 Constitutional: Negative for fever, chills, and weight loss, Eyes: Negative for injury, henrique pain, redness, and discharge, Neck: Negative for injury, pain, and swelling, Cardiovascular: Negative for chest pain, palpitations, and edema, Respiratory: Negative for shortness of breath, cough, wheezing, and pleuritic chest pain, Abdomen/GI: Negative for abdominal pain, nausea, vomiting, diarrhea, and constipation, Back: Negative for injury and pain, : Negative for injury, bleeding, discharge, and swelling, MS/Extremity: Negative for injury and deformity, Skin: Negative for injury, rash, and discoloration, Neuro: Negative for headache, weakness, numbness, tingling, and seizure, Psych: Negative for depression, anxiety, suicide ideation, homicidal ideation, and hallucinations, Allergy/Immunology: Negative for hives, rash, and allergies, Endocrine: Negative for neck swelling, polydipsia, polyuria, polyphagia, and marked weight changes, Hematologic/Lymphatic: Negative for swollen nodes, abnormal bleeding, and unusual bruising, 10:49 ENT: Positive for rhinorrhea, sinus congestion, Exam: 10:49 Constitutional: This is a well developed, well nourished patient who is awake, alert, henrique and in no acute distress. Head/Face: Normocephalic, atraumatic. Eyes: Pupils equal round and reactive to light, extra-ocular motions intact. Lids and lashes normal. Conjunctiva and sclera are non-icteric and not injected. Cornea within normal limits. Periorbital areas with no swelling, redness, or edema. ENT: Nares patent. No nasal discharge, no septal abnormalities noted. Tympanic membranes are normal and external auditory canals are clear. Oropharynx with no redness, swelling, or masses, exudates, or evidence of obstruction, uvula midline. Mucous membranes moist. Neck: Trachea midline, no thyromegaly or masses palpated, and no cervical lymphadenopathy. Supple, full range of motion without nuchal rigidity, or vertebral point tenderness. No Meningismus. Chest/axilla: Normal chest wall appearance and motion. Nontender with no deformity. No lesions are appreciated. Cardiovascular: Regular rate and rhythm with a normal S1 and S2. No gallops, murmurs, or rubs. Normal PMI, no JVD. No pulse deficits. Respiratory: Lungs have equal breath sounds bilaterally, clear to auscultation and percussion. No rales, rhonchi or wheezes noted. No increased work of breathing, no retractions or nasal flaring. Abdomen/GI: Soft, non-tender, with normal bowel sounds. No distension or tympany. No guarding or rebound. No evidence of tenderness throughout. Back: No spinal tenderness. No costovertebral tenderness. Full range of motion. Skin: Warm, dry with normal turgor. Normal color with no rashes, no lesions, and no evidence of cellulitis. MS/ Extremity: Pulses equal, no cyanosis. Neurovascular intact. Full, normal range of motion., bilateral aka Neuro: Awake and alert, GCS 15, oriented to person, place, time, and situation. Cranial nerves II-XII grossly intact. Motor strength 5/5 in all extremities. Sensory grossly intact. Cerebellar exam normal. Normal gait. Psych: Awake, alert, with orientation to person, place and time. Behavior, mood, and affect are within normal limits. Vital Signs: 10:35 BP 119 / 79; Pulse 64; Resp 16; Temp 97.8(O); Pulse Ox 98% on R/A; Weight 94.35 kg; ss Height 5 ft. 4 in. ; Pain 3/10; 11:48 BP 116 / 76; Pulse 67; Resp 15; Temp 98.1; Pulse Ox 100% ; me1 10:35 Body Mass Index 35.70 (94.35 kg, 162.56 cm) ss 10:35 Pain Scale: Adult ss MDM: 10:31 Medical Screening Exam initiated [facility] 10:50 Differential diagnosis: obstructed airway, tracheal injury, bronchitis, flu, URI. henrique Antibiotic administration: The patient is discharged and will get outpatient antibiotics, Zithromax. Differential Diagnosis: Obstructed Airway Bronchitis Influenza Upper Respiratory Infection Sinusitis Pharyngitis Otitis Media Allergic Rhinitis Asthma Exacerbation Viral Syndrome Pneumonia. Data reviewed: vital signs, nurses notes, lab test result(s), Flu: negative. Consideration of Admission/Observation Escalation of care including admission/observation considered. I considered the following discharge prescriptions or medication management in the emergency department Medications were administered in the Emergency Department. See MAR. Test considered but Not performed: Labs: no cbc , no cmp met. Care significantly affected by the following chronic conditions: asthma, gerd, scolosis. Counseling: I had a detailed discussion with the patient and/or guardian regarding the historical points, exam findings, and any diagnostic results supporting the discharge/admit diagnosis, lab results, radiology results, the need for outpatient follow up, for definitive care, a family practitioner. 12/16 10:32 Order name: COVID-19 Ag + Flu A+B Ag; Complete Time: 11:35 [facility] 12/16 10:32 Order name: Group A Streptococcus Rapid; Complete Time: 11:35 [facility] 12/16 11:31 Order name: Throat Culture EDMS Administered Medications: 10:55 Drug: AZITHromycin PO 500 mg PO once Route: PO; me1 11:51 Follow up: Response: No adverse reaction me1 10:55 Drug: Tessalon Perle PO 200 mg PO once Route: PO; me1 11:51 Follow up: Response: No adverse reaction me1 Disposition Summary: 12/16/24 11:35 Discharge Ordered Notes: Location: Home henrique Problem: new henrique Symptoms: have improved henrique Condition: Stable henrique Diagnosis - Acute upper respiratory infection, unspecified henrique - Cough [facility] Followup: [facility] - With: Private Physician - When: 2 - 3 days - Reason: Recheck today's complaints, Continuance of care, Re-evaluation by your physician Discharge Instructions: - Discharge Summary Sheet henrique - Upper Respiratory Infection, Adult henrique - Cool Mist Vaporizer henrique - Upper Respiratory Infection, Adult, [id number] henrique - Cough, Adult, [id number] henrique - Cough, Adult [facility] Forms: - Medication Reconciliation Form [facility] - Antibiotic Education [facility] - Prescription Opioid Use [facility] - Patient Portal Instructions [facility] - Leadership Thank You Letter [facility] - Work release form Prescriptions: - Adwoa-D 12 Hour 60-120 mg Oral Tablet Sustained Release 12 hr - take 1 tablet ORAL route every 12 hours As needed; 20 tablet; Refills: 0, [facility] Product Selection Permitted - Tessalon Perles 100 mg Oral capsule - take 2 capsule ORAL route every 8 hours As needed; 30 capsule; Refills: 0, [facility] Product Selection Permitted - Zithromax Z-Froylan 250 mg Oral Tablet - take 1 tablet ORAL route as directed for 5 days Day 1 - take two (2) tablets [facility] one time. Day 2, 3, 4 , 5 take one (1) tablet once daily.; 6 tablet; Refills: 0, Product Selection Permitted Signatures: Dispatcher [employer] Chau Vogt MD MD [facility] Rae Chapin, RN RN Rocio Granado RN RN me1
--- NOTE | 2024-12-16 11:36 | ER ---
Nurse's Notes [facility] Name: Carlita Atkinson Age: 24 yrs Sex: Female : 2000 Arrival Date: 12/16/2024 Time: 10:27 Bed 13 Private MD: Diagnosis: Acute upper respiratory infection, unspecified;Cough Presentation: 12/16 10:35 Chief complaint: Patient states: sore throat Friday, cough Friday and painful cough ss that began this morning. Denies fever. Coronavirus screen: Client denies travel out of the [place] in the last 14 days. Ebola Screen: Patient denies exposure to infectious person. Patient denies travel to an Ebola-affected area in the 21 days before illness onset. Initial Sepsis Screen: Does the patient meet any 2 criteria? No. Patient's initial sepsis screen is negative. Does the patient have a suspected source of infection? No. Patient's initial sepsis screen is negative. Risk Assessment: Do you want to hurt yourself or someone else? Patient reports no desire to harm self or others. Onset of symptoms was December 12, 2024. 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 - Infectious Disease History:: Denies. - Social history:: Smoking status: Patient denies any tobacco usage or history of. Screenin:57 [facility] ED Fall Risk Assessment (Adult) History of falling in the last 3 months, me1 including since admission No falls in past 3 months (0 pts) Confusion or Disorientation No (0 pts) Intoxicated or Sedated No (0 pts) Impaired Gait No (0 pts) Mobility Assist Device Used No (0 pt) Altered Elimination No (0 pt) Score/Fall Risk Level 0 - 2 = Low Risk Maintained a safe environment, Provided non-skid footwear, Hourly rounding (assess needs \T\ fall precautionary measures) done. Abuse screen: Denies threats or abuse. Nutritional screening: No deficits noted. Tuberculosis screening: No symptoms or risk factors identified. Assessment: 10:57 General: Appears ill, well groomed, well developed, well nourished, Behavior is calm, me1 cooperative, appropriate for age, Reports sore throat Friday, cough Friday and painful cough that began this morning. Denies fever. Pain: Complains of pain in left buccal mucosa and right buccal mucosa Pain does not radiate. Pain currently is 3 out of 10 on a pain scale. Quality of pain is described as tender, Pain began 2-3 days ago. Is continuous. Neuro: Level of Consciousness is awake, alert, obeys commands, Oriented to person, place, time, situation, Appropriate for age. Cardiovascular: Patient's skin is warm and dry. Respiratory: Reports cough that is pain with cough since today Airway is patent Respiratory effort is even, unlabored, Respiratory pattern is regular, symmetrical. GI: No signs and/or symptoms were reported involving the gastrointestinal system. : No signs and/or symptoms were reported regarding the genitourinary system. EENT: Reports pain when swallowing. Derm: Skin is intact, is healthy with good turgor, Skin is pink, warm \T\ dry. Musculoskeletal: No signs and/or symptoms reported regarding the musculoskeletal system. Vital Signs: 10:35 BP 119 / 79; Pulse 64; Resp 16; Temp 97.8(O); Pulse Ox 98% on R/A; Weight 94.35 kg; ss Height 5 ft. 4 in. ; Pain 3/10; 11:48 BP 116 / 76; Pulse 67; Resp 15; Temp 98.1; Pulse Ox 100% ; me1 10:35 Body Mass Index 35.70 (94.35 kg, 162.56 cm) ss 10:35 Pain Scale: Adult ss ED Course: 10:29 Patient arrived in ED. im 10:31 Chau Al MD is Attending Physician. henrique 10:36 Triage completed. ss 10:36 Arm band placed on right wrist. ss 10:43 Rocio Granado, RHINA is Primary Nurse. me1 10:55 Flu and/or RSV swab sent to lab. Strep swab sent to lab. me1 10:57 Patient has correct armband on for positive identification. Bed in low position. Call me1 light in reach. Side rails up X2. Provided Education on: POC. Verbalized understanding.. Client placed on continuous cardiac and pulse oximetry monitoring. NIBP monitoring applied. Pulse ox on. NIBP on. 10:57 No provider procedures requiring assistance completed. me1 11:00 Patient did not have IV access during this emergency room visit. me1 Administered Medications: 10:55 Drug: AZITHromycin PO 500 mg PO once Route: PO; me1 11:51 Follow up: Response: No adverse reaction me1 10:55 Drug: Tessalon Perle PO 200 mg PO once Route: PO; me1 11:51 Follow up: Response: No adverse reaction me1 Medication: 10:57 VIS not applicable for this client. me1 Outcome: 11:35 Discharge ordered by . henrique 11:49 Discharged to home ambulatory, me1 11:49 Condition: stable 11:49 Discharge instructions given to patient, Instructed on discharge instructions, follow up and referral plans. medication usage, Demonstrated understanding of instructions, follow-up care, 11:49 Patient left the ED. ss 11:49 Prescriptions given X 3, me1 Signatures: Chau Al MD MD cha Blanchard, Shelby, RN RN Bozena Tan Michelle, RN RN me1 Corrections: (The following items were deleted from the chart) 10:57 10:35 Chief complaint: Patient states: sore throat Law, cough Daisy and painful me1 cough that began this morning. Denies fever 11:48 10:35 Chief complaint: Patient states: sore throat Law, cough Daisy and painful me1 cough that began this morning. Denies fever me1
[2024-12-16 11:56] VITALS: BP 116/76; TEMP 98.1; O2SAT 100
== END 2024-12-16 11:49 | disposition home or self-care (01) ==
LOC: ER 10:27
DX: J06.9 Acute upper respiratory infection, unspecified (principal); Z11.52 Encounter for screening for COVID-19
CPT/HCPCS: 36415; 87070; 87428; 99284